=== PATIENT | female | born 1945 | race Caucasian/White ===

== ENCOUNTER → 2017-08-09 08:25 | Outpatient (CLI) | payer MEDICARE, OTHER, SELFPAY ==
[2017-08-09 12:01] LABS: Absolute Lymphocyte Count 1.85 X10^3/ul (0.83-4.51); Absolute Neutrophil Count 2.6 X10^3/uL (2.0-7.7); Basophil# 0.02 X10^3/uL; Basophil% 0.4 % (0-1); Hematocrit 39.3 % (37-47); Lymphocyte # 1.85 X10^3/ul (4.0); Lymphocyte % 36.6 % (19-41); Mean Corp Hgb Conc 33.1 g/gl (32-36); Mean Corpuscular Hgb 30.9 pg (27.0-32.0); Mean Corpuscular Volume 93.3 fL (81-99); Mean Platelet Vol. 11.3 fl (6.2-12.0); Monocyte# 0.47 X10^3/uL; Monocyte% 9.3 % (0-10); Neutrophil % 51.5 % (47-70); Platelet Count 210 K/mm3 (150-450); RBC Distribution Width CV 12.6 % (11.6-14.6); RBC Distribution Width SD 42.2 fl (35.1-43.9); Red Blood Count 4.21 M/mm3 (4.2-5.4); White Blood Count 5.1 K/mm3 (4.4-11.0)
[2017-08-09 12:03] LABS: POSITIVE COUNT NO; POSITIVE DIFFERENTIAL NO; POSITIVE MORPHOLOGY NO
[2017-08-09 12:25] LABS: AST(SGOT) 25 U/L (15-37); Alanine Aminotransfer ALT/SGPT 32 U/L (13-56); Albumin, Serum 3.9 g/dL (3.2-5.0); Alkaline Phosphatase 70 U/L (45-117); Anion Gap 7 (5-15); BUN 21 mg/dL (7-18); BUN/Creat Ratio 31.4 RATIO (10-20); Chloride 101 mmol/L (98-107); Cholesterol 178 mg/dL (200); Creatinine, Serum 0.67 mg/dL (0.55-1.02); EST Glomerular Filtration Rate 93 mL/min (>60); Est Glom Filt Rate - Afr Amer 112 mL/min (>60); Globulin 3.8 g/dL (2.2-4.2); Glucose 88 mg/dL (74-106); High Density Lipoprotein 55 mg/dL; Magnesium 2.2 mg/dL (1.6-2.6); Potassium 4.5 mmol/L (3.5-5.1); Protein, Total 7.7 g/dL (6.4-8.2); Sodium Level 138 mmol/L (136-145); Thyroid Stim Hormone (TSH) 1.37 uIU/mL (0.358-3.74); Triglycerides 140 mg/dL; Very Low Density Lipoprotein 28 mg/dL (5-40)
== END ==
LOC: LAB.FUTURE 02-10 00:38 → BFHLAB 12-10 10:17
PROVIDERS: Family Provider Family Medicine; PCP Family Medicine; Visit Provider Family Medicine
DX: I10 Essential (primary) hypertension (principal); I49.9 Cardiac arrhythmia, unspecified; E78.5 Hyperlipidemia, unspecified; G47.00 Insomnia, unspecified
CPT/HCPCS: 36415; 80053; 80061; 83735; 84443; 85025

== ENCOUNTER → 2018-09-03 10:58 | Outpatient (CLI) | payer MEDICARE, SELFPAY ==
[2018-09-03 12:33] LABS: Absolute Lymphocyte Count 1.74 X10^3/ul (0.83-4.51); Absolute Neutrophil Count 3.3 X10^3/uL (2.0-7.7); Basophil# 0.01 X10^3/uL; Basophil% 0.2 % (0-1); Eosinophil# 0.05 X10^3/uL; Eosinophils% 0.9 % (0-5); Hematocrit 41.1 % (37-47); Hemoglobin 13.5 g/dl (12.0-15.0); Lymphocyte # 1.74 X10^3/ul (4.0); Lymphocyte % 31.8 % (19-41); Mean Corp Hgb Conc 32.8 g/gl (32-36); Mean Corpuscular Hgb 30.4 pg (27.0-32.0); Mean Corpuscular Volume 92.6 fL (81-99); Mean Platelet Vol. 10.4 fl (6.2-12.0); Monocyte# 0.41 X10^3/uL; Monocyte% 7.5 % (0-10); Neutrophil # 3.27 X10^3/uL (2.7-7.7); Neutrophil % 59.6 % (47-70); Platelet Count 240 K/mm3 (150-450); RBC Distribution Width CV 12.9 % (11.6-14.6); RBC Distribution Width SD 43.5 fl (35.1-43.9); Red Blood Count 4.44 M/mm3 (4.2-5.4); White Blood Count 5.5 K/mm3 (4.4-11.0)
[2018-09-03 12:38] LABS: POSITIVE COUNT NO; POSITIVE DIFFERENTIAL NO; POSITIVE MORPHOLOGY NO
[2018-09-03 13:37] LABS: ALB/GLOB Ratio 1.1 RATIO (0.9-2.4); AST(SGOT) 27 U/L (15-37); Alanine Aminotransfer ALT/SGPT 32 U/L (13-56); Albumin, Serum 4.1 g/dL (3.2-5.0); Alkaline Phosphatase 76 U/L (45-117); Anion Gap 10 (5-15); BUN 18 mg/dL (7-18); BUN/Creat Ratio 24.2 RATIO (10-20); Calcium,Total 9.1 mg/dL (8.5-10.1); Chloride 103 mmol/L (98-107); Creatinine, Serum 0.74 mg/dL (0.55-1.02); EST Glomerular Filtration Rate 81 mL/min (>60); Est Glom Filt Rate - Afr Amer 98 mL/min (>60); Globulin 3.6 g/dL (2.2-4.2); Glucose 89 mg/dL (74-106); Potassium 4.2 mmol/L (3.5-5.1); Protein, Total 7.7 g/dL (6.4-8.2); Sodium Level 139 mmol/L (136-145); Thyroid Stim Hormone (TSH) 0.93 uIU/mL (0.358-3.74)
== END ==
PROVIDERS: Family Provider Family Medicine; PCP Family Medicine; Visit Provider Family Medicine
DX: I10 Essential (primary) hypertension (principal)
CPT/HCPCS: 36415; 80053; 84443; 85025

== ENCOUNTER → 2018-09-26 07:08 | Outpatient (CLI) | payer MEDICARE, SELFPAY ==
--- NOTE | 2018-09-26 07:14 | BI_ITS ---
MAMMOGRAPHY - BILATERAL SCREENING REASON FOR EXAM: Female, 73 years old. Routine annual screening examination. PERTINENT HISTORY: Non-contributory. TECHNIQUE: Digital bilateral breast kamini (3D mammographic acquisition) in the CC and MLO projections. 2-D mediolateral oblique (MLO) and craniocaudad (CC) views of both breasts were obtained. CAD: Full Field Digital Mammography with Computer Added Detection was performed. COMPARISON: Comparison is made with prior study dated February 12, 2017 and January 12, 2016. FINDINGS: Breast Composition: The breasts are heterogeneously dense, which may obscure small masses. There are no dominant masses or suspicious calcifications. No other significant abnormalities are identified. There has been no significant change since the prior study. BI/SCREENING MAMM (CAD), BILAT IMPRESSION: Stable bilateral screening mammogram. Yearly follow-up mammogram recommended. (A) ASSESSMENT CATEGORY: BIRADS Category 1: Negative. A letter regarding these results will be sent to the patient by the facility within 30 days. Approximately 10% of breast cancers are not detected by mammography. A normal mammogram should not delay biopsy of a clinically suspicious abnormality. [id number] Electronically Signed: Houston Carey, at 10:59 EDT , Service support ,
== END ==
PROVIDERS: Family Provider Family Medicine; PCP Family Medicine; Referring Provider Family Medicine; Visit Provider Family Medicine
DX: Z12.31 Encounter for screening mammogram for malignant neoplasm of breast (principal)
CPT/HCPCS: 77063; 77067

== ENCOUNTER → 2020-01-02 08:09 | Outpatient (CLI) | payer MEDICARE, SELFPAY ==
--- NOTE | 2020-01-02 08:11 | BI_ITS ---
MAMMOGRAPHY - BILATERAL SCREENING REASON FOR EXAM: Female, 74 years old. Routine annual screening examination. PERTINENT HISTORY: Non-contributory. TECHNIQUE: Digital bilateral breast nan (3D mammographic acquisition) in the CC and MLO projections. 2-D mediolateral oblique (MLO) and craniocaudad (CC) views of both breasts were obtained. CAD: Full Field Digital Mammography with Computer Added Detection was performed. COMPARISON: Comparison is made with prior study dated September 26, 2018 and February 12, 2017. FINDINGS: Breast Composition: There are scattered areas of fibroglandular density. There are no dominant masses or suspicious calcifications. Stable bilateral secretory calcifications. No other significant abnormalities are identified. There has been no significant change since the prior study. BI/SCREEN MAMM (CAD) W/NAN BILAT IMPRESSION: Stable bilateral screening mammogram. Yearly follow-up mammogram recommended. (A) ASSESSMENT CATEGORY: BIRADS Category 2: Benign. A letter regarding these results will be sent to the patient by the facility within 30 days. Approximately 10% of breast cancers are not detected by mammography. A normal mammogram should not delay biopsy of a clinically suspicious abnormality. [id number] Electronically Signed: Houston Carey, at 9:26 EDT , Service support ,
== END ==
PROVIDERS: PCP Family Medicine; Referring Provider Family Medicine; Visit Provider Family Medicine
DX: Z12.31 Encounter for screening mammogram for malignant neoplasm of breast (principal)
CPT/HCPCS: 77063; 77067

== ENCOUNTER 2020-06-01 05:28 | Day surgery (SDC) | payer MEDICARE, SELFPAY ==
--- NOTE | 2020-06-01 05:53 | PCM.HP.STD ---
Problem List (1) Guaiac positive stools Status: Acute History of Present Illness Date of Admission: 06/01/20 The patient is a 74 year old F who presents for esophagogastroduodenoscopy and colonoscopy and evaluation of Hemoccult positive stool. 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 Is patient in pain?: No Allergies No Known Allergies Allergy (Verified 05/11/20 13:44) Medications Calcium 600 mg PO BID 03/13/14 [History Confirmed 05/11/20] Cholecalciferol (Vitamin D3) [Vitamin D3] 2,000 unit PO DAILY 03/13/14 [History Confirmed 05/11/20] Citalopram Hydrobromide [Celexa] 10 mg PO DAILY 03/13/14 [History Confirmed 05/11/20] Lovastatin [Mevacor] 20 mg PO QHS 03/13/14 [History Confirmed 05/11/20] Metoprolol(XL)Succ [Toprol Xl (Beta Shelly)] 25 mg PO QHS 03/13/14 [History Confirmed 05/11/20] Omeprazole [Prilosec] 40 mg PO DAILY 03/13/14 [History Confirmed 05/11/20] Ubidecarenone [Coq10] 200 mg PO QHS 03/13/14 [History Confirmed 05/11/20] gabapentin 300 mg capsule 300 mg PO DAILY 05/11/20 [History Confirmed 05/11/20] meloxicam 7.5 mg tablet 7.5 mg PO BID tab 05/11/20 [History Confirmed 05/11/20] Is last menstrual period known: No Post menopausal: Yes Patient : No PFSH Medical History (Updated 05/11/20 @ 14:[address] Quinton Kuhn MD) Guaiac positive stools (Acute) Arthropathy of left shoulder (Acute) CTS (carpal tunnel syndrome) (Acute) Cardiac arrhythmia (Acute) GERD (gastroesophageal reflux disease) (Acute) Hemorrhoids (Acute) Hyperlipidemia (Acute) Lumbar discogenic pain syndrome (Acute) Osteoarthritis (Acute) HTN (hypertension) (Chronic) Surgical History (Updated 05/11/20 @ 13:50 by Kaci Little) History of appendectomy (Acute) History of arthroscopy of left knee (Acute) History of bilateral carpal tunnel release (Acute) History of bilateral hip arthroplasty (Acute) History of bunionectomy (Acute) History of cholecystectomy (Acute) History of colonoscopy (Acute ~2004) Family History (Updated 05/11/20 @ 13:50 by Kaci Little) Father No problems noted. Social History (Updated 05/11/20 @ 14:[address] Quinton Kuhn MD) Smoking Status: Never smoker HPI HPI Chief Complaint: positive fecal testing Details: Patient was informed that this visit will be billed to patient. This visit was conducted during COV- pandemic. The patient is referred by her primary care physician Dr. Jasson Mancuso for surgical evaluation regarding fit test positive stool. A written copy my surgical consult recommendations will return to him KOJO TAVERAS, is a 74 F who was contacted by telephone today to undergo preoperative evaluation because of Hemoccult positive stool. I was in my office place in the phone call to the patient. 74-year-old female. She had a stool test that was positive for blood. Her most recent colonoscopy was May 08, 2005 which was not remarkable. She has no personal or family history of colon cancer. She will eat breakfast and then have some abdominal cramps. Reasonably mild. That is been ongoing for over a year. No bright red blood per rectum or melena. No diarrhea no unexpected weight loss. She has had a personal history of peptic ulcer disease but that was 20 years ago. She is maintained however on omeprazole 40 mg daily. 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 Her medication list previously had her listed on an anticoagulant but she is not currently taking that. She has seen Dr. Ernesto Canela in the past. She is able to climb a flight of stairs. There is no problem with fever or chills cough shortness of breath or dyspnea on exertion. She has had no history of DVT. ROS Const Constitutional: No anorexia, body ache, chills, excessive sweating, fatigue, fever(s), frequent falls, headache(s), decreased energy, malaise, night sweats, snoring, weakness, weight change, sleep problems, abnormal sleep pattern, change in appetite or other ENT ENT: No abnormal hearing, ear pain, ear discharge, ear pressure, hearing loss, tinnitus, dizziness/vertigo, balance problems, nosebleed/epistaxis, nasal congestion, nasal obstruction, nose pain, sinus pressure, sinus pain, nasal discharge, post nasal drip, headache(s), facial pain, dental pain, dry mouth, difficulty swallowing, bad breath, hoarseness, lip swelling, mouth lesions, mouth pain, neck pain, sore throat, tongue swelling, throat swelling or other Resp Respiratory: No cough or snoring Cardio Cardiology: No chest pain at rest, chest pain with exertion, leg pain with exertion, excessive sweating, shortness of breath, dyspnea on exertion, generalized swelling, irregular heart rhythm, lightheadedness, orthopnea, radiating jaw, neck or arm pain, fast heart rate, slow heart rate, palpitations or other Gastro GI: Positive for heartburn; no abdominal pain, belching, bloating, change in bowel habits, change in stool character, coffee ground emesis, constipation, cramping, diarrhea, difficulty swallowing, feeling full early, excessive flatus, incontinent of stools, Vomiting blood/hematemesis, blood in stool, loose stools, Black,tarry stools, nausea/dyspepsia, pain with swallowing, vomiting or other Musc Musculoskeletal: No abnormal walking, joint pain, back pain, deformity, joint swelling, limited range of motion, loss of height, muscle cramps, muscle weakness, decreased muscle mass, body aches, neck pain, numbness, radiating pain into limb, stiffness, tingling or other Neuro Neurology: No abnormal walking, abnormal hearing, behavioral changes, confusion, weakness, frequent falls, headache(s), memory loss, numbness or tingling Psych Psychiatric: No abnormal sleep pattern, No lack of enjoyment, No anxiety, No behavioral changes, No change in appetite, No confusion, No depression, No difficulty concentrating, No hopelessness, No irritability, No memory loss, No mood swings, No panic attacks, No paranoia, No Thoughts of harming yourself/Others, No hallucinations, No other Endo Endocrine: No change in body appearance, cold intolerance, excessive sweating, fatigue, flushing, heat intolerance, increased thirst/drinking, increased hunger, increased urination or other Aller/Imm Allergy/Immunologic: No lip swelling, throat swelling or tongue swelling Exam Const General: cooperative, comfortable [facility] Musculoskeletal: No muscle weakness Details: Details:: Exam was limited due to phone visit with no video. Quality Reporting Tobacco Screening ([facility] 138) Smoking Status: Never smoker Assessment & Plan Problems 1. Guaiac positive stools R19.5 Plan 74-year-old female with Hemoccult positive stool. She is got a previous history of peptic ulcer disease and she is maintained on omeprazole therapy. She does have some postprandial nondescript upper abdominal pain and cramps. She has not noticed any bright red blood per rectum or melena. I recommend that we obtain a CBC to assure no anemia. I propose for her a esophagogastroduodenoscopy with possible biopsy and colonoscopy with possible biopsy or polypectomy as indicated. She is aware of the technique, benefit, risk and alternatives. She states that her had the 6 same procedure done just 3 weeks prior. Because of her previous history of postprocedural arrhythmia I will recommend monitored anesthesia care. We discussed the presence of COVID-19. The [facility] still reporting a manageable degree. She has had an opportunity to ask have questions answered and she would like to proceed. Copy: Dr. Jasson Kuhn M.D., F.A.C.S. Past Medical History Medical History: Medical History (Last Updated 05/11/20 @ 13:50 by Kaci Little) Guaiac positive stools (Acute) R19.5 Arthropathy of left shoulder M19.012 CTS (carpal tunnel syndrome) G56.00 Cardiac arrhythmia I49.9 GERD (gastroesophageal reflux disease) K21.9 Hemorrhoids K64.9 Hyperlipidemia E78.5 Lumbar discogenic pain syndrome M51.26 Osteoarthritis M19.90 HTN (hypertension) I10 Allergies No Known Allergies Allergy (Verified 05/27/20 13:17) Home Medications: Ambulatory Orders Medication Instructions Recorded Calcium 600 mg PO BID 03/13/14 Cholecalciferol (Vitamin D3) 2,000 unit PO DAILY 03/13/14 [Vitamin D3] Citalopram Hydrobromide [Celexa] 10 mg PO DAILY 03/13/14 Lovastatin [Mevacor] 20 mg PO QHS 03/13/14 Metoprolol(XL)Succ [Toprol Xl 25 mg PO QHS 03/13/14 (Beta Shelly)] Omeprazole [Prilosec] 40 mg PO DAILY 03/13/14 gabapentin 300 mg capsule 300 mg PO DAILY 05/11/20 meloxicam 7.5 mg tablet 7.5 mg PO BID tab 05/11/20 Temazepam 30 mg PO QHS 05/27/20 Surgical History: Surgical History (Last Updated 05/11/20 @ 13:50 by Kaci Little) History of appendectomy Z90.49 History of arthroscopy of left knee Z98.890 History of bilateral carpal tunnel release Z98.890 History of bilateral hip arthroplasty Z96.643 History of bunionectomy Z98.890 History of cholecystectomy Z90.49 History of colonoscopy Onset Date: ~2004 Z98.890 Smoking Status: Never smoker Review of Systems Constitutional: Denies: Fever, Night Sweats Cardiovascular: Denies: Chest Pain Respiratory: Denies: Cough, Shortness of Breath Gastrointestinal: Denies: Abdominal Pain, Nausea, Melena VTE Information - Inpt Only VTE Present on Admission: No Patient Problems: Active and Suspected Problems (Last Updated 05/11/20 @ 13:50 by Kaci Little) Guaiac positive stools (Acute) - Physical Exam General: Alert, Oriented x3, Cooperative, No apparent distress Lungs: Clear to auscultation, Normal air movement Cardiovascular: Regular rate, Regular Rhythm Abdomen: Bowel Sounds Present, Soft, Non Tender Extremities: No Calf Tenderness Neurological: - - Normal cognition Psych/Mental Status: Normal Affect Assessment/Plan All Active Problems (Last Updated 05/11/20 @ 13:50 by Kaci Little) Guaiac positive stools (Acute) I plan to proceed with a esophagogastroduodenoscopy with possible biopsy and colonoscopy with possible biopsy or polypectomy is indicated. She is aware of the technique, benefit, risk, alternatives. She has had an opportunity to ask and have questions answered. We will proceed as noted. Quinton Kuhn M.D., F.A.C.S. Procedure Criteria Procedure Type: Elective COVID Risk Discussion: The surgeon/proceduralist and patient have discussed in detail the risk of exposure to and/or potential harm posed by the COVID-19 virus with having a surgery/procedure at this time versus the risk of delaying the surgery/procedure. It is not possible to know either the risk of delaying the surgery or procedure or chance of getting an infection with perfect accuracy, but a joint decision was made between the patient and the surgeon/proceduralist to proceed at this time with the scheduled surgery/procedure as indicated on the consent form.
[2020-06-01 05:56] VITALS: BP 153/86; PULSE 63; RESP 16; TEMP 36.4; O2SAT 100; BMI 24.5
[2020-06-01] MEDS: Lactated Ringers 1,000 ML 75 ML IV (06:17)
--- NOTE | 2020-06-01 06:30 | IMM_PTH ---
PATIENT: KOJO TAVERAS LOC: EN U#:[id number] AGE/SX: 74/F ROOM: RE06/01/[address]: Dr. Quinton Kuhn MD : 1945 BED: DIS: 06/01/2020 SPEC #: [id number] RECD: 06/01/20 11:38 STATUS: TATI REQ #: [id number] ROSSI: 06/01/20 06:[address]: Quinton Kuhn DEPT: IMMUNOHISTOCHEMISTRY RECD BY: Breanne Marina ENTERED: 06/01/20 11:39 SP TYPE: IMMUNO OTHR DR: Dr. Jasson Mancuso MD Tissues: B - Stomach, NOS Procedures: H Pylori (initial) PHYSICIAN & INSTITUTION [place] [id number] SPECIMEN INFORMATION: Tissue Source: B - Antrum biopsy Clinical Info: Guaiac positive stools Specimen Number: [id number] CPT code: 27126 METHODOLOGY: Deparaffinized sections of prefer/formalin-fixed tissue or PAP/DQ stained slides are incubated with monoclonal/polyclonal antibodies/oligonucleotide probes. Localization is made via biotin free immunoperoxidase method. Appropriate controls are performed and reacted as expected. Results on target cell population are indicated in the following table: RESULTS: ANTIBODY / CLONE RESULT Block B H Pylori (polyclonal) negative These tests were developed and their performance characteristics determined by [facility]. They may not have been cleared or approved by the U.S. Food and Drug Administration. The FDA has determined that such clearance or approval is not necessary. INTERPRETATION: B. Antrum, biopsy: Negative for Helicobacter pylori organisms. AM:bianca 06/02/20
--- NOTE | 2020-06-01 06:30 | EGD_PTH ---
PATIENT: KOJO TAVERAS LOC: EN U#:[id number] AGE/SX: 74/F ROOM: RE06/01/[address]: Dr. Quinton Kuhn MD : 1945 BED: DIS: 06/01/2020 SPEC #: [id number] RECD: 06/01/20 08:49 STATUS: TATI VALENTIN #: [id number] ROSSI: 06/01/20 06:[address]: Quinton Kuhn DEPT: SURGICAL PATHOLOGY RECD BY: Rajwinder Lu ENTERED: 06/01/20 10:39 SP TYPE: EGD [facility] DR: Dr. Jasson Mancuso MD Tissues: A - Duodenum, NOS B - Gastric mucous membrane C - Gastric mucous membrane D - Esophagus, NOS Procedures: Surgery Specimen Level IV HEADER OPERATION: [place] PRE[place]OP DIAGNOSIS: Guaiac positive stools TISSUE SUBMITTED: A - Duodenum biopsy, B - Antrum biopsy for histo and H. pylori, C - Gastric polyp biopsy, D - Distal esophagus biopsy MICROSCOPIC DIAGNOSIS A. Duodenum, biopsy: No pathologic change. B. Gastric antrum, biopsy: Minimal chronic inflammation. See comment. C. Gastric polyp, biopsy: Fundic gland polyp. D. Distal esophagus, biopsy: Fragment of benign squamous mucosa. No evidence of inflammation. AM:bianca 06/02/20 COMMENT B. The results of immunohistochemistry for Helicobacter pylori will be reported separately ([id number]). MICROSCOPIC DESCRIPTION Slides are reviewed. GROSS DESCRIPTION A - Received in fixative is one container labeled with the patient's name and designated duodenum biopsy. The specimen consists of one irregular fragment of light orr soft tissue that measures 0.2 x 0.2 x 0.1 cm. The specimen is totally submitted in one cassette. B - Received in fixative is one container labeled with the patient's name and designated antrum biopsy. The specimen consists of one irregular fragment of light orr soft tissue that measures 0.3 x 0.3 x 0.1 cm. The specimen is totally submitted in one cassette. C - Received in fixative is one container labeled with the patient's name and designated gastric polyp biopsy. The specimen consists of one irregular fragment of light orr soft tissue that measures 0.4 x 0.3 x 0.1 cm. The specimen is totally submitted in one cassette. D - Received in fixative is one container labeled with the patient's name and designated distal esophagus biopsy. The specimen consists of one irregular fragment of light orr soft tissue that measures 0.3 x 0.3 x 0.1 cm. The specimen is totally submitted in one cassette. / SJ:rg 06/01/20 TC:3 CPT: 13941 x4
--- NOTE | 2020-06-01 06:58 | OP.CCLET_ITS ---
06/01/2020 Jasson Mancuso Re : Upper GI endoscopy procedure for Wendy Patton Dear Jamee This procedure was performed on Monday, June 01, 2020. My impressions and recommendations are as follows: Impressions : - Medium-sized hiatal hernia. - Z-line variable, 38 cm from the incisors. Biopsied. - Erythematous mucosa in the antrum. Biopsied. - Normal examined duodenum. Biopsied. Recommendations : - Discharge patient to home. - Resume previous diet. - Continue present medications. - Await pathology results. - Telephone my office for pathology results in 1 week. No active bleeding, possible mild gastritis and esophagitis. Likely not source of hemocult positive stool My findings are described in the full procedure note, which is enclosed. If I can be of further assistance, please feel free to contact me at Doctor phone number(s): Work: . Sincerely, Quinton Kuhn MD 06/01/2020 6:57:36 AM This report has been signed electronically.
--- NOTE | 2020-06-01 06:58 | OP.EGD_ITS ---
Patient Name: Wendy Patton Procedure Date: 06/01/2020 6:03 AM Date of : 1945 Age: 74 Procedure: Upper GI endoscopy Indications: Hemocult positive stool Providers: Quinton Kuhn MD Referring MD: Jasson Mancuso Medicines: See the Anesthesia note for documentation of the administered medications Complications: No immediate complications. Procedure: Pre-Anesthesia Assessment: - Prior to the procedure, a History and Physical was performed, and patient medications and allergies were reviewed. The patient's tolerance of previous anesthesia was also reviewed. The risks and benefits of the procedure and the sedation options and risks were discussed with the patient. All questions were answered, and informed consent was obtained. Prior Anticoagulants: The patient has taken no previous anticoagulant or antiplatelet agents. ASA Grade Assessment: II - A patient with mild systemic disease. After reviewing the risks and benefits, the patient was deemed in satisfactory condition to undergo the procedure. After obtaining informed consent, the endoscope was passed under direct vision. Throughout the procedure, the patient's blood pressure, pulse, and oxygen saturations were monitored continuously. The gastroscope was introduced through the mouth, and advanced to the second part of duodenum. The upper GI endoscopy was accomplished without difficulty. The patient tolerated the procedure well. Scope In: 6:32:52 AM Scope Out: 6:37:38 AM Total Procedure Duration Time 0 hours 4 minutes 46 seconds Findings: A medium-sized hiatal hernia was present. The Z-line was variable and was found 38 cm from the incisors. Biopsies were taken with a cold forceps for histology. Localized mildly erythematous mucosa without bleeding was found in the gastric antrum. Biopsies were taken with a cold forceps for histology. The examined duodenum was normal. Biopsies were taken with a cold forceps for histology. Multiple sessile polyps with no bleeding and no stigmata of recent bleeding were found on the greater curvature of the stomach. The polyp was removed with a cold biopsy forceps. Resection and retrieval were complete. Impression: - Medium-sized hiatal hernia. - Z-line variable, 38 cm from the incisors. Biopsied. - Erythematous mucosa in the antrum. Biopsied. - Normal examined duodenum. Biopsied. Recommendation: - Discharge patient to home. - Resume previous diet. - Continue present medications. - Await pathology results. - Telephone my office for pathology results in 1 week. No active bleeding, possible mild gastritis and esophagitis. Likely not source of hemocult positive stool Procedure Code(s): --- Professional --- 72389, Esophagogastroduodenoscopy, flexible, transoral; with biopsy, single or multiple Diagnosis Code(s): --- Professional --- K44.9, Diaphragmatic hernia without obstruction or gangrene K22.8, Other specified diseases of esophagus K31.89, Other diseases of stomach and duodenum CPT copyright 2017 [employer]. All rights reserved. The codes documented in this report are preliminary and upon bread panner review may be revised to meet current compliance requirements. Quinton Kuhn MD 06/01/2020 6:57:36 AM This report has been signed electronically. Number of Addenda: 0 Note Initiated On: 06/01/2020 6:03 AM
[2020-06-01 07:00] VITALS: BP 153/86; BP 94/56; PULSE 58; RESP 14; TEMP 35.8; O2SAT 97
--- NOTE | 2020-06-01 07:01 | OP.CCLET_ITS ---
06/01/2020 Jasson Mancuso Re : Colonoscopy procedure for Wendy Patton Dear Jamee This procedure was performed on Monday, June 01, 2020. My impressions and recommendations are as follows: Impressions : - Non-thrombosed external hemorrhoids, non-thrombosed internal hemorrhoids and internal hemorrhoids that prolapse with straining, but spontaneously regress to the resting position (Grade II) found on digital rectal exam. - The entire examined colon is normal. - No specimens collected. Recommendations : - Discharge patient to home. - Resume previous diet. - Continue present medications. - Repeat colonoscopy is not recommended due to current age (66 years or older) for screening purposes. Internal hemorrhoids likely possibility for hemocult positive stool. CBC pending My findings are described in the full procedure note, which is enclosed. If I can be of further assistance, please feel free to contact me at Doctor phone number(s): Work: . Sincerely, Quinton Kuhn MD 06/01/2020 7:00:41 AM This report has been signed electronically.
--- NOTE | 2020-06-01 07:01 | OP.COLON_ITS ---
Patient Name: Wendy Patton Procedure Date: 06/01/2020 6:38 AM Date of : 1945 Age: 74 Procedure: Colonoscopy Indications: Hemocult positive stool Providers: Quinton Kuhn MD Referring MD: Jasson Mancuso Medicines: See the Anesthesia note for documentation of the administered medications Patient Profile: Last Colonoscopy: 2004. Complications: No immediate complications. Procedure: Pre-Anesthesia Assessment: - Prior to the procedure, a History and Physical was performed, and patient medications and allergies were reviewed. The patient's tolerance of previous anesthesia was also reviewed. The risks and benefits of the procedure and the sedation options and risks were discussed with the patient. All questions were answered, and informed consent was obtained. Prior Anticoagulants: The patient has taken no previous anticoagulant or antiplatelet agents. ASA Grade Assessment: II - A patient with mild systemic disease. After reviewing the risks and benefits, the patient was deemed in satisfactory condition to undergo the procedure. After I obtained informed consent, the scope was passed under direct vision. Throughout the procedure, the patient's blood pressure, pulse, and oxygen saturations were monitored continuously. The Colonoscope was introduced through the anus and advanced to the cecum, identified by appendiceal orifice and ileocecal valve. The colonoscopy was performed without difficulty. The patient tolerated the procedure well. The quality of the bowel preparation was good. The ileocecal valve and the appendiceal orifice were photographed. Scope In: 6:39:44 AM Scope Withdrawal Time 0 hours 6 minutes 27 seconds Scope Out: 6:51:35 AM Total Procedure Duration Time 0 hours 11 minutes 51 seconds Findings: The digital rectal exam findings include non-thrombosed external hemorrhoids, non-thrombosed internal hemorrhoids and internal hemorrhoids that prolapse with straining, but spontaneously regress to the resting position (Grade II). The colon (entire examined portion) appeared normal. Impression: - Non-thrombosed external hemorrhoids, non-thrombosed internal hemorrhoids and internal hemorrhoids that prolapse with straining, but spontaneously regress to the resting position (Grade II) found on digital rectal exam. - The entire examined colon is normal. - No specimens collected. Recommendation: - Discharge patient to home. - Resume previous diet. - Continue present medications. - Repeat colonoscopy is not recommended due to current age (66 years or older) for screening purposes. Internal hemorrhoids likely possibility for hemocult positive stool. CBC pending Procedure Code(s): --- Professional --- 74708, Colonoscopy, flexible; diagnostic, including collection of specimen(s) by brushing or washing, when performed (separate procedure) Diagnosis Code(s): --- Professional --- K64.1, Second degree hemorrhoids K64.4, Residual hemorrhoidal skin tags CPT copyright 2017 [employer]. All rights reserved. The codes documented in this report are preliminary and upon professional fee coder review may be revised to meet current compliance requirements. Quinton Kuhn MD 06/01/2020 7:00:41 AM This report has been signed electronically. Number of Addenda: 0 Note Initiated On: 06/01/2020 6:38 AM
[2020-06-01 07:05] VITALS: BP 103/48; BP 153/86; PULSE 66; RESP 16; O2SAT 100
[2020-06-01 07:10] VITALS: BP 100/63; BP 153/86; PULSE 60; RESP 16; O2SAT 97
[2020-06-01 07:15] VITALS: BP 108/65; BP 153/86; PULSE 60; RESP 16; TEMP 35.8; O2SAT 100
[2020-06-01 07:19] VITALS: BP 153/86
== END 2020-06-01 07:50 | disposition home or self-care (01) ==
LOC: EN 05:28 → AC 05:29
PROVIDERS: PCP Family Medicine; Referring Provider Family Medicine; Visit Provider Surgery
PROC: 0DJD8ZZ Inspection of Lower Intestinal Tract, Via Natural or Artificial Opening Endoscopic (ICD-10-PCS; CPT 45378; principal; 2020-06-01 06:25)
DX: R19.5 Other fecal abnormalities (principal); E78.5 Hyperlipidemia, unspecified; K44.9 Diaphragmatic hernia without obstruction or gangrene; K31.89 Other diseases of stomach and duodenum; K22.8 Other specified diseases of esophagus; K64.4 Residual hemorrhoidal skin tags; K64.1 Second degree hemorrhoids; M19.90 Unspecified osteoarthritis, unspecified site; I10 Essential (primary) hypertension; K21.9 Gastro-esophageal reflux disease without esophagitis; Z79.899 Other long term (current) drug therapy; Z87.11 Personal history of peptic ulcer disease; Z20.828 Contact with and (suspected) exposure to other viral communicable diseases
CPT/HCPCS: 43239; 45378; 87426; 88305; 88342; C9803; J7120; J2405

== ENCOUNTER → 2020-07-01 10:06 | Outpatient (CLI) | payer MEDICARE, SELFPAY ==
[2020-06-01 05:56] VITALS: BMI 24.5
[2020-07-01 12:18] LABS: Absolute Neutrophil Count 3.3 X10^3/uL (2.0-7.7); Basophil# 0.03 X10^3/uL; Basophil% 0.4 % (0-1); Eosinophils% 1.5 % (0-5); Hematocrit 41.1 % (37-47); Hemoglobin 13.4 g/dL (12.0-15.0); Lymphocyte % 38.9 % (19-41); Mean Corp Hgb Conc 32.6 g/dL (32-36); Mean Corpuscular Hgb 30.4 pg (27.0-32.0); Mean Corpuscular Volume 93.2 fL (81-99); Mean Platelet Vol. 11.3 fl (6.2-12.0); Monocyte# 0.61 X10^3/uL; Monocyte% 9.1 % (0-10); NRBC Flagged by Analyzer 0 % (0-5); Neutrophil # 3.34 X10^3/uL (2.7-7.7); Platelet Count 231 K/mm3 (150-450); RBC Distribution Width CV 12.5 % (11.6-14.6); RBC Distribution Width SD 43.3 fl (35.1-43.9); Red Blood Count 4.41 M/mm3 (4.2-5.4); White Blood Count 6.7 K/mm3 (4.4-11.0)
[2020-07-01 12:46] LABS: Hemoglobin A1c 5.4 % (3.8-5.6)
[2020-07-01 13:05] LABS: ALB/GLOB Ratio 1.1 RATIO (0.9-2.4); AST(SGOT) 24 U/L (15-37); Alanine Aminotransfer ALT/SGPT 31 U/L (13-56); Albumin, Serum 4.1 g/dL (3.2-5.0); Alkaline Phosphatase 70 U/L (45-117); Anion Gap 6 (5-15); BUN 20 mg/dL (7-18); BUN/Creat Ratio 22.8 RATIO (10-20); Calcium,Total 9.3 mg/dL (8.5-10.1); Chloride 103 mmol/L (98-107); Cholesterol 207 mg/dL (200); Creatinine, Serum 0.88 mg/dL (0.55-1.02); EST Glomerular Filtration Rate 67 mL/min (>60); Est Glom Filt Rate - Afr Amer 81 mL/min (>60); Globulin 3.6 g/dL (2.2-4.2); Glucose 75 mg/dL (74-106); High Density Lipoprotein 68 mg/dL; Potassium 4.3 mmol/L (3.5-5.1); Protein, Total 7.7 g/dL (6.4-8.2); Sodium Level 137 mmol/L (136-145); Thyroid Stim Hormone (TSH) 1.52 uIU/mL (0.358-3.74); Triglycerides 99 mg/dL; Very Low Density Lipoprotein 20 mg/dL (5-40)
== END ==
PROVIDERS: PCP Family Medicine; Visit Provider Family Medicine
DX: E78.5 Hyperlipidemia, unspecified (principal); I10 Essential (primary) hypertension; R73.01 Impaired fasting glucose
CPT/HCPCS: 36415; 80053; 80061; 83036; 84443; 85025

== ENCOUNTER → 2021-01-13 08:10 | Outpatient (CLI) | payer MEDICARE, SELFPAY ==
--- NOTE | 2021-01-13 08:14 | BI_ITS ---
MAMMOGRAPHY - BILATERAL SCREENING REASON FOR EXAM: Female, 75 years old. Routine annual screening examination. PERTINENT HISTORY: Non-contributory. TECHNIQUE: Digital bilateral breast nan (3D mammographic acquisition) in the CC and MLO projections. 2-D mediolateral oblique (MLO) and craniocaudad (CC) views of both breasts were obtained. CAD: Full Field Digital Mammography with Computer Added Detection was performed. COMPARISON: Comparison is made with prior study dated 01/02/2020 and 09/26/2018. FINDINGS: Breast Composition: There are scattered areas of fibroglandular density. There are no dominant masses or suspicious calcifications. Stable calcified nodules seen in both breasts No other significant abnormalities are identified. There has been no significant change since the prior study. BI/SCRN MAMM (CAD)W/NAN BILAT IMPRESSION: Stable bilateral screening mammogram. Yearly follow-up mammogram recommended. (A) ASSESSMENT CATEGORY: BIRADS Category 2: Benign. A letter regarding these results will be sent to the patient by the facility within 30 days. Approximately 10% of breast cancers are not detected by mammography. A normal mammogram should not delay biopsy of a clinically suspicious abnormality. [id number] Electronically Signed: Houston Carey MD at 9:06 EDT , Service support ,
== END ==
PROVIDERS: PCP Family Medicine; Referring Provider Family Medicine; Visit Provider Family Medicine
DX: Z12.31 Encounter for screening mammogram for malignant neoplasm of breast (principal)
CPT/HCPCS: 77063; 77067

== ENCOUNTER 2021-09-01 08:24 | Outpatient (CLI) | payer MEDICARE, SELFPAY ==
--- NOTE | 2021-09-01 08:27 | BD_ITS ---
STUDY: DUAL ENERGY X-RAY ABSORPTIOMETRY / DXA REASON FOR EXAM: Female, 76 years old. [id number] TECHNIQUE: Bone Mineral Density (BMD) measurements of lumbar spine and left wrist were obtained. COMPARISON: Comparison is made with prior study dated 06/05/2013. FINDINGS: Lumbar Spine (L1-L4): g/cm2 (1.087) / T-score (0.4) / Z-score (2.8) Findings are suggestive of normal bone density with a low fracture risk. Left Forearm: g/cm2 (0.610) / T-score (0.6) / Z-score (3.0) The T-Scores on the most recent prior examination were: Lumbar Spine (L1-L4): There has been improvement of bone density since the previous examination. BD/Dexa Bone Density Study IMPRESSION: The patient is considered normal as outlined below according to World [employer] (WHO) criteria with a low fracture risk. Reference Information: The T-score is the number of standard deviations above or below the standard which is normal for young adults at their peak bone mineral density. The World Health Organization (WHO) interprets the T-scores as follows: Above -1 Normal bone density Between -1 and -2.5 Osteopenia Equal to / or below -2.5 Osteoporosis As a practical clinical guideline, osteopenia may be graded as follows: Mild -1 through -1.5 Moderate -1.6 through -2.0 Severe -2.1 through -2.4 The Z-score is the number of standard deviations above or below age-matched controls. A Z-score of less than -1.5 would be considered abnormal. References: 1. NIH Osteoporosis and Related Bone Diseases www osteo.org 2. International Society for Clinical Densitometry www iscd.org 3. National Osteoporosis Foundation www nof.org Electronically Signed: Houston Carey MD at 15:48 EDT ,
== END 2021-09-01 23:59 | disposition home or self-care (01) ==
LOC: OPBD 08:24
PROVIDERS: PCP Family Medicine; Visit Provider Family Medicine
DX: Z78.0 Asymptomatic menopausal state (principal)
CPT/HCPCS: 77080

== ENCOUNTER → 2021-12-26 | Outpatient (CLI) | payer MEDICARE, SELFPAY ==
[2021-12-26 09:49] LABS: Absolute Neutrophil Count 3.2 X10^3/uL (2.0-7.7); Basophil# 0.03 X10^3/uL; Basophil% 0.5 % (0-1); Eosinophil# 0.09 X10^3/uL; Eosinophils% 1.6 % (0-5); Hematocrit 40.8 % (37-47); Hemoglobin 13.5 g/dL (12.0-15.0); Lymphocyte % 32.3 % (19-41); Mean Corp Hgb Conc 33.1 g/dL (32-36); Mean Corpuscular Hgb 30.3 pg (27.0-32.0); Mean Corpuscular Volume 91.5 fL (81-99); Mean Platelet Vol. 10.7 fl (6.2-12.0); Monocyte# 0.45 X10^3/uL; Monocyte% 8.1 % (0-10); NRBC Flagged by Analyzer 0 % (0-5); Neutrophil # 3.19 X10^3/uL (2.7-7.7); Neutrophil % 57.3 % (47-70); Platelet Count 250 K/mm3 (150-450); RBC Distribution Width CV 12.3 % (11.6-14.6); RBC Distribution Width SD 41.3 fl (35.1-43.9); Red Blood Count 4.46 M/mm3 (4.2-5.4); White Blood Count 5.6 K/mm3 (4.4-11.0)
[2021-12-26 10:30] LABS: ALB/GLOB Ratio 1.2 RATIO (0.9-2.4); AST(SGOT) 26 U/L (15-37); Alanine Aminotransfer ALT/SGPT 29 U/L (13-56); Alkaline Phosphatase 70 U/L (45-117); Anion Gap 6 (5-15); BUN 12 mg/dL (7-18); BUN/Creat Ratio 16.2 RATIO (10-20); Calcium,Total 9.3 mg/dL (8.5-10.1); Chloride 101 mmol/L (98-107); Creatinine, Serum 0.74 mg/dL (0.55-1.02); EST Glomerular Filtration Rate 81 mL/min (>60); Est Glom Filt Rate - Afr Amer 98 mL/min (>60); Globulin 3.4 g/dL (2.2-4.2); Glucose 96 mg/dL (74-106); Potassium 4.3 mmol/L (3.5-5.1); Protein, Total 7.4 g/dL (6.4-8.2); Sodium Level 136 mmol/L (136-145); Thyroid Stim Hormone (TSH) 1.14 uIU/mL (0.358-3.74)
== END | disposition home or self-care (01) ==
PROVIDERS: PCP Family Medicine; Visit Provider Family Medicine
DX: I10 Essential (primary) hypertension (principal); E78.5 Hyperlipidemia, unspecified
CPT/HCPCS: 36415; 80053; 84443; 85025

== ENCOUNTER → 2022-03-14 | Outpatient (CLI) | payer MEDICARE, SELFPAY ==
--- NOTE | 2022-03-14 08:33 | BI_ITS ---
MAMMOGRAPHY - BILATERAL SCREENING REASON FOR EXAM: Female, 76 years old. Routine annual screening examination. PERTINENT HISTORY: Non-contributory. TECHNIQUE: Digital bilateral breast nan (3D mammographic acquisition) in the CC and MLO projections. 2-D mediolateral oblique (MLO) and craniocaudad (CC) views of both breasts were obtained. CAD: Full Field Digital Mammography with Computer Added Detection was performed. COMPARISON: Comparison is made with prior study dated 01/13/2021 and 01/02/2020. FINDINGS: Breast Composition: There are scattered areas of fibroglandular density. There are no dominant masses or suspicious calcifications. Stable small calcified nodules bilaterally as well as secretory calcifications. No other significant abnormalities are identified. There has been no significant change since the prior study. BI/SCRN MAMM (CAD)W/NAN BILAT IMPRESSION: Stable bilateral screening mammogram. Yearly follow-up mammogram recommended. (A) ASSESSMENT CATEGORY: BIRADS Category 2: Benign. A letter regarding these results will be sent to the patient by the facility within 30 days. Approximately 10% of breast cancers are not detected by mammography. A normal mammogram should not delay biopsy of a clinically suspicious abnormality. [id number] Electronically Signed: Houston Carey MD at 9:21 EDT ,
== END | disposition home or self-care (01) ==
LOC: OPBI 08:31
PROVIDERS: PCP Family Medicine; Visit Provider Family Medicine
DX: Z12.31 Encounter for screening mammogram for malignant neoplasm of breast (principal)
CPT/HCPCS: 77063; 77067

== ENCOUNTER 2022-08-18 21:51 | Observation (INO) | payer MEDICARE, SELFPAY ==
[2022-08-18] VITALS (10 sets, daily range): BP systolic 172–197; BP diastolic 74–107; PULSE 57–66; RESP 11–20; TEMP 35.8; O2SAT 94–100; BMI 25.2
--- NOTE | 2022-08-18 22:08 | EKG12_ITS ---
Test Reason : DYSRHYTHMIA Blood Pressure : / mmHG Vent. Rate : 060 BPM Atrial Rate : 060 BPM P-R Int : 154 ms QRS Dur : 086 ms QT Int : 412 ms P-R-T Axes : 053 034 021 degrees QTc Int : 412 ms Normal sinus rhythm Normal ECG Confirmed by CONCHIS LYONS, DERREK ([id number]), film editor supervisor KWAME QUESADA ([id number]) on 08/21/2022 1:53:11 PM Referred By: JUSTO Confirmed By:DERREK BALDERRAMA MD
--- NOTE | 2022-08-18 22:08 | CT_ITS ---
We are attempting to reach an attending provider to discuss findings. An addendum with communication details will be sent when the communication is complete. INDICATION: Neuro deficit, acute, stroke suspected EXAMINATION: CT BRAIN WITH CONTRAST TECHNIQUE: Routine carotid CT angiogram protocol was performed without and with IV contrast. In addition, images were obtained of the [place] of [place]. NASCET criteria using the distal ICAs for comparison were used for evaluation of stenoses. 3D reconstructions were reviewed. A radiation dose optimization technique was used for this scan. IV Contrast dosage and agent: 100 mL [id number] COMPARISON: None. FINDINGS: NECK: AORTIC ARCH AND BRANCHES: Normal anatomy, patent. RIGHT CCA: No occlusion, significant stenosis or dissection. RIGHT ICA: No occlusion, significant stenosis or dissection. LEFT CCA: No occlusion, significant stenosis or dissection. LEFT ICA: No occlusion, significant stenosis or dissection. RIGHT VERTEBRAL ARTERY: No occlusion, significant stenosis or dissection. LEFT VERTEBRAL ARTERY: No occlusion, significant stenosis or dissection. NECK SOFT TISSUES: Unremarkable. HEAD: --Anterior circulation: ICAs: No significant stenosis at the intracranial/visualized segments. ACAs: No significant stenosis at the visualized segments. ACOM: Present. MCAs: No significant stenosis at the visualized segments. --Posterior circulation: PCOMs: Present. towboat captain: No significant stenosis at the visualized segments. BASILAR ARTERY: No significant stenosis. VERTEBRAL ARTERIES: No significant stenosis at the intradural/visualized segments. No evidence of intracranial aneurysm or vascular malformation. CT/STROKE CTA Head AND Neck W/Con IMPRESSION: Negative CTA Carotid and Brain. Electronically Signed: Valdo Soto MD at 22:44 EST ,
--- NOTE | 2022-08-18 22:08 | CT_ITS ---
We are attempting to reach an attending provider to discuss findings. An addendum with communication details will be sent when the communication is complete. INDICATION: Neuro deficit, acute, stroke suspected EXAMINATION: CT BRAIN - CT Head Stroke Protocol W/O Contrast Injection TECHNIQUE: Multiple axial images were obtained of the head without intravenous contrast. A radiation dose optimization technique was used for this scan. IV Contrast dosage and agent: None. COMPARISON: None FINDINGS: BRAIN PARENCHYMA: No intra- or extra-axial hemorrhage. No evidence of acute infarct. No intracranial mass or mass effect. There is preservation of the shanks/white matter interface. Posterior fossa structures are unremarkable. CSF SPACES: Appropriate for age. No hydrocephalus. Basal cisterns are patent. CALVARIUM, SKULL BASE, PARANASAL SINUSES AND MASTOID AIR CELLS: Clear. No discrete lytic or blastic abnormalities. ORBITS: Bilateral ocular lens replacements. ASPECTS Score for Acute Strokes: 10 CT/STROKE Brain/Head without Cont IMPRESSION: Negative Brain CT without contrast. Electronically Signed: Valdo Soto MD at 22:25 EST ,
[2022-08-18 22:16] LABS: Absolute Lymphocyte Count 2.91 X10^3/uL (0.83-4.51); Absolute Neutrophil Count 2.8 X10^3/uL (2.0-7.7); Basophil# 0.03 X10^3/uL; Basophil% 0.5 % (0-1); Eosinophil# 0.09 X10^3/uL; Eosinophils% 1.4 % (0-5); Hematocrit 37.6 % (37-47); Hemoglobin 12.7 g/dL (12.0-15.0); Lymphocyte # 2.91 X10^3/ul (0.83-4.51); Lymphocyte % 45.4 % (19-41); Mean Corp Hgb Conc 33.8 g/dL (32-36); Mean Corpuscular Hgb 30.9 pg (27.0-32.0); Mean Corpuscular Volume 91.5 fL (81-99); Mean Platelet Vol. 10.8 fl (6.2-12.0); Monocyte# 0.57 X10^3/uL; Monocyte% 8.9 % (0-10); NRBC Flagged by Analyzer 0 % (0-5); Neutrophil % 43.6 % (47-70); Platelet Count 209 K/mm3 (150-450); RBC Distribution Width CV 12.6 % (11.6-14.6); RBC Distribution Width SD 41.6 fl (35.1-43.9); Red Blood Count 4.11 M/mm3 (4.2-5.4); White Blood Count 6.4 K/mm3 (4.4-11.0)
[2022-08-18 22:20] LABS: Bedside Glucose 102 mg/dL (74-106)
--- NOTE | 2022-08-18 22:24 | ED.RN ---
THIS RN CALLED [facility] AT [phone].
--- NOTE | 2022-08-18 22:25 | ED.VIS.STROK ---
HPI History of Present Illness Chief Complaint: Neuro S/Sx Narrative Narrative: 77-year-old female past medical history of hypertension, her dose of metoprolol was lowered because she was having orthostatic hypotension years ago, presents with confusion and global amnesia. It was reported that she went out for a bath at around [id number]. She came down and had her glasses in her hand and cat food. The last thing she remembers is being in the living room but she does not recall going up and taking a bath, or why she brought those items downstairs. On the way to the hospital, she was prompted about what she did earlier today, even going to a restaurant for breakfast, she had to be prompted but now she recalls that that is what she did. She denies any headache, no paresthesias, no other symptoms. Stroke team was called in triage because of her global amnesia. She does state that her mother used to have TIAs later on in life. [facility] Medical History Arthropathy of left shoulder Cardiac arrhythmia CTS (carpal tunnel syndrome) GERD (gastroesophageal reflux disease) Guaiac positive stools Hemorrhoids HTN (hypertension) Hyperlipidemia Lumbar discogenic pain syndrome Osteoarthritis Home Medications Calcium 600 mg PO BID 03/13/14 [History Last Taken Unknown] cholecalciferol (vitamin D3) 50 mcg (2,000 unit) tablet 2,000 unit PO DAILY 03/13/14 [History Last Taken Unknown] lovastatin 20 mg tablet 40 mg PO QHS 03/13/14 [History Last Taken Unknown] metoprolol succinate 25 mg tablet,extended release 24 hr 12.5 mg PO QHS 03/13/14 [History Last Taken 06/01/20 04:00] omeprazole 40 mg capsule,delayed release 20 mg PO DAILY 03/13/14 [History Last Taken 03/24/14 09:00 40] gabapentin 300 mg capsule 300 mg PO DAILY 05/11/20 [History Last Taken Unknown] meloxicam 7.5 mg tablet 7.5 mg PO BID 05/11/20 [History Last Taken Unknown] temazepam 30 mg capsule 15 mg PO QHS 05/27/20 [History Last Taken Unknown] escitalopram oxalate 10 mg tablet 5 mg PO DAILY 01/15/21 [History Last Taken Unknown] Allergy/AdvReac Type Severity Reaction Status Date / Time No Known Allergies Allergy Verified 08/18/22 22:28 Family History Father No problems noted. Surgical History History of appendectomy History of arthroscopy of left knee History of bilateral carpal tunnel release History of bilateral hip arthroplasty History of bunionectomy History of cholecystectomy History of colonoscopy (~2004) Social History Smoking Status: Never smoker ROS ROS ED ROS Narrative Constitutional: No fever, no chills. HEENT: No sore throat. No neck pain. No loss of vision. No rhinorrhea. Cardiovascular: No chest pain. No palpitations. No pedal edema. Respiratory: No cough, no shortness of breath. Abdominal: No abdominal pain. No nausea. No vomiting. Genitourinary: No dysuria. No hematuria. Musculoskeletal: No myalgias. No arthralgias. Neurologic: No headaches. No dizziness. No lightheadedness. Global amnesia, did not remember events of the day. Skin: No rash. No change in color. Psychiatric: No depression. No anxiety. EXAM Physical Exam Narrative Exam Narrative: Afebrile. Vital signs noted. HEENT: Normocephalic. Atraumatic. PERRL, EOMI. Neck soft and supple. No point tenderness or step off. Cardiovascular: Regular rate and rhythm. No murmurs, rubs, or gallops appreciated. Respiratory: No tachypnea. Lungs clear to auscultation bilaterally. Gastrointestinal: Abdomen soft, nontender, with normoactive bowel sounds. No rebound or guarding. Neurological: Awake. Alert. Nonfocal, nonlateralizing. NIH stroke scale is 0. Skin: No rash. Normal color. No pallor. Musculoskeletal: No pedal edema. Full range of motion extremities. Const Vital Signs: 08/18/22 21:53 08/18/22 21:59 08/18/22 22:15 Temperature 96.5 F L 96.5 F L Temperature Source Temporal Temporal Pulse Rate 63 63 Respiratory Rate 16 16 Blood Pressure 197/85 H 197/85 H Blood Pressure Mean 122 122 Pulse Ox 100 100 100 Oxygen Delivery Method Room Air Room Air Room Air 08/18/22 22:26 08/18/22 22:46 08/18/22 22:55 Temperature Temperature Source Pulse Rate 63 66 63 Respiratory Rate 17 20 H 19 H Blood Pressure 172/77 H 182/76 H 181/74 H Blood Pressure Mean 108 111 109 Pulse Ox 94 96 97 Oxygen Delivery Method Room Air Room Air Room Air 08/18/22 22:59 08/18/22 23:07 08/18/22 23:24 Temperature 96.5 F L Temperature Source Temporal Pulse Rate 63 62 60 Respiratory Rate 16 18 12 Blood Pressure 197/85 H 185/82 H 181/85 H Blood Pressure Mean 122 116 117 Pulse Ox 100 96 97 Oxygen Delivery Method Room Air Room Air Room Air 08/18/22 23:42 08/19/22 00:01 08/19/22 00:01 Temperature Temperature Source Pulse Rate 57 L 57 L 59 L Respiratory Rate 11 L 12 14 Blood Pressure 173/107 H 180/83 H 180/83 H Blood Pressure Mean 129 115 115 Pulse Ox 97 93 97 Oxygen Delivery Method Room Air Room Air Room Air NIHSS NIHSS 0: 1a Level of Consciousness: 0 1b LOC Questions (Score 2 if aphasic/stupor): 0 1c LOC Commands (Only score 1st attempt): 0 2 Best Gaze (If aphasic, use reflexive mvmts.): 0 3 Visual: 0 4 Facial Palsy: 0 5 Motor Arm Right (UN = amputation/fusion): 0 5 Motor Arm Left: 0 6 Motor Leg Right: 0 6 Motor Leg Left: 0 7 Limb ataxia (Only + if out of proportion): 0 8 Sensory (Aphasia/stupor=0 or 1, coma=2): 0 9 Best Language: 0 10 Dysarthria (mute, coma=2, intubated=UN): 0 11 Extinction and Inattention (only scored if +): 0 Total Score: 0 MDM MDM MDM Narrative Medical decision making narrative: Patient is noted to have elevated blood pressure 197/85, then 222 systolic, currently 172/77. She states she has been having problems controlling her blood pressure recently. Stroke work-up was instituted. I received a call from the radiologist that the CT of the brain is negative, and CT a shows no large vessel occlusion. I received a phone call from the radiologist and discussed the radiology readings with him directly. CT of the brain noncontrast shows no evidence of an acute hemorrhage or mass. CTA shows no large vessel occlusion. I reviewed her laboratory work, she has a normal white count of 6.4, hemoglobin normal at 12.7, platelet count 209. BMP shows glucose 116 with a normal anion gap of 5. BUN slightly elevated at 26 with a normal creatinine of 0.7. Xssgn-vu-[id number] glucose is 102. I do not feel that tPA is indicated because her symptoms have completely resolved. Additionally, she was evaluated by the telestroke neurologist who does not recommend tPA, and it was thought that this was transient global amnesia/TIA. EKG was obtained and interpreted by myself which demonstrates normal sinus rhythm at 60 bpm without ectopy or acute ST changes. No STEMI. In review of her high-sensitivity troponin is 4. Chest x-ray was obtained and interpreted by myself which shows no acute cardiopulmonary process, no pneumothorax, no pneumonia. I reviewed the radiology report which confirms my independent interpretation. While her blood pressure remains elevated in the 180s, she is asymptomatic. I do feel that this is more of a permissible hypertension given her TIA. Labetalol has been ordered per protocol. At this point in time, I will discuss patient with the hospitalist, Dr. Roman, for observation in the PCU. Review of her urinalysis dipstick is negative for infection. Patient is in stable condition. History & Record Review Discussion w/independent historian: Other (Daughter) Lab Data Attestation: I reviewed the patient's lab results. Labs: Laboratory Results - last 24 hr 08/18/22 08/18/22 08/18/22 21:59 22:04 22:04 WBC 6.4 RBC 4.11 L Hgb 12.7 Hct 37.6 MCV 91.5 MCH 30.9 MCHC 33.8 RDW Std Deviation 41.6 RDW Coeff of Lyn 12.6 Plt Count 209 MPV 10.8 Immature Gran % (Auto) 0.200 Neut % (Auto) 43.6 L Lymph % (Auto) 45.4 H [place] % (Auto) 8.9 Eos % (Auto) 1.4 Baso % (Auto) 0.5 Absolute Neuts (auto) 2.8 Absolute Lymphs (auto) 2.91 Nucleated RBC % 0 PT 13.0 INR 1.0 APTT 29.3 Sodium Potassium Chloride Carbon Dioxide Anion Gap BUN Creatinine Estim Creat Clear Calc Est GFR (MDRD) Af Amer Est GFR (MDRD) Non-Af BUN/Creatinine Ratio Glucose Calcium Troponin I High Sens Urine Color Urine Clarity Urine pH Ur Specific [place] Urine Protein Urine Glucose (UA) Urine Ketones Urine Occult Blood Urine Nitrite Urine Bilirubin Urine Urobilinogen Ur Leukocyte Esterase POC Glucose 102 08/18/22 08/18/22 22:04 23:19 WBC RBC Hgb Hct MCV MCH MCHC RDW Std Deviation RDW Coeff of Lyn Plt Count MPV Immature Gran % (Auto) Neut % (Auto) Lymph % (Auto) [place] % (Auto) Eos % (Auto) Baso % (Auto) Absolute Neuts (auto) Absolute Lymphs (auto) Nucleated RBC % PT INR APTT Sodium 139 Potassium 4.4 Chloride 103 Carbon Dioxide 31.0 Anion Gap 5 BUN 26 H Creatinine 0.74 Estim Creat Clear Calc 36.12 Est GFR (MDRD) Af Amer 98 Est GFR (MDRD) Non-Af 81 BUN/Creatinine Ratio 35.1 H Glucose 116 H Calcium 9.0 Troponin I High Sens 4 Urine Color Yellow Urine Clarity Clear Urine pH 7.0 Ur Specific [place] 1.005 Urine Protein Negative Urine Glucose (UA) Normal Urine Ketones Negative Urine Occult Blood Negative Urine Nitrite Negative Urine Bilirubin Negative Urine Urobilinogen Normal Ur Leukocyte Esterase 25 H POC Glucose Radiography Diagnostic Testing: Clinical Impression(s) from Imaging Studies Brain CT 08/18/22 22:08 IMPRESSION: Negative Brain CT without contrast. Electronically Signed: Valdo Soto MD at 22:25 EST Reading Location ID and State: [facility] / [place] Tel , Service support , ADDENDUM: 08/18/222235 IMPRESSION: Negative Brain CT without contrast. N.B. : The above Results were Read Back by Valdo Soto MD to Sid Gray MD, and understanding confirmed on 08/18/2022 22:29:49 (ET). Electronically Signed: Valdo Soto MD at 22:25 EST , Head/Neck CTA 08/18/22 22:08 IMPRESSION: Negative CTA Carotid and Brain. Electronically Signed: Valdo Soto MD at 22:44 EST , ADDENDUM: 08/18/22 3799 IMPRESSION: Negative CTA Carotid and Brain. N.B. : The above Results were Read Back by Valdo Soto MD to Sid Gray MD, and understanding confirmed on 08/18/2022 22:48:34 (ET). Electronically Signed: Valdo Soto MD at 22:44 EST , Chest X-Ray 08/18/22 22:52 IMPRESSION: No radiographic evidence of acute cardiopulmonary disease. Electronically Signed: Valdo Soto MD at 23:07 EST , Discharge Plan Dx/Rx/DC Orders Clinical Impression: Transient global amnesia, Transient ischemic attack (TIA), Hypertensive emergency Disposition Disposition: Acute Care [facility]
--- NOTE | 2022-08-18 22:32 | ED.RN ---
2231 [facility] NEUROLOGIST ON TELESTROKE.
--- NOTE | 2022-08-18 22:41 | ED.RN ---
PER DR. HUYNH VERBAL ORDER TENECTEPLASE NOT NEEDED.
[2022-08-18 22:43] LABS: Anion Gap 5 (5-15); BUN 26 mg/dL (7-18); BUN/Creat Ratio 35.1 RATIO (10-20); Chloride 103 mmol/L (98-107); Creatinine, Serum 0.74 mg/dL (0.55-1.02); EST Glomerular Filtration Rate 81 mL/min (>60); Est Glom Filt Rate - Afr Amer 98 mL/min (>60); Estimated Creatinine Clearance 36.12 ml/min; Glucose 116 mg/dL (74-106); Potassium 4.4 mmol/L (3.5-5.1); Sodium Level 139 mmol/L (136-145); Troponin-I HS 4 pg/mL (3.0-54.0)
--- NOTE | 2022-08-18 22:43 | ED.RN ---
THIS RN CALLED PHARMACY AND TALKED TO ISAMAR AT [phone]. THIS RN LET HIM KNOW PER DR. HUYNH NO TENECTEPLASE NEEDED.
[2022-08-18 22:49] LABS: Partial Thromboplast Time 29.3 Seconds (24.1-36.2)
--- NOTE | 2022-08-18 22:52 | RAD_ITS ---
INDICATION: Neuro deficit, acute, stroke suspected EXAMINATION/TECHNIQUE: X-RAY - XR Chest 1 View COMPARISON: None. FINDINGS: LUNGS: No consolidation, edema or effusion. No pneumothorax. MEDIASTINUM AND CARDIOVASCULAR STRUCTURES: Cardiac silhouette not enlarged. Central airways and mediastinal contour are unremarkable. RAD/Chest 1 View IMPRESSION: No radiographic evidence of acute cardiopulmonary disease. Electronically Signed: Valdo Soto MD at 23:07 EST ,
[2022-08-18 23:25] LABS: Bacteria 0 SEEN /hpf (None Seen); Mucous, Urine 0 SEEN /hpf (<or=2+); Red Blood Cells-Urine 0 SEEN /hpf (0-5); Squamous Epithelial Cells - UA 0 SEEN /hpf (5-10)
--- NOTE | 2022-08-18 23:26 | ED.RN ---
THIS RN GAVE NURSE REPORT TO Milton HEATH RN AT [phone].
[2022-08-19] VITALS (13 sets, daily range): BP systolic 158–180; BP diastolic 57–108; PULSE 57–72; RESP 12–21; TEMP 36.2–37.1; O2SAT 93–100; BMI 24.4
--- NOTE | 2022-08-19 00:09 | ED.RN ---
nurse called into room due to patient having issues with eye site. per patient when she closes her eyes she sees crystals out of her left eye. patient said lasted only a couple minutes. repeat neuro exam repeated unremarkable.
[2022-08-19 00:15] LABS: Color, Urine Yellow (Yellow); Glucose, Dipstick Normal (Normal); Ketone-Dipstick Negative (Negative); Leukocyte Esterase-Dipstick 25 /ul (Negative); Nitrite-Dipstick Negative (Negative); Occult Blood-Urine Negative /ul (Negative); Protein-Dipstick Negative (Negative); Specific Gravity, Urine 1.005 (1.002-1.030); Urine Bilirubin Dipstick Negative (Negative); Urine Clarity Clear (Clear); Urine Urobilinogen Normal (Normal)
--- NOTE | 2022-08-19 00:32 | HP.PCM.HOS_ITS ---
HPI - General General Date of Admission: 08/19/22 Date of Service: 08/19/22 Chief Complaint: Amnesia HPI Narrative KOJO TAVERAS, is a 77 F with a significant history of hypertension and hyperlipidemia who presents to the emergency department with amnesia that started 3 hours before presentation. Reportedly after dinner patient took a shower. Then she was seen holding cat food; the glasses that she wears and another pair of glasses. She was confused. Her confusion eventually resolved. Patient was found to have extremely elevated blood pressure on presentation. Reportedly systolic blood pressure was 220 on presentation to the emergency department. Emergency department doctor discussed the case with telemetry neurologist who recommended that patient be admitted to the hospital for a TIA work-up. [facility] Medical History Arthropathy of left shoulder Cardiac arrhythmia CTS (carpal tunnel syndrome) GERD (gastroesophageal reflux disease) Guaiac positive stools Hemorrhoids HTN (hypertension) Hyperlipidemia Lumbar discogenic pain syndrome Osteoarthritis Home Medications Calcium 600 mg PO BID 03/13/14 [History Last Taken Unknown] cholecalciferol (vitamin D3) 50 mcg (2,000 unit) tablet 2,000 unit PO DAILY 03/13/14 [History Last Taken Unknown] lovastatin 20 mg tablet 40 mg PO QHS 03/13/14 [History Last Taken Unknown] metoprolol succinate 25 mg tablet,extended release 24 hr 12.5 mg PO QHS 03/13/14 [History Last Taken 06/01/20 04:00] omeprazole 40 mg capsule,delayed release 20 mg PO DAILY 03/13/14 [History Last Taken 03/24/14 09:00 40] gabapentin 300 mg capsule 300 mg PO DAILY 05/11/20 [History Last Taken Unknown] meloxicam 7.5 mg tablet 7.5 mg PO BID 05/11/20 [History Last Taken Unknown] temazepam 30 mg capsule 15 mg PO QHS 05/27/20 [History Last Taken Unknown] escitalopram oxalate 10 mg tablet 5 mg PO DAILY 01/15/21 [History Last Taken Unknown] Allergy/AdvReac Type Severity Reaction Status Date / Time No Known Allergies Allergy Verified 08/18/22 22:28 Family History (Updated 08/19/22 @ 01:[address] Brad Roman MD) Other Abdominal aneurysm Surgical History History of appendectomy History of arthroscopy of left knee History of bilateral carpal tunnel release History of bilateral hip arthroplasty History of bunionectomy History of cholecystectomy History of colonoscopy (~2004) Social History Smoking Status: Never smoker ROS ROS Narrative Pertinent positives and pertinent negatives as noted in HPI. All other systems were reviewed and are negative Vital Signs Vital Signs Vital Signs: 08/18/22 21:53 08/18/22 21:59 08/18/22 22:15 Temperature 96.5 F L 96.5 F L Temperature Source Temporal Temporal Pulse Rate 63 63 Respiratory Rate 16 16 Blood Pressure 197/85 H 197/85 H Blood Pressure Mean 122 122 Pulse Ox 100 100 100 Oxygen Delivery Method Room Air Room Air Room Air 08/18/22 22:26 08/18/22 22:46 08/18/22 22:55 Temperature Temperature Source Pulse Rate 63 66 63 Respiratory Rate 17 20 H 19 H Blood Pressure 172/77 H 182/76 H 181/74 H Blood Pressure Mean 108 111 109 Pulse Ox 94 96 97 Oxygen Delivery Method Room Air Room Air Room Air 08/18/22 22:59 08/18/22 23:07 08/18/22 23:24 Temperature 96.5 F L Temperature Source Temporal Pulse Rate 63 62 60 Respiratory Rate 16 18 12 Blood Pressure 197/85 H 185/82 H 181/85 H Blood Pressure Mean 122 116 117 Pulse Ox 100 96 97 Oxygen Delivery Method Room Air Room Air Room Air 08/18/22 23:42 08/19/22 00:01 08/19/22 00:01 Temperature Temperature Source Pulse Rate 57 L 57 L 59 L Respiratory Rate 11 L 12 14 Blood Pressure 173/107 H 180/83 H 180/83 H Blood Pressure Mean 129 115 115 Pulse Ox 97 93 97 Oxygen Delivery Method Room Air Room Air Room Air Weight Weight: 60.7 kg Body Mass Index (BMI) 25.2 Physical Exam Narrative Physical exam: General: Well-nourished, well-developed. Head: Normocephalic, atraumatic, no tenderness Eyes: Vision is grossly intact. EOMI ENT, no trauma, moist mucous membranes, no rhinorrhea Neck: Nontender, No thyromegaly. CVS: Regular rate and rhythm. S1-S2 present. No murmur, gallop or rub. Respiratory : clear to auscultation bilaterally, chest wall nontender, no whee zing Abdomen: Soft, nontender, nondistended, normal bowel sounds, no masses : Deferred Back: Nontender, no CVA tenderness, no midline spinal tenderness, deformities, step-offs Extremities: Nontender full range of motion, no trauma Skin: Normal color, no trauma, abrasions Neuro: Alert, oriented, cranial nerves II through XII grossly intact. Psychiatry: Normal mood. Normal affect. Not depressed. Not anxious. Results Lab / Micro Data Result Diagrams: 08/18/22 22:04 08/18/22 22:04 Labs: Laboratory Results - last 24 hr 08/18/22 21:59: POC Glucose 102 08/18/22 22:04: WBC 6.4, RBC 4.11 L, Hgb 12.7, Hct 37.6, MCV 91.5, MCH 30.9, MCHC 33.8, RDW Std Deviation 41.6, RDW Coeff of Lyn 12.6, Plt Count 209, MPV 10.8, Immature Gran % (Auto) 0.200, Neut % (Auto) 43.6 L, Lymph % (Auto) 45.4 H, [place] % (Auto) 8.9, Eos % (Auto) 1.4, Baso % (Auto) 0.5, Absolute Neuts (auto) 2.8, Absolute Lymphs (auto) 2.91, Nucleated RBC % 0 08/18/22 22:04: PT 13.0, INR 1.0, APTT 29.3 08/18/22 22:04: Sodium 139, Potassium 4.4, Chloride 103, Carbon Dioxide 31.0, Anion Gap 5, BUN 26 H, Creatinine 0.74, Estim Creat Clear Calc 36.12, Est GFR (MDRD) Af Amer 98, Est GFR (MDRD) Non-Af 81, BUN/Creatinine Ratio 35.1 H, Glucose 116 H, Calcium 9.0, Troponin I High Sens 4 08/18/22 23:19: Urine Color Yellow, Urine Clarity Clear, Urine pH 7.0, Ur Specific [place] 1.005, Urine Protein Negative, Urine Glucose (UA) Normal, Urine Ketones Negative, Urine Occult Blood Negative, Urine Nitrite Negative, Urine Bilirubin Negative, Urine Urobilinogen Normal, Ur Leukocyte Esterase 25 H Radiology Impression Brain CT 08/18/22 22:08 IMPRESSION: Negative Brain CT without contrast. Electronically Signed: Valdo Soto MD at 22:25 EST Reading Location ID and State: [facility] / [place] Tel , Service support , ADDENDUM: 08/18/22 2236 IMPRESSION: Negative Brain CT without contrast. N.B. : The above Results were Read Back by Valdo Soto MD to Sid Gray MD, and understanding confirmed on 08/18/2022 22:29:49 (ET). Electronically Signed: Valdo Soto MD at 22:25 EST Reading Location ID and State: [facility] / [place] Tel , Service support , Head/Neck CTA 08/18/22 22:08 IMPRESSION: Negative CTA Carotid and Brain. Electronically Signed: Valdo Soto MD at 22:44 EST Reading Location ID and State: [facility] / [place] Tel , Service support , ADDENDUM: 08/18/22 2255 IMPRESSION: Negative CTA Carotid and Brain. N.B. : The above Results were Read Back by Valdo Soto MD to Sid Gray MD, and understanding confirmed on 08/18/2022 22:48:34 (ET). Electronically Signed: Valdo Soto MD at 22:44 EST , Chest X-Ray 08/18/22 22:52 IMPRESSION: No radiographic evidence of acute cardiopulmonary disease. Electronically Signed: Valdo Soto MD at 23:07 EST Reading Location ID and State: [facility] / [place] Tel , Service support , Assessment & Plan Assessment/Plan (1) Transient global amnesia: PLAN: Plan Transient global amnesia Per Telemetry neurologist recommendations will initiate TIA work-up. Of note differential diagnosis also includes hypertensive encephalopathy. Serial NINDS NIH Scale ordered Impression of head CT by radiology: Negative Brain CT without contrast. Upon my personal head CT image review: I agree with radiologist interpretation Negative CTA carotid and brain Lipid profile and A1c ordered. Physical therapy to evaluate and treat. N.p.o. until bedside swallow eval. Permissive hypertension. Control blood pressure with labetalol for systolic blood pressure of more than 220 or diastolic blood pressure of more than 120. MRI brain ordered Echocardiogram ordered. CBC and BMP is unremarkable. Trend. Hypertensive emergency Patient with systolic blood pressure more than 180 on presentation. Patient is on metoprolol 12.5 mg daily. Reportedly blood pressure medication was de- escalated in the past secondary to orthostatic hypotension. Since TIA is on the differential; patient has been kept on permissive hypertension. Hydralazine IV and labetalol IV as needed as above. DVT prophylaxis SCDs ordered Charges/Coding Visit Charges Inpatient E&M: 53475 Init Hosp L2
[2022-08-19 00:37] LABS: White Blood Cells 0-5 SEEN /hpf (0-5)
--- NOTE | 2022-08-19 01:21 | ECHOD_ITS ---
Reason For Study: TIA/CVA Procedure This was a 2D Doppler, Color Flow transthoracic echocardiogram. The exam was of adequate technical quality. Exam performed portable in patient room. Left Ventricle Normal LV size. Left ventricular systolic function is normal. The estimated ejection fraction is 55 %. Diastolic function is indeterminate. No regional wall motion abnormalities noted. Right Ventricle Normal RV size. Normal systolic function. Atria The left atrium is mildly enlarged. Normal right atrium. No doppler evidence for ASD. Bubble contrast study negative for right to left interatrial shunt. Mitral Valve There is mild mitral annular calcification. Normal mitral valve. Mild (1+) mitral valve insufficiency. Tricuspid Valve Normal tricuspid valve. Moderate (2+) eccentric tricuspid valve insufficiency. Right ventricular systolic pressure estimated to be 28 mmHg. Aortic Valve Trisinus/trileaflet aortic valve. Mild focal aortic valve calcification. Pulmonic Valve The pulmonic valve is not well visualized. Trivial pulmonic valve insufficiency. Great Vessels Normal sized aortic root. Pericardium/Pleural No pericardial effusion. Medication Performed a rapid injection of agitated mix of 9 cc saline and 1cc air to assess for atrial septal defect. MMode/2D Measurements & Calculations LVIDd: 4.4 cm IVSd: 0.77 cm Ao root diam: 2.8 cm LVIDs: 2.5 cm LVPWd: 0.83 cm RVDd: 3.5 cm FS: 42.0 % LAV(MOD-bp): 60.9 ml LA A4 area: 19.7 cm2 LA dimension(2D): 3.8 cm LAV(MOD-bp) Indexed: 38.2 ml/m2 LAV(MOD-sp2): 61.0 ml LAV(MOD-sp4): 56.8 ml RA A4 area: 19.6 cm2 Time Measurements MV dec time: 0.22 sec Doppler Measurements & Calculations MV E max luis: 78.3 cm/sec Lat Peak E' Luis: 5.9 cm/sec Med Peak E' Luis: 7.1 cm/sec MV A max luis: 85.4 cm/sec E/E' lat: 13.3 E/E' med: 11.0 MV E/A: 0.92 MV dec slope: 359.5 cm/sec2 Ao V2 max: 126.6 cm/sec LV V1 max: 80.6 cm/sec Ao max P.4 mmHg LV V1 max P.6 mmHg Ao V2 mean: 92.1 cm/sec LV V1 mean P.4 mmHg Ao mean P.8 mmHg LV V1 mean: 56.9 cm/sec Ao V2 VTI: 34.5 cm LV V1 VTI: 19.7 cm AV (velocity ratio): 0.57 PA V2 max: 74.2 cm/sec TR max luis: 250.4 cm/sec PA V2 mean: 51.6 cm/sec TR max P.1 mmHg ECHO/Echo Complete Interpretation Summary Left ventricular systolic function is normal. The estimated ejection fraction is 55 %. The left atrium is mildly enlarged. There is mild mitral annular calcification. Mild (1+) mitral valve insufficiency. Moderate (2+) eccentric tricuspid valve insufficiency. Mild focal aortic valve calcification. Trivial pulmonic valve insufficiency. Right ventricular systolic pressure estimated to be 28 mmHg. Diastolic function is indeterminate. Bubble contrast study negative for right to left interatrial shunt. Ordering Physician: Brad Roman Referring Physician: Jasson Mancuso Performed By: Akiko Rust RDCS, RVT
--- NOTE | 2022-08-19 01:21 | MRI_ITS ---
We are attempting to reach an attending provider to discuss findings. An addendum with communication details will be sent when the communication is complete. STUDY: MRI BRAIN WITHOUT CONTRAST REASON FOR EXAM: Female, 77 years old. tia TECHNIQUE: Standardized multiplanar fat and water weighted pulse sequences were obtained. COMPARISON: Head CT dated August 18, 2022 FINDINGS: There are multiple small acute infarcts scattered throughout the anterior to posterior and inferior aspect of the right occipital lobe best seen on the diffusion-weighted sequence, images 9/60 through series 4. No additional acute infarcts are present in the supratentorial regions of the brain or in the posterior fossa or brainstem. There is mild cerebral atrophy with widening of the extra-axial spaces and ventricular dilatation. There are a limited number of small white matter hyperintensities, distributed throughout the deep white matter tracts of the cerebral hemispheres, consistent with mild chronic white matter ischemic changes. Normal T2* images of the brain without demonstrated susceptibility artifact. There is no demonstrated hemosiderin stain. Normal bilateral basal ganglia. Normal thalami. There is no extra-axial fluid accumulation. Normal flow voids within the major intracranial circulation suggesting patency by spin echo criteria. Normal sella turcica, pituitary gland, infundibular stalk, optic chiasm and hypothalamus. Normal tectal plate and pineal gland. Normal midbrain, leonel and medulla. Normal cerebellum. Normal basal cisterns. Normal bilateral temporal bones. Normal bilateral internal auditory canals. No demonstrated orbital abnormality, within the constraints of a routine brain study. Normal visualized paranasal sinuses. Normal calvarium and skull base. Normal visualized soft tissue structures. Normal visualized upper cervical spine. 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 There are multiple small acute infarcts scattered throughout the anterior to posterior and inferior aspect of the right occipital lobe best seen on the diffusion-weighted sequence, images 9/60 through series 4. No additional acute infarcts are present in the supratentorial regions of the brain or in the posterior fossa or brainstem. Electronically Signed: Jose Stearns MD at 12:55 EST ,
[2022-08-19 06:39] LABS: Absolute Neutrophil Count 3.8 X10^3/uL (2.0-7.7); Basophil# 0.04 X10^3/uL; Basophil% 0.5 % (0-1); Eosinophil# 0.13 X10^3/uL; Eosinophils% 1.8 % (0-5); Hemoglobin 12.8 g/dL (12.0-15.0); Mean Corp Hgb Conc 32.8 g/dL (32-36); Mean Corpuscular Hgb 30.5 pg (27.0-32.0); Mean Corpuscular Volume 92.9 fL (81-99); Mean Platelet Vol. 11.2 fl (6.2-12.0); Monocyte# 0.65 X10^3/uL; Monocyte% 8.9 % (0-10); NRBC Flagged by Analyzer 0 % (0-5); Neutrophil # 3.76 X10^3/uL (2.7-7.7); Neutrophil % 51.7 % (47-70); Platelet Count 208 K/mm3 (150-450); RBC Distribution Width CV 12.5 % (11.6-14.6); RBC Distribution Width SD 42.5 fl (35.1-43.9); White Blood Count 7.3 K/mm3 (4.4-11.0)
[2022-08-19 07:21] LABS: Anion Gap 7 (5-15); BUN 19 mg/dL (7-18); BUN/Creat Ratio 28.7 RATIO (10-20); Calcium,Total 9.2 mg/dL (8.5-10.1); Chloride 104 mmol/L (98-107); Cholesterol 177 mg/dL (200); Creatinine, Serum 0.66 mg/dL (0.55-1.02); EST Glomerular Filtration Rate 92 mL/min (>60); Est Glom Filt Rate - Afr Amer 112 mL/min (>60); Estimated Creatinine Clearance 36.12 ml/min; Glucose 92 mg/dL (74-106); High Density Lipoprotein 56 mg/dL; Potassium 4.1 mmol/L (3.5-5.1); Sodium Level 139 mmol/L (136-145); Triglycerides 158 mg/dL; Very Low Density Lipoprotein 32 mg/dL (5-40)
[2022-08-19] MEDS: Escitalopram Oxalate 10 MG Tablet 5 MG PO (09:02)
[2022-08-19] MEDS: Calcium (Elemental) 500 MG Tablet PO ×2 (09:02→17:07)
[2022-08-19] MEDS: Pantoprazole Sodium 20 MG Tablet PO (09:02)
[2022-08-19] MEDS: Cholecalciferol (VIT D3) 25 MCG TABLET (1,000 UNITS) 50 MCG PO (09:02)
[2022-08-19] MEDS: Meloxicam 7.5 MG Tablet PO ×2 (09:02→22:04)
[2022-08-19] MEDS: Gabapentin 300 MG Capsule PO (09:06)
[2022-08-19] MEDS: Acetaminophen 325 MG Tablet 650 MG PO (09:06)
[2022-08-19 09:57] LABS: Hemoglobin A1c 5.1 % (3.8-5.6)
--- NOTE | 2022-08-19 14:19 | TELEMED_ITS ---
[facility] Telemed has confirmed receipt of a request for visit. This document confirms receipt of the order initiating the consult. To find the results of the consultation, please view the patient's reports for the scanned Telemed Consult.
--- NOTE | 2022-08-19 14:27 | PCM.PN.BLA ---
Progress Note Symptoms have completely resolved today however MRI was read as occipital strokes will consult [facility] neurology for an over read as I do not clearly see those strokes on the diffusion-weighted images, but also to get their input. We will allow for permissive hypertension.
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
--- NOTE | 2022-08-19 16:44 | CASEMGMT ---
IRMA LEWIS in to discuss BABIN form with patient. IRMA LEWIS explained BABIN form, patient voiced understanding. Pt signed form and filed in chart. Pt provided with a copy of signed BABIN form. Patient had no further questions or concerns at this time. Pt states she has a BP cuff at home and is monitoring her BP as she has a new doctor and he is requesting she do so. Pt denies need for any assistance or education with this.
[2022-08-19] MEDS: Atorvastatin Calcium 10 MG Tablet PO (22:04)
[2022-08-19] MEDS: Temazepam 15 MG Capsule PO (22:04)
[2022-08-20 02:00] VITALS: BP 130/80; PULSE 73; RESP 16; TEMP 36.8; O2SAT 98
[2022-08-20] MEDS: Aspirin 81 MG TAB.CHEW PO (02:56)
[2022-08-20 03:24] VITALS: BMI 24.4
[2022-08-20 05:58] VITALS: BP 130/80; PULSE 73; RESP 16; TEMP 36.8; O2SAT 98
[2022-08-20 07:14] VITALS: PULSE 55
[2022-08-20 08:04] VITALS: BP 133/76; PULSE 64; RESP 16; TEMP 36.7; O2SAT 98
[2022-08-20 08:10] VITALS: O2SAT 99
[2022-08-20] MEDS: Cholecalciferol (VIT D3) 25 MCG TABLET (1,000 UNITS) 50 MCG PO (08:16)
[2022-08-20] MEDS: Pantoprazole Sodium 20 MG Tablet PO (08:16)
[2022-08-20] MEDS: Gabapentin 300 MG Capsule PO (08:16)
[2022-08-20] MEDS: Meloxicam 7.5 MG Tablet PO (08:16)
[2022-08-20] MEDS: Calcium (Elemental) 500 MG Tablet PO (08:17)
[2022-08-20] MEDS: Escitalopram Oxalate 10 MG Tablet 5 MG PO (08:17)
--- NOTE | 2022-08-20 08:41 | DCINST_ITS ---
Discharge Instructions Diet Discharge Diet: Low fat / Low cholesterol Activity Discharge Activity: Return to Normal Activity Dressing / Incision Call your doctor if you observe: Fever of 101 or Higher, Shortness of breath, Dizziness, Fainting spells, Swelling in the ankles, Chest pain and Increased palpitations (irregular heartbeat) Follow Up Care Test Results: Test results from this visit will be discussed in further detail at your follow- up appointment, if applicable. Discharge Plan Admission Admit Date/Time: 08/19/22 00:15 Attending Provider: Omkar Ayala Primary Care Provider: Jasson Mancuso Consulting Providers: Brad Roman Instructions Additional Instructions / Restrictions: Follow-up as an outpatient with your PCP to obtain a referral for neurology. Discharge Orders/Prescriptions Prescriptions: New aspirin 81 mg Tablet,Chewable 81 mg PO DAILY@0800 Qty: 30 0RF atorvastatin 40 mg Tablet 40 mg PO QHS Qty: 30 0RF Continued meloxicam 7.5 mg tablet 7.5 mg PO BID gabapentin 300 mg capsule 300 mg PO DAILY escitalopram oxalate 10 mg tablet 5 mg PO DAILY omeprazole 40 MG capsule 20 mg PO DAILY Label Comments: ACID PREVENTION metoprolol succinate 25 MG tablet 12.5 mg PO QHS Label Comments: HEART/BLOOD PRESSURE cholecalciferol (vitamin D3) 2,000 UNIT tablet 2,000 unit PO DAILY Label Comments: SUPPLEMENT Calcium 600 mg PO BID Label Comments: SUPPLEMENT temazepam 30 MG capsule 15 mg PO QHS Discontinued lovastatin 20 MG tablet 40 mg PO QHS Label Comments: CHOLESTEROL Other Ambulatory Orders: Cardiac Holter Monitor, 48 Hrs (Routine) Timeframe: 1 Day Facility: [facility] - Location: Cardiovascular Services Ordered By: Dr. Omkar Ayala Referrals / Follow Up: Jasson Mancuso MD [Primary Care Provider] - Within 1 Week Disposition Disposition (needs filled in before D/C Order can be placed): Home, Self Care
--- NOTE | 2022-08-20 08:47 | DS.PCM_ITS ---
Providers Date of Admission: 08/19/22 Primary Care Physician: Dr. Jasson Mancuso MD Reason For Visit: GLOBAL TRANSIENT AMNESIA Diagnosis Discharge Diagnosis (1) Transient global amnesia: Status: Acute Code(s): G45.4 - Transient global amnesia Medications at Discharge Home Medications Calcium 600 mg PO BID 03/13/14 cholecalciferol (vitamin D3) 50 mcg (2,000 unit) tablet 2,000 unit PO DAILY 03/13/14 metoprolol succinate 25 mg tablet,extended release 24 hr 12.5 mg PO QHS 03/13/14 omeprazole 40 mg capsule,delayed release 20 mg PO DAILY 03/13/14 gabapentin 300 mg capsule 300 mg PO DAILY 05/11/20 meloxicam 7.5 mg tablet 7.5 mg PO BID 05/11/20 temazepam 30 mg capsule 15 mg PO QHS 05/27/20 escitalopram oxalate 10 mg tablet 5 mg PO DAILY 01/15/21 aspirin 81 mg chewable tablet 81 mg PO DAILY@0800 #30 tabs 08/20/22 atorvastatin 40 mg tablet 40 mg PO QHS #30 tabs 08/20/22 Hospital Course Operations None Procedures 2-D Echocardiogram Summary of Care Provided Minutes Spent on Discharge: 35 Hospital Course: Per HPI: KOJO TAVERAS, is a 77 F with a significant history of hypertension and hyperlipidemia who presents to the emergency department with amnesia that started 3 hours before presentation. Reportedly after dinner patient took a shower.? Then she was seen holding cat food; the glasses that she wears and another pair of glasses.? She was confused.? Her confusion eventually resolved. Patient was found to have extremely elevated blood pressure on presentation.? Reportedly systolic blood pressure was 220 on presentation to the emergency department.? Emergency department doctor discussed the case with telemetry neurologist who recommended that patient be admitted to the hospital for a TIA work-up. Hospital Course: 1. Right inferior occipital CVA?77-year-old female came in with what appears to be transient global amnesia that resolved she had no further signs of weakness or decrease sensation or any vision loss either. MRI was positive for what appeared to be an embolic stroke she does have a history of palpitations that have never been diagnosed as A-fib. On the monitor she did not have A-fib during her hospitalization. [facility] neurology was consulted recommended aspirin as well as Lipitor and Holter monitoring all of which was performed. I discussed with her the plan for discharge today she expressed understanding of the risk benefits going home and would like to go home today. I do recommend that she follow-up with her PCP in 3 to 5 days and obtain an outpatient neurology follow- up. 2. Hypertension, hyperlipidemia, anxiety, depression, GERD are all chronic medical conditions which complicate her care. Her home medications were continued where appropriate Physical Exam Narrative General: Alert, Oriented x3, Cooperative, No apparent distress HEENT: Atraumatic, PERRLA, EOMI, Normocephalic Oral: Moist Mucosa Neck: Supple, No JVD Lungs: Clear to auscultation, Normal air movement, No rhonchi, No wheeze, No rales Cardiovascular: Regular rate, Regular Rhythm, Normal S1, Normal S2, No murmurs Abdomen: Soft, Non Tender, Non-Distended, No Hepato-splenomegaly Extremities: No edema, Capillary Refill Less than 3 Seconds Skin: No rashes, No breakdown Musculoskeletal: No Tenderness to Palpation of Joints or Extremities Neurological: Cranial nerves II-XII grossly intact, Motor Exam 5/5 strength throughout, Sensory exam intact to light touch and pain Psych/Mental Status: Normal Affect, Appropriate Weight / BMI Weight Weight: 129 lb 3.054 oz Body Mass Index (BMI) 24.4 ABG / Lab / Microbiology Data Result Diagrams: 08/19/22 05:29 08/19/22 05:29 Laboratory: Laboratory Results - last 24 hr 08/19/22 05:29: Hemoglobin A1c 5.1 Radiography Diagnostic Testing: Radiology Impression Brain MRI 08/19/22 01:21 IMPRESSION: Multiple acute small right occipital lobe infarcts 1. There are multiple small acute infarcts scattered throughout the anterior to posterior and inferior aspect of the right occipital lobe best seen on the diffusion-weighted sequence, images through series 4. No additional acute infarcts are present in the supratentorial regions of the brain or in the posterior fossa or brainstem. Electronically Signed: Jose Stearns MD at 12:55 EST , ADDENDUM: 08/19/22 1318 IMPRESSION: Multiple acute small right occipital lobe infarcts 1. There are multiple small acute infarcts scattered throughout the anterior to posterior and inferior aspect of the right occipital lobe best seen on the diffusion-weighted sequence, images through series 4. No additional acute infarcts are present in the supratentorial regions of the brain or in the posterior fossa or brainstem. N.B. : The above Results were Read Back by Jose Stearns MD to Christina Martines RN, and understanding confirmed on 08/19/2022 13:11:26 (ET). Electronically Signed: Jose Stearns MD at 12:55 EST Reading Location ID and State: [address] [place] [address] , Service support , Echocardiogram 08/19/22 01:21 Interpretation Summary Left ventricular systolic function is normal. The estimated ejection fraction is 55 %. The left atrium is mildly enlarged. There is mild mitral annular calcification. Mild (1+) mitral valve insufficiency. Moderate (2+) eccentric tricuspid valve insufficiency. Mild focal aortic valve calcification. Trivial pulmonic valve insufficiency. Right ventricular systolic pressure estimated to be 28 mmHg. Diastolic function is indeterminate. Bubble contrast study negative for right to left interatrial shunt. Ordering Physician: Brad Roman Referring Physician: Jasson Mancuso Performed By: Akiko Rust, PBCS, RVT D/C Instructions Discharge Diet: Low fat / Low cholesterol Call your doctor if you observe: Fever of 101 or Higher, Shortness of breath, Dizziness, Fainting spells, Swelling in the ankles, Chest pain and Increased palpitations (irregular heartbeat) Meaningful Use Info Meaningful Use Diagnoses (Choose all that apply): None applicable Discharge Plan Admission Admit Date/Time: 08/19/22 00:15 Attending Provider: Omkar Ayala Primary Care Provider: Jasson Mancuso Consulting Providers: Brad Roman Instructions Additional Instructions / Restrictions: Follow-up as an outpatient with your PCP to obtain a referral for neurology. Discharge Orders/Prescriptions Prescriptions: New aspirin 81 mg Tablet,Chewable 81 mg PO DAILY@0800 Qty: 30 0RF atorvastatin 40 mg Tablet 40 mg PO QHS Qty: 30 0RF Continued meloxicam 7.5 mg tablet 7.5 mg PO BID gabapentin 300 mg capsule 300 mg PO DAILY escitalopram oxalate 10 mg tablet 5 mg PO DAILY omeprazole 40 MG capsule 20 mg PO DAILY Label Comments: ACID PREVENTION metoprolol succinate 25 MG tablet 12.5 mg PO QHS Label Comments: HEART/BLOOD PRESSURE cholecalciferol (vitamin D3) 2,000 UNIT tablet 2,000 unit PO DAILY Label Comments: SUPPLEMENT Calcium 600 mg PO BID Label Comments: SUPPLEMENT temazepam 30 MG capsule 15 mg PO QHS Discontinued lovastatin 20 MG tablet 40 mg PO QHS Label Comments: CHOLESTEROL Other Ambulatory Orders: Cardiac Holter Monitor, 48 Hrs (Routine) Timeframe: 1 Day Facility: [facility] - Location: Cardiovascular Services Ordered By: Dr. Omkar Ayala Referrals / Follow Up: Jasson Mancuso MD [Primary Care Provider] - Within 1 Week Disposition Disposition (needs filled in before D/C Order can be placed): Home, Self Care Charges/Coding Visit Charges Inpatient E&M: 46100 Disch Hosp >30min
[2022-08-20 10:30] VITALS: BMI 24.4
== END 2022-08-20 08:45 | disposition home or self-care (01) ==
LOC: ED 23:18 → PCU 08-19 00:33
PROVIDERS: Admitting Provider Hospitalist; Emergency Provider Emergency Medicine; PCP Family Medicine; Visit Provider Family Medicine
DX: I63.9 Cerebral infarction, unspecified (principal); G45.4 Transient global amnesia; I16.1 Hypertensive emergency; F41.9 Anxiety disorder, unspecified; I10 Essential (primary) hypertension; E78.5 Hyperlipidemia, unspecified; K21.9 Gastro-esophageal reflux disease without esophagitis; Z79.899 Other long term (current) drug therapy; F32.A Depression, unspecified; R29.700 NIHSS score 0
CPT/HCPCS: 36415; 70450; 70496; 70498; 70551; 71045; 80048; 80061; 81001; 82962; 83036; 84484; 85025; 85610; 85730; 93005; 93225; 93226; 93306; 94762; 99221; 99285; Q9967; A4216; G0378

== ENCOUNTER → 2022-08-20 | Outpatient (CLI) | payer MEDICARE, SELFPAY | END | disposition home or self-care (01) | LOC: PSN 08:57 | PROVIDERS: PCP Family Medicine; Visit Provider Family Medicine | DX: I63.9 Cerebral infarction, unspecified (principal) | CPT/HCPCS: 93225; 93226 ==

== ENCOUNTER 2022-09-05 08:17 | Outpatient (RCR) | payer MEDICARE, SELFPAY ==
--- NOTE | 2022-09-05 09:24 | HP.PTDCSUM ---
It has been my pleasure to treat KOJO TAVERAS referred by Dr. Gaudencio Patel MD, with the diagnosis of H/O stroke adelita for a total of 1 visit(s). Discharge Date: 09/05/22 Please see the following information for a summary of their discharge status. Plan: DC PT at this time as pt has good strength of the LE's, balance. She is driving. She is walking her dogs through the [place] twice a day. She has a little weakness lowering herself into the chair but gave her instruction on how to improve with daily sit to stand exercises at home. Discharge Comments: DC PT If there are questions or concerns regarding this patient's physical therapy, please feel free to call me at [phone]. Thank you for the referral of this patient. Sincerely, Lakeisha Mcmahon, MPT Balance/Gait/Functional tests - Balance/Special Test Scores Functional Gait Assessment Score: 27 % Disability: 10.0000
== END 2022-09-05 15:02 | disposition home or self-care (01) ==
LOC: PT 08:17
PROVIDERS: PCP Family Medicine; Referring Provider Family Medicine; Visit Provider Family Medicine
DX: R53.1 Weakness (principal)
CPT/HCPCS: 97161

== ENCOUNTER → 2022-09-13 | Outpatient (CLI) | payer MEDICARE, SELFPAY ==
[2022-09-13 09:04] LABS: Bacteria 0 SEEN /hpf (None Seen); Mucous, Urine 0 SEEN /hpf (<or=2+); Red Blood Cells-Urine 0 SEEN /hpf (0-5); Squamous Epithelial Cells - UA 0 SEEN /hpf (5-10)
[2022-09-13 10:22] LABS: Absolute Lymphocyte Count 2.32 X10^3/uL (0.83-4.51); Absolute Neutrophil Count 4.3 X10^3/uL (2.0-7.7); Basophil# 0.03 X10^3/uL; Basophil% 0.4 % (0-1); Eosinophil# 0.12 X10^3/uL; Eosinophils% 1.6 % (0-5); Hematocrit 41.3 % (37-47); Hemoglobin 13.7 g/dL (12.0-15.0); Lymphocyte # 2.32 X10^3/ul (0.83-4.51); Lymphocyte % 31.4 % (19-41); Mean Corp Hgb Conc 33.2 g/dL (32-36); Mean Corpuscular Hgb 30.4 pg (27.0-32.0); Mean Corpuscular Volume 91.6 fL (81-99); Monocyte# 0.56 X10^3/uL; Monocyte% 7.6 % (0-10); NRBC Flagged by Analyzer 0 % (0-5); Neutrophil # 4.34 X10^3/uL (2.7-7.7); Neutrophil % 58.9 % (47-70); Platelet Count 256 K/mm3 (150-450); RBC Distribution Width CV 12.3 % (11.6-14.6); RBC Distribution Width SD 41.8 fl (35.1-43.9); Red Blood Count 4.51 M/mm3 (4.2-5.4); White Blood Count 7.4 K/mm3 (4.4-11.0)
[2022-09-13 10:59] LABS: Color, Urine Yellow (Yellow); Glucose, Dipstick Normal (Normal); Ketone-Dipstick Negative (Negative); Leukocyte Esterase-Dipstick 100 /ul (Negative); Nitrite-Dipstick Negative (Negative); Occult Blood-Urine Negative /ul (Negative); Protein-Dipstick Negative (Negative); Specific Gravity, Urine 1.005 (1.002-1.030); Urine Bilirubin Dipstick Negative (Negative); Urine Clarity Clear (Clear); Urine Urobilinogen Normal (Normal)
[2022-09-13 11:07] LABS: Vitamin D,25 Hydroxy 41.3 ng/mL
[2022-09-13 11:09] LABS: ALB/GLOB Ratio 1.1 RATIO (0.9-2.4); AST(SGOT) 30 U/L (15-37); Alanine Aminotransfer ALT/SGPT 38 U/L (13-56); Albumin, Serum 4.2 g/dL (3.2-5.0); Alkaline Phosphatase 83 U/L (45-117); Anion Gap 10 (5-15); BUN 22 mg/dL (7-18); BUN/Creat Ratio 30.1 RATIO (10-20); Calcium,Total 9.5 mg/dL (8.5-10.1); Chloride 102 mmol/L (98-107); Cholesterol 183 mg/dL (200); Creatinine, Serum 0.73 mg/dL (0.55-1.02); EST Glomerular Filtration Rate 82 mL/min (>60); Est Glom Filt Rate - Afr Amer 100 mL/min (>60); Globulin 3.7 g/dL (2.2-4.2); Glucose 106 mg/dL (74-106); High Density Lipoprotein 73 mg/dL; Potassium 4.3 mmol/L (3.5-5.1); Protein, Total 7.9 g/dL (6.4-8.2); Sodium Level 139 mmol/L (136-145); Triglycerides 101 mg/dL; Very Low Density Lipoprotein 20 mg/dL (5-40)
[2022-09-13 11:21] LABS: White Blood Cells 0-5 SEEN /hpf (0-5)
[2022-09-14 13:28] LABS: Hemoglobin A1c 5.6 % (3.8-5.6)
== END | disposition home or self-care (01) ==
LOC: MFPLAB 08:59
PROVIDERS: PCP Family Medicine; Referring Provider Family Medicine; Visit Provider Family Medicine
DX: R73.09 Other abnormal glucose (principal); E55.9 Vitamin D deficiency, unspecified; I10 Essential (primary) hypertension; E78.5 Hyperlipidemia, unspecified
CPT/HCPCS: 36415; 80053; 80061; 81001; 82306; 83036; 84443; 85025

== ENCOUNTER → 2022-12-04 | Outpatient (CLI) | payer MEDICARE, SELFPAY ==
[2022-12-04 10:31] LABS: AST(SGOT) 26 U/L (15-37); Alanine Aminotransfer ALT/SGPT 32 U/L (13-56); Albumin, Serum 3.8 g/dL (3.2-5.0); Alkaline Phosphatase 105 U/L (45-117); Anion Gap 6 (5-15); BUN 20 mg/dL (7-18); BUN/Creat Ratio 25.6 RATIO (10-20); Calcium,Total 9.6 mg/dL (8.5-10.1); Chloride 106 mmol/L (98-107); Cholesterol 164 mg/dL (200); Creatinine, Serum 0.78 mg/dL (0.55-1.02); EST Glomerular Filtration Rate 76 mL/min (>60); Est Glom Filt Rate - Afr Amer 92 mL/min (>60); Glucose 86 mg/dL (74-106); High Density Lipoprotein 62 mg/dL; Protein, Total 7.8 g/dL (6.4-8.2); Sodium Level 140 mmol/L (136-145); Triglycerides 102 mg/dL; Very Low Density Lipoprotein 20 mg/dL (5-40)
[2022-12-04 10:39] LABS: Absolute Lymphocyte Count 2.13 X10^3/uL (0.83-4.51); Absolute Neutrophil Count 3.6 X10^3/uL (2.0-7.7); Basophil# 0.04 X10^3/uL; Basophil% 0.6 % (0-1); Eosinophil# 0.15 X10^3/uL; Eosinophils% 2.3 % (0-5); Hematocrit 39.6 % (37-47); Hemoglobin 12.9 g/dL (12.0-15.0); Lymphocyte # 2.13 X10^3/ul (0.83-4.51); Lymphocyte % 32.9 % (19-41); Mean Corp Hgb Conc 32.6 g/dL (32-36); Mean Corpuscular Hgb 30.8 pg (27.0-32.0); Mean Corpuscular Volume 94.5 fL (81-99); Mean Platelet Vol. 11.3 fl (6.2-12.0); Monocyte# 0.53 X10^3/uL; Monocyte% 8.2 % (0-10); NRBC Flagged by Analyzer 0 % (0-5); Neutrophil % 55.7 % (47-70); Platelet Count 259 K/mm3 (150-450); RBC Distribution Width CV 12.5 % (11.6-14.6); RBC Distribution Width SD 43.4 fl (35.1-43.9); Red Blood Count 4.19 M/mm3 (4.2-5.4); White Blood Count 6.5 K/mm3 (4.4-11.0)
[2022-12-04 11:31] LABS: Hemoglobin A1c 5.2 % (3.8-5.6)
== END | disposition home or self-care (01) ==
PROVIDERS: PCP Family Medicine; Referring Provider Internal Medicine Cardiovascular Disease; Visit Provider Internal Medicine Cardiovascular Disease
DX: E78.5 Hyperlipidemia, unspecified (principal); G45.9 Transient cerebral ischemic attack, unspecified; R73.09 Other abnormal glucose
CPT/HCPCS: 36415; 80053; 80061; 83036; 85025

== ENCOUNTER 2022-12-11 06:55 | Day surgery (SDC) | payer MEDICARE, SELFPAY ==
--- NOTE | 2022-11-26 08:41 | PCM.HP.BLA ---
History and Physical Date of Admission: 12/11/22 Pleasant 77-year-old lady with no previous cardiac history who suffered an episode of a cerebrovascular accident or transient global amnesia in August 2022.? She apparently was taking a shower and then did not know what happened to her.? In the emergency room, she was noted to have extremely elevated blood pressure and was evaluated.? The MRI was positive for what appeared to be an embolic stroke.? She was also treated for her hypertension.? Her EKG demonstrated normal sinus rhythm with no acute changes.? Echocardiogram demonstrated preserved ejection fraction of 55% moderate tricuspid regurgitation mild focal aortic calcification no shunting noted in the 48 event monitor demonstrated average heart rate of 68 bpm in sinus rhythm, no atrial fibrillation occasional supraventricular ectopic beats and no pauses noted.? She presents to us for an evaluation today.? She has had no recurrence and has not had any residual.? Her recent lipid profile demonstrates a total cholesterol of 183 HDL of 73 LDL of 90.? Electrocardiogram demonstrates normal sinus rhythm with a rate of 69 bpm. Intake Vital Signs: See EMR Intake Visit Reasons:?Loop Recorder Placement Vibrator Equipment Tester Required: No Accompanied by: None Is patient in pain?: No Allergies No Known Allergies Allergy Medications See EMR PFSH Medical History? Anxiety Arthropathy of left shoulder Cardiac arrhythmia Cellulitis of periorbital region of both eyes CTS (carpal tunnel syndrome) Essential hypertension GERD (gastroesophageal reflux disease) Guaiac positive stools Hemorrhoids Hyperlipidemia Insomnia Lumbar discogenic pain syndrome Osteoarthritis Paroxysmal SVT (supraventricular tachycardia) PVC's (premature ventricular contractions) Surgical History? History of appendectomy History of arthroscopy of left knee History of bilateral carpal tunnel release History of bilateral hip arthroplasty History of bunionectomy History of cholecystectomy History of colonoscopy (~2004) Family History? Grandfather CVA (cerebral vascular accident)Aunt CVA (cerebral vascular accident)Other Abdominal aneurysm Social History? Smoking Status:? Never smoker alcohol intake:? current substance use type:? does not use ROS Const Const: Negative for fatigue, weakness, headache(s), frequent falls, difficulty sleeping or excessive sweating Eyes Eyes: Negative for loss of peripheral vision, transient loss of vision, blurry vision, double vision or tunnel vision ENT ENT: Negative for headache(s), dizziness, Nosebleed/epistaxis or balance problems Cardio Chest Pain: No Palpitations: No Edema: None Muscle aches with walking: None Resp Respiratory: Negative for SOB with activity, SOB at rest, SOB orthopnea\SOB lying down, Cough or paroxysmal nocturnal dyspnea GI GI: Negative nausea, vomiting or heartburn : Negative for hematuria Musc Musc: Negative for muscle aches/ myalgia, muscle weakness, joint pain or balance problems Skin Skin: Negative non-healing lesions, rash or unusual bruising Neuro Neuro: Negative for dizziness, lightheadedness, near syncope, syncope, orthostatic symptoms, frequent falls, headache(s), weakness, confusion, memory loss, blurry vision, double vision, vertigo or lack of coordination Carter Hematologic/Lymphatic: Negative for easy bleeding or easy bruising Endo Endo: Negative for fatigue, excessive sweating, flushing or increased thirst/drinking Psych Psych: Negative for anxiety or depression Allergy Allergy/Immunology: Negative for hives and Negative for rash Cardiology Exam Const Appearance: cooperative, healthy appearing, no acute distress, well developed and well groomed Nutritional Appearance: average body habitus and well nourished Orientation: alert, awake and oriented x3 Head Head: normal to inspection, normocephalic and atraumatic Ears: hearing grossly normal bilaterally and external ears normal Nose: external nose normal, nares normal, nasal mucous membranes and turbinates normal, septum normal and no nasal discharge Face and Sinus: face symmetric Mouth: oral mucosae normal, tongue normal, oropharynx normal and moist mucous membranes Teeth and gingiva: dentition normal Throat: posterior oropharynx normal, tonsils normal and uvula midline Eyes General: appearance normal, both eyes and all related structures Eyelids: eyelids normal Conjunctivae: conjunctivae normal Pupils: PERRL, normal by confrontation and accommodation normal EOM: EOM intact bilaterally Neck Neck: normal visual inspection, trachea midline and no JVD JVD: +5 Carotids: normal carotid upstroke and bounding pulses Chest Chest inspection: normal inspection of the chest, symmetric chest movement and normal respiratory effort Auscultation: Bilateral: Clear to Auscultation Cardio Palpation: normal PMI Rate: regular rate Rhythm: regular rhythm Heart sounds: S1 normal, S2 normal and normal, physiologic split S2; Negative rub, gallop or murmur GI GI: normal to inspection, soft, no hepatosplenomegaly and bowel sounds present Neuro General: patient alert, patient awake, patient oriented x3, gait normal, moves all extremities and no focal sensory deficit Skin Skin: no rashes or lesions noted Extremities Pulses: Normal: Right Femoral Pulse, Left Femoral Pulse, Right Dorsalis Pedis Pulse, Left Dorsalis Pedis Pulse, Right Posterior Tibial Pulse, Left Posterior Tibial Pulse, Right Radial Pulse and Left Radial Pulse Lower Extremity Edema: None: Bilateral Musculoskel Musculoskeletal: No joint tenderness Psych Psychological: normal affect Supplemental Info Supplemental Information Holter monitor 08/20/2022 The AVG HR was 68 bpm and normal sinus rhythm. The min HR was 51 bpm and sinus bradycardia recorded at 6:11:38 AM D2, no activity or symptoms recorded. The Max HR was 119 beats per minutes and sinus tachycardia recorded at 5:17:02 p.m. D1, no activity or symptoms recorded. There were a total of 113 ventricular ectopic beats comprising 0.1% of the total QRS complexes.? No runs noted. There were a total of 84 supraventricular ectopic beats.? 1 atrial couplet.? 2 atrial runs totaling 9 beats.? The longest run was 5 beats of probable ectopic atrial rhythm at 122 bpm recorded at 1:25:14 PM D1.? The fastest run was 4 beats of probable ectopic atrial rhythm at 152 bpm recorded at 11:18:56 AM D1. The longest R to R interval was 1.4 seconds recorded at 8:20:59 AM D2. The patient kept a 48-hour diary and noted 1 episode of faint/sick to stomach which did not correlate with the scan. Echocardiogram 08/19/2022 Interpretation Summary Left ventricular systolic function is normal. The estimated ejection fraction is 55 %. The left atrium is mildly enlarged. There is mild mitral annular calcification. Mild (1+) mitral valve insufficiency. Moderate (2+) eccentric tricuspid valve insufficiency. Mild focal aortic valve calcification. Trivial pulmonic valve insufficiency. Right ventricular systolic pressure estimated to be 28 mmHg. Diastolic function is indeterminate. Bubble contrast study negative for right to left interatrial shunt. Echocardiogram 10/23/2012 Interpretation summary Normal LV size. Left ventricular systolic function is normal. The estimated ejection fraction is 65%. Transmitral and pulmonary venous Doppler flow suggestive of impaired relaxation of left ventricle. Mild (1+) mitral valve insufficiency. Mild (1+) tricuspid valve insufficiency. Pulmonary artery systolic pressure is 29 mmHg. Stress test 10/23/2012 Conclusion: 1.? Normal exercise myocardial perfusion scan at a high workload. 2.? No clinical angina noted. 3.? No ischemia present. 4.? Preserved ejection fraction. ? Assessment and Plan Assessment and Plan (1) CVA (cerebral vascular accident): ?Status:?Acute ?Plan: She did have a cerebrovascular accident with etiology of which is not entirely clear.? There is the concern that there may have been paroxysmal atrial fibrillation.? I will recommend that we pursue an implantable loop recorder to monitor for any of this.? In the meantime she will continue on her aspirin as well as her statin therapy.? I have explained the above to her and she understands and agrees to proceed. (2) Essential hypertension: ?Status:?Chronic ?Plan: Her blood pressure is under better control at this time I would not recommend that we make any changes. Thank you for allowing me to participate in the care of your patient.? Please don't hesitate to call if any issues arise. (3) Cardiac arrhythmia: This is be followed by loop recorder.
[2022-12-08 08:26] VITALS: BMI 23.6
--- NOTE | 2022-12-11 10:38 | CL.IE_ITS ---
Patient: KOJO TAVERAS Study Date: 12/11/2022 Performing: Ernesto Canela MD : 1945 Age: 77 Gender: female PROCEDURES PERFORMED [id number])INSERTION OF LOOP RECORDER INDICATIONS Cryptogenic stroke PROCEDURE DETAILS The patient was brought to the Catheterization Lab in the postabsorptive nonsedated state. Informed consent was obtained prior to the procedure. Local anesthetic was given subcutaneously to the left upper chest area with Lidocaine 2%. Incision was made to the left upper chest. ICM Loop Recorder was inserted. Steri-strips applied to Lt chest area. The patient tolerated the procedure well. Estimated Blood Loss: 2 ml's IMPLANTED / EX-PLANTED DEVICES IMPLANTED DEVICE(S): ICM Loop Recorder - Marketing Research Intern: [employer], Model # JOT DX, Serial # [id number] DEVICE PARAMETERS CONCLUSIONS / RECOMMENDATIONS Device Conclusions: Successful implantation of a patient activated loop recorder. Device Recommendations: Follow up with Primary Care Physician PROCEDURE MEDICATIONS Versed 1 mg IV Fentanyl 50 mcg IV Oxygen: 2 L/min via nasal cannula Antibiotic given in appropriate timeframe. Ancef 1 Gm IV @ 12/11/2022 07:56:27 Signed By Ernesto Canela MD On 12/11/2022 10:38:02 Ernesto Canela MD
== END 2022-12-11 09:10 | disposition home or self-care (01) ==
PROVIDERS: PCP Family Medicine; Referring Provider Internal Medicine Cardiovascular Disease; Visit Provider Internal Medicine Cardiovascular Disease
DX: I63.9 Cerebral infarction, unspecified (principal); I10 Essential (primary) hypertension; Z79.82 Long term (current) use of aspirin; Z79.899 Other long term (current) drug therapy; Z95.0 Presence of cardiac pacemaker
CPT/HCPCS: 33285; 99152; J7040

== ENCOUNTER → 2023-04-19 | Outpatient (CLI) | payer MEDICARE, SELFPAY ==
[2023-04-19 12:02] LABS: Color, Urine Yellow (Yellow); Glucose, Dipstick Normal (Normal); Ketone-Dipstick Negative (Negative); Leukocyte Esterase-Dipstick 500 /ul (Negative); Nitrite-Dipstick Negative (Negative); Occult Blood-Urine Negative /ul (Negative); Protein-Dipstick 30 mg/dl (Negative); Urine Bilirubin Dipstick Negative (Negative); Urine Clarity Clear (Clear); Urine Urobilinogen Normal (Normal); Urine pH 6.5 (5.0 - 8.0)
[2023-04-19 12:22] LABS: Absolute Lymphocyte Count 2.24 X10^3/uL (0.83-4.51); Absolute Neutrophil Count 5.3 X10^3/uL (2.0-7.7); Basophil# 0.04 X10^3/uL; Basophil% 0.5 % (0-1); Eosinophil# 0.06 X10^3/uL; Eosinophils% 0.7 % (0-5); Hematocrit 39.7 % (37-47); Hemoglobin 13.1 g/dL (12.0-15.0); Lymphocyte # 2.24 X10^3/ul (0.83-4.51); Lymphocyte % 27.6 % (19-41); Mean Corpuscular Hgb 30.5 pg (27.0-32.0); Mean Corpuscular Volume 92.3 fL (81-99); Mean Platelet Vol. 11.3 fl (6.2-12.0); Monocyte# 0.51 X10^3/uL; Monocyte% 6.3 % (0-10); NRBC Flagged by Analyzer 0 % (0-5); Neutrophil # 5.27 X10^3/uL (2.7-7.7); Neutrophil % 64.8 % (47-70); Platelet Count 250 K/mm3 (150-450); RBC Distribution Width CV 13.1 % (11.6-14.6); White Blood Count 8.1 K/mm3 (4.4-11.0)
[2023-04-19 12:32] LABS: ALB/GLOB Ratio 1.1 RATIO (0.9-2.4); AST(SGOT) 32 U/L (15-37); Alanine Aminotransfer ALT/SGPT 44 U/L (13-56); Albumin, Serum 3.9 g/dL (3.2-5.0); Alkaline Phosphatase 91 U/L (45-117); Anion Gap 6 (5-15); BUN 20 mg/dL (7-18); BUN/Creat Ratio 26.4 RATIO (10-20); Calcium,Total 9.4 mg/dL (8.5-10.1); Chloride 102 mmol/L (98-107); Cholesterol 167 mg/dL (200); Creatinine, Serum 0.76 mg/dL (0.55-1.02); EST Glomerular Filtration Rate 79 mL/min (>60); Est Glom Filt Rate - Afr Amer 95 mL/min (>60); Globulin 3.7 g/dL (2.2-4.2); Glucose 103 mg/dL (74-106); High Density Lipoprotein 68 mg/dL; Potassium 4.3 mmol/L (3.5-5.1); Protein, Total 7.6 g/dL (6.4-8.2); Sodium Level 137 mmol/L (136-145); Triglycerides 121 mg/dL; Very Low Density Lipoprotein 24 mg/dL (5-40)
[2023-04-19 12:49] LABS: Vitamin D,25 Hydroxy 46.9 ng/mL
[2023-04-19 14:51] LABS: Hemoglobin A1c 5.4 % (3.8-5.6)
== END | disposition home or self-care (01) ==
LOC: MTLAB 10:45
PROVIDERS: PCP Family Medicine; Referring Provider Family Medicine; Visit Provider Family Medicine
DX: R73.09 Other abnormal glucose (principal); E55.9 Vitamin D deficiency, unspecified; I10 Essential (primary) hypertension
CPT/HCPCS: 36415; 80053; 80061; 81002; 82306; 83036; 85025

== ENCOUNTER → 2023-05-11 | Outpatient (CLI) | payer MEDICARE, SELFPAY ==
--- NOTE | 2023-05-11 08:51 | US_ITS ---
STUDY: ABDOMINAL ULTRASOUND - RIGHT UPPER QUADRANT REASON FOR VISIT: Female, 77 years old RUQ PAIN TECHNIQUE: Ultrasound evaluation of the right upper quadrant was performed with real-time and static shanks-scale imaging. TECHNICAL QUALITY: Adequate. COMPARISON: None. FINDINGS: Liver: The liver measures 14.6 cm. There is normal echogenicity of the liver. The bile ducts are within normal limits. There is hepatic color flow. The direction of portal flow is hepatopetal. There is no demonstrated mass lesion. There is a simple 0.7 cm cyst and a likely 1.3 cm hemangioma. Gallbladder: The patient is status post cholecystectomy. Common Bile Duct (C.B.D.): The common bile duct measures 7.8 mm. Pancreas: Normal size of the head, body and tail of the pancreas. There is normal echogenicity of the pancreas. There is no demonstrated pancreatic mass or cyst. Right Kidney: Normal size of the right kidney. The right kidney measures 10.2 x 4.6 x 4.2 cm. Normal renal cortex. The right cortex measures 1.4 cm. There is a simple 1.8 cm cyst. There is no right hydronephrosis. US/Abdomen Limited IMPRESSION: Simple hepatic and right renal cysts, no specific follow-up needed. Hyperechoic likely hemangioma in the right lobe of the liver measuring 1.3 cm. No specific follow-up needed. Electronically Signed: Vivek Patiño MD at 14:26 EST ,
== END | disposition home or self-care (01) ==
PROVIDERS: PCP Family Medicine; Referring Provider Family Medicine; Visit Provider Family Medicine
DX: R10.11 Right upper quadrant pain (principal)
CPT/HCPCS: 76705

== ENCOUNTER → 2023-07-25 | Outpatient (CLI) | payer MEDICARE, SELFPAY ==
[2023-07-25 09:34] LABS: Bacteria 0 SEEN /hpf (None Seen); Mucous, Urine 0 SEEN /hpf (<or=2+); Red Blood Cells-Urine 0 SEEN /hpf (0-5); Squamous Epithelial Cells - UA 0 SEEN /hpf (5-10); White Blood Cells 0 SEEN /hpf (0-5)
[2023-07-25 10:01] LABS: Absolute Lymphocyte Count 1.74 X10^3/uL (0.83-4.51); Absolute Neutrophil Count 3.9 X10^3/uL (2.0-7.7); Basophil# 0.04 X10^3/uL; Basophil% 0.6 % (0-1); Eosinophil# 0.11 X10^3/uL; Eosinophils% 1.8 % (0-5); Hematocrit 39.1 % (37-47); Hemoglobin 12.5 g/dL (12.0-15.0); Lymphocyte # 1.74 X10^3/ul (0.83-4.51); Mean Corpuscular Hgb 29.6 pg (27.0-32.0); Mean Corpuscular Volume 92.7 fL (81-99); Mean Platelet Vol. 10.7 fl (6.2-12.0); Monocyte# 0.46 X10^3/uL; Monocyte% 7.4 % (0-10); NRBC Flagged by Analyzer 0 % (0-5); Neutrophil # 3.85 X10^3/uL (2.7-7.7); Platelet Count 261 K/mm3 (150-450); RBC Distribution Width CV 12.8 % (11.6-14.6); RBC Distribution Width SD 43.6 fl (35.1-43.9); Red Blood Count 4.22 M/mm3 (4.2-5.4); White Blood Count 6.2 K/mm3 (4.4-11.0)
[2023-07-25 10:38] LABS: Vitamin D,25 Hydroxy 43.2 ng/mL
--- OUTSIDE RECORDS SUMMARY | 2023-07-25 11:03 | XMS RPT_ITS | CCD ---
Author Name Unknown Address [facility] [facility] [address] [place] [address] Organization [facility] Care Team Providers Care Finisher Machine Name Role Phone FABIENNE TEJADA Admitting Unavailable MALLORY, FABIENNE Attending Unavailable MALLORY, FABIENNE Primary Care Unavailable CHRISTOPHE MARTINS MD Consulting Unavailable PROVIDER, UNKNOWN Consulting Unavailable AMLLORY, FABIENNE Admitting Unavailable MALLORY, FABIENNE Attending Unavailable MALLORY, FABIENNE Primary Care Unavailable ULI BILLINGS MD Consulting Unavailable PROVIDER, UNKNOWN Consulting Unavailable Results Test Name Value Interpretation Reference Range Facil ity Encounters Encounter Date Encounter Type Care Provider Facility Start: 05-28-2019 Encounter for other preprocedural examination FABIENNE TEJADA [facility] Start: 05-28-2019 End: 05-28-2019 Patient encounter procedure FABIENNE MALLORY [facility] Start: 05-07-2019 End: 05-07-2019 Patient encounter procedure FABIENNEMAURICIO TEJADA [facility] Encounter for other preprocedural examination FABIENNE MALLORY [facility] Payers Date Payer Category Payer Unknown [id number] 1945 Unknown [id number] Medicare [id number] Summary Purpose Family History No Family History Records FoundNo Family History Records Found Advance Directives No Advanced Directives Records FoundNo Advanced Directives Records Found Additional Source Comments INFORMATION SOURCE (unrecogn ized section and content) DATE CREATED AUTHOR AUTHOR'S ORGANIZ ATION 06/10/2019 [facility] FOR RECORDS PERTAINING TO PATIENTS WHO ARE OR HAVE BEEN ENROLLED IN A CHEMICAL DEPENDENCY/SUBSTANCEABUSE PROGRAM, SOME INFORMATION MAY BE OMITTED. This clinical summary was aggregated from multiple sources. Caution should be exercised in using it in the provision of clinical care. This summary normalizes information from multiple sources, and as a consequence, information in this document may materially change the coding, format and clinical context of patient data. In addition, data may be omitted in some cases. CLINICAL DECISIONS SHOULD BE BASED ON THE PRIMARY CLINICAL RECORDS. [facility] provides no warranty or guarantee of the accuracy or completeness of information in this document.
[2023-07-25 11:10] LABS: ALB/GLOB Ratio 1.1 RATIO (0.9-2.4); AST(SGOT) 25 U/L (15-37); Alanine Aminotransfer ALT/SGPT 33 U/L (13-56); Albumin, Serum 3.9 g/dL (3.2-5.0); Alkaline Phosphatase 84 U/L (45-117); Anion Gap 1 (5-15); BUN 20 mg/dL (7-18); BUN/Creat Ratio 29.7 RATIO (10-20); Calcium,Total 9.4 mg/dL (8.5-10.1); Chloride 106 mmol/L (98-107); Cholesterol 159 mg/dL (200); Creatinine, Serum 0.67 mg/dL (0.55-1.02); EST Glomerular Filtration Rate 90 mL/min (>60); Est Glom Filt Rate - Afr Amer 109 mL/min (>60); Globulin 3.6 g/dL (2.2-4.2); Glucose 101 mg/dL (74-106); High Density Lipoprotein 71 mg/dL; Magnesium 2.2 mg/dL (1.6-2.6); Protein, Total 7.5 g/dL (6.4-8.2); Sodium Level 137 mmol/L (136-145); Thyroid Stim Hormone (TSH) 0.89 uIU/mL (0.358-3.74); Triglycerides 79 mg/dL; Very Low Density Lipoprotein 16 mg/dL (5-40)
[2023-07-25 12:24] LABS: Color, Urine Yellow (Yellow); Glucose, Dipstick Normal (Normal); Ketone-Dipstick Negative (Negative); Leukocyte Esterase-Dipstick Negative /ul (Negative); Nitrite-Dipstick Negative (Negative); Occult Blood-Urine Negative /ul (Negative); Protein-Dipstick Negative (Negative); Urine Bilirubin Dipstick Negative (Negative); Urine Clarity Clear (Clear); Urine Urobilinogen Normal (Normal); Urine pH 6.5 (5.0 - 8.0)
== END | disposition home or self-care (01) ==
LOC: MFPLAB 09:31
PROVIDERS: PCP Family Medicine; Visit Provider Family Medicine
DX: E55.9 Vitamin D deficiency, unspecified (principal); I10 Essential (primary) hypertension
CPT/HCPCS: 36415; 80053; 80061; 81001; 82306; 83735; 84443; 85025

== ENCOUNTER → 2023-10-26 | Outpatient (CLI) | payer MEDICARE, SELFPAY ==
[2023-10-26 09:40] LABS: Bacteria 0 SEEN /hpf (None Seen); Mucous, Urine 0 SEEN /hpf (<or=2+); Red Blood Cells-Urine 0 SEEN /hpf (0-5)
[2023-10-26 10:25] LABS: Color, Urine Straw (Yellow); Glucose, Dipstick Normal (Normal); Ketone-Dipstick Negative (Negative); Leukocyte Esterase-Dipstick 25 /ul (Negative); Nitrite-Dipstick Negative (Negative); Occult Blood-Urine Negative /ul (Negative); Protein-Dipstick Negative (Negative); Specific Gravity, Urine 1.005 (1.002-1.030); Urine Bilirubin Dipstick Negative (Negative); Urine Clarity Clear (Clear); Urine Urobilinogen Normal (Normal)
[2023-10-26 10:30] LABS: Absolute Lymphocyte Count 1.99 X10^3/uL (0.83-4.51); Absolute Neutrophil Count 3.8 X10^3/uL (2.0-7.7); Basophil# 0.02 X10^3/uL; Basophil% 0.3 % (0-1); Eosinophil# 0.09 X10^3/uL; Eosinophils% 1.4 % (0-5); Hematocrit 40.1 % (37-47); Hemoglobin 13.2 g/dL (12.0-15.0); Lymphocyte # 1.99 X10^3/ul (0.83-4.51); Lymphocyte % 31.3 % (19-41); Mean Corp Hgb Conc 32.9 g/dL (32-36); Mean Corpuscular Hgb 30.3 pg (27.0-32.0); Mean Corpuscular Volume 92.2 fL (81-99); Mean Platelet Vol. 11.3 fl (6.2-12.0); Monocyte# 0.46 X10^3/uL; Monocyte% 7.2 % (0-10); NRBC Flagged by Analyzer 0 % (0-5); Neutrophil # 3.78 X10^3/uL (2.7-7.7); Neutrophil % 59.6 % (47-70); Platelet Count 228 K/mm3 (150-450); RBC Distribution Width CV 12.6 % (11.6-14.6); RBC Distribution Width SD 43.1 fl (35.1-43.9); Red Blood Count 4.35 M/mm3 (4.2-5.4); White Blood Count 6.4 K/mm3 (4.4-11.0)
[2023-10-26 10:45] LABS: Squamous Epithelial Cells - UA 0-5 SEEN /hpf (5-10); White Blood Cells 0-5 SEEN /hpf (0-5)
[2023-10-26 11:12] LABS: Vitamin D,25 Hydroxy 45.2 ng/mL
[2023-10-26 11:20] LABS: ALB/GLOB Ratio 1.1 RATIO (0.9-2.4); AST(SGOT) 34 U/L (15-37); Alanine Aminotransfer ALT/SGPT 38 U/L (13-56); Alkaline Phosphatase 82 U/L (45-117); Anion Gap 4 (5-15); BUN 15 mg/dL (7-18); BUN/Creat Ratio 22.8 RATIO (10-20); Calcium,Total 9.6 mg/dL (8.5-10.1); Chloride 106 mmol/L (98-107); Cholesterol 156 mg/dL (200); Creatinine, Serum 0.66 mg/dL (0.55-1.02); EST Glomerular Filtration Rate 92 mL/min (>60); Est Glom Filt Rate - Afr Amer 112 mL/min (>60); Globulin 3.7 g/dL (2.2-4.2); Glucose 103 mg/dL (74-106); High Density Lipoprotein 66 mg/dL; Potassium 4.2 mmol/L (3.5-5.1); Protein, Total 7.7 g/dL (6.4-8.2); Sodium Level 139 mmol/L (136-145); Triglycerides 116 mg/dL; Very Low Density Lipoprotein 23 mg/dL (5-40)
[2023-10-30 15:25] LABS: Hemoglobin A1c 5.4 % (3.8-5.6)
== END | disposition home or self-care (01) ==
LOC: MFPLAB 08:34
PROVIDERS: PCP Family Medicine; Visit Provider Family Medicine
DX: R73.09 Other abnormal glucose (principal); Z86.73 Personal history of transient ischemic attack (TIA), and cerebral infarction without residual deficits; E78.5 Hyperlipidemia, unspecified; E55.9 Vitamin D deficiency, unspecified
CPT/HCPCS: 36415; 80053; 80061; 81001; 82306; 83036; 85025

== ENCOUNTER 2024-06-27 23:35 | Emergency (ER) | payer MEDICARE, SELFPAY ==
[2024-06-27 23:36] VITALS: BP 176/85; PULSE 77; RESP 16; TEMP 36.6; O2SAT 99; BMI 24.3
[2024-06-27 23:45] VITALS: BP 152/79
--- NOTE | 2024-06-27 23:56 | EDS_ITS ---
HPI History of Present Illness Chief Complaint: General Illness Detail of Chief Complaint: Feeling flushed and nauseous, checked BP and elevated Informant: patient and spouse/S.O. Onset/Context/Timing Onset: Hours Context: Sudden Onset Timing: Continuous Quality: Elevated blood pressure with sense of feeling flushed and nauseous Location: Cardiovascular and possibly GI Current Severity: Mild Maximum Severity: Moderate Worsened by: Nothing Relieved by: Nothing Associated Symptoms Associated Symptoms: No other symptoms Narrative Narrative: Patient is a 79-year-old woman with history of hypertension on amlodipine 5 mg and metoprolol 25 mg for years. She states her systolic pressure is normally in the mid 130s. She denies headache. Eyes double vision blurred vision loss of vision. Denies ringing or ears decreased hearing. Denies trouble with speech or swallowing. She denies neck pain. She denies cardiac respiratory symptoms. She does endorse nausea without vomiting. She denies paresthesia, anesthesia or motor weakness upper lower extremity. She denies problems with coordination or balance. Patient has history of paroxysmal supraventricular tachycardia, essential hypertension, hyperlipidemia and stroke. She had a stroke 2 years ago. That time her blood pressure was elevated and patient states it was 220 over number greater than 100. Prior similar symptoms: No Recent Illness/Hospitalization: No [facility] Medical History Paroxysmal SVT (supraventricular tachycardia) PVC's (premature ventricular contractions) Anxiety Insomnia Essential hypertension Cellulitis of periorbital region of both eyes Guaiac positive stools Arthropathy of left shoulder Hemorrhoids GERD (gastroesophageal reflux disease) Hyperlipidemia Cardiac arrhythmia CTS (carpal tunnel syndrome) Lumbar discogenic pain syndrome Osteoarthritis Home Medications ?Medication ?Instructions ?Recorded ?Last Taken ?Type meloxicam 7.5 mg tablet 7.5 mg PO BID 05/11/20 Unknown History aspirin 81 mg chewable tablet 81 mg PO DAILY@0800 #30 tabs 08/20/22 Unknown Rx calcium carbonate-vitamin D2 1 tab PO BID 09/27/22 Unknown History [Calcium with Vitamin D] gabapentin 300 mg capsule 300 mg PO QHS 09/27/22 Unknown History omeprazole 20 mg capsule,delayed 20 mg PO DAILY 09/27/22 Unknown History release temazepam 15 mg capsule 15 mg PO QHS 09/27/22 Unknown History metoprolol succinate 25 mg 25 mg PO QHS 08/01/23 Unknown History tablet,extended release 24 hr rosuvastatin 40 mg tablet (Crestor) 40 mg PO DAILY 08/01/23 Unknown History amlodipine 5 mg tablet 5 mg PO DAILY 06/27/24 Unknown History Allergy/AdvReac Type Severity Reaction Status Date / Time No Known Allergies Allergy Verified 06/27/24 23:37 Family History Grandfather CVA (cerebral vascular accident) Aunt CVA (cerebral vascular accident) Other Abdominal aneurysm Surgical History History of bilateral carpal tunnel release History of colonoscopy (~2004) History of appendectomy History of cholecystectomy History of bunionectomy History of bilateral hip arthroplasty History of arthroscopy of left knee Social History Smoking Status: Never smoker alcohol intake: current substance use type: does not use ROS ROS ED Constitutional Constitutional ED: Denies chills, fever(s), subjective, sweats or weight loss Eyes Eyes: Denies blurry vision, change in vision or diplopia ENT ENT ED: Denies rhinorrhea or sore throat Cardiovascular Cardiovascular: Denies chest pain or palpitations Respiratory/Chest Respiratory/Chest: Denies dyspnea or dyspnea on exertion Gastrointestinal Gastrointestinal: Reports nausea; Denies abdominal pain, diarrhea or vomiting Musculoskeletal Musculoskeletal: Denies arthralgias, back pain, myalgias or neck pain Neurologic Neurologic: Denies headache(s) or paresthesias Psychiatric Psychiatric: Denies anxiety Hematologic/Lymphatic Hematologic/Lymphatic: Reports systems reviewed and no addt'l complaints, except as documented EXAM Physical Exam Const Vital Signs: 06/27/24 23:36 06/27/24 23:39 06/27/24 23:45 Temperature 97.9 F Temperature Source Oral Pulse Rate 77 Respiratory Rate 16 Respiratory Effort Normal Respiratory Pattern Normal Blood Pressure 176/85 H 152/79 H Blood Pressure Mean 115 103 Pulse Ox 99 Oxygen Delivery Method Room Air 06/28/24 00:00 06/28/24 00:15 06/28/24 01:02 Temperature Temperature Source Pulse Rate 89 69 67 Respiratory Rate 16 16 16 Respiratory Effort Respiratory Pattern Blood Pressure 137/76 H 139/75 H 138/67 H Blood Pressure Mean 96 96 90 Pulse Ox 99 100 98 Oxygen Delivery Method Room Air Room Air Room Air Positive well nourished and well developed Constitutional Narrative: Initial blood pressure was elevated. Second blood pressure was 152/79. General Appearance ED: well developed and NAD; Negative for pallor HEENT Reports moist mucous membranes HEENT Narrative: Head is atraumatic normocephalic. Ears normal. Nares patent. Posterior pharynx out erythema or exudate. Uvula midline. No deviation with protrusion. Eyes PERRL and EOMs intact bilaterally Eyes Narrative: There is no nystagmus. There is no visual abnormality. General Eye ED: Negative for pale conjunctiva or scleral icterus Neck no lymphadenopathy, supple and no JVD Resp normal respiratory effort and clear to auscultation bilaterally Cardio regular rate, regular rhythm, S1 normal heart sound, S2 normal heart sound and no murmurs GI normal to inspection, nondistended, normoactive bowel sounds, non-tender and non-distended Extremity normal to inspection General Extremety ED: Negative for edema or tenderness General Extremity: Negative for edema Neuro oriented x3, CN's II-XII intact bilaterally and no sensory deficits noted Neuro Narrative: There is no dysmetria. There is no clonus right or left. There is no Babinski sign right or left. DTRs are 1-2+ bicep, brachialis, patella and ankle. Sensorium / Orientation: alert Motor Exam: strength 5/5 throughout Psych mental status grossly normal Skin no rashes or lesions noted, no wounds and skin turgor normal General Skin Exam: elasticity normal; Negative for jaundice or pallor MDM MDM MDM Narrative Medical decision making narrative: Patient with asymptomatic hypertension. Will have nurse repeat blood pressure every 15 minutes. If the blood pressure improves the fact that she is asymptomatic there is no indication for any laboratory testing. This can be followed by her primary care physician as an outpatient. Treatment and Re-Evaluation :: Patient was observed. Blood pressure has come down slowly. As of 101 blood pressure 138/67. This without intervention. Discharge Plan Triage Chief Complaint: General Illness ED Provider: Anthony Chambers Dx/Rx/DC Orders Clinical Impression: Asymptomatic hypertensive urgency, Hyperlipidemia, History of completed stroke Instructions: ED Hypertension, Established Prescriptions: No Action meloxicam 7.5 mg tablet 7.5 mg PO BID gabapentin 300 mg capsule 300 mg PO QHS temazepam 15 mg capsule 15 mg PO QHS Patient Comments: TAKE 1 CAPSULE BY MOUTH EVERYDAY AT BEDTIME omeprazole 20 mg capsule,delayed release(DR/EC) 20 mg PO DAILY Patient Comments: TAKE 1 CAPSULE BY MOUTH DAILY 30-45 MINUTES BEFORE BREAKFAST calcium carbonate-vitamin D2 [Calcium with Vitamin D] 1 tab PO BID rosuvastatin [Crestor] 40 mg tablet 40 mg PO DAILY metoprolol succinate 25 mg tablet extended release 24 hr 25 mg PO QHS Patient Comments: HEART/BLOOD PRESSURE aspirin 81 mg Tablet,Chewable 81 mg PO DAILY@0800 Qty: 30 0RF amlodipine 5 mg tablet 5 mg PO DAILY Primary Care Provider: Gaudencio Patel Referrals: Gaudencio Patel MD [Primary Care Provider] - As Needed Print Language: [place] Disposition Disposition: Home, Self Care
[2024-06-28] VITALS: BP 137/76; PULSE 89; RESP 16; O2SAT 99
[2024-06-28 00:15] VITALS: BP 139/75; PULSE 69; RESP 16; O2SAT 100
[2024-06-28 01:02] VITALS: BP 138/67; PULSE 67; RESP 16; O2SAT 98
== END 2024-06-28 01:15 | disposition home or self-care (01) ==
PROVIDERS: Emergency Provider Emergency Medicine; PCP Family Medicine; Visit Provider Emergency Medicine
DX: I16.0 Hypertensive urgency (principal); E78.5 Hyperlipidemia, unspecified; K21.9 Gastro-esophageal reflux disease without esophagitis; Z86.73 Personal history of transient ischemic attack (TIA), and cerebral infarction without residual deficits; Z79.899 Other long term (current) drug therapy; Z79.82 Long term (current) use of aspirin
CPT/HCPCS: 99283

== ENCOUNTER → 2024-07-25 | Outpatient (CLI) | payer MEDICARE, SELFPAY ==
[2024-07-25 10:12] LABS: Absolute Lymphocyte Count 2.14 X10^3/uL (0.83-4.51); Absolute Neutrophil Count 4.8 X10^3/uL (2.0-7.7); Basophil# 0.03 X10^3/uL; Basophil% 0.4 % (0-1); Eosinophil# 0.13 X10^3/uL; Eosinophils% 1.7 % (0-5); Hematocrit 39.8 % (37-47); Hemoglobin 12.7 g/dL (12.0-15.0); Lymphocyte # 2.14 X10^3/ul (0.83-4.51); Lymphocyte % 27.2 % (19-41); Mean Corp Hgb Conc 31.9 g/dL (32-36); Mean Corpuscular Hgb 29.5 pg (27.0-32.0); Mean Corpuscular Volume 92.6 fL (81-99); Mean Platelet Vol. 11.4 fl (6.2-12.0); Monocyte# 0.77 X10^3/uL; Monocyte% 9.8 % (0-10); NRBC Flagged by Analyzer 0 % (0-5); Neutrophil # 4.77 X10^3/uL (2.7-7.7); Neutrophil % 60.6 % (47-70); Platelet Count 253 K/mm3 (150-450); RBC Distribution Width SD 43.8 fl (35.1-43.9); White Blood Count 7.9 K/mm3 (4.4-11.0)
[2024-07-25 10:28] LABS: AST(SGOT) 23 U/L (15-37); Alanine Aminotransfer ALT/SGPT 35 U/L (13-56); Albumin, Serum 3.8 g/dL (3.2-5.0); Alkaline Phosphatase 87 U/L (45-117); Anion Gap 6 (5-15); BUN 21 mg/dL (7-18); BUN/Creat Ratio 28.3 RATIO (10-20); Calcium,Total 9.2 mg/dL (8.5-10.1); Chloride 103 mmol/L (98-107); Cholesterol 149 mg/dL (200); Creatinine, Serum 0.74 mg/dL (0.55-1.02); EST Glomerular Filtration Rate 81 mL/min (>60); Est Glom Filt Rate - Afr Amer 97 mL/min (>60); Globulin 3.8 g/dL (2.2-4.2); Glucose 95 mg/dL (74-106); High Density Lipoprotein 72 mg/dL; Potassium 4.5 mmol/L (3.5-5.1); Protein, Total 7.6 g/dL (6.4-8.2); Sodium Level 138 mmol/L (136-145); Triglycerides 82 mg/dL; Very Low Density Lipoprotein 16 mg/dL (5-40)
[2024-07-25 11:32] LABS: Vitamin D,25 Hydroxy 34.6 ng/mL
== END | disposition home or self-care (01) ==
LOC: MTLAB 08:00
PROVIDERS: PCP Family Medicine; Referring Provider Family Medicine; Visit Provider Family Medicine
DX: I10 Essential (primary) hypertension (principal); E55.9 Vitamin D deficiency, unspecified
CPT/HCPCS: 36415; 80053; 80061; 82306; 85025

== ENCOUNTER → 2024-11-12 | Outpatient (CLI) | payer MEDICARE, SELFPAY ==
[2024-11-14 15:08] LABS: Lyme Scn Total Ab w/Rflx Negative (Negative)
== END | disposition home or self-care (01) ==
LOC: MFPLAB 16:17
PROVIDERS: PCP Family Medicine; Referring Provider Family Medicine; Visit Provider Family Medicine
DX: T14.90XA Injury, unspecified, initial encounter (principal); W57.XXXA Bitten or stung by nonvenomous insect and other nonvenomous arthropods, initial encounter
CPT/HCPCS: 36415; 86618

== ENCOUNTER → 2025-01-29 | Outpatient (CLI) | payer MEDICARE, SELFPAY ==
[2025-01-29 07:37] LABS: Mucous, Urine 0 SEEN /hpf (<or=2+); Red Blood Cells-Urine 0 SEEN /hpf (0-5)
--- OUTSIDE RECORDS SUMMARY | 2025-01-29 07:43 | XMS RPT_ITS | CCD ---
Author Organization [facility] Care Team Providers Care Layout Inspector Name Role Phone FABIENNE TEJADA Admitting Unavailable MALLORYFABIENNE Attending Unavailable FABIENNE TEJADA Primary Care Unavailable JASSON MANCUSO MD Consulting Unavailable PROVIDER, UNKNOWN Consulting Unavailable MALLORYFABIENNE Admitting Unavailable AMLLORY, FABIENNE Attending Unavailable MALLORY, FABIENNE Primary Care Unavailable ULI BILLIGNS MD Consulting Unavailable PROVIDER, UNKNOWN Consulting Unavailable Dr. Jasson Mancuso Primary Care Provider MD Sid Gray Emergency Provider Dr. Brad Romanit Provider Dr. Brad Roman Attending Provider Dr. Brad Roman Other Provider Dr. Valdo Garcia Attending Provider Dr. Omkar Ayala Attending Provider Dr. Omkar Ayala Other Provider Dr. Jasson Mancuso Primary Care Provider MD Sid Gray Emergency Provider Dr. Brad Romanit Provider Dr. Brad Roman Attending Provider Dr. Brad Roman Other Provider Dr. Valdo Garcia Attending Provider Dr. Omkar Ayala Attending Provider Dr. Omkar Ayala Other Provider Dr. Gaudencio Patel Primary Care Provider Dr. Gaudencio Patel Referring Provider Dr. Ernesto Canela Attending Provider [phone] Ernesto Canela Other Provider [facility] BAGGAGE SCREENER, BAGGAGE SCREENER-C Gaudencio Mathews Attending Provider 1([facility])[phone] Maggie Rico Attending Provider Unavailable Dr. Gaudencio Patel Primary Care Provider Dr. Gaudencio Patel Referring Provider 1([facility])[phone] JAVID Anderson Attending Provider Dr. Ernesto Canela Attending Provider 1([facility])-[phone] Ernesto Canela Referring Provider 1([facility])-[phone] Gaudencio Patel MD Primary Care Provider Dr. Gaudencio Patel MD Attending Provider 1([facility] )[phone] Dr. Gaudencio Patel MD Referring Provider Dr. Brad Hanna DO Attending Provider Roof BAGGAGE SCREENER-C, Gaudencio Mathews Attending Provider 1([facility])[phone] Ernesto Canela MD Attending Provider Dr. Ernesto Canela MD Referring Provider Dr. Gaudencio Patel MD Primary Care Provider Dr. Gaudencio Patel MD Referring Provider 1([facility] )[phone] Dr. Brad Hanna DO Attending Provider Dr. Gaudencio Patel MD Attending Provider Ernesto Canela Referring Unavailable Ernesto Canela Attending Unavailable Gaudencio Patel Primary Care Unavailable Gaudencio Patel Primary Care Unavailable Gaudencio Patel Referring Unavailable Karla Silveira NP Attending Unavailable Gaudencio Patel Primary Care Unavailable Gaudencio Patel Referring Unavailable Gaudencio Patel Attending Unavailable Gaudencio Patel Primary Care Unavailable Gaudencio Patel Referring Unavailable Gaudencio Patel Attending Unavailable Gaudencio Patel Primary Care Unavailable Chambers, Anthony Attending Unavailable Gaudencio Patel Primary Care Unavailable Rola, [place]over Referring Unavailable Rola, [place] Attending Unavailable Gaudencio Patel Primary Care Unavailable Rola, [place] Attending Unavailable Rola, Ernesto Referring Unavailable Gaudencio Patel Primary Care Unavailable Rola, Ernesto Attending Unavailable Rola, Ernesto Referring Unavailable Gaudencio Patel Primary Care Unavailable Gaudencio Patel Referring Unavailable Brad Hanna Attending Unavailable Gaudencio Patel Primary Care Unavailable Gaudencio Patel Referring Unavailable Gaudencio Holcomb NP Attending Unavailable Gaudencio Patel Primary Care Unavailable Gaudencio Patel Referring Unavailable Brad Hanna Attending Unavailable Gaudencio Patel Primary Care Unavailable Gaudencio Patel Referring Unavailable Brad Hanna Attending Unavailable Gaudencio Patel Primary Care Unavailable Gaudencio Patel Referring Unavailable Brad Hanna Attending Unavailable Gaudencio Patel Primary Care Unavailable Rola, Ernesto Attending Unavailable Rola, [place]over Referring Unavailable Gaudencio Patel Primary Care Unavailable Rola, Ernesto Attending Unavailable Rola, [place] Referring Unavailable Medications Current Medications Medication Drug Class(es) Dates Sig (Normalized) Sig (Original) amLODIPine 5 mg oral tablet (20 sources) Dihydropyridine Calcium Channel Shelly Start: 06-27-2024 take 1 tablet by mouth once daily Amlodipine 5 mg tablet Active 5 mg PO DAILY June 27, 2024 1:00am Start: 11-09-2022 End: 06-27-2024 take 5 mg by mouth once daily Amlodipine 10 mg tablet Discontinued 5 mg PO DAILY November 09, 2022 11:00am June 28, 2024 12:41am Start: 11-09-2022 take 5 mg by mouth once daily Amlodipine Active 5 MG PO DAILY November 09, 2022 10:00am Start: 09-27-2022 End: 11-09-2022 take 1 tablet by mouth once daily Amlodipine 10 mg tablet Discontinued 10 mg PO DAILY September 27, 2022 12:00am November 09, 2022 11:02am Start: 03-13-2014 End: 05-11-2020 take 1 tablet by mouth at bedtime Amlodipine 2.5 MG tablet Discontinued 2.5 mg PO AT BEDTIME March 13, 2014 12:00am May 11, 2020 2:46pm aspirin 81 mg chewable tablet (10 sources) Platelet Aggregation Inhibitor, Nonsteroidal Anti-inflammatory Drug Start: 08-20-2022 take 1 tablet by mouth once daily Aspirin 81 mg Tablet,Chewable Active 81 mg PO DAILY@0800 30 August 20, 2022 1:00am Calcium (14 sources) Phosphate Binder, Calcium Start: 03-13-2014 take 600 mg by mouth twice daily Calcium Active 600 MG PO TWICE A DAY March 13, 2014 11:32am Start: 03-13-2014 End: 09-27-2022 take 600 mg by mouth twice daily Calcium Discontinued 600 mg PO TWICE A DAY March 13, 2014 12:00am September 27, 2022 1:49pm Start: 03-13-2014 End: 09-27-2022 take 600 mg by mouth twice daily Calcium Discontinued 600 MG PO TWICE A DAY March 12, 2014 11:00pm September 27, 2022 12:49pm Start: 03-13-2014 End: 09-27-2022 take 600 mg by mouth twice daily Calcium Discontinued 600 MG PO TWICE A DAY March 13, 2014 12:00am September 27, 2022 1:49pm Start: 03-13-2014 take 600 mg by mouth twice daily Calcium Active 600 MG PO TWICE A DAY March 12, 2014 11:00pm Start: 03-13-2014 take 600 mg by mouth twice daily Calcium Active 600 MG PO TWICE A DAY March 13, 2014 12:00am calcium carbonate-vitamin D2 (Calcium with Vitamin D) (8 sources) Start: 09-27-2022 calcium carbon ate-vitamin D2 (Calcium with Vitamin D) Active 1 {tbl} PO TWICE A DAY September 27, 2022 12:00am Start: 09-27-2022 take 1 tablet by warren th twice daily calcium carbonate-vitamin D2 (Calcium with Vitamin D) Active 1 TABLET PO TWICE A DAY September 26, 2022 11:00pm Start: 09-27-2022 take 1 tablet by warren th twice daily calcium carbonate-vitamin D2 (Calcium with Vitamin D) Active 1 TABLET PO TWICE A DAY September 27, 2022 12:00am escitalopram 5 mg oral tablet (17 sources) Serotonin Reuptake Inhibitor Start: 07-28-2024 take 1 tablet by mouth once daily Escitalopram Oxalate 5 mg tablet Active 5 mg PO daily July 28, 2024 1:00am Start: 01-15-2021 End: 11-09-2022 take 5 mg by mouth once daily Escitalopram Oxalate 10 mg tablet Discontinued 5 mg PO DAILY January 15, 2021 12:00am November 09, 2022 11:02am Start: 01-15-2021 End: 11-09-2022 take 5 mg by mouth once daily Escitalopram Oxalate Dis continued 5 MG PO DAILY January 14, 2021 11:00pm November 09, 2022 10:02am Start: 01-15-2021 take 10 mg by mouth once daily Escitalopram Oxalate Active 10 MG PO DAILY January 15, 2021 12:00am gabapentin 300 mg oral capsule (20 sources) Anti-epileptic Agent Start: 05-11-2020 End: 09-27-2022 take 1 capsule by mouth at bedtime Gabapentin 300 mg capsule Active 300 mg PO AT BEDTIME September 27, 2022 1:47pm meloxicam 7.5 mg oral tablet (20 sources) Nonsteroidal Anti-inflammatory Drug Start: 05-11-2020 take 1 tablet by mouth twice daily Meloxicam 7.5 mg tablet Active 7.5 mg PO TWICE A DAY May 11, 2020 1:00am Start: 03-13-2014 End: 03-26-2014 take 1 tablet by mouth twice daily Meloxicam 7.5 MG tablet Discontinued 7.5 mg PO TWICE A DAY March 13, 2014 12:00am March 26, 2014 3:20pm 24 hr metoprolol succinate 25 mg extended release oral tablet (17 sources) beta-Adrenergic Shelly Start: 08-01-2023 take 1 tablet by mouth every twenty-four hours at bedtime Metoprolol Succinate 25 mg tablet extended release 24 hr Active 25 mg PO AT BEDTIME August 01, 2023 10:35am Start: 03-13-2014 End: 08-01-2023 Metoprolol Succinate 25 MG t ablet Discontinued 12.5 mg PO AT BEDTIME March 13, 2014 12:00am August 01, 2023 10:36am Start: 03-13-2014 take 12.5 mg by mout h at bedtime Metoprolol Succinate Active 12.5 MG PO AT BEDTIME March 12, 2014 11:00pm Start: 03-13-2014 take 25 mg by mouth at bedtime Metoprolol Succinate Active 25 MG PO AT BEDTIME March 13, 2014 12:00am omeprazole 20 mg delayed release oral capsule (20 sources) Proton Pump Inhibitor Start: 09-27-2022 take 1 capsule by mouth once daily Omeprazole 20 mg capsule,delayed release(DR/EC) Active 20 mg PO DAILY September 27, 2022 12:00am Start: 03-13-2014 End: 09-27-2022 Omeprazole 40 MG capsule Dis continued 20 mg PO DAILY March 13, 2014 12:00am September 27, 2022 1:47pm Start: 03-13-2014 End: 09-27-2022 take 20 mg by mouth once daily Omeprazole Discontinued 20 MG PO DAILY March 12, 2014 11:00pm September 27, 2022 12:47pm Start: 03-13-2014 take 40 mg by mouth once daily Omeprazole Active 40 MG PO DAILY March 13, 2014 12:00am predniSONE 10 mg oral tablet (3 sources) Start: 01-15-2021 Prednisone Active 10 MG PO .COMPLEX January 15, 2021 12:00am Take 4 pills for 3 days, 3 pills for 3 days, 2 pills for 3 days, take 1 pill for 3 days rosuvastatin calcium 40 mg oral tablet (3 sources) HMG-CoA Reductase Inhibitor Start: 08-01-2023 take 1 tablet by mouth once daily Rosuvastatin (Crestor) 40 mg tablet Active 40 mg PO DAILY August 01, 2023 1:00am temazepam 15 mg oral capsule (20 sources) Benzodiazepine Start: 09-27-2022 take 1 capsule by mouth at bedtime Temazepam 15 mg capsule Active 15 mg PO AT BEDTIME September 27, 2022 12:00am Start: 05-27-2020 End: 09-27-2022 Temazepam 30 MG capsule Disc ontinued 15 mg PO AT BEDTIME May 27, 2020 1:00am September 27, 2022 1:46pm Start: 05-27-2020 End: 09-27-2022 take 15 mg by mouth at bedtime Temazepam Discontinued 15 MG PO AT BEDTIME May 27, 2020 12:00am September 27, 2022 12:46pm Start: 05-27-2020 take 30 mg by mouth at bedtime Temazepam Active 30 MG PO AT BEDTIME May 27, 2020 1:00am Completed/Discontinued Medications Medication Drug Class(es) Dates Sig (Normalized) Sig (Original) acetaminophen 325 mg / HYDROcodone bitartrate 5 mg oral tablet (14 sources) Opioid Agonist Start: 03-26-2014 End: 05-11-2020 Hydrocodone-Acetami nophen 1 TABLET tablet Discontinued 1 - 2 {tbl} PO EVERY 6 HOURS NEEDED as needed for MILD-MODERATE (PAIN SCALE 1-5) March 26, 2014 12:00am May 11, 2020 2:46pm Start: 03-26-2014 End: 05-11-2020 take 1 tablet by mouth every six hours as needed Hydrocodone-Acetaminophen Discontinued 1 - 2 TABLET PO EVERY 6 HOURS NEEDED March 25, 2014 11:00pm May 11, 2020 1:46pm atorvastatin 40 mg oral tablet (10 sources) HMG-CoA Reductase Inhibitor Start: 08-20-2022 End: 08-01-2023 take 1 tablet by mouth at bedtime Atorvastatin 40 mg Tablet Discontinued 40 mg PO AT BEDTIME August 20, 2022 1:00am August 01, 2023 10:35am cholecalciferol 0.05 mg oral tablet (14 sources) Vitamin D Start: 03-13-2014 End: 09-27-2022 take 1 tablet by mouth once daily Cholecalciferol (Vitamin D3) 2,000 UNIT tablet Discontinued 2000 U PO DAILY March 13, 2014 12:00am September 27, 2022 1:48pm citalopram 10 mg oral tablet (14 sources) Serotonin Reuptake Inhibitor Start: 03-13-2014 End: 01-15-2021 take 1 tablet by mouth once daily Citalopram 10 MG tablet Discontinued 10 mg PO DAILY March 13, 2014 12:00am January 15, 2021 10:58am lovastatin 20 mg oral tablet (14 sources) HMG-CoA Reductase Inhibitor Start: 03-13-2014 End: 08-20-2022 take 2 tablets by mouth at bedtime Lovastatin 20 MG tablet Discontinued 40 mg PO AT BEDTIME March 13, 2014 12:00am August 20, 2022 9:42am Start: 03-13-2014 End: 08-20-2022 take 40 mg by mouth at bedtime Lovastatin Discontinued 40 MG PO AT BEDTIME March 12, 2014 11:00pm August 20, 2022 8:42am Start: 03-13-2014 take 20 mg by mouth at bedtime Lovastatin Active 20 MG PO AT BEDTIME March 13, 2014 12:00am rivaroxaban 10 mg oral tablet (14 sources) Factor Xa Inhibitor Start: 03-26-2014 End: 05-11-2020 take 1 tablet by mouth once daily Rivaroxaban 10 MG tablet Discontinued 10 mg PO DAILY@0600 30 March 26, 2014 12:00am May 11, 2020 2:46pm traMADol hydrochloride 50 mg oral tablet (14 sources) Opioid Agonist Start: 03-13-2014 End: 03-26-2014 take 1-2 mg by mouth every four hours as needed for pain Tramadol 50 MG tablet Discontinued 1 - 2 mg PO EVERY 4 HOURS NEEDED as needed for Pain March 13, 2014 12:00am March 26, 2014 3:20pm zolpidem tartrate 10 mg oral tablet (14 sources) gamma-Aminobutyr ic Acid-ergic Agonist Start: 03-13-2014 End: 05-11-2020 take 1 tablet by mouth at bedtime as needed for sleep Zolpidem 10 MG tablet Discontinued 10 mg PO AT BEDTIME NEEDED as needed for Sleep March 13, 2014 12:00am May 11, 2020 2:46pm Problems Active Problems Problem Classification Problem Date Documented Da te Episodic/Chronic Acute cerebrovascular disease (13 sources) Cerebrovascular accident; Translations: [Cerebral infarction, unspecified] 08-20-2022 Chronic Allergic reactions (14 sources) Irritant contact dermatitis due to plant; Translations: [Irritant contact dermatitis due to plants, except food] 01-19-2021 Episodic Cardiac dysrhythmias (20 sources) Cardiac arrhythmia; Translations: [Cardiac arrhythmia, unspecified] 11-09-2022 Chronic Disorders of lipid metabolism (9 sources) Hyperlipidemia; Translations: [Hyperlipidemia, unspecified] 09-27-2022 Chronic Essential hypertension (12 sources) Essential hypertension; Translations: [Essential (primary) hypertension] Onset: 08-12-2024 09-27-2022 Chronic Hypertension with complications and secondary hypertension (19 sources) Hypertensive emergency; Translations: [Hypertensive emergency] 08-18-2022 Chronic Joint disorders and dislocations; trauma-related (5 sources) Chronic instability of right knee joint; Translations: [Chronic instability of knee, right knee] Onset: 09-01-2024 07-28-2024 Chronic Osteoarthritis (14 sources) Osteoarthritis of right knee joint; Translations: [Unilateral primary osteoarthritis, right knee] Onset: 09-01-2024 07-28-2024 Chronic Other circulatory disease (4 sources) Presence of other cardiac implants and grafts; Translations: [Implantable loop recorder present] 07-31-2024 Chronic Other circulatory disease (3 sources) History of cerebrovascular accident; Translations: [Personal history of transient ischemic attack (TIA), and cerebral infarction without residual deficits] 07-06-2024 Episodic Other gastrointestinal disorders (14 sources) Occult blood in stools; Translations: [Other fecal abnormalities] 05-11-2020 Episodic Other injuries and conditions due to external causes (1 source) Injury, unspecified, initial encounter; Translations: [Injury, unspecified, initial encounter] Onset: 11-17-2024 Episodic Skin and subcutaneous tissue infections (14 sources) Cellulitis of periorbital region; Translations: [Periorbital cellulitis] 01-15-2021 Episodic Transient cerebral ischemia (20 sources) Transient global amnesia; 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 Reflex testing is not indicated. No laboratory evidence of infection with B. burgdorferi (Lyme disease). Negative results may occur in patients recently infected (less than or equal to 14 days) with B. burgdorferi. If recent infection is suspected, repeat testing on a new sample collected in 7 to 14 days is recommended. Performed at: [facility] [id number] Hand Rug Cleaner: Eric Gonzalez PhD, Phone: [phone] Performed By: #### L [id number] #### [facility] [address] [place], [address] Orthopedic Visit Reporton Orthopedic Visit Report [facility] [facility] [address] [place] [address] OFFICE VISIT Date of Service: 09/01/24 MR#: [id number] Acct: [id number] Name: KOJO TAVERAS Rep #: [id number] : 1945 Provider: Dr. Brad vega DO Age/Sex: 79/F Location: [facility] Status: Signed Intake Vital Signs 07/31/24 09:24 08/11/24 15:57 Height 5 ft 1 in 5 ft 1 in Intake Visit Reasons: RIGHT KNEE Chief Complaint: 3rd Supartz Injection Accompanied by: Self Is patient in pain?: No Allergies No Known Allergies Allergy (Verified 09/01/24 08:13) Medications ???Medication ???Instructions ???Recorded ???Confirmed ???Type meloxicam 7.5 mg tablet 7.5 mg PO BID 05/11/20 09/01/24 Hi story aspirin 81 mg chewable tablet 81 mg PO DAILY@0800 #30 tabs 08/2009/01/24 Rx calcium carbonate-vitamin D2 1 tab PO BID 09/27/22 09/01/24 His tory [Calcium with Vitamin D] gabapentin 300 mg capsule 300 mg PO QHS 09/27/22 09/01/24 Hi story omeprazole 20 mg capsule,delayed 20 mg PO DAILY 09/27/22 09/01/24 H istory release temazepam 15 mg capsule 15 mg PO QHS 09/27/22 09/01/24 His tory metoprolol succinate 25 mg 25 mg PO QHS 08/01/23 09/01/24 His tory tablet,extended release 24 hr rosuvastatin 40 mg tablet (Crestor) 40 mg PO DAILY 08/01/23 5 History amlodipine 5 mg tablet 5 mg PO DAILY 06/27/24 09/01/24 Hi story escitalopram oxalate 5 mg tablet 5 mg PO QDAY 07/28/24 09/01/24 His tory Have you fallen in the past year?: Yes (August 2024) [facility] Medical History Paroxysmal SVT (supraventricular tachycardia) PVC's (premature ventricular contractions) Anxiety Insomnia Essential hypertension Cellulitis of periorbital region of both eyes Guaiac positive stools Arthropathy of left shoulder Hemorrhoids GERD (gastroesophageal reflux disease) Hyperlipidemia Cardiac arrhythmia CTS (carpal tunnel syndrome) Lumbar discogenic pain syndrome Osteoarthritis Surgical History History of bilateral carpal tunnel release History of colonoscopy ( 2004) History of appendectomy History of cholecystectomy History of bunionectomy History of bilateral hip arthroplasty History of arthroscopy of left knee Family History Grandfather CVA (cerebral vascular accident) Aunt CVA (cerebral vascular accident) Other Abdominal aneurysm Social History Smoking Status: Never smoker alcohol intake: current substance use type: does not use HPI RIGHT KNEE Details: This documentation accurately reflects the service provided and the decisions made by me, Dr. Brad Hanna, DO 09/01/24 0738. Part of today???s visit was documented by Holli Bourne ATC, acting as scribe. KOJO TAVERAS is a 79 year old F here today for 3rd right knee Supartz injection. Patient denies any pain today. She denies any reactions/concerns from the other injections. Ortho Exam General General: Yes no acute distress Neurologic: Yes alert and Yes oriented x3 Psychologic: Yes reasonable and appropriate Right Knee Skin/Wound: No erythema, No ecchymosis and No swelling Homans Sign: No Knee ROM: Yes ROM-Extension -20 to 0 and Yes ROM-Flexion 0-140 (125) Examination: Yes Med jt line tenderness, No Lat jt line tenderness, No TTP inf pole patella, No Crepitus, No Pain with extention and No Kaleigh's Test Stability: NML: Anterior Drawer, NML: Posterior Drawer, NML: Varus 0 and NML: Varus 30 and 1+: Valgus 0 (3 mm of medial joint space gapping with valgus stress secondary to joint space narrowing) and 1+: Valgus 30 Patella Translation: 1 KNEE: mild varicose veins tattoo lower leg Left Knee Patella Translation: 1 Office Procedures Ortho Injections Injections Yes Knee Right Is this a patient provided medication?: No Details: Obtained consent for injection. Under sterile conditions, injected the patients right knee with 3rd Supartz injection. The patient tolerated the injection well without any noted complication. Patient should call our office if redness develops, pain worsens or if they have any concerns. Office Meds Supartz FX 10 mg/mL intra-articular syringe Performing Provider: Brad Hanna DO Performing Location: [facility] Administered by: Brad Hanna DO on 09/01/24 08:18 Dose Route Admin Location Dispensed Lot Number Expiration Date NDC Maximo ufacturer 25 mg intra-articular Right Knee 2.5 mL [id number] 08/16/27 [address]-5 Anita Margarita Supplemental Info 06/20/2024 x-ray on disc [facility]: Moderate medial joint space narrowing on AP view severe on flexion view (more content not included)... Normal [facility] Orthopedic Visit Reporton Orthopedic Visit Report [facility] [address] [place] [address] OFFICE VISIT Date of Service: 08/20/24 MR#: [id number] Acct: [id number] Name: KOJO TAVERAS Rep #: [id number] : 1945 Provider: Dr. Brad vega DO Age/Sex: 79/F Location[place] [facility] Status: Signed Intake Vital Signs 07/31/24 09:24 08/11/24 15:57 Height 5 ft 1 in 5 ft 1 in Weight: 126 lb BMI 23.8 BP 133/76 H Blood Pressure Location Lt brachial Position Sitting Respiration 18 Pulse 61 Pulse Source Monitor Pulse Oximetry (%) 98 Intake Visit Reasons: RIGHT KNEE Chief Complaint: Right knee pain Allergies No Known Allergies Allergy (Verified 08/20/24 15:26) Medications ???Medication ???Instructions ???Recorded ???Confirmed ???Type meloxicam 7.5 mg tablet 7.5 mg PO BID 05/11/20 08/20/24 Hi story aspirin 81 mg chewable tablet 81 mg PO DAILY@0800 #30 tabs 08/2008/20/24 Rx calcium carbonate-vitamin D2 1 tab PO BID 09/27/22 08/20/24 His tory [Calcium with Vitamin D] gabapentin 300 mg capsule 300 mg PO QHS 09/27/22 08/20/24 Hi story omeprazole 20 mg capsule,delayed 20 mg PO DAILY 09/27/22 08/20/24 H istory release temazepam 15 mg capsule 15 mg PO QHS 09/27/22 08/20/24 His tory metoprolol succinate 25 mg 25 mg PO QHS 08/01/23 08/20/24 His tory tablet,extended release 24 hr rosuvastatin 40 mg tablet (Crestor) 40 mg PO DAILY 08/01/23 5 History amlodipine 5 mg tablet 5 mg PO DAILY 06/27/24 08/20/24 Hi story escitalopram oxalate 5 mg tablet 5 mg PO QDAY 07/28/24 08/20/24 His tory Have you fallen in the past year?: Yes PFSH Medical History Paroxysmal SVT (supraventricular tachycardia) PVC's (premature ventricular contractions) Anxiety Insomnia Essential hypertension Cellulitis of periorbital region of both eyes Guaiac positive stools Arthropathy of left shoulder Hemorrhoids GERD (gastroesophageal reflux disease) Hyperlipidemia Cardiac arrhythmia CTS (carpal tunnel syndrome) Lumbar discogenic pain syndrome Osteoarthritis Surgical History History of bilateral carpal tunnel release History of colonoscopy ( 2004) History of appendectomy History of cholecystectomy History of bunionectomy History of bilateral hip arthroplasty History of arthroscopy of left knee Family History Grandfather CVA (cerebral vascular accident) Aunt CVA (cerebral vascular accident) Other Abdominal aneurysm Social History Smoking Status: Never smoker alcohol intake: current substance use type: does not use HPI RIGHT KNEE Details: This documentation accurately reflects the service provided and the decisions made by me, Dr. Brad Hanna, DO 08/20/24 0830. Part of today???s visit was documented by Kathie FREEMAN, acting as scribe. KOJO TAVERAS is a 79 year old F here today for 2nd right knee supartz injection. Ortho Exam General General: Yes no acute distress Neurologic: Yes alert and Yes oriented x3 Psychologic: Yes reasonable and appropriate Right Knee Skin/Wound: No erythema, No ecchymosis and No swelling Homans Sign: No Knee ROM: Yes ROM-Extension -20 to 0 and Yes ROM-Flexion 0-140 (125) Examination: Yes Med jt line tenderness, No Lat jt line tenderness, No TTP inf pole patella, No Crepitus, No Pain with extention and No Kaleigh's Test Stability: NML: Anterior Drawer, NML: Posterior Drawer, NML: Varus 0 and NML: Varus 30 and 1+: Valgus 0 (3 mm of medial joint space gapping with valgus stress secondary to joint space narrowing) and 1+: Valgus 30 Patella Translation: 1 KNEE: mild varicose veins tattoo lower leg Left Knee Patella Translation: 1 Office Procedures Ortho Injections Injections Yes Knee Right Is this a patient provided medication?: No Details: Obtained consent for injection. Under sterile conditions, injected the patients right knee with 25mg/2.5mL of Supartz. The patient tolerated the injection well without any noted complication. Javid andrews should call our office if redness develops, pain worsens or if they have any concerns. Office Meds Supartz FX 10 mg/mL intra-articular syringe Performing Provider: Brda Hanna DO Performing Location: [facility] Administered by: Brad Hanna DO on 08/20/24 15:28 Dose Route Admin Location Dispensed Lot Number Expiration Date [facility] Man ufacturer 25 mg intra-articular right knee 2.5 mL [id number] 08/16/27 [address]-8 Anita Margarita Supplemental Info 06/20/2024 x-ray on disc [facility]: Moderate medial joint space narrowing on AP v (more content not included)... Normal [facility] Orthopedic Visit Reporton Orthopedic Visit Report [facility] [address] [place] [address] [address] [place] [address] OFFICE VISIT Date of Service: 08/13/24 MR#: [id number] Acct: [id number] Name: KOJO TAVERAS Rep #: [id number] : 1945 Provider: Dr. Brad vega DO Age/Sex: 79/F [place] [facility] [place] Status: Signed with Addenda ADDENDUM by Holli Leiva on 08/13/24 at 0843 Office Procedure Documentation entered by Holli Leiva 08/13/24 08:43: Ortho Injections Injections Yes Knee Right Is this a patient provided medication?: No Details: Obtained consent for injection. Under sterile conditions, injected the patients right knee with 1st Supartz injection. The patient tolerated the injection well without any noted complication. Patient should call our office if redness develops, pain worsens or if they have any concerns. Office Meds Supartz FX 10 mg/mL intra-articular syringe Performing Provider: Brad Hanna DO Performing Location: [facility] Administered by: Brad Hanna DO on 08/13/24 08:39 Dose Route Admin Location Dispensed Lot Number Expiration Date [place] Man ufacturer 25 mg intra-articular Right Knee 2.5 mL [id number] 08/16/27 [address]-4 Anita Margarita Date cc: * Signed Intake Vital Signs 07/31/24 09:24 08/11/24 15:57 Height 5 ft 1 in 5 ft 1 in Weight: 126 lb BMI 23.8 BP 133/76 H Blood Pressure Location Lt brachial Position Sitting Respiration 18 Pulse 61 Pulse Source Monitor Pulse Oximetry (%) 98 Intake Visit Reasons: RIGHT KNEE Chief Complaint: Right knee pain Labor Employment Associate Required: No Accompanied by: Self Is patient in pain?: Yes Pain scale (1-10): 1 Allergies No Known Allergies Allergy (Verified 08/13/24 08:27) Medications ???Medication ???Instructions ???Recorded ???Confirmed ???Type meloxicam 7.5 mg tablet 7.5 mg PO BID 05/11/20 08/13/24 Hi story aspirin 81 mg chewable tablet 81 mg PO DAILY@0800 #30 tabs 08/2008/13/24 Rx calcium carbonate-vitamin D2 1 tab PO BID 09/27/22 08/13/24 His tory [Calcium with Vitamin D] gabapentin 300 mg capsule 300 mg PO QHS 09/27/22 08/13/24 Hi story omeprazole 20 mg capsule,delayed 20 mg PO DAILY 09/27/22 08/13/24 H istory release temazepam 15 mg capsule 15 mg PO QHS 09/27/22 08/13/24 His tory metoprolol succinate 25 mg 25 mg PO QHS 08/01/23 08/13/24 His tory tablet,extended release 24 hr rosuvastatin 40 mg tablet (Crestor) 40 mg PO DAILY 08/01/23 5 History amlodipine 5 mg tablet 5 mg PO DAILY 06/27/24 08/13/24 Hi story escitalopram oxalate 5 mg tablet 5 mg PO QDAY 07/28/24 08/13/24 His tory Have you fallen in the past year?: No PFSH Medical History Paroxysmal SVT (supraventricular tachycardia) PVC's (premature ventricular contractions) Anxiety Insomnia Essential hypertension Cellulitis of periorbital region of both eyes Guaiac positive stools Arthropathy of left shoulder Hemorrhoids GERD (gastroesophageal reflux disease) Hyperlipidemia Cardiac arrhythmia CTS (carpal tunnel syndrome) Lumbar discogenic pain syndrome Osteoarthritis Surgical History History of bilateral carpal tunnel release History of colonoscopy ( 2004) History of appendectomy History of cholecystectomy History of bunionectomy History of bilateral hip arthroplasty History of arthroscopy of left knee Family History Grandfather CVA (cerebral vascular accident) Aunt CVA (cerebral vascular accident) Other Abdominal aneurysm Social History Smoking Status: Never smoker alcohol intake: current substance use type: does not use HPI RIGHT KNEE Details: This documentation accurately reflects the service provided and the decisions made by me, Dr. Brad Hanna, DO 08/13/24 0751. Part of today???s visit was documented by [ ], acting as scribe. KOJO TAVERAS is a 79 year old F here today for 1st right knee Supartz injection. Rates pain / today. Ortho Exam General General: Yes no acute distress Neurologic: Yes alert and Yes oriented x3 Psychologic: Yes reasonable and appropriate Right Knee Skin/Wound: No erythema, No ecchymosis and No swelling Homans Sign: No Knee ROM: Yes ROM-Extension -20 to 0 and Yes ROM-Flexion 0-140 (125) Examination: Yes Med jt line tenderness, No Lat jt line tenderness, No TTP inf pole patella, No Crepitus, No Pain with extention and No Kaleigh's Test Stability: NML: Anterior Drawer, NML: Posterior Drawer, NML: Varus 0 and NML: Varus 30 and 1+: (more content not included)... [facility] Cardiology Visit Reporton Cardiology Visit Report [facility] [address] [place] [address]. [address] [place] [address] OFFICE VISIT Date of Service: 07/31/24 MR#: [id number] Acct: [id number] Name: KOJO TAVERAS Rep #: [id number] : 1945 Provider: RUTH hopson Age/Sex: 79/F [place] [facility] [place] Status: Signed HPI HPI History of Present Illness Details: This is a pleasant 79-year-old lady who presents to the office today for a cardiovascular follow-up visit. She has no previous cardiac history who suffered an episode of a cerebrovascular accident or transient global amnesia in August of 2022. She apparently was taking a shower and then did not know what happened to her. In the emergency room, she was noted to have extremely elevated blood pressure and was evaluated. The MRI was positive were for what appeared to be an embolic stroke. She was also treated for her hypertension. Her EKG demonstrated normal sinus rhythm with no acute changes. Echocardiogram demonstrated preserved ejection fraction of 55%, moderate tricuspid regurgitation, mild focal aortic calcification and no shunting noted. Her 48 hour Holter event monitor demonstrated average heart rate of 68 bpm in sinus rhythm, no atrial fibrillation, occasional supraventricular ectopic beats and no pauses noted. She has had no recurrence and has not had any residual. She underwent a loop recorder implant in November of 2022. She denies chest, arm, jaw, or neck discomfort. She denies palpitations. She denies bilateral lower extremity edema. She denies claudication. She denies shortness of breath with activity, sh ortness of breath at rest, orthopnea, or PND. She denies chronic cough. She denies significant, sudden weight gain. She denies lightheadedness, dizziness, near-syncope, or syncope. She denies blood in urine, blood in stool, or epistaxis. He denies fever with chills. She denies myalgia. She denies fatigue. Her exercise level has remained stable. Intake Vital Signs 01/30/24 09:35 07/28/24 08:36 07/31/24 09:24 Height 5 ft 1 in 5 ft 1 in 5 ft 1 in Weight: 126 lb BMI 23.8 BP 133/76 H Blood Pressure Location Lt brachial Position Sitting Respiration 18 Pulse 61 Pulse Source Monitor Pulse Oximetry (%) 98 Intake Visit Reasons: 6 M Labor Employment Associate Required: No Is patient in pain?: No Allergies No Known Allergies Allergy (Verified 07/31/24 09:24) Medications ???Medication ???Instructions ???Recorded ???Confirmed ???Type meloxicam 7.5 mg tablet 7.5 mg PO BID 05/11/20 07/31/24 Hi story aspirin 81 mg chewable tablet 81 mg PO DAILY@0800 #30 tabs 08/2007/31/24 Rx calcium carbonate-vitamin D2 1 tab PO BID 09/27/22 07/31/24 His tory [Calcium with Vitamin D] gabapentin 300 mg capsule 300 mg PO QHS 09/27/22 07/31/24 Hi story omeprazole 20 mg capsule,delayed 20 mg PO DAILY 09/27/22 07/31/24 H istory release temazepam 15 mg capsule 15 mg PO QHS 09/27/22 07/31/24 His tory metoprolol succinate 25 mg 25 mg PO QHS 08/01/23 07/31/24 His tory tablet,extended release 24 hr rosuvastatin 40 mg tablet (Crestor) 40 mg PO DAILY 08/01/23 5 History amlodipine 5 mg tablet 5 mg PO DAILY 06/27/24 07/31/24 Hi story escitalopram oxalate 5 mg tablet 5 mg PO QDAY 07/28/24 07/31/24 His tory Have you fallen in the past year?: No PFSH Medical History Paroxysmal SVT (supraventricular tachycardia) PVC's (premature ventricular contractions) Anxiety Insomnia Essential hypertension Cellulitis of periorbital region of both eyes Guaiac positive stools Arthropathy of left shoulder Hemorrhoids GERD (gastroesophageal reflux disease) Hyperlipidemia Cardiac arrhythmia CTS (carpal tunnel syndrome) Lumbar discogenic pain syndrome Osteoarthritis Surgical History History of bilateral carpal tunnel release History of colonoscopy ( 2004) History of appendectomy History of cholecystectomy History of bunionectomy History of bilateral hip arthroplasty History of arthroscopy of left knee Family History Grandfather CVA (cerebral vascular accident) Aunt CVA (cerebral vascular accident) Other Abdominal aneurysm Social History Smoking Status: Never smoker alcohol intake: current substance use type: does not use ROS Const Const: Negative for fatigue, weakness, body ache, fever(s) or chills ENT ENT: Negative for dizziness or Nosebleed/epistaxis Cardio Chest Pain: No Palpitations: No Edema: None Muscle aches with walking: None Resp Respiratory: Negative for SOB with activity, SOB at rest, SOB orthopnea SOB lying down, Cough or (more content not included)... Normal [facility] Orthopedic Visit Reporton Orthopedic Visit Report [facility] [address] [place] [address] [address] [place] [address] OFFICE VISIT Date of Service: 07/28/24 MR#: [id number] Acct: [id number] Name: KOJO TAVERAS Rep #: [id number] : 1945 Provider: Dr. Brad vega DO Age/Sex: 79/F [place] [facility] [place] Status: Signed Intake Vital Signs 06/27/24 23:36 07/28/24 08:36 Height 5 ft 1 in 5 ft 1 in Weight: 126 lb BMI 23.8 Intake Visit Reasons: RIGHT KNEE Chief Complaint: Right knee pain Allergies No Known Allergies Allergy (Verified 07/28/24 08:38) Medications ???Medication ???Instructions ???Recorded ???Confirmed ???Type meloxicam 7.5 mg tablet 7.5 mg PO BID 05/11/20 07/28/24 Hi story aspirin 81 mg chewable tablet 81 mg PO DAILY@0800 #30 tabs 08/2007/28/24 Rx calcium carbonate-vitamin D2 1 tab PO BID 09/27/22 07/28/24 His tory [Calcium with Vitamin D] gabapentin 300 mg capsule 300 mg PO QHS 09/27/22 07/28/24 Hi story omeprazole 20 mg capsule,delayed 20 mg PO DAILY 09/27/22 07/28/24 H istory release temazepam 15 mg capsule 15 mg PO QHS 09/27/22 07/28/24 His tory metoprolol succinate 25 mg 25 mg PO QHS 08/01/23 07/28/24 His tory tablet,extended release 24 hr rosuvastatin 40 mg tablet (Crestor) 40 mg PO DAILY 08/01/23 5 History amlodipine 5 mg tablet 5 mg PO DAILY 06/27/24 07/28/24 Hi story escitalopram oxalate 5 mg tablet 5 mg PO QDAY 07/28/24 07/28/24 His tory Have you fallen in the past year?: No PFSH Medical History Paroxysmal SVT (supraventricular tachycardia) PVC's (premature ventricular contractions) Anxiety Insomnia Essential hypertension Cellulitis of periorbital region of both eyes Guaiac positive stools Arthropathy of left shoulder Hemorrhoids GERD (gastroesophageal reflux disease) Hyperlipidemia Cardiac arrhythmia CTS (carpal tunnel syndrome) Lumbar discogenic pain syndrome Osteoarthritis Surgical History History of bilateral carpal tunnel release History of colonoscopy ( 2004) History of appendectomy History of cholecystectomy History of bunionectomy History of bilateral hip arthroplasty History of arthroscopy of left knee Family History Grandfather CVA (cerebral vascular accident) Aunt CVA (cerebral vascular accident) Other Abdominal aneurysm Social History Smoking Status: Never smoker alcohol intake: current substance use type: does not use HPI RIGHT KNEE Details: This documentation accurately reflects the service provided and the decisions made by me, Dr. Brad Hanna, DO 07/28/24 0748. Part of today???s visit was documented by Kathie FREEMAN, acting as scribe. KOJO TAVERAS is a 79 year old F referral from [facility] who has medical history significant but not limited to cardiac arrhythmia, essential hypertension, CVA, here today for right knee pain. She is on meloxicam 7.5 mg twice daily. She complains of medial right knee pain. She states the pain is worse when going down stairs or getting up from a seated position. She did get gel injections in 2020 which she reports were helpful. She denies previous injury or surgery to the knee. She denies numbness, tingling or radicular pain. She has received cortisone injections and they were not helpful. The Meloxicam is helpful for her knee pain. She would like to discuss the gel injections again. Ortho Exam General General: Yes no acute distress Neurologic: Yes alert and Yes oriented x3 Psychologic: Yes reasonable and appropriate Right Knee Skin/Wound: No erythema, No ecchymosis and No swelling Homans Sign: No Knee ROM: Yes ROM-Extension -20 to 0 and Yes ROM-Flexion 0-140 (125) Examination: Yes Med jt line tenderness, No Lat jt line tenderness, No TTP inf pole patella, No Crepitus, No Pain with extention and No Kaleigh's Test Stability: NML: Anterior Drawer, NML: Posterior Drawer, NML: Varus 0 and NML: Varus 30 and 1+: Valgus 0 (3 mm of medial joint space gapping with valgus stress secondary to joint space narrowing) and 1+: Valgus 30 Patella Translation: 1 KNEE: mild varicose veins tattoo lower leg Left Knee Patella Translation: 1 Supplemental Info 06/20/2024 x-ray on disc [facility]: Moderate medial joint space narrowing on AP view severe on flexion view mild patellofemoral arthrosis Coding Level of Care Code Off vis,new,level 3 Diagnoses Chronic instability of knee, right knee M23.51 Primary osteoarthritis of right knee M17.11 Osteoarthritis type: primary Assessment and Plan Assessment and Plan (1) Chronic instability of knee, right kne (more content not included)... [facility] Absolute lymphocyte countOrd ered By: Gaudencio Patel on 07-25-2024 Lymphocytes Auto (Unsp spec) [#/Vol] 2.14 10*3/uL 0.83-4.51 [facility] Absolute neutrophil countOrd ered By: Gaudencio Patel on 07-25-2024 Neutrophils (Bld) [#/Vol] 4.8 10*3/uL 2.0-7.7 [facility] Albumin to globulin ratioOrd ered By: Gaudencio Patel on 07-25-2024 Albumin/Globulin [Mass ratio] 1.0 {ratio} 0.9-2.4 [facility] Automated lymphocyte count a s percentage of total leukocytesOrdered By: Gaudencio Patel on 07-25-2024 Lymphocytes/100 WBC Auto (Unsp spec) 27.2 % 19-41 [facility] Basophil percentageOrdered B y: Gaudencio Patel on 07-25-2024 Basophils/100 WBC (Bld) 0.4 % 0-[address] [facility] Bilirubin, totalOrdered By: Gaudencio Patel on 07-25-2024 Bilirubin [Mass/Vol] 0.40 mg/dL 0.20-1.00 [facility] Comment on above: For patients on eltr ombopag therapy, use of Dimension Shaniko TBIL is not recommended. Blood urea nitrogen (BUN)/cr eatinine ratioOrdered By: Gaudencio Patel on 07-25-2024 Urea nitrogen/Creatinine [Mass ratio] 28.3 mg/mg High 10-20 [facility] CBC W/Diff, Automatedon Absolute Lymph 2.14 X10 3/uL Normal 0.83-4.51 [facility] Comment on above: Order Comment: Order Date: 04/25/24 Order Info: 0184-1 - CBCD Performed By: #### L 506.1000, L500.4100, L500.4050, L100.0100 #### [facility] [address] [place], [address] Absolute Neut 4.8 X10 3/uL Normal 2.0-7.7 [facility] Comment on above: Order Comment: Order Date: 04/25/24 Order Info: 0184-1 - CBCD Performed By: #### L 506.1000, L500.4100, L500.4050, L100.0100 #### [facility] [address] [place], [address] Basophils/100 WBC (Bld) 0.4 % Normal 0-[address] [facility] Comment on above: Order Comment: Order Date: 04/25/24 Order Info: 018- - CBCD Performed By: #### L 506.1000, L500.4100, L500.4050, L100.0100 #### [facility] [address] [place], [address] Eosinophils/100 WBC (Bld) 1.7 % Normal 0-5 [facility] Comment on above: Order Comment: Order Date: 04/25/24 Order Info: 018- - CBCD Performed By: #### L 506.1000, L500.4100, L500.4050, L100.0100 #### [facility] [address] [place], [address] Erythrocyte distribution width (RBC) [Ratio] 13.0 % Normal 11.6-14.6 [facility] Comment on above: Order Comment: Order Date: 04/25/24 Order Info: 0184-1 - CBCD Performed By: #### L 506.1000, L500.4100, L500.4050, L100.0100 #### [facility] [address] [place], [address] Hematocrit (Bld) [Volume fraction] 39.8 % Normal 37-47 [facility] Comment on above: Order Comment: Order Date: 04/25/24 Order Info: 0184-1 - CBCD Performed By: #### L 506.1000, L500.4100, L500.4050, L100.0100 #### [facility] [address] [place], [address] Hemoglobin (Bld) [Mass/Vol] 12.7 g/dL Normal 12.0-15.0 [facility] Comment on above: Order Comment: Order Date: 04/25/24 Order Info: 0184- - CBCD Performed By: #### L 506.1000, L500.4100, L500.4050, L100.0100 #### [facility] [address] [place], [address] IG% 0.300 Normal 0.0-0.9 [facility] Comment on above: Order Comment: Order Date: 04/25/24 Order Info: 0184- - CBCD Result Comment: IG% - Immature Granulocytes (promyelocytes, myelocytes and metamyelocytes) > 1% indicates that a LEFT SHIFT is Present. Performed By: #### L 506.1000, L500.4100, L500.4050, L100.0100 #### [facility] [address] [place], [address] Lymphocytes/100 WBC (Bld) 27.2 % Normal 19-41 [facility] Comment on above: Order Comment: Order Date: 04/25/24 Order Info: 0184- - CBCD Performed By: #### L 506.1000, L500.4100, L500.4050, L100.0100 #### [facility] [address] [place], [address] MCH (RBC) [Entitic mass] 29.5 pg Normal 27.0-32.0 [facility] Comment on above: Order Comment: Order Date: 04/25/24 Order Info: 0184- - CBCD Performed By: #### L 506.1000, L500.4100, L500.4050, L100.0100 #### [facility] [address] [place], [address] MCHC (RBC) [Mass/Vol] 31.9 g/dL Low 32-36 [facility] Comment on above: Order Comment: Order Date: 04/25/24 Order Info: 0184-1 - CBCD Performed By: #### L 506.1000, L500.4100, L500.4050, L100.0100 #### [facility] [address] [place], [address] MCV (RBC) [Entitic vol] 92.6 fL Normal 81-99 [facility] Comment on above: Order Comment: Order Date: 04/25/24 Order Info: 0184- - CBCD Performed By: #### L 506.1000, L500.4100, L500.4050, L100.0100 #### [facility] [address] [place], [address] Monocytes/100 WBC (Bld) 9.8 % Normal 0-10 [facility] Comment on above: Order Comment: Order Date: 04/25/24 Order Info: 0184- - CBCD Performed By: #### L 506.1000, L500.4100, L500.4050, L100.0100 #### [facility] [address] [place], [address] Neutrophils/100 WBC (Bld) 60.6 % Normal 47-70 [facility] Comment on above: Order Comment: Order Date: 04/25/24 Order Info: 0184-1 - CBCD Performed By: #### L 506.1000, L500.4100, L500.4050, L100.0100 #### [facility] [address] [place], [address] Nucleated RBC (Bld) [#/Vol] 0 10*3/uL Normal 0-5 [facility] Comment on above: Order Comment: Order Date: 04/25/24 Order Info: 0184-1 - CBCD Performed By: #### L 506.1000, L500.4100, L500.4050, L100.0100 #### [facility] [address] [place], [address] Platelet mean volume (Bld) [Entitic vol] 11.4 fL Normal 6.2-12.0 [facility] Comment on above: Order Comment: Order Date: 04/25/24 Order Info: 0184-1 - CBCD Performed By: #### L 506.1000, L500.4100, L500.4050, L100.0100 #### [facility] [address] [place], [address] Platelets (Bld) [#/Vol] 253 10*3/uL Normal 150-450 [facility] Comment on above: Order Comment: Order Date: 04/25/24 Order Info: 0184-1 - CBCD Performed By: #### L 506.1000, L500.4100, L500.4050, L100.0100 #### [facility] [address] [place], [address] RBC (Bld) [#/Vol] 4.30 10*6/uL Normal 4.2-5.4 [facility] Comment on above: Order Comment: Order Date: 04/25/24 Order Info: 0184-1 - CBCD Performed By: #### L 506.1000, L500.4100, L500.4050, L100.0100 #### [facility] [address] [place], [address] RDW SD 43.8 fl Normal 35.1-43.9 [facility] Comment on above: Order Comment: Order Date: 04/25/24 Order Info: 0184-1 - CBCD Performed By: #### L 506.1000, L500.4100, L500.4050, L100.0100 #### [facility] [address] [place], [address] WBC (Bld) [#/Vol] 7.9 10*3/uL Normal 4.4-11.0 [facility] Comment on above: Order Comment: Order Date: 04/25/24 Order Info: 0184-1 - CBCD Performed By: #### L 506.1000, L500.4100, L500.4050, L100.0100 #### [facility] [address] [place], [address] Carbon dioxide measurementOr dered By: Gaudencio Patel on 07-25-2024 CO2 [Moles/Vol] 29.0 mmol/L 21.0-32.0 [facility] Chloride measurementOrdered By: Gaudencio Patel on 07-25-2024 Chloride [Moles/Vol] 103 mmol/L 98-107 [facility] Comprehensive Metabolic Prof ilon 07-25-2024 Albumin [Mass/Vol] 3.8 g/dL Normal 3.2-5.0 [facility] Comment on above: Order Comment: Order Date: 04/25/24 Order Info: 0786-1 - CMP Order Info: [id number] - LIPID Performed By: #### L 506.1000, L500.4100, L500.4050, L100.0100 #### [facility] [address] [place], [address] Albumin/Globulin [Mass ratio] 1.0 {ratio} Normal 0.9-2.4 [facility] Comment on above: Order Comment: Order Date: 04/25/24 Order Info: 0786-1 - CMP Order Info: [id number] - LIPID Performed By: #### L 506.1000, L500.4100, L500.4050, L100.0100 #### [facility] [address] [place], [address] ALK P 87 U/L Normal 45-117 [facility] Comment on above: Order Comment: Order Date: 04/25/24 Order Info: 0786-1 - CMP Order Info: [id number] - LIPID Performed By: #### L 506.1000, L500.4100, L500.4050, L100.0100 #### [facility] [address] [place], [address] ALT [Catalytic activity/Vol] 35 U/L Normal 13-56 [facility] Comment on above: Order Comment: Order Date: 04/25/24 Order Info: 0786- - CMP Order Info: [id number] - LIPID Performed By: #### L 506.1000, L500.4100, L500.4050, L100.0100 #### [facility] [address] [place], [address] AST [Catalytic activity/Vol] 23 U/L Normal 15-37 [facility] Comment on above: Order Comment: Order Date: 04/25/24 Order Info: 07- - CMP Order Info: [id number] - LIPID Performed By: #### L 506.1000, L500.4100, L500.4050, L100.0100 #### [facility] [address] [place], [address] Bilirubin [Mass/Vol] 0.40 mg/dL Normal 0.20-1.00 [facility] Comment on above: Order Comment: Order Date: 04/25/24 Order Info: 0786- - CMP Order Info: [id number] - LIPID Result Comment: For patients on eltrombopag therapy, use of Dimension Shaniko TBIL is not recommended. Performed By: #### L 506.1000, L500.4100, L500.4050, L100.0100 #### [facility] [address] [place], [address] BUN/CRE 28.3 RATIO High 10-20 [facility] Comment on above: Order Comment: Order Date: 04/25/24 Order Info: [id number] - CMP Order Info: [id number] - LIPID Performed By: #### L 506.1000, L500.4100, L500.4050, L100.0100 #### [facility] [address] [place], [address] CA,Total 9.2 mg/dL Normal 8.5-10.1 [facility] Comment on above: Order Comment: Order Date: 04/25/24 Order Info: 07 - CMP Order Info: [id number] - LIPID Performed By: #### L 506.1000, L500.4100, L500.4050, L100.0100 #### [facility] [address] [place], [address] Chloride [Moles/Vol] 103 mmol/L Normal 98-107 [facility] Comment on above: Order Comment: Order Date: 04/25/24 Order Info: [id number] - CMP Order Info: [id number] - LIPID Performed By: #### L 506.1000, L500.4100, L500.4050, L100.0100 #### [facility] [address] [place], [address] CO2 [Moles/Vol] 29.0 mmol/L Normal 21.0-32.0 [facility] Comment on above: Order Comment: Order Date: 04/25/24 Order Info: 0786 - CMP Order Info: [id number] - LIPID Performed By: #### L 506.1000, L500.4100, L500.4050, L100.0100 #### [facility] [address] [place], [address] Creatinine [Mass/Vol] 0.74 mg/dL Normal 0.55-1.02 [facility] Comment on above: Order Comment: Order Date: 04/25/24 Order Info: [id number] - CMP Order Info: [id number] - LIPID Result Comment: The validity of the calculated GFR GFRAA in patients over 70 years has not been determined. Clinical correlation is essential. Performed By: #### L 506.1000, L500.4100, L500.4050, L100.0100 #### [facility] [address] [place], [address] EST GFR - AA 97 mL/min Normal >60 [facility] Comment on above: Order Comment: Order Date: 04/25/24 Order Info: [id number] - CMP Order Info: [id number] - LIPID Result Comment: Afri can [place] GFR Calc Performed By: #### L 506.1000, L500.4100, L500.4050, L100.0100 #### [facility] [address] [place], [address] GAP 6 Normal 5-15 [facility] Comment on above: Order Comment: Order Date: 04/25/24 Order Info: [id number] - CMP Order Info: [id number] - LIPID Performed By: #### L 506.1000, L500.4100, L500.4050, L100.0100 #### [facility] [address] [place], [address] GFR/1.73 sq M.predicted among non-blacks MDRD (S/P/Bld) [Vol rate/Area] 81 mL/min/{1.73_m2} Normal >60 [facility] Comment on above: Order Comment: Order Date: 04/25/24 Order Info: 07 - CMP Order Info: [id number] - LIPID Result Comment: Non- GFR Calc Performed By: #### L 506.1000, L500.4100, L500.4050, L100.0100 #### [facility] [address] [place], [address] Globulin (S) [Mass/Vol] 3.8 g/dL Normal 2.2-4.[address] [facility] Comment on above: Order Comment: Order Date: 04/25/24 Order Info: [id number]- - CMP Order Info: [id number] - LIPID Performed By: #### L 506.1000, L500.4100, L500.4050, L100.0100 #### [facility] [address] [place], [address] Glucose [Mass/Vol] 95 mg/dL Normal 74-106 [facility] Comment on above: Order Comment: Order Date: 04/25/24 Order Info: 0786- - CMP Order Info: [id number] - LIPID Performed By: #### L 506.1000, L500.4100, L500.4050, L100.0100 #### [facility] [address] [place], [address] Potassium [Moles/Vol] 4.5 mmol/L Normal 3.5-5.1 [facility] Comment on above: Order Comment: Order Date: 04/25/24 Order Info: 0786 - CMP Order Info: [id number] - LIPID Performed By: #### L 506.1000, L500.4100, L500.4050, L100.0100 #### [facility] [address] [place], [address] Sodium [Moles/Vol] 138 mmol/L Normal 136-145 [facility] Comment on above: Order Comment: Order Date: 04/25/24 Order Info: 0786 - CMP Order Info: [id number] - LIPID Performed By: #### L 506.1000, L500.4100, L500.4050, L100.0100 #### [facility] [address] [place], [address] T PROT 7.6 g/dL Normal 6.4-8.2 [facility] Comment on above: Order Comment: Order Date: 04/25/24 Order Info: [id number]- - CMP Order Info: [id number] - LIPID Performed By: #### L 506.1000, L500.4100, L500.4050, L100.0100 #### [facility] [address] [place], [address] Urea nitrogen [Mass/Vol] 21 mg/dL High 7-18 [facility] Comment on above: Order Comment: Order Date: 04/25/24 Order Info: [id number] - CMP Order Info: [id number] - LIPID Performed By: #### L 506.1000, L500.4100, L500.4050, L100.0100 #### [facility] [address] [place], [address] Eosinophil percentageOrdered By: Gaudencio Patel on 07-25-2024 Eosinophils/100 WBC (Bld) 1.7 % 0-5 [facility] Erythrocyte distribution wid th ratioOrdered By: Gaudencio Patel on 07-25-2024 Erythrocyte distribution width (RBC) [Ratio] 13.0 % 11.6-14.6 [facility] Erythrocyte distribution wid th standard deviationOrdered By: Gaudencio Patel on 07-25-2024 Erythrocyte distribution width (RBC) [Ratio] 43.8 fl 35.1-43.9 [facility] Glomerular filtration rate ( GFR) estimationOrdered By: Gaudencio Patel on 07-25-2024 GFR/1.73 sq M.predicted among non-blacks MDRD (S/P/Bld) [Vol rate/Area] 81 mL/min/{1.73_m2} >60 [facility] Comment on above: Non- GFR Calc Glucose measurementOrdered B y: Gaudencio Patel on 07-25-2024 Glucose [Mass/Vol] 95 mg/dL 74-106 [facility] Hematocrit Auto (Bld) [Volum e fraction]Ordered By: Gaudencio Patel on 07-25-2024 Hematocrit (Bld) [Volume fraction] 39.8 % 37-47 [facility] Hemoglobin measurementOrdere d By: Gaudencio Patel on 07-25-2024 Hemoglobin (Bld) [Mass/Vol] 12.7 g/dL 12.0-15.0 [facility] High density lipoprotein (HD L) measurementOrdered By: Gaudencio Patel on 07-25-2024 Cholesterol in HDL [Mass/Vol] 72 mg/dL >40 [facility] Comment on above: The drugs N-Acetylcy steine and Metamizole may falsely depress this assay. Reference Range HDL <40 mg/dL Low HDL Cholesterol HDL >or= 60 mg/dL High HDL Cholesterol Immature granulocytes/100 WB C Auto (Bld)Ordered By: Gaudencio Patel on 07-25-2024 Immature granulocytes/100 WBC (Bld) 0.300 % 0.0-0.9 [facility] Comment on above: IG% - Immature Granu locytes (promyelocytes, myelocytes and metamyelocytes) > 1% indicates that a LEFT SHIFT is Present. Laboratory - Chemistry and C hemistry - challengeOrdered By: Gaudencio Patel on 07-25-2024 AST [Catalytic activity/Vol] 23 U/L 15-37 [facility] Lipid Profileon 07-25-2024 Cholesterol [Mass/Vol] 149 mg/dL Normal 200 [facility] Comment on above: Order Comment: Order Date: 04/25/24 Order Info: [id number] - CMP Order Info: [id number] - LIPID Result Comment: <200 mg/dL Desirable 200-240 mg/dL Borderline >240 mg/dL High Risk Performed By: #### L 506.1000, L500.4100, L500.4050, L100.0100 #### [facility] [address] [place], [address] Cholesterol in HDL [Mass/Vol] 72 mg/dL Normal [facility] Comment on above: Order Comment: Order Date: 04/25/24 Order Info: [id number] - CMP Order Info: [id number] - LIPID Result Comment: The drugs N-Acetylcysteine and Metamizole may falsely depress this assay. Reference Range HDL <40 mg/dL Low HDL Cholesterol HDL >or= 60 mg/dL High HDL Cholesterol Performed By: #### L 506.1000, L500.4100, L500.4050, L100.0100 #### [facility] [address] [place], [address] Cholesterol in LDL [Mass/Vol] 61 mg/dL Normal 0-130 [facility] Comment on above: Order Comment: Order Date: 04/25/24 Order Info: [id number] - CMP Order Info: [id number] - LIPID Performed By: #### L 506.1000, L500.4100, L500.4050, L100.0100 #### [facility] [address], [address] Cholesterol in VLDL [Mass/Vol] 16 mg/dL Normal 5-40 [facility] Comment on above: Order Comment: Order Date: 04/25/24 Order Info: [id number] - CMP Order Info: [id number] - LIPID Performed By: #### L 506.1000, L500.4100, L500.4050, L100.0100 #### [facility] [address] [place], [address] Triglyceride [Mass/Vol] 82 mg/dL Normal [facility] Comment on above: Order Comment: Order Date: 04/25/24 Order Info: [id number] - CMP Order Info: [id number] - LIPID Result Comment: The drugs N-Acetylcysteine and Metamizole may falsely depress this assay. Serum Triglycerides Reference Interval Normal <150 mg/dL Borderline high 150 - 199 mg/dL High 200 - 499 mg/dL Very High > or = 500 mg/dL Performed By: #### L 506.1000, L500.4100, L500.4050, L100.0100 #### [facility] [address] [place], [address] Low density lipoprotein (LDL ) cholesterol measurementOrdered By: Gaudencio Patel on 07-25-2024 Cholesterol in LDL [Mass/Vol] 61 mg/dL 0-130 [facility] MCV (mean corpuscular volume ) determinationOrdered By: Gaudencio Patel on 07-25-2024 MCV (RBC) [Entitic vol] 92.6 fL 81-[address] [facility] Mean corpuscular hemoglobin (MCH) determinationOrdered By: Gaudencio Patel on 07-25-2024 MCH (RBC) [Entitic mass] 29.5 pg 27.0-32.0 [facility] Mean corpuscular hemoglobin concentration (MCHC) determinationOrdered By: Gaudencio Patel on 07-25-2024 MCHC (RBC) [Mass/Vol] 31.9 g/dL Low 32-36 [facility] Mean platelet volume determi nationOrdered By: Gaudencio Patel on 07-25-2024 Platelet mean volume (Bld) [Entitic vol] 11.4 fL 6.2-12.0 [facility] Monocyte percentageOrdered B y: Gaudencio Patel on 07-25-2024 Monocytes/100 WBC (Bld) 9.8 % 0-[address] [facility] Neutrophil percentageOrdered By: Gaudencio Patel on 07-25-2024 Neutrophils/100 WBC (Bld) 60.6 % 47-70 [facility] Nucleated red blood cell per centageOrdered By: Gaudencio Patel on 07-25-2024 Nucleated RBC/100 WBC (Bld) [Ratio] 0 % 0-5 [facility] Platelet countOrdered By: Itzel Patel on 07-25-2024 Platelets (Bld) [#/Vol] 253 10*3/uL 150-450 [facility] Potassium measurementOrdered By: Gaudencio Patel on 07-25-2024 Potassium [Moles/Vol] 4.5 mmol/L 3.5-5.1 [facility] RBC Auto (Bld) [#/Vol]Ordere d By: Gaudencio Patel on 07-25-2024 RBC (Bld) [#/Vol] 4.30 10*6/uL 4.2-5.4 [facility] Serum anion gap measurementO rdered By: Gaudencio Patel on 07-25-2024 Anion gap [Moles/Vol] 6 mmol/L 5-15 [facility] Serum globulin measurementOr dered By: Gaudencio Patel on 07-25-2024 Globulin (S) [Mass/Vol] 3.8 g/dL 2.2-4.[address] [facility] Serum or plasma alanine roche otransferase (ALT) measurementOrdered By: Gaudencio Patel on 07-25-2024 ALT [Catalytic activity/Vol] 35 U/L 13-56 [facility] Serum or plasma albumin kerline urement (mass/volume)Ordered By: Gaudencio Patel on 07-25-2024 Albumin [Mass/Vol] 3.8 g/dL 3.2-5.0 [facility] Serum or plasma alkaline jaswinder sphatase measurementOrdered By: Gaudencio Patel on 07-25-2024 ALP [Catalytic activity/Vol] 87 U/L 45-117 [facility] Serum or plasma calcium kerline urement (mass/volume)Ordered By: Gaudencio Patel on 07-25-2024 Calcium [Mass/Vol] 9.2 mg/dL 8.5-10.1 [facility] Serum or plasma cholesterol measurement (mass/volume)Ordered By: Gaudencio Patel on 07-25-2024 Cholesterol [Mass/Vol] 149 mg/dL <200 [facility] Comment on above: <200 mg/dL Desirable 200-240 mg/dL Borderline >240 mg/dL High Risk Serum or plasma creatinine m easurement (mass/volume)Ordered By: Gaudencio Patel on 07-25-2024 Creatinine [Mass/Vol] 0.74 mg/dL 0.55-1.02 [facility] Comment on above: The validity of the calculated GFR & GFRAA in patients over 70 years has not been determined. Clinical correlation is essential. Serum or plasma urea nitroge n measurement (mass/volume)Ordered By: Gaudencio Patel on 07-25-2024 Urea nitrogen [Mass/Vol] 21 mg/dL High 7-18 [facility] Sodium levelOrdered By: Gaudencio Patel on 07-25-2024 Sodium [Moles/Vol] 138 mmol/L 136-145 [facility] Total proteinOrdered By: Jacob Patel on 07-25-2024 Protein [Mass/Vol] 7.6 g/dL 6.4-8.2 [facility] Triglycerides measurementOrd ered By: Gaudencio Patel on 07-25-2024 Triglyceride [Mass/Vol] 82 mg/dL <[address] [facility] Comment on above: The drugs N-Acetylcy steine and Metamizole may falsely depress this assay.Serum Triglycerides Reference Interval Normal <150 mg/dL Borderline high 150 - 199 mg/dL High 200 - 499 mg/dL Very High > or = 500 mg/dL Very low density lipoprotein (VLDL) cholesterol measurementOrdered By: Gaudencio Patel on 07-25-2024 Very low density lipoprotein (VLDL) cholesterol measurement 16 mg/dL 5-40 [facility] Vitamin D,25 Hydroxyon 07-25 Vitamin D 25-OH 34.6 ng/mL Normal [facility] Comment on above: Order Comment: Order Date: 04/25/24 Order Info: [id number] - VITD25 Result Comment: Niecy min D 25(OH) Status Range Deficiency <20 ng/mL (50nmol/L) Insufficiency 20 - 30 ng/mL (50 - 75 nmol/L) Sufficiency 30 - 100 ng/mL (75 - 250 nmol/L) Toxicity >100 ng/mL (>250 nmol/L) Performed By: #### L 506.1000, L500.4100, L500.4050, L100.0100 #### [facility] [address] [place], [address] White blood cell (WBC) count Ordered By: Gaudencio Patel on 07-25-2024 WBC (Bld) [#/Vol] 7.9 10*3/uL 4.4-11.0 [facility] Emergency Department Summary on 06-27-2024 Emergency Department Summary [facility] Medical Records Department [address] [place] [address] Emergency Department Summary 06/27/24 MR#: [id number] Acct: [id number] Name: KOJO TAVERAS Rep #: [id number] : 1945 79 From: Anthony Chambers MD PCP: Dr. Gaudencio Patel MD Status:REG ER Location: ED HPI History of Present Illness Chief Complaint: General Illness Detail of Chief Complaint: Feeling flushed and nauseous, checked BP and elevated Informant: patient and spouse/S.O. Onset/Context/Timing Onset: Hours Context: Sudden Onset Timing: Continuous Quality: Elevated blood pressure with sense of feeling flushed and nauseous Location: Cardiovascular and possibly GI Current Severity: Mild Maximum Severity: Moderate Worsened by: Nothing Relieved by: Nothing Associated Symptoms Associated Symptoms: No other symptoms Narrative Narrative: Patient is a 79-year-old woman with history of hypertension on amlodipine 5 mg and metoprolol 25 mg for years. She states her systolic pressure is normally in the mid 130s. She denies headache. Eyes double vision blurred vision loss of vision. Denies ringing or ears decreased hearing. Denies trouble with speech or swallowing. She denies neck pain. She denies cardiac respiratory symptoms. She does endorse nausea without vomiting. She denies paresthesia, anesthesia or motor weakness upper lower extremity. She denies problems with coordination or balance. Patient has history of paroxysmal supraventricular tachycardia, essential hypertension, hyperlipidemia and stroke. She had a stroke 2 years ago. That time her blood pressure was elevated and patient states it was 220 over number greater than 100. Prior similar symptoms: No Recent Illness/Hospitalizatio n: No PFSH PFSH Medical History Paroxysmal SVT (supraventricular tachycardia) PVC's (premature ventricular contractions) Anxiety Insomnia Essential hypertension Cellulitis of periorbital region of both eyes Guaiac positive stools Arthropathy of left shoulder Hemorrhoids GERD (gastroesophageal reflux disease) Hyperlipidemia Cardiac arrhythmia CTS (carpal tunnel syndrome) Lumbar discogenic pain syndrome Osteoarthritis Home Medications ???Medication ???Instructions ???Recorded ???Last Taken ???Type meloxicam 7.5 mg tablet 7.5 mg PO BID 05/11/20 Unknown History aspirin 81 mg chewable tablet 81 mg PO DAILY@0800 #30 tabs 08/20/22 Unknown Rx calcium carbonate-vitamin D2 1 tab PO BID 09/27/22 Unknown History [Calcium with Vitamin D] gabapentin 300 mg capsule 300 mg PO QHS 09/27/22 Unknown History omeprazole 20 mg capsule,delayed 20 mg PO DAILY 09/27/22 Unknown History release temazepam 15 mg capsule 15 mg PO QHS 09/27/22 Unknown History metoprolol succinate 25 mg 25 mg PO QHS 08/01/23 Unknown History tablet,extended release 24 hr rosuvastatin 40 mg tablet (Crestor) 40 mg PO DAILY 08/01/23 Unknown History amlodipine 5 mg tablet 5 mg PO DAILY 06/27/24 Unknown History Allergy/AdvReac Type Severity Reaction Status Date / Time No Known Allergies Allergy Verified 06/27/24 23:37 Family History Grandfather CVA (cerebral vascular accident) Aunt CVA (cerebral vascular accident) Other Abdominal aneurysm Surgical History History of bilateral carpal tunnel release History of colonoscopy ( 2004) History of appendectomy History of cholecystectomy History of bunionectomy History of bilateral hip arthroplasty History of arthroscopy of left knee Social History Smoking Status: Never smoker alcohol intake: current substance use type: does not use ROS ROS ED Constitutional Constitutional ED: Denies chills, fever(s), subjective, sweats or weight loss Eyes Eyes: Denies blurry vision, change in vision or diplopia ENT ENT ED: Denies rhinorrhea or sore throat Cardiovascular Cardiovascular: Denies chest pain or palpitations Respiratory/Chest Respiratory/Chest: Denies dyspnea or dyspnea on exertion Gastrointestinal Gastrointestinal: Reports nausea; Denies abdominal pain, diarrhea or vomiting Musculoskeletal Musculoskeletal: Denies arthralgias, back pain, myalgias or neck pain Neurologic Neurologic: Denies headache(s) or paresthesias Psychiatric Psychiatric: Denies anxiety Hematologic/Lymphatic Hematologic/Lymphatic: Reports systems reviewed and no addt'l complaints, except as documented EXAM Physical Exam Const Vital Signs: 06/27/24 23:36 06/27/24 23:39 06/27/24 23:45 Temperature 97.9 F Temperature Source Oral Pulse Rate 77 Respiratory Rate 16 Respiratory Effort Normal Respiratory Pattern Normal (more content not included)... Normal [facility] Cardiology Visit Reporton Cardiology Visit Report [facility] [address] [place] [address]. [address] [place] [address] OFFICE VISIT Date of Service: 01/30/24 MR#: [id number] Acct: [id number] Name: KOJO TAVERAS Rep #: [id number] : 1945 Provider: RUTH santizo Age/Sex: 78/F [place] [facility] [place] Status: Signed [facility] History of Present Illness Details: This is a pleasant 78-year-old lady who presents to the office today for a cardiovascular follow-up visit. She has no previous cardiac history who suffered an episode of a cerebrovascular accident or transient global amnesia in August of 2022. She apparently was taking a shower and then did not know what happened to her. In the emergency room she was noted to have extremely elevated blood pressure and was evaluated. The MRI was positive were for what appeared to be an embolic stroke. She was also treated for her hypertension. Her EKG demonstrated normal sinus rhythm with no acute changes. Echocardiogram demonstrated preserved ejection fraction of 55%, moderate tricuspid regurgitation, mild focal aortic calcification and no shunting noted. Her 48 hour Holter event monitor demonstrated average heart rate of 68 bpm in sinus rhythm, no atrial fibrillation, occasional supraventricular ectopic beats and no pauses noted. She has had no recurrence and has not had any residual. She underwent a loop recorder implant in November of 2022. From a cardiac standpoint, the patient is doing well. She denies any palpitations, chest pain, pressure or heaviness. She denies SOB, Orthopnea, and PND. She does not have bleeding issues; no blood in urine, stool or nosebleeds. She denies any decrease in energy level, myalgias, or claudication. She does not have edema, or sudden weight gain. She does have occasional lightheadedness. She denies dizziness, syncopal or near syncopal episodes, and headaches. Intake Vital Signs 08/01/23 09:32 01/30/24 09:32 01/30/24 09:35 Height 5 ft 1 in 5 ft 1 in 5 ft 1 in Weight: 121 lb BMI 22.8 BP 126/70 H Blood Pressure Location Lt brachial Position Sitting Respiration 18 Pulse 56 L Pulse Source Monitor Pulse Oximetry (%) 100 Intake Visit Reasons: 6 M FU [employer] Required: No Is patient in pain?: No Allergies No Known Allergies Allergy (Verified 01/30/24 09:36) Medications ???Medication ???Instructions ???Recorded ???Confirmed ???Type meloxicam 7.5 mg tablet 7.5 mg PO BID 05/11/20 01/30/24 History aspirin 81 mg chewable tablet 81 mg PO DAILY@0800 #30 tabs 08/20/22 01/30/24 Rx calcium carbonate-vitamin D2 1 tab PO BID 09/27/22 01/30/24 History [Calcium with Vitamin D] gabapentin 300 mg capsule 300 mg PO QHS 09/27/22 01/30/24 History omeprazole 20 mg capsule,delayed 20 mg PO DAILY 09/27/22 01/30/24 History release temazepam 15 mg capsule 15 mg PO QHS 09/27/22 01/30/24 History amlodipine 10 mg tablet 5 mg PO DAILY 11/09/22 01/30/24 History metoprolol succinate 25 mg 25 mg PO QHS 08/01/23 01/30/24 History tablet,extended release 24 hr rosuvastatin 40 mg tablet (Crestor) 40 mg PO DAILY 08/01/23 01/30/24 History Have you fallen in the past year?: No PFSH Medical History Paroxysmal SVT (supraventricular tachycardia) PVC's (premature ventricular contractions) Anxiety Insomnia Essential hypertension Cellulitis of periorbital region of both eyes Guaiac positive stools Arthropathy of left shoulder Hemorrhoids GERD (gastroesophageal reflux disease) Hyperlipidemia Cardiac arrhythmia CTS (carpal tunnel syndrome) Lumbar discogenic pain syndrome Osteoarthritis Surgical History History of bilateral carpal tunnel release History of colonoscopy ( 2004) History of appendectomy History of cholecystectomy History of bunionectomy History of bilateral hip arthroplasty History of arthroscopy of left knee Family History Grandfather CVA (cerebral vascular accident) Aunt CVA (cerebral vascular accident) Other Abdominal aneurysm Social History Smoking Status: Never smoker alcohol intake: current substance use type: does not use ROS Const Const: Negative for fatigue, weakness, fever(s), headache(s), chills, frequent falls, weight gain or weight loss Eyes Eyes: Negative for blind spots, loss of peripheral vision, transient loss of vision, blurry vision, change in vision, double vision, floaters or tunnel vision ENT ENT: Negative for headache(s), dizziness, Nosebleed/epistaxis, balance problems or neck pain Cardio Chest Pain: No Palpitations: No Edema: None Muscle aches with walking: None Resp Respiratory: Nega (more content not included)... Normal [facility] Absolute lymphocyte countOrd ered By: Gaudencio Patel on 07-25-2023 Lymphocytes Auto (Unsp spec) [#/Vol] 1.74 10*3/uL 0.83-4.51 [facility] Automated lymphocyte count a s percentage of total leukocytesOrdered By: Gaudencio Patel on 07-25-2023 Lymphocytes/100 WBC Auto (Unsp spec) 28.0 % 19-41 [facility] Basophil percentageOrdered B y: Gaudencio Patel on 07-25-2023 Basophil percentage 0 SEEN /hpf 0-5 [facility] Basophils/100 WBC (Bld) 0.6 % 0-[address] [facility] Bilirubin [Mass/Vol] 0.50 mg/dL 0.20-1.00 [facility] Comment on above: For patients on eltr ombopag therapy, use of Dimension Shaniko TBIL is not recommended. Chloride [Moles/Vol] 106 mmol/L 98-107 [facility] Cholesterol [Mass/Vol] 159 mg/dL <200 [facility] Comment on above: <200 mg/dL Desirable 200-240 mg/dL Borderline >240 mg/dL High Risk Eosinophils/100 WBC (Bld) 1.8 % 0-5 [facility] Glucose [Mass/Vol] 101 mg/dL 74-106 [facility] Comment on above: Fasting Glucose resu lt from 100 to 125 mg/dL suggests IMPAIRED HOMEOSTASIS per A.D.A. criteria. Hemoglobin (Bld) [Mass/Vol] 12.5 g/dL 12.0-15.0 [facility] Monocytes/100 WBC (Bld) 7.4 % 0-10 [facility] Neutrophils (Bld) [#/Vol] 3.9 10*3/uL 2.0-7.7 [facility] Neutrophils/100 WBC (Bld) 62.0 % 47-70 [facility] Potassium [Moles/Vol] 4.0 mmol/L 3.5-5.1 [facility] Protein [Mass/Vol] 7.5 g/dL 6.4-8.2 [facility] Sodium [Moles/Vol] 137 mmol/L 136-145 [facility] Triglyceride [Mass/Vol] 79 mg/dL <[address] [facility] Comment on above: The drugs N-Acetylcy steine and Metamizole may falsely depress this assay.Serum Triglycerides Reference Interval Normal <150 mg/dL Borderline high 150 - 199 mg/dL High 200 - 499 mg/dL Very High > or = 500 mg/dL WBC (Bld) [#/Vol] 6.2 10*3/uL 4.4-11.0 [facility] Bilirubin Test strip Ql (U)O rdered By: Gaudencio Patel on 07-25-2023 Bilirubin Ql (U) Negative Negative [facility] Determination of erythrocyte mean corpuscular volume (MCV)Ordered By: Gaudencio Patel on 07-25-2023 MCV (RBC) [Entitic vol] 92.7 fL 81-[address] [facility] Erythrocyte distribution wid th ratioOrdered By: Gaudencio Patel on 07-25-2023 Erythrocyte distribution width (RBC) [Ratio] 12.8 % 11.6-14.6 [facility] Erythrocyte distribution wid th standard deviationOrdered By: Gaudencio Patel on 07-25-2023 Erythrocyte distribution width (RBC) [Entitic vol] 43.6 fL 35.1-43.9 [facility] Hematocrit Auto (Bld) [Volum e fraction]Ordered By: Gaudencio Patel on 07-25-2023 Hematocrit (Bld) [Volume fraction] 39.1 % 37-47 [facility] Immature granulocytes/100 WB C Auto (Bld)Ordered By: Gaudencio Patel on 07-25-2023 Immature granulocytes/100 WBC (Bld) 0.200 % 0.0-0.9 [facility] Comment on above: IG% - Immature Granu locytes (promyelocytes, myelocytes and metamyelocytes) > 1% indicates that a LEFT SHIFT is Present. Ketones Test strip Ql (U)Ord ered By: Gaudencio Patel on 07-25-2023 Ketones Ql (U) Negative Negative [facility] - Chemistry and C hemistry - challengeOrdered By: Gaudencio Patel on 07-25-2023 Albumin/Globulin [Mass ratio] 1.1 {ratio} 0.9-2.4 [facility] ALP [Catalytic activity/Vol] 84 U/L 45-117 [facility] ALT [Catalytic activity/Vol] 33 U/L 13-56 [facility] Cholesterol in HDL [Mass/Vol] 71 mg/dL >40 [facility] Comment on above: The drugs N-Acetylcy steine and Metamizole may falsely depress this assay. Reference Range HDL <40 mg/dL Low HDL Cholesterol HDL >or= 60 mg/dL High HDL Cholesterol Cholesterol in LDL [Mass/Vol] 72 mg/dL 0-130 [facility] CO2 [Moles/Vol] 30.0 mmol/L 21.0-32.0 [facility] Globulin (S) [Mass/Vol] 3.6 g/dL 2.2-4.[address] [facility] Magnesium [Mass/Vol] 2.2 mg/dL 1.6-2.6 [facility] Urea nitrogen/Creatinine [Mass ratio] 29.7 mg/mg 10-20 [facility] - Hematology and Cell countsOrdered By: Gaudencio Patel on 07-25-2023 MCH (RBC) [Entitic mass] 29.6 pg 27.0-32.0 [facility] MCHC (RBC) [Mass/Vol] 32.0 g/dL 32-36 [facility] Nucleated RBC/100 WBC (Bld) [Ratio] 0 % 0-5 [facility] Platelet mean volume (Bld) [Entitic vol] 10.7 fL 6.2-12.0 [facility] Platelets (Bld) [#/Vol] 261 10*3/uL 150-450 [facility] Mucus LM Ql (Urine sed)Order ed By: Gaudencio Patel on 07-25-2023 Mucus Ql (Urine sed) 0 SEEN /hpf [facility] Nitrite Test strip Ql (U)Ord ered By: Gaudencio Patel on 07-25-2023 Nitrite Ql (U) Negative Negative [facility] No Panel InformationOrdered By: Gaudencio Patel on 07-25-2023 Estimated GFR (MDRD) Amer 109 mL/min >60 [facility] Comment on above: GFR Calc Estimated GFR (MDRD) Non-Af Amer 90 mL/min >60 [facility] Comment on above: Non- GFR Calc Urine RBC 0 SEEN /hpf 0-5 [facility] Vitamin D 25-Hydroxy 43.2 ng/mL [facility] Comment on above: Vitamin D 25(OH) Sta tus Range Deficiency <20 ng/mL (50nmol/L) Insufficiency 20 - 30 ng/mL (50 - 75 nmol/L) Sufficiency 30 - 100 ng/mL (75 - 250 nmol/L) Toxicity >100 ng/mL (>250 nmol/L) VLDL Cholesterol 16 mg/dL 5-40 [facility] Protein Test strip Ql (U)Ord ered By: Gaudencio Patel on 07-25-2023 Protein Ql (U) Negative Negative [facility] RBC Auto (Bld) [#/Vol]Ordere d By: Gaudencio Patel on 07-25-2023 RBC (Bld) [#/Vol] 4.22 10*6/uL 4.2-5.4 [facility] Serum or plasma calcium kerline urement (mass/volume)Ordered By: Gaudencio Patel on 07-25-2023 Calcium [Mass/Vol] 9.4 mg/dL 8.5-10.1 [facility] Serum or plasma creatinine m easurement (mass/volume)Ordered By: Gaudencio Patel on 07-25-2023 Creatinine [Mass/Vol] 0.67 mg/dL 0.55-1.02 [facility] Comment on above: The validity of the calculated GFR & GFRAA in patients over 70 years has not been determined. Clinical correlation is essential. Serum or plasma thyroid stim ulating hormone (TSH) measurement (units/volume)Ordered By: Gaudencio Patel on 07-25-2023 TSH Qn 0.89 uIU/mL 0.358-3.74 [facility] Serum or plasma urea nitroge n measurement (mass/volume)Ordered By: Gaudencio Patel on 07-25-2023 Urea nitrogen [Mass/Vol] 20 mg/dL 7-18 [facility] Squamous epithelial cells de tection in urine sediment by light microscopyOrdered By: Gaudencio Patel on 07-25-2023 Epithelial cells.squamous LM Ql (Urine sed) 0 SEEN /hpf 5-10 [facility] Thin prep Papanicolaou smear with manual screeningOrdered By: Gaudencio Patel on 07-25-2023 Thin prep Papanicolaou smear with manual screening 3.9 g/dL 3.2-5.0 [facility] Thin prep Papanicolaou smear with manual screening 25 U/L 15-37 [facility] Thin prep Papanicolaou smear with manual screening 1 5-15 [facility] Urine blood detectionOrdered By: Gaudencio Patel on 07-25-2023 RBC Ql (U) Negative Negative [facility] Urine clarityOrdered By: Jacob Patel on 07-25-2023 Clarity (U) Clear Clear [facility] Urine color determinationOrd ered By: Gaudencio Patel on 07-25-2023 Color (U) Yellow Yellow [facility] Urine glucose detectionOrder ed By: Gaudencio Patel on 07-25-2023 Glucose Ql (U) Normal mg/dl Normal [facility] Urine leukocyte esterase det ection by dipstickOrdered By: Gaudencio Patel on 07-25-2023 Leukocyte esterase Test strip Ql (U) Negative Negative [facility] Urine pHOrdered By: Gaudencio perry on 07-25-2023 pH (U) 6.5 [pH] 5.0 - 8.0 [facility] Urine sediment bacteria coun t by microscopy (number/high power field)Ordered By: Gaudencio Patel on 07-25-2023 Bacteria LM.HPF (Urine sed) [#/Area] 0 /[HPF] None Seen [facility] Urine specific gravity measu rementOrdered By: Gaudencio Patel on 07-25-2023 Specific gravity (U) [Rel density] 1.010 1.002-1.030 [facility] Urine urobilinogen measureme ntOrdered By: Gaudencio Patel on 07-25-2023 Urobilinogen Ql (U) Normal mg/dl Normal [facility] No Panel Informationon 06-08 POC SARS CoV-2 Antigen Positive [facility] Absolute lymphocyte countOrd ered By: Gaudencio Patel on 04-19-2023 Lymphocytes Auto (Unsp spec) [#/Vol] 2.24 10*3/uL 0.83-4.51 [facility] Basophil percentageOrdered B y: Gaudencio Patel on 04-19-2023 Basophils/100 WBC (Bld) 0.5 % 0-[address] [facility] Bilirubin [Mass/Vol] 0.40 mg/dL 0.20-1.00 [facility] Comment on above: For patients on eltr ombopag therapy, use of Dimension Shaniko TBIL is not recommended. Chloride [Moles/Vol] 102 mmol/L 98-107 [facility] Cholesterol [Mass/Vol] 167 mg/dL <200 [facility] Comment on above: <200 mg/dL Desirable 200-240 mg/dL Borderline >240 mg/dL High Risk Eosinophils/100 WBC (Bld) 0.7 % 0-5 [facility] Glucose [Mass/Vol] 103 mg/dL 74-106 [facility] Comment on above: Fasting Glucose resu lt from 100 to 125 mg/dL suggests IMPAIRED HOMEOSTASIS per A.D.A. criteria. Neutrophils (Bld) [#/Vol] 5.3 10*3/uL 2.0-7.7 [facility] Neutrophils/100 WBC (Bld) 64.8 % 47-70 [facility] Potassium [Moles/Vol] 4.3 mmol/L 3.5-5.1 [facility] Protein [Mass/Vol] 7.6 g/dL 6.4-8.2 [facility] Sodium [Moles/Vol] 137 mmol/L 136-145 [facility] Triglyceride [Mass/Vol] 121 mg/dL <199 [facility] Comment on above: The drugs N-Acetylcy steine and Metamizole may falsely depress this assay.Serum Triglycerides Reference Interval Normal <150 mg/dL Borderline high 150 - 199 mg/dL High 200 - 499 mg/dL Very High > or = 500 mg/dL WBC (Bld) [#/Vol] 8.1 10*3/uL 4.4-11.0 [facility] Bilirubin Test strip Ql (U)O rdered By: Gaudencio Patel on 04-19-2023 Bilirubin Ql (U) Negative Negative [facility] Blood erythrocytes count (nu mber/volume)Ordered By: Gaudencio Patel on 04-19-2023 RBC (Bld) [#/Vol] 4.30 10*6/uL 4.2-5.4 [facility] Blood hemoglobin measurement (mass/volume)Ordered By: Gaudencio Patel on 04-19-2023 Hemoglobin (Bld) [Mass/Vol] 13.1 g/dL 12.0-15.0 [facility] Blood lymphocytes/100 leukoc ytesOrdered By: Gaudencio Patel on 04-19-2023 Lymphocytes/100 WBC (Bld) 27.6 % 19-41 [facility] Blood monocytes/100 leukocyt esOrdered By: Gaudencio Patel on 04-19-2023 Monocytes/100 WBC (Bld) 6.3 % 0-[address] [facility] Blood platelet mean volumeOr dered By: Gaudencio Patel on 04-19-2023 Platelet mean volume (Bld) [Entitic vol] 11.3 fL 6.2-12.0 [facility] Determination of erythrocyte mean corpuscular volume (MCV)Ordered By: Gaudencio Patel on 04-19-2023 MCV (RBC) [Entitic vol] 92.3 fL 81-[address] [facility] Hematocrit Auto (Bld) [Volum e fraction]Ordered By: Gaudencio Patel on 04-19-2023 Hematocrit (Bld) [Volume fraction] 39.7 % 37-47 [facility] Ketones Test strip Ql (U)Ord ered By: Gaudencio Patel on 04-19-2023 Ketones Ql (U) Negative Negative [facility] - Chemistry and C hemistry - challengeOrdered By: Gaudencio Patel on 04-19-2023 ALP [Catalytic activity/Vol] 91 U/L 45-117 [facility] ALT [Catalytic activity/Vol] 44 U/L 13-56 [facility] CO2 [Moles/Vol] 29.0 mmol/L 21.0-32.0 [facility] Globulin (S) [Mass/Vol] 3.7 g/dL 2.2-4.[address] [facility] Urea nitrogen/Creatinine [Mass ratio] 26.4 mg/mg 10-20 [facility] - Hematology and Cell countsOrdered By: Gaudencio Patel on 04-19-2023 Erythrocyte distribution width (RBC) [Entitic vol] 44.0 fL 35.1-43.9 [facility] Erythrocyte distribution width (RBC) [Ratio] 13.1 % 11.6-14.6 [facility] Immature granulocytes/100 WBC (Bld) 0.100 % 0.0-0.9 [facility] Comment on above: IG% - Immature Granu locytes (promyelocytes, myelocytes and metamyelocytes) > 1% indicates that a LEFT SHIFT is Present. MCH (RBC) [Entitic mass] 30.5 pg 27.0-32.0 [facility] Nucleated RBC/100 WBC (Bld) [Ratio] 0 % 0-5 [facility] MCHC Auto (RBC) [Mass/Vol]Or dered By: Gaudencio Patel on 04-19-2023 MCHC (RBC) [Mass/Vol] 33.0 g/dL 32-36 [facility] Nitrite Test strip Ql (U)Ord ered By: Gaudencio Patel on 04-19-2023 Nitrite Ql (U) Negative Negative [facility] No Panel InformationOrdered By: Gaudencio Patel on 04-19-2023 Estimated GFR (MDRD) Amer 95 mL/min >60 [facility] Comment on above: GFR Calc Estimated GFR (MDRD) Non-Af Amer 79 mL/min >60 [facility] Comment on above: Non- GFR Calc Vitamin D 25-Hydroxy 46.9 ng/mL [facility] Comment on above: Vitamin D 25(OH) Sta tus Range Deficiency <20 ng/mL (50nmol/L) Insufficiency 20 - 30 ng/mL (50 - 75 nmol/L) Sufficiency 30 - 100 ng/mL (75 - 250 nmol/L) Toxicity >100 ng/mL (>250 nmol/L) Platelets bldOrdered By: Jacob Patel on 04-19-2023 Platelets (Bld) [#/Vol] 250 10*3/uL 150-450 [facility] Protein Test strip Ql (U)Ord ered By: Gaudencio Patel on 04-19-2023 Protein Ql (U) 30 mg/dl Negative [facility] Serum or plasma albumin kerline urement (mass/volume)Ordered By: Gaudencio Patel on 04-19-2023 Albumin [Mass/Vol] 3.9 g/dL 3.2-5.0 [facility] Serum or plasma albumin/glob ulin mass ratioOrdered By: Gaudencio Patel on 04-19-2023 Albumin/Globulin [Mass ratio] 1.1 {ratio} 0.9-2.4 [facility] Serum or plasma calcium kerline urement (mass/volume)Ordered By: Gaudencio Patel on 04-19-2023 Calcium [Mass/Vol] 9.4 mg/dL 8.5-10.1 [facility] Serum or plasma cholesterol in HDL measurement (mass/volume)Ordered By: Gaudencio Patel on 04-19-2023 Cholesterol in HDL [Mass/Vol] 68 mg/dL >40 [facility] Comment on above: The drugs N-Acetylcy steine and Metamizole may falsely depress this assay. Reference Range HDL <40 mg/dL Low HDL Cholesterol HDL >or= 60 mg/dL High HDL Cholesterol Serum or plasma cholesterol in VLDL measurement (mass/volume)Ordered By: Gaudencio Patel on 04-19-2023 Cholesterol in VLDL [Mass/Vol] 24 mg/dL 5-40 [facility] Serum or plasma creatinine m easurement (mass/volume)Ordered By: Gaudencio Patel on 04-19-2023 Creatinine [Mass/Vol] 0.76 mg/dL 0.55-1.02 [facility] Comment on above: The validity of the calculated GFR & GFRAA in patients over 70 years has not been determined. Clinical correlation is essential. Serum or plasma low density lipoprotein (LDL) cholesterol measurement (mass/volume)Ordered By: Gaudencio Patel on 04-19-2023 Cholesterol in LDL [Mass/Vol] 75 mg/dL 0-130 [facility] Serum or plasma urea nitroge n measurement (mass/volume)Ordered By: Gaudencio Patel on 04-19-2023 Urea nitrogen [Mass/Vol] 20 mg/dL 7-18 [facility] Thin prep Papanicolaou smear with manual screeningOrdered By: Gaudencio Patel on 04-19-2023 Thin prep Papanicolaou smear with manual screening 32 U/L 15-37 [facility] Thin prep Papanicolaou smear with manual screening 6 5-15 [facility] Urine blood detectionOrdered By: Gaudencio Patel on 04-19-2023 RBC Ql (U) Negative Negative [facility] Urine clarityOrdered By: Jacob Patel on 04-19-2023 Clarity (U) Clear Clear [facility] Urine color determinationOrd ered By: Gaudencio Patel on 04-19-2023 Color (U) Yellow Yellow [facility] Urine glucose detectionOrder ed By: Gaudencio Patel on 11-02-2023 Glucose Ql (U) Normal mg/dl Normal [facility] Urine leukocyte esterase det ection by dipstickOrdered By: Gaudencio Patel on 04-19-2023 Leukocyte esterase Test strip Ql (U) 500 /ul Negative [facility] Urine pHOrdered By: Gaudencio perry on 04-19-2023 pH (U) 6.5 [pH] 5.0 - 8.0 [facility] Urine specific gravity measu rementOrdered By: Gaudencio Patel on 04-19-2023 Specific gravity (U) [Rel density] 1.010 1.002-1.030 [facility] Urobilinogen Auto test strip Ql (U)Ordered By: Gaudencio Patel on 04-19-2023 Urobilinogen Ql (U) Normal mg/dl Normal [facility] Whole blood hemoglobin A1c/t otal hemoglobin ratio (mass fraction)Ordered By: Gaudencio Patel on 04-19-2023 HbA1c (Bld) [Mass fraction] 5.4 % 3.8-5.6 [facility] Comment on above: Normal < 5.7 % Predi abetic 5.7 - 6.4 % Diabetic >or= 6.5 % Please note range changes. Absolute lymphocyte countOrd ered By: Dr. Patel on 12-04-2022 Lymphocytes Auto (Unsp spec) [#/Vol] 2.13 10*3/uL 0.83-4.51 [facility] Basophil percentageOrdered B y: Dr. Patel on 12-04-2022 Basophils/100 WBC (Bld) 0.6 % 0-1 [facility] Bilirubin [Mass/Vol] 0.60 mg/dL 0.20-1.00 [facility] Comment on above: For patients on eltr ombopag therapy, use of Dimension Shaniko TBIL is not recommended. Chloride [Moles/Vol] 106 mmol/L 98-107 [facility] Cholesterol [Mass/Vol] 164 mg/dL <200 [facility] Comment on above: <200 mg/dL Desirable 200-240 mg/dL Borderline >240 mg/dL High Risk Eosinophils/100 WBC (Bld) 2.3 % 0-5 [facility] Glucose [Mass/Vol] 86 mg/dL 74-106 [facility] Neutrophils (Bld) [#/Vol] 3.6 10*3/uL 2.0-7.7 [facility] Neutrophils/100 WBC (Bld) 55.7 % 47-70 [facility] Potassium [Moles/Vol] 4.0 mmol/L 3.5-5.1 [facility] Protein [Mass/Vol] 7.8 g/dL 6.4-8.2 [facility] Sodium [Moles/Vol] 140 mmol/L 136-145 [facility] Triglyceride [Mass/Vol] 102 mg/dL <[address] [facility] Comment on above: The drugs N-Acetylcy steine and Metamizole may falsely depress this assay.Serum Triglycerides Reference Interval Normal <150 mg/dL Borderline high 150 - 199 mg/dL High 200 - 499 mg/dL Very High > or = 500 mg/dL WBC (Bld) [#/Vol] 6.5 10*3/uL 4.4-11.0 [facility] Blood erythrocytes count (nu mber/volume)Ordered By: Dr. Patel on 12-04-2022 RBC (Bld) [#/Vol] 4.19 10*6/uL 4.2-5.4 [facility] Blood hemoglobin measurement (mass/volume)Ordered By: Dr. Patel on 12-04-2022 Hemoglobin (Bld) [Mass/Vol] 12.9 g/dL 12.0-15.0 [facility] Blood lymphocytes/100 leukoc ytesOrdered By: Dr. Patel on 12-04-2022 Lymphocytes/100 WBC (Bld) 32.9 % 19-41 [facility] Blood monocytes/100 leukocyt esOrdered By: Dr. Patel on 12-04-2022 Monocytes/100 WBC (Bld) 8.2 % 0-10 [facility] Blood platelet mean volumeOr dered By: Dr. Patel on 12-04-2022 Platelet mean volume (Bld) [Entitic vol] 11.3 fL 6.2-12.0 [facility] Determination of erythrocyte mean corpuscular volume (MCV)Ordered By: Dr. Patel on 12-04-2022 MCV (RBC) [Entitic vol] 94.5 fL 81-[address] [facility] Hematocrit Auto (Bld) [Volum e fraction]Ordered By: Dr. Patel on 12-04-2022 Hematocrit (Bld) [Volume fraction] 39.6 % 37-47 [facility] - Chemistry and C hemistry - challengeOrdered By: Dr. Patel on 12-04-2022 ALP [Catalytic activity/Vol] 105 U/L 45-117 [facility] ALT [Catalytic activity/Vol] 32 U/L 13-56 [facility] CO2 [Moles/Vol] 28.0 mmol/L 21.0-32.0 [facility] Globulin (S) [Mass/Vol] 4.0 g/dL 2.2-4.[address] [facility] Urea nitrogen/Creatinine [Mass ratio] 25.6 mg/mg 10-20 [facility] - Hematology and Cell countsOrdered By: Dr. Patel on 12-04-2022 Erythrocyte distribution width (RBC) [Entitic vol] 43.4 fL 35.1-43.9 [facility] Erythrocyte distribution width (RBC) [Ratio] 12.5 % 11.6-14.6 [facility] Immature granulocytes/100 WBC (Bld) 0.300 % 0.0-0.9 [facility] Comment on above: IG% - Immature Granu locytes (promyelocytes, myelocytes and metamyelocytes) > 1% indicates that a LEFT SHIFT is Present. MCH (RBC) [Entitic mass] 30.8 pg 27.0-32.0 [facility] Nucleated RBC/100 WBC (Bld) [Ratio] 0 % 0-5 [facility] MCHC Auto (RBC) [Mass/Vol]Or dered By: Dr. Patel on 12-04-2022 MCHC (RBC) [Mass/Vol] 32.6 g/dL 32-36 [facility] No Panel InformationOrdered By: Dr. Patel on 12-04-2022 Estimated GFR (MDRD) Amer 92 mL/min >60 [facility] Comment on above: GFR Calc Estimated GFR (MDRD) Non-Af Amer 76 mL/min >60 [facility] Comment on above: Non- GFR Calc Platelets bldOrdered By: Dr. Patel on 12-04-2022 Platelets (Bld) [#/Vol] 259 10*3/uL 150-450 [facility] Serum or plasma albumin kerline urement (mass/volume)Ordered By: Dr. Patel on 12-04-2022 Albumin [Mass/Vol] 3.8 g/dL 3.2-5.0 [facility] Serum or plasma albumin/glob ulin mass ratioOrdered By: Dr. Patel on 12-04-2022 Albumin/Globulin [Mass ratio] 1.0 {ratio} 0.9-2.4 [facility] Serum or plasma calcium kerline urement (mass/volume)Ordered By: Dr. Patel on 12-04-2022 Calcium [Mass/Vol] 9.6 mg/dL 8.5-10.1 [facility] Serum or plasma cholesterol in HDL measurement (mass/volume)Ordered By: Dr. Patel on 12-04-2022 Cholesterol in HDL [Mass/Vol] 62 mg/dL >40 [facility] Comment on above: The drugs N-Acetylcy steine and Metamizole may falsely depress this assay. Reference Range HDL <40 mg/dL Low HDL Cholesterol HDL >or= 60 mg/dL High HDL Cholesterol Serum or plasma cholesterol in VLDL measurement (mass/volume)Ordered By: Dr. Patel on 12-04-2022 Cholesterol in VLDL [Mass/Vol] 20 mg/dL 5-40 [facility] Serum or plasma creatinine m easurement (mass/volume)Ordered By: Dr. Patel on 12-04-2022 Creatinine [Mass/Vol] 0.78 mg/dL 0.55-1.02 [facility] Comment on above: The validity of the calculated GFR & GFRAA in patients over 70 years has not been determined. Clinical correlation is essential. Serum or plasma low density lipoprotein (LDL) cholesterol measurement (mass/volume)Ordered By: Dr. Patel on 12-04-2022 Cholesterol in LDL [Mass/Vol] 82 mg/dL 0-130 [facility] Serum or plasma urea nitroge n measurement (mass/volume)Ordered By: Dr. Patel on 12-04-2022 Urea nitrogen [Mass/Vol] 20 mg/dL 7-18 [facility] Thin prep Papanicolaou smear with manual screeningOrdered By: Dr. Patel on 12-04-2022 Thin prep Papanicolaou smear with manual screening 26 U/L 15-37 [facility] Thin prep Papanicolaou smear with manual screening 6 5-15 [facility] Whole blood hemoglobin A1c/t otal hemoglobin ratio (mass fraction)Ordered By: Dr. Patel on 12-04-2022 HbA1c (Bld) [Mass fraction] 5.2 % 3.8-5.6 [facility] Comment on above: Normal < 5.7 % Predi abetic 5.7 - 6.4 % Diabetic >or= 6.5 % Please note range changes. Absolute lymphocyte countOrd ered By: Dr. Patel on 09-13-2022 Lymphocytes Auto (Unsp spec) [#/Vol] 2.32 10*3/uL 0.83-4.51 [facility] Basophil percentageOrdered B y: Dr. Patel on 09-13-2022 Basophil percentage 0-5 SEEN /hpf 0-5 [facility] Basophils/100 WBC (Bld) 0.4 % 0-[address] [facility] Bilirubin [Mass/Vol] 0.60 mg/dL 0.20-1.00 [facility] Comment on above: For patients on eltr ombopag therapy, use of Dimension Shaniko TBIL is not recommended. Chloride [Moles/Vol] 102 mmol/L 98-107 [facility] Cholesterol [Mass/Vol] 183 mg/dL <200 [facility] Comment on above: <200 mg/dL Desirable 200-240 mg/dL Borderline >240 mg/dL High Risk Eosinophils/100 WBC (Bld) 1.6 % 0-5 [facility] Glucose [Mass/Vol] 106 mg/dL 74-106 [facility] Comment on above: Fasting Glucose resu lt from 100 to 125 mg/dL suggests IMPAIRED HOMEOSTASIS per A.D.A. criteria. Neutrophils (Bld) [#/Vol] 4.3 10*3/uL 2.0-7.7 [facility] Neutrophils/100 WBC (Bld) 58.9 % 47-70 [facility] Potassium [Moles/Vol] 4.3 mmol/L 3.5-5.1 [facility] Protein [Mass/Vol] 7.9 g/dL 6.4-8.2 [facility] Sodium [Moles/Vol] 139 mmol/L 136-145 [facility] Triglyceride [Mass/Vol] 101 mg/dL <[address] [facility] Comment on above: The drugs N-Acetylcy steine and Metamizole may falsely depress this assay.Serum Triglycerides Reference Interval Normal <150 mg/dL Borderline high 150 - 199 mg/dL High 200 - 499 mg/dL Very High > or = 500 mg/dL WBC (Bld) [#/Vol] 7.4 10*3/uL 4.4-11.0 [facility] Bilirubin Test strip Ql (U)O rdered By: Dr. Patel on 09-13-2022 Bilirubin Ql (U) Negative Negative [facility] Blood erythrocytes count (nu mber/volume)Ordered By: Dr. Patel on 09-13-2022 RBC (Bld) [#/Vol] 4.51 10*6/uL 4.2-5.4 [facility] Blood hemoglobin measurement (mass/volume)Ordered By: Dr. Patel on 09-13-2022 Hemoglobin (Bld) [Mass/Vol] 13.7 g/dL 12.0-15.0 [facility] Blood lymphocytes/100 leukoc ytesOrdered By: Dr. Patel on 09-13-2022 Lymphocytes/100 WBC (Bld) 31.4 % 19-41 [facility] Blood monocytes/100 leukocyt esOrdered By: Dr. Patel on 09-13-2022 Monocytes/100 WBC (Bld) 7.6 % 0-10 [facility] Blood platelet mean volumeOr dered By: Dr. Patel on 09-13-2022 Platelet mean volume (Bld) [Entitic vol] 11.0 fL 6.2-12.0 [facility] Determination of erythrocyte mean corpuscular volume (MCV)Ordered By: Dr. Patel on 09-13-2022 MCV (RBC) [Entitic vol] 91.6 fL 81-[address] [facility] Hematocrit Auto (Bld) [Volum e fraction]Ordered By: Dr. Patel on 09-13-2022 Hematocrit (Bld) [Volume fraction] 41.3 % 37-47 [facility] Ketones Test strip Ql (U)Ord ered By: Dr. Patel on 09-13-2022 Ketones Ql (U) Negative Negative [facility] - Chemistry and C hemistry - challengeOrdered By: Dr. Patel on 09-13-2022 ALP [Catalytic activity/Vol] 83 U/L 45-117 [facility] ALT [Catalytic activity/Vol] 38 U/L 13-56 [facility] CO2 [Moles/Vol] 27.0 mmol/L 21.0-32.0 [facility] Globulin (S) [Mass/Vol] 3.7 g/dL 2.2-4.[address] [facility] Urea nitrogen/Creatinine [Mass ratio] 30.1 mg/mg 10-20 [facility] - Hematology and Cell countsOrdered By: Dr. Patel on 09-13-2022 Erythrocyte distribution width (RBC) [Entitic vol] 41.8 fL 35.1-43.9 [facility] Erythrocyte distribution width (RBC) [Ratio] 12.3 % 11.6-14.6 [facility] Immature granulocytes/100 WBC (Bld) 0.100 % 0.0-0.9 [facility] Comment on above: IG% - Immature Granu locytes (promyelocytes, myelocytes and metamyelocytes) > 1% indicates that a LEFT SHIFT is Present. MCH (RBC) [Entitic mass] 30.4 pg 27.0-32.0 [facility] Nucleated RBC/100 WBC (Bld) [Ratio] 0 % 0-5 [facility] MCHC Auto (RBC) [Mass/Vol]Or dered By: Dr. Patel on 09-13-2022 MCHC (RBC) [Mass/Vol] 33.2 g/dL 32-36 [facility] Mucus LM Ql (Urine sed)Order ed By: Dr. Patel on 09-13-2022 Mucus Ql (Urine sed) 0 SEEN /hpf [facility] Nitrite Test strip Ql (U)Ord ered By: Dr. Patel on 09-13-2022 Nitrite Ql (U) Negative Negative [facility] No Panel InformationOrdered By: Dr. Patel on 09-13-2022 Estimated GFR (MDRD) Amer 100 mL/min >60 [facility] Comment on above: GFR Calc Estimated GFR (MDRD) Non-Af Amer 82 mL/min >60 [facility] Comment on above: Non- GFR Calc Thyroid Stimulating Hormone (TSH) 0.90 uIU/mL 0.358-3.74 [facility] Vitamin D 25-Hydroxy 41.3 ng/mL [facility] Comment on above: Vitamin D 25(OH) Sta tus Range Deficiency <20 ng/mL (50nmol/L) Insufficiency 20 - 30 ng/mL (50 - 75 nmol/L) Sufficiency 30 - 100 ng/mL (75 - 250 nmol/L) Toxicity >100 ng/mL (>250 nmol/L) Platelets bldOrdered By: Dr. Patel on 09-13-2022 Platelets (Bld) [#/Vol] 256 10*3/uL 150-450 [facility] Protein Test strip Ql (U)Ord ered By: Dr. Patel on 09-13-2022 Protein Ql (U) Negative Negative [facility] Serum or plasma albumin kerline urement (mass/volume)Ordered By: Dr. Patel on 09-13-2022 Albumin [Mass/Vol] 4.2 g/dL 3.2-5.0 [facility] Serum or plasma albumin/glob ulin mass ratioOrdered By: Dr. Patel on 09-13-2022 Albumin/Globulin [Mass ratio] 1.1 {ratio} 0.9-2.4 [facility] Serum or plasma calcium kerline urement (mass/volume)Ordered By: Dr. Patel on 09-13-2022 Calcium [Mass/Vol] 9.5 mg/dL 8.5-10.1 [facility] Serum or plasma cholesterol in HDL measurement (mass/volume)Ordered By: Dr. Patel on 09-13-2022 Cholesterol in HDL [Mass/Vol] 73 mg/dL >40 [facility] Comment on above: The drugs N-Acetylcy steine and Metamizole may falsely depress this assay. Reference Range HDL <40 mg/dL Low HDL Cholesterol HDL >or= 60 mg/dL High HDL Cholesterol Serum or plasma cholesterol in VLDL measurement (mass/volume)Ordered By: Dr. Patel on 09-13-2022 Cholesterol in VLDL [Mass/Vol] 20 mg/dL 5-40 [facility] Serum or plasma creatinine m easurement (mass/volume)Ordered By: Dr. Patel on 09-13-2022 Creatinine [Mass/Vol] 0.73 mg/dL 0.55-1.02 [facility] Comment on above: The validity of the calculated GFR & GFRAA in patients over 70 years has not been determined. Clinical correlation is essential. Serum or plasma low density lipoprotein (LDL) cholesterol measurement (mass/volume)Ordered By: Dr. Patel on 09-13-2022 Cholesterol in LDL [Mass/Vol] 90 mg/dL 0-130 [facility] Serum or plasma urea nitroge n measurement (mass/volume)Ordered By: Dr. Patel on 09-13-2022 Urea nitrogen [Mass/Vol] 22 mg/dL 7-18 [facility] Squamous epithelial cells de tection in urine sediment by light microscopyOrdered By: Dr. Patel on 09-13-2022 Epithelial cells.squamous LM Ql (Urine sed) 0 SEEN /hpf 5-10 [facility] Thin prep Papanicolaou smear with manual screeningOrdered By: Dr. Patel on 09-13-2022 Thin prep Papanicolaou smear with manual screening 30 U/L 15-37 [facility] Thin prep Papanicolaou smear with manual screening 10 5-15 [facility] Urine blood detectionOrdered By: Dr. Patel on 09-13-2022 RBC Ql (U) Negative Negative [facility] RBC Ql (U) 0 SEEN /hpf 0-5 [facility] Urine clarityOrdered By: Dr. Patel on 09-13-2022 Clarity (U) Clear Clear [facility] Urine color determinationOrd ered By: Dr. Patel on 09-13-2022 Color (U) Yellow Yellow [facility] Urine glucose detectionOrder ed By: Dr. Patel on 09-13-2022 Glucose Ql (U) Normal mg/dl Normal [facility] Urine leukocyte esterase det ection by dipstickOrdered By: Dr. Patel on 03-29-2023 Leukocyte esterase Test strip Ql (U) 100 /ul Negative [facility] Urine pHOrdered By: Dr. Alfonzo álvarez on 09-13-2022 pH (U) 7.0 [pH] 5.0 - 8.0 [facility] Urine sediment bacteria coun t by microscopy (number/high power field)Ordered By: Dr. Patel on 09-13-2022 Bacteria LM.HPF (Urine sed) [#/Area] 0 /[HPF] None Seen [facility] Urine specific gravity measu rementOrdered By: Dr. Patel on 09-13-2022 Specific gravity (U) [Rel density] 1.005 1.002-1.030 [facility] Urobilinogen Auto test strip Ql (U)Ordered By: Dr. Patel on 09-13-2022 Urobilinogen Ql (U) Normal mg/dl Normal [facility] Whole blood hemoglobin A1c/t otal hemoglobin ratio (mass fraction)Ordered By: Dr. Patel on 09-13-2022 HbA1c (Bld) [Mass fraction] 5.6 % 3.8-5.6 [facility] Comment on above: Normal < 5.7 % Predi abetic 5.7 - 6.4 % Diabetic >or= 6.5 % Please note range changes. Absolute lymphocyte countOrd ered By: Dr. Roman on 08-19-2022 Lymphocytes Auto (Unsp spec) [#/Vol] 2.70 10*3/uL 0.83-4.51 [facility] Basophil percentageOrdered B y: Dr. Roman on 08-19-2022 Basophils/100 WBC (Bld) 0.5 % 0-[address] [facility] Chloride [Moles/Vol] 104 mmol/L 98-107 [facility] Cholesterol [Mass/Vol] 177 mg/dL <200 [facility] Comment on above: <200 mg/dL Desirable 200-240 mg/dL Borderline >240 mg/dL High Risk Eosinophils/100 WBC (Bld) 1.8 % 0-5 [facility] Glucose [Mass/Vol] 92 mg/dL 74-106 [facility] Neutrophils (Bld) [#/Vol] 3.8 10*3/uL 2.0-7.7 [facility] Neutrophils/100 WBC (Bld) 51.7 % 47-70 [facility] Potassium [Moles/Vol] 4.1 mmol/L 3.5-5.1 [facility] Sodium [Moles/Vol] 139 mmol/L 136-145 [facility] Triglyceride [Mass/Vol] 158 mg/dL <[address] [facility] Comment on above: The drugs N-Acetylcy steine and Metamizole may falsely depress this assay.Serum Triglycerides Reference Interval Normal <150 mg/dL Borderline high 150 - 199 mg/dL High 200 - 499 mg/dL Very High > or = 500 mg/dL WBC (Bld) [#/Vol] 7.3 10*3/uL 4.4-11.0 [facility] Blood erythrocytes count (nu mber/volume)Ordered By: Dr. Roman on 08-19-2022 RBC (Bld) [#/Vol] 4.20 10*6/uL 4.2-5.4 [facility] Blood hemoglobin measurement (mass/volume)Ordered By: Dr. Roman on 08-19-2022 Hemoglobin (Bld) [Mass/Vol] 12.8 g/dL 12.0-15.0 [facility] Blood lymphocytes/100 leukoc ytesOrdered By: Dr. Roman on 08-19-2022 Lymphocytes/100 WBC (Bld) 37.0 % 19-41 [facility] Blood monocytes/100 leukocyt esOrdered By: Dr. Roman on 08-19-2022 Monocytes/100 WBC (Bld) 8.9 % 0-10 [facility] Blood platelet mean volumeOr dered By: Dr. Roman on 08-19-2022 Platelet mean volume (Bld) [Entitic vol] 11.2 fL 6.2-12.0 [facility] Determination of erythrocyte mean corpuscular volume (MCV)Ordered By: Dr. Roman on 08-19-2022 MCV (RBC) [Entitic vol] 92.9 fL 81-[address] [facility] Hematocrit Auto (Bld) [Volum e fraction]Ordered By: Dr. Roman on 08-19-2022 Hematocrit (Bld) [Volume fraction] 39.0 % 37-47 [facility] Laboratory - Chemistry and C hemistry - challengeOrdered By: Dr. Roman on 08-19-2022 CO2 [Moles/Vol] 28.0 mmol/L 21.0-32.0 [facility] Urea nitrogen/Creatinine [Mass ratio] 28.7 mg/mg 10-20 [facility] Laboratory - Hematology and Cell countsOrdered By: Dr. Roman on 08-19-2022 Erythrocyte distribution width (RBC) [Entitic vol] 42.5 fL 35.1-43.9 [facility] Erythrocyte distribution width (RBC) [Ratio] 12.5 % 11.6-14.6 [facility] Immature granulocytes/100 WBC (Bld) 0.100 % 0.0-0.9 [facility] Comment on above: IG% - Immature Granu locytes (promyelocytes, myelocytes and metamyelocytes) > 1% indicates that a LEFT SHIFT is Present. MCH (RBC) [Entitic mass] 30.5 pg 27.0-32.0 [facility] Nucleated RBC/100 WBC (Bld) [Ratio] 0 % 0-5 [facility] MCHC Auto (RBC) [Mass/Vol]Or dered By: Dr. Roman on 08-19-2022 MCHC (RBC) [Mass/Vol] 32.8 g/dL 32-36 [facility] No Panel InformationOrdered By: Dr. Roman on 08-19-2022 Estimated Creatinine Clearance Calc 36.12 ml/min [facility] Estimated GFR (MDRD) Amer 112 mL/min >60 [facility] Comment on above: GFR Calc Estimated GFR (MDRD) Non-Af Amer 92 mL/min >60 [facility] Comment on above: Non- GFR Calc Platelets bldOrdered By: Dr. Roman on 08-19-2022 Platelets (Bld) [#/Vol] 208 10*3/uL 150-450 [facility] Serum or plasma calcium kelrine urement (mass/volume)Ordered By: Dr. Roman on 08-19-2022 Calcium [Mass/Vol] 9.2 mg/dL 8.5-10.1 [facility] Serum or plasma cholesterol in HDL measurement (mass/volume)Ordered By: Dr. Roman on 08-19-2022 Cholesterol in HDL [Mass/Vol] 56 mg/dL >40 [facility] Comment on above: The drugs N-Acetylcy steine and Metamizole may falsely depress this assay. Reference Range HDL <40 mg/dL Low HDL Cholesterol HDL >or= 60 mg/dL High HDL Cholesterol Serum or plasma cholesterol in VLDL measurement (mass/volume)Ordered By: Dr. Roman on 08-19-2022 Cholesterol in VLDL [Mass/Vol] 32 mg/dL 5-40 [facility] Serum or plasma creatinine m easurement (mass/volume)Ordered By: Dr. Roman on 08-19-2022 Creatinine [Mass/Vol] 0.66 mg/dL 0.55-1.02 [facility] Comment on above: The validity of the calculated GFR & GFRAA in patients over 70 years has not been determined. Clinical correlation is essential. Serum or plasma low density lipoprotein (LDL) cholesterol measurement (mass/volume)Ordered By: Dr. Roman on 08-19-2022 Cholesterol in LDL [Mass/Vol] 89 mg/dL 0-130 [facility] Serum or plasma urea nitroge n measurement (mass/volume)Ordered By: Dr. Roman on 08-19-2022 Urea nitrogen [Mass/Vol] 19 mg/dL 7-18 [facility] Thin prep Papanicolaou smear with manual screeningOrdered By: Dr. Roman on 08-19-2022 Thin prep Papanicolaou smear with manual screening 7 5-15 [facility] Whole blood hemoglobin A1c/t otal hemoglobin ratio (mass fraction)Ordered By: Dr. Roman on 08-19-2022 HbA1c (Bld) [Mass fraction] 5.1 % 3.8-5.6 [facility] Comment on above: Normal < 5.7 % Predi abetic 5.7 - 6.4 % Diabetic >or= 6.5 % Please note range changes. Absolute lymphocyte countOrd ered By: Dr. Gray on 08-18-2022 Lymphocytes Auto (Unsp spec) [#/Vol] 2.91 10*3/uL 0.83-4.51 [facility] Basophil percentageOrdered B y: Dr. Gray on 08-18-2022 Basophil percentage 0-5 SEEN /hpf 0-5 [facility] Basophils/100 WBC (Bld) 0.5 % 0-[address] [facility] Chloride [Moles/Vol] 103 mmol/L 98-107 [facility] Eosinophils/100 WBC (Bld) 1.4 % 0-5 [facility] Glucose [Mass/Vol] 116 mg/dL 74-106 [facility] Comment on above: Fasting Glucose resu lt from 100 to 125 mg/dL suggests IMPAIRED HOMEOSTASIS per A.D.A. criteria. Neutrophils (Bld) [#/Vol] 2.8 10*3/uL 2.0-7.7 [facility] Neutrophils/100 WBC (Bld) 43.6 % 47-70 [facility] Potassium [Moles/Vol] 4.4 mmol/L 3.5-5.1 [facility] Sodium [Moles/Vol] 139 mmol/L 136-145 [facility] WBC (Bld) [#/Vol] 6.4 10*3/uL 4.4-11.0 [facility] Bilirubin Test strip Ql (U)O rdered By: Dr. Gray on 08-18-2022 Bilirubin Ql (U) Negative Negative [facility] Blood erythrocytes count (nu mber/volume)Ordered By: Dr. Gray on 08-18-2022 RBC (Bld) [#/Vol] 4.11 10*6/uL 4.2-5.4 [facility] Blood hemoglobin measurement (mass/volume)Ordered By: Dr. Gray on 08-18-2022 Hemoglobin (Bld) [Mass/Vol] 12.7 g/dL 12.0-15.0 [facility] Blood lymphocytes/100 leukoc ytesOrdered By: Dr. Gray on 08-18-2022 Lymphocytes/100 WBC (Bld) 45.4 % 19-41 [facility] Blood monocytes/100 leukocyt esOrdered By: Dr. Gray on 08-18-2022 Monocytes/100 WBC (Bld) 8.9 % 0-[address] [facility] Blood platelet mean volumeOr dered By: Dr. Gray on 08-18-2022 Platelet mean volume (Bld) [Entitic vol] 10.8 fL 6.2-12.0 [facility] Determination of erythrocyte mean corpuscular volume (MCV)Ordered By: Dr. Gray on 08-18-2022 MCV (RBC) [Entitic vol] 91.5 fL 81-[address] [facility] Glucose Glucometer (BldC) [M ass/Vol]Ordered By: Dr. Gray on 08-18-2022 Glucose [Mass/Vol] 102 mg/dL 74-106 [facility] Comment on above: MANAGEMENT OF PATIEN T CARE PER NURSING PROTOCOL Hematocrit Auto (Bld) [Volum e fraction]Ordered By: Dr. Gray on 08-18-2022 Hematocrit (Bld) [Volume fraction] 37.6 % 37-47 [facility] INR in Blood by Coagulation assayOrdered By: Dr. Gray on 08-18-2022 INR Coag (Bld) [Relative time] 1.0 {INR} [facility] Ketones Test strip Ql (U)Ord ered By: Dr. Gray on 08-18-2022 Ketones Ql (U) Negative Negative [facility] Laboratory - Chemistry and C hemistry - challengeOrdered By: Dr. Gray on 08-18-2022 CO2 [Moles/Vol] 31.0 mmol/L 21.0-32.0 [facility] Urea nitrogen/Creatinine [Mass ratio] 35.1 mg/mg 10-20 [facility] Laboratory - CoagulationOrde red By: Dr. Gray on 08-18-2022 aPTT Coag (Bld) [Time] 29.3 s 24.1-36.2 [facility] PT Coag (PPP) [Time] 13.0 s 11.7-14.9 [facility] Laboratory - Hematology and Cell countsOrdered By: Dr. Gray on 08-18-2022 Erythrocyte distribution width (RBC) [Entitic vol] 41.6 fL 35.1-43.9 [facility] Erythrocyte distribution width (RBC) [Ratio] 12.6 % 11.6-14.6 [facility] Immature granulocytes/100 WBC (Bld) 0.200 % 0.0-0.9 [facility] Comment on above: IG% - Immature Granu locytes (promyelocytes, myelocytes and metamyelocytes) > 1% indicates that a LEFT SHIFT is Present. MCH (RBC) [Entitic mass] 30.9 pg 27.0-32.0 [facility] Nucleated RBC/100 WBC (Bld) [Ratio] 0 % 0-5 [facility] MCHC Auto (RBC) [Mass/Vol]Or dered By: Dr. Gray on 08-18-2022 MCHC (RBC) [Mass/Vol] 33.8 g/dL 32-36 [facility] Mucus LM Ql (Urine sed)Order ed By: Dr. Gray on 08-18-2022 Mucus Ql (Urine sed) 0 SEEN /hpf [facility] Nitrite Test strip Ql (U)Ord ered By: Dr. Gray on 08-18-2022 Nitrite Ql (U) Negative Negative [facility] No Panel InformationOrdered By: Dr. Gray on 08-18-2022 Estimated Creatinine Clearance Calc 36.12 ml/min [facility] Estimated GFR (MDRD) Amer 98 mL/min >60 [facility] Comment on above: GFR Calc Estimated GFR (MDRD) Non-Af Amer 81 mL/min >60 [facility] Comment on above: Non- GFR Calc Troponin I High Sensitivity 4 pg/mL 3.0-54.0 [facility] Comment on above: Please Note: New Angela t Units and Gender Specific Reference Ranges. For more information see Policy Stat Procedure Shaniko High Sensitivity Troponin (TNIH) and attachments. Platelets bldOrdered By: Dr. Gray on 08-18-2022 Platelets (Bld) [#/Vol] 209 10*3/uL 150-450 [facility] Protein Test strip Ql (U)Ord ered By: Dr. Gray on 08-18-2022 Protein Ql (U) Negative Negative [facility] Serum or plasma calcium kerline urement (mass/volume)Ordered By: Dr. Gray on 08-18-2022 Calcium [Mass/Vol] 9.0 mg/dL 8.5-10.1 [facility] Serum or plasma creatinine m easurement (mass/volume)Ordered By: Dr. Gray on 08-18-2022 Creatinine [Mass/Vol] 0.74 mg/dL 0.55-1.02 [facility] Comment on above: The validity of the calculated GFR & GFRAA in patients over 70 years has not been determined. Clinical correlation is essential. Serum or plasma urea nitroge n measurement (mass/volume)Ordered By: Dr. Gray on 08-18-2022 Urea nitrogen [Mass/Vol] 26 mg/dL 7-18 [facility] Squamous epithelial cells de tection in urine sediment by light microscopyOrdered By: Dr. Gray on 08-18-2022 Epithelial cells.squamous LM Ql (Urine sed) 0 SEEN /hpf 5-10 [facility] Thin prep Papanicolaou smear with manual screeningOrdered By: Dr. Gray on 08-18-2022 Thin prep Papanicolaou smear with manual screening 5 5-15 [facility] Urine blood detectionOrdered By: Dr. Gray on 08-18-2022 RBC Ql (U) Negative Negative [facility] RBC Ql (U) 0 SEEN /hpf 0-5 [facility] Urine clarityOrdered By: Dr. Gray on 08-18-2022 Clarity (U) Clear Clear [facility] Urine color determinationOrd ered By: Dr. Gray on 08-18-2022 Color (U) Yellow Yellow [facility] Urine glucose detectionOrder ed By: Dr. Gray on 08-18-2022 Glucose Ql (U) Normal mg/dl Normal [facility] Urine leukocyte esterase det ection by dipstickOrdered By: Dr. Gray on 08-18-2022 Leukocyte esterase Test strip Ql (U) 25 /ul Negative [facility] Urine pHOrdered By: Dr. Hu sibley on 08-18-2022 pH (U) 7.0 [pH] 5.0 - 8.0 [facility] Urine sediment bacteria coun t by microscopy (number/high power field)Ordered By: Dr. Gray on 08-18-2022 Bacteria LM.HPF (Urine sed) [#/Area] 0 /[HPF] None Seen [facility] Urine specific gravity measu rementOrdered By: Dr. Gray on 03-03-2023 Specific gravity (U) [Rel density] 1.005 1.002-1.030 [facility] Urobilinogen Auto test strip Ql (U)Ordered By: Dr. Gray on 08-18-2022 Urobilinogen Ql (U) Normal mg/dl Normal [facility] Absolute lymphocyte counton 12-26-2021 Lymphocytes Auto (Unsp spec) [#/Vol] 1.80 10*3/uL 0.83-4.51 [facility] Work Phone: Basophil percentageon 2021 Basophils/100 WBC (Bld) 0.5 % 0-[address] [facility] Work Phone: [phone] Bilirubin [Mass/Vol] 0.70 mg/dL 0.20-1.00 [facility] Work Phone: Comment on above: For patients on eltr ombopag therapy, use of Dimension Shaniko TBIL is not recommended. Chloride [Moles/Vol] 101 mmol/L 98-107 [facility] Work Phone: Eosinophils/100 WBC (Bld) 1.6 % 0-5 [facility] Work Phone: Glucose [Mass/Vol] 96 mg/dL 74-106 [facility] Work Phone: Neutrophils (Bld) [#/Vol] 3.2 10*3/uL 2.0-7.7 [facility] Work Phone: Neutrophils/100 WBC (Bld) 57.3 % 47-70 [facility] Work Phone: Potassium [Moles/Vol] 4.3 mmol/L 3.5-5.1 [facility] Work Phone: Protein [Mass/Vol] 7.4 g/dL 6.4-8.2 [facility] Work Phone: Sodium [Moles/Vol] 136 mmol/L 136-145 [facility] Work Phone: WBC (Bld) [#/Vol] 5.6 10*3/uL 4.4-11.0 [facility]: Blood erythrocytes count (nu mber/volume)on 12-26-2021 RBC (Bld) [#/Vol] 4.46 10*6/uL [facility].2[facility] Blood hemoglobin measurement (mass/volume)on 12-26-2021 Hemoglobin (Bld) [Mass/Vol] 13.5 g/dL 12.0-15.0 [facility] Work Phone: Blood lymphocytes/100 leukoc yteson 12-26-2021 Lymphocytes/100 WBC (Bld) 32.3 % 19-41 [facility] Work Phone: Blood monocytes/100 leukocyt eson 12-26-2021 Monocytes/100 WBC (Bld) 8.1 % 0-[address] [facility] Work Phone: Blood platelet mean volumeon 12-26-2021 Platelet mean volume (Bld) [Entitic vol] 10.7 fL 6.2-12.0 [facility] Work Phone: Determination of erythrocyte mean corpuscular volume (MCV)on 12-26-2021 MCV (RBC) [Entitic vol] 91.5 fL 81-[address] [facility] Work Phone: Hematocrit Auto (Bld) [Volum e fraction]on 12-26-2021 Hematocrit (Bld) [Volume fraction] 40.8 % 37-47 [facility] Work Phone: Laboratory - Chemistry and C hemistry - challengeon 12-26-2021 ALP [Catalytic activity/Vol] 70 U/L 45-117 [facility] Work Phone: ALT [Catalytic activity/Vol] 29 U/L 13-56 [facility] Work Phone: CO2 [Moles/Vol] 29.0 mmol/L 21.0-32.0 [facility] Work Phone: Globulin (S) [Mass/Vol] 3.4 g/dL 2.2-4.[address] [facility] Work Phone: Urea nitrogen/Creatinine [Mass ratio] 16.2 mg/mg 10-20 [facility] Work Phone: Laboratory - Hematology and Cell countson 12-26-2021 Erythrocyte distribution width (RBC) [Entitic vol] 41.3 fL 35.1-43.9 [facility] Work Phone: Erythrocyte distribution width (RBC) [Ratio] 12.3 % 11.6-14.6 [facility] Work Phone: Immature granulocytes/100 WBC (Bld) 0.200 % 0.0-0.9 [facility] Work Phone: Comment on above: IG% - Immature Granu locytes (promyelocytes, myelocytes and metamyelocytes) > 1% indicates that a LEFT SHIFT is Present. MCH (RBC) [Entitic mass] 30.3 pg 27.0-32.0 [facility] Work Phone: Nucleated RBC/100 WBC (Bld) [Ratio] 0 % 0-5 [facility] Work Phone: MCHC Auto (RBC) [Mass/Vol]on 12-26-2021 MCHC (RBC) [Mass/Vol] 33.1 g/dL 32-36 [facility] Work Phone: No Panel Informationon 12-26 Estimated GFR (MDRD) Amer 98 mL/min >60 [facility] Work Phone: Comment on above: GFR Calc Estimated GFR (MDRD) Non-Af Amer 81 mL/min >60 [facility] Work Phone: Comment on above: Non- GFR Calc Thyroid Stimulating Hormone (TSH) 1.14 uIU/mL 0.358-3.74 [facility] Work Phone: Platelets bldon 12-26-2021 Platelets (Bld) [#/Vol] 250 10*3/uL 150-450 [facility] Work Phone: Serum or plasma albumin kerline urement (mass/volume)on 12-26-2021 Albumin [Mass/Vol] 4.0 g/dL 3.2-5.0 [facility] Work Phone: Serum or plasma albumin/glob ulin mass ratioon 12-26-2021 Albumin/Globulin [Mass ratio] 1.2 {ratio} 0.9-2.4 [facility] Work Phone: Serum or plasma calcium kerline urement (mass/volume)on 12-26-2021 Calcium [Mass/Vol] 9.3 mg/dL 8.5-10.1 [facility] Work Phone: Serum or plasma creatinine m easurement (mass/volume)on 12-26-2021 Creatinine [Mass/Vol] 0.74 mg/dL 0.55-1.02 [facility] Work Phone: Comment on above: The validity of the calculated GFR & GFRAA in patients over 70 years has not been determined. Clinical correlation is essential. Serum or plasma urea nitroge n measurement (mass/volume)on 12-26-2021 Urea nitrogen [Mass/Vol] 12 mg/dL 7-18 [facility] Work Phone: Thin prep Papanicolaou smear with manual screeningon 12-26-2021 Thin prep Papanicolaou smear with manual screening 26 U/L 15-37 [facility] Work Phone: Thin prep Papanicolaou smear with manual screening 6 5-15 [facility] Work Phone: OPERATIVE PROCEDURESon 06-[address] [facility] OPERATIVE REPORT NAME ACCOUNT SEX AGE ADMIT DISCHARGE PT MED. RECORD# NUMBER DATE DATE TYPE NITIN [id number] F 73 05/28/19 05/28/19 2 [place] [id number] ROOM: [facility] DATE OF : 1945 DICTATING PHYSICIAN: Fabienne Tejada DATE OF SURGERY: May 28, 2019 SURGEON: Fabienne Tejada DPM LASER CUTTER: ROBER Ott ANESTHESIOLOGIST: Miryam Benitez CRNA ANESTHETIC: Local with IV sedation. PREOPERATIVE DIAGNOSIS: (1) Hallux abductovalgus, left foot. (2) Hammertoe, second digit, left foot. (3) Mechanical irritation, buried fixation, first metatarsal, right foot. POSTOPERATIVE DIAGNOSIS: OPERATION PERFORMED: (1) Macho bunionectomy with internal fixation, left foot. (2) Devin osteotomy with internal fixation, left foot. (3) Arthrodesis, second proximal interphalangeal joint, left foot. (4) Tendon lengthening with extensor xie release, second digit left foot. (5) Capsulotomy with flexor plate release, second metatarsophalangeal joint, left foot with K-wire pinning. (6) Removal of deeply buried fixation, first metatarsal head, right foot. COMPLICATIONS: None. ESTIMATED BLOOD LOSS: Less than 5 mL. DESCRIPTION OF OPERATION: The patient was brought to the operating room and placed in the supine position. The patient was prepped and draped in the usual and aseptic manner. Anesthesia was obtained using 0.5% Marcaine and 2% Xylocaine as an ankle block. This was augmented by IV sedation by the Anesthesia department. Attention was directed to the left foot which was exsanguinated using an elastic Esmarch bandage. This was then used as an tourniquet at the level of the ankle. Attention was directed to the first ray of the left foot where a 4.5 cm curvilinear incision was made medial to the extensor hallucis longus tendon. This was deepened and all Page 1 of 3 KOJO TAVERAS Operative Report KOJO TAVERAS : 1945 superficial bleeders were identified, clamped, cut and ligated using 4-0 Vicryl or Bovie. This was further deepened via sharp and blunt dissection down to the level of the capsule. Linear capsulotomy was made following the course of the initial skin incision. This was reflected medially and laterally exposing the head of the first metatarsal. Using a Whitevector power saw, the medial and dorsomedial eminence of the first metatarsal head was resected and saved for specimen. Attention was then directed to the medial aspect of the first metatarsal head where a 0.045 inch Edgar wire was used as an access guide for a Chevron style osteotomy. This was a V-osteotomy with the Vector arms at 60-degrees. The osteotomy was executed with the Sunshine power saw with a longer plantar shelf from medial to lateral. The capsule fragment was translocated laterally and packed down to the shaft of the first metatarsal. This was then fixated with two 0.045 inch Edgar wires. The overhanging length of bone was then resected with the Sunshine power saw. Attention was then directed to the base of the proximal phalanx where a 0.035 inch Edgar wire was used as an access guide. An Devin style osteotomy, which is a wedge osteotomy from dorsal to plantar, was executed. A small wedge of bone was resected and the osteotomy was feathered and closed and fixated with a 0.045 inch Edgar wire. The wound was flushed with copious amounts of sterile saline. The capsule was then reapproximated and maintained using 2-0 Vicryl in a simple interrupted fashion. Attention was then directed to the medial aspect of the first metatarsophalangeal joint. There was redundant capsule present. The capsulotomy was then converted to a T-capsulotomy and the redundant capsule was excised and saved for specimen. The capsule was then repaired while the first ray was held in a rectus position using 2-0 Vicryl and 0 Ethibond. The wound was again flushed with copious amounts of sterile saline. Subcutaneous tissues were then reapproximated and maintained using 4-0 Vicryl, and the skin was reapproximated and maintained using 5-0 nylon in a continuous and locking stitch. Attention was then directed to the second digit of the right foot where two converging semi-elliptical incisions were made on the dorsal aspect of the second digit encompassing the proximal interphalangeal joint on the left foot. This wedge of tissue was resected and saved for specimen. The incision was then carried proximally in a serpentine fashion across the second metatarsophalangeal joint and extended to the distal one-third of the second metatarsal. The incision was deepened and all superficial bleeders were identified, clamped, cut and ligated with 4-0 Vicryl or Bovie. The proximal interphalangeal joint was identified, and the medial and lateral collateral ligaments, and the extensor xie were transected exposing the head of the proximal phalanx and the base of the middle phalanx. Using a Sunshine power saw, the articular surface of the head of the proximal phalanx and the articular surface from the base of the middle phalanx were resected. The articular surface was completely denuded to subchondral bone. Using a 0.035 inch Edgar wire, the head of the proximal phalanx and base of the middle phalanx were drilled to promote bleeding. It was noted at this Page 2 of 3 KOJO TAVERAS Operative Report KOJO TAVERAS : 1945 time that there was dorsiflexion of the proximal phalanx on the second metatarsophalangeal joint. The extensor xie was then freed from the underlying capsule and the tendon lengthened. The proximal phalanx was still slightly dorsiflexed so a capsulotomy was performed. This was a dorsal, medial and lateral capsulotomy, and the McGlamry elevator was used to free the plantarflexor plate. At this time, the digit was relaxed and could be placed in the anatomic position using a 0.045 inch Ani wire. This was carried through the middle and distal phalanx and then retrograded into the proximal phalanx, and then into the second metatarsal while the second digit was held in a slightly overcorrected plantarflexed position. The wound was flushed with copious amounts of sterile saline . The extensor xie and tendon were repaired with 3-0 Vicryl. The subcutaneous tissue was reapproximated and maintained with 4-0 Vicryl, and the skin was reapproximated and maintained using 5-0 nylon in a continuous interlocking stitch. 2 mL of Decadron was infiltrated around the operative site. A dry sterile compression dressing was applied. The tourniquet was released. Attention was then directed to the right foot which was exsanguinated using an elastic Esmarch bandage and then used as an tourniquet at the level of the right ankle. On the dorsum of the right foot at the distal one-third of the right first metatarsal, a 2 cm linear incision was made. This was deepened and via sharp and blunt dissection. A cystic lesion was encountered. This was excised via sharp and blunt dissection. The incision was carried deeper down to the level of the periosteal structures where 2 metallic pins were identified and removed in toto. The wound was flushed with copious amounts of sterile saline. The deep fascia and subcutaneous tissue was repaired using 4-0 Vicryl in a simple interrupted fashion, and the skin was reapproximated and maintained using 5-0 nylon in a continuous interlocking stitch. 0.5 mL of Decadron was infiltrated around the operative site. A dry sterile compression dressing was applied. Patient tolerated the anesthesia and procedure well with the operating room vital signs stable, good return of circulation, and apparently good condition. Dictated By: Fabienne Tejada DPM 05/28/19 12:05 JOB #: [id number] Transcribed By: fredrick 05/28/19 22:31 Electronically signed by: Dr. Fabienne Tejada 06/09/19 20:15 Page 3 of 3 KOJO TAVERAS Operative Report [facility] Final Surgical Pathology Rep [facility] 05-30-2019 Final Surgical Pathology Report . Pathology Reports Accession: Collected Date/Time: Received Date/Time: Pathologist: [id number] 05/28/2019 14:35 EST 05/28/2019 14:35 EST KEELY GUERRERO MD Final Surgical Pathology Report DIAGNOSIS: BONE, LEFT FOOT -- OSTEOCARTILAGINOUS TISSUE FRAGMENTS. NO EVIDENCE OF ACUTE INFLAMMATION OR TUMOR. COMMENT: [facility] - A# [id number] CLINICAL INFORMATION: HALLUX VALGUS LEFT FOOT SPECIMEN: A BONE IN CAPSULE LEFT FOOT GROSS DESCRIPTION: Received in formalin labeled A is a 3 x 2.1 x 0.4 cm aggregate of orr bone and cartilage. TS -1 following decalcification Dictated by Stacy HUA ([facility]) MICROSCOPIC DESCRIPTION: Slides reviewed. Electronically Signed by Pathology Report verified by [facility] Electronically signed by KEELY GUERRERO Sign out Date: 05/30/2019 13:54 Performing Lab: [facility], [address] [place] [id number] [place] [address] ([place]) Comment on above: Performed By: #### S PFR #### [address] [address] FOOT COMPLETE [facility] 9 FOOT COMPLETE [address] [address] Patient: KOJO TAVERAS Phone#: : 1945 Age: 73 Gender: F Pt. Type: Out Account: [id number] Location: 062 Ordering: FABIENNE SANCHEZRER Exam Date: 05/28/2019/11:31 Family Phys: ULI REYWinifred Charge Code: 318676 Physician: Piatt Order #: [id number] DLP Dose#: PROCEDURE: X-RAY FOOT LT COMPLETE MIN 3 VIEWS COMPARISON: None. INDICATIONS: Post-operation. FINDINGS: BONES: K wire extending through the distal second phalanx through the mid second metatarsal. There has been surgical change to the base of the first proximal phalanx, fixated by a wire. Surgical changes seen to the distal first metatarsal also fixated by 2 K wires. Osseous structures are somewhat obscured by overlying splint material. SOFT TISSUES: Lucency in the soft tissues adjacent to the first digit consistent with expected postsurgical change. EFFUSION: None visible. OTHER: Negative. CONCLUSION: 1. Surgical changes involving the first proximal phalanx, first metatarsal and second digit. Dictated by: Theresa Merritt MD on 05/28/2019 at 12:27 Approved by: Theresa Merritt MD on 05/28/2019 at 12:27 Normal [facility] FOOT COMPLETE RTon 9 FOOT COMPLETE RT [place] [address] Patient: KOJO TAVERAS Phone#: : 1945 Age: 73 Gender: F Pt. Type: Out Account: [id number] Location: 062 Ordering: FABIENNE MALLORY Exam Date: 05/28/2019/11:40 Family Phys: ULI BILLINGS Charge Code: 655751 Physician: Piatt Order #: [id number] DLP Dose#: PROCEDURE: X-RAY FOOT RT COMPLETE MIN 3 VIEWS COMPARISON: [facility], FOOT RT COMPLETE, 08/26/2015, 10:40. INDICATIONS: Post-operation evaluation. FINDINGS: BONES: Interval removal of K wires, present on the comparison exam. There is evidence of prior surgical intervention at the first distal metatarsal and proximal phalanx. Mild degenerative changes are seen at the second PIP articulation with irregular articular edges spurring. SOFT TISSUES: Negative. No visible soft tissue swelling. EFFUSION: None visible. OTHER: Negative. CONCLUSION: 1. Interval removal of fixating wires/pins. Dictated by: Theresa Merritt MD on 05/28/2019 at 12:32 Approved by: Theresa Merritt MD on 05/28/2019 at 12:32 Normal [facility] BMP with eGFRon 05-07-2019 Age - Reported 73 years Normal [place] Comment on above: Performed By: #### 2 [id number] #### [facility],[address] [place] [address] Anion gap [Moles/Vol] 13 mmol/L Normal 10 - 20 [facility] Comment on above: Performed By: #### 2 26114 #### [facility],[address] [place] [address] Calcium [Mass/Vol] 10.1 mg/dL Normal 8.6 - 10.2 [facility] Comment on above: Performed By: #### 2 77210 #### [facility],[address] [place] [address]126 Chloride [Moles/Vol] 100 mmol/L Normal 98 - 107 [facility] Comment on above: Performed By: #### 2 47280 #### [facility],[address] [place] [address] 15905 CO2 [Moles/Vol] 28.6 mmol/L Normal 21.0 - 31.0 [facility] Comment on above: Performed By: #### 2 63995 #### [facility],[address] [place] [address]7813 Creatinine [Mass/Vol] 0.7 mg/dL Normal 0.6 - 1.2 [facility] Comment on above: Performed By: #### 2 68173 #### [facility],[address] [place] [address] GFR/1.73 sq M predicted among non-blacks MDRD (S/P/Bld) [Vol rate/Area] mL/min/{1.73_m2} Normal 60 - 999 [facility] Comment on above: Result Comment: ACCO RDING TO THE NATIONAL KIDNEY DISEASE EDUCATION PROGRAM(NKDE), A NORMAL eGFR IS A VALUE GREATER THAN OR EQUAL TO 60 ML/MIN/1.73 SQ METERS. CHRONIC KIDNEY DISEASE: <60mL/MIN/1.73 SQ METERS KIDNEY FAILURE: <15mL/MIN/1.73 SQ METERS THIS TEST SHOULD ONLY BE USED FOR PATIENTS 18 YEARS OF AGE AND OLDER. Performed By: #### 2 22423 #### [facility],[address] [place] [address] GFR/1.73 sq M predicted among non-blacks MDRD (S/P/Bld) [Vol rate/Area] Normal [facility] Comment on above: Result Comment: BASI C METABOLIC PANEL Performed By: #### 2 08333 #### [facility],[address] [place] [address] Glucose [Mass/Vol] 92 mg/dL Normal 74 - 106 [facility] Comment on above: Performed By: #### 2 40499 #### [facility],[address] [place] [address]187 Potassium [Moles/Vol] 4.5 mmol/L Normal 3.5 - 5.1 [facility] Comment on above: Performed By: #### 2 24423 #### [facility],[address] [place] [address]38 Sodium [Moles/Vol] 137 mmol/L Normal 136 - 145 [facility] Comment on above: Performed By: #### 2 96595 #### [facility],[address] [place] [address] 01764 Urea nitrogen [Mass/Vol] 18 mg/dL Normal 6 - 20 [facility] Comment on above: Performed By: #### 2 74951 #### [facility],[address] [place], [place] [id number] CBC + DIFFon 05-07-2019 Basophils (Bld) [#/Vol] 0.00 x10EE3/UL Normal 0.00 - 0 .10 [facility] Comment on above: Performed By: #### 2 56760 #### [facility],[address] [place], [place] [address] Basophils/100 WBC (Bld) 0.4 % Normal 0.0 - 2.0 [facility] Comment on above: Performed By: #### 2 74041 #### [facility],[address] [place] [address] CBC + DIFF Normal [facility] Comment on above: Result Comment: CBC- COMPLETE BLOOD COUNT Performed By: #### 2 23215 #### [facility],[address] [place] [address] Eosinophils (Bld) [#/Vol] 0.10 x10EE3/UL Normal 0.00 - 0.50 [facility] Comment on above: Performed By: #### 2 45669 #### [facility],[address] [place] [address]017 Eosinophils/100 WBC (Bld) 1.1 % Normal 0.0 - 7.0 [facility] Comment on above: Performed By: #### 2 42486 #### [facility],[address] [place], [place] [address] Erythrocyte distribution width (RBC) [Ratio] 13.1 % Normal 12.0 - 15.6 [facility] Comment on above: Performed By: #### 2 31806 #### [facility],[address] [place], [place] [address] Hematocrit (Bld) [Volume fraction] 40.1 % Normal 34.0 - 46.0 [facility] Comment on above: Performed By: #### 2 84610 #### [facility],[address] [place] [address]94 Hemoglobin (Bld) [Mass/Vol] 13.4 g/dL Normal 12.0 - 16.0 [facility] Comment on above: Performed By: #### 2 72433 #### [facility],[address] [place] [address] Lymphocytes (Bld) [#/Vol] 2.40 x10EE3/UL Normal 0.80 - 2.80 [facility] Comment on above: Performed By: #### 2 01260 #### [facility],[address] [place] [address] Lymphocytes/100 WBC (Bld) 32.9 % Normal 20.0 - 45.0 [facility] Comment on above: Performed By: #### 2 79134 #### [facility],[address] [place] [address] 11648 MANUAL DIFF N/A Normal [facility] Comment on above: Performed By: #### 2 97766 #### [facility],[address] [place] [address]1201 MCH (RBC) [Entitic mass] 30 pg Normal 27 - 33 [facility] Comment on above: Performed By: #### 2 20687 #### [facility],[address] [place] [address] 12556 MCHC (RBC) [Mass/Vol] 33 X10 3 Normal 32 - 36 [facility] Comment on above: Performed By: #### 2 19768 #### [facility],[address] [place] [address] 52954 MCV (RBC) [Entitic vol] 91 fL Normal 80 - 99 [facility] Comment on above: Performed By: #### 2 77520 #### [facility],[address] [place] [address] 07469 Monocytes (Bld) [#/Vol] 0.50 x10EE3/UL Normal 0.20 - 1 .00 [facility] Comment on above: Performed By: #### 2 40628 #### [facility],[address] [place] [address] MONOS % 6.9 % Normal 0.0 - 10.0 [facility] Comment on above: Performed By: #### 2 39773 #### [facility],[address] [place] [address] Morphology Janes (Bld) [Interp] N/A Normal [facility] Comment on above: Performed By: #### 2 80462 #### [facility],[address] [place] [address] Neutrophils (Bld) [#/Vol] 4.30 x10EE3/UL Normal 1.50 - 7.10 [facility] Comment on above: Performed By: #### 2 78182 #### [address] [address] Neutrophils/100 WBC (Bld) 58.7 % Normal 46.0 - 76.0 [facility] Comment on above: Performed By: #### 2 43044 #### [address] [address] Platelet mean volume (Bld) [Entitic vol] 9.2 fL Normal 6.6 - 10.5 [facility] Comment on above: Result Comment: AUTO MATED DIFFERENTIAL Performed By: #### 2 04656 #### [facility],[address] [place] [address] 20206 Platelets (Bld) [#/Vol] 229 x10EE3/UL Normal 150 - 450 [facility] Comment on above: Performed By: #### 2 23858 #### [address] [address] RBC (Bld) [#/Vol] 4.39 x 10EE6/UL Normal 4.10 - 5.30 [facility] Comment on above: Performed By: #### 2 48488 #### [facility] [place] [address] WBC (Bld) [#/Vol] 7.4 x 10EE3/UL Normal 4.5 - 10.8 [facility] Comment on above: Performed By: #### 2 79295 #### [facility],[address] [place] [address]69 CHEST 2 VIEWSon 05-07-2019 CHEST [address] [address] Patient: KOJO TAVERAS Phone#: : 1945 Age: 73 Gender: F Pt. Type: Out Account: [id number] Location: [facility] Ordering: FABIENNE TEJADA Exam Date: 05/07/2019/11:23 Family Phys: ULI BILLINGS Charge Code: [id number] Physician: Piatt Order #: [id number] DLP Dose#: PROCEDURE: X-RAY CHEST 2 VIEWS COMPARISON: [facility], XR, CHEST PA/LAT, 08/18/2015, 10:01. INDICATIONS: Pre-op FINDINGS: LUNGS: Normal. No significant pulmonary parenchymal abnormalities. VASCULATURE: Normal. Unremarkable pulmonary vasculature. CARDIAC: Normal. No cardiac silhouette abnormality or cardiomegaly. MEDIASTINUM: Aortic arch calcifications. PLEURA: Normal. No effusion or pleural thickening. BONES: There are degenerative changes of the spine. OTHER: Right upper quadrant surgical clips. CONCLUSION: No acute disease. No significant change has occurred. Dictated by: Theresa Merritt MD on 05/07/2019 at 14:18 Approved by: Theresa Merritt MD on 05/07/2019 at 14:18 Normal [facility] Vital Signs Date Time Vital Sign Value Performing Clinician Chris naik 07-31-2024 09:24-0500 Body height 154.[address] Gaudencio Patel MD Work Phone: [facility] 07-31-2024 09:24-0500 Body mass index (BMI) [Ratio] 23.8 kg/m2 Dr. Gaudencio Patel MD Work Phone: [facility] 07-31-2024 09:24-0500 Body weight 57.[address] Gaudencio Patel MD Work Phone: [facility] 07-31-2024 09:24-0500 Diastolic blood pressure 76 mm[Hg] Dr. Gaudencio Patel MD Work Phone: [facility] 07-31-2024 09:24-0500 Heart rate 61 /min Dr. Gaudencio Patel MD Work Phone: [facility] 07-31-2024 09:24-0500 Respiratory rate 18 /min Dr. Gaudencio Patel MD Work Phone: [facility] 07-31-2024 09:24-0500 SaO2% (BldA) [Mass fraction] 98 % Dr. Gaudencio Patel MD Work Phone: [facility] 07-31-2024 09:24-0500 Systolic blood pressure 133 mm[Hg] Dr. Gaudencio Patel MD Work Phone: [facility] 07-28-2024 08:36-0500 Body mass index (BMI) [Ratio] 23.8 kg/m2 Dr. Gaudencio Patel MD Work Phone: [facility] 07-28-2024 08:36-0500 Body weight 57.[address] Gaudencio Patel MD Work Phone: [facility] 06-08-2023 15:54-0500 Body temperature 97.8 [degF] Dr. Gaudencio Patel Work Phone: [facility] 06-08-2023 15:54-0500 Diastolic blood pressure 72 mm[Hg] Dr. Gaudencio Patel Work Phone: [facility] 06-08-2023 15:54-0500 Heart rate 69 /min Dr. Gaudencio Patel Work Phone: [facility] 06-08-2023 15:54-0500 Respiratory rate 16 /min Dr. Gaudencio Patel Work Phone: [facility] 06-08-2023 15:54-0500 SaO2% (BldA) [Mass fraction] 99 % Dr. Gaudencio Patel Work Phone: [facility] 06-08-2023 15:54-0500 Systolic blood pressure 134 mm[Hg] Dr. Gaudencio Patel Work Phone: [facility] 12-11-2022 07:14-0400 Body height 154.[address] Jasson Mancuso Work Phone: [facility] 12-11-2022 07:14-0400 Body weight 56.[address] Jasson Mancuso Work Phone: [facility] 12-08-2022 08:26-0400 Body mass index (BMI) [Ratio] 23.6 kg/m2 Dr. Jasson Mancuso Work Phone: [facility] 11-09-2022 11:02-0400 Body weight 56.[address] Jasson Mancuso Work Phone: [facility] 11-09-2022 11:02-0400 Diastolic blood pressure 79 mm[Hg] Dr. Jasson Mancuso Work Phone: [facility] 11-09-2022 11:02-0400 Heart rate 73 /min Dr. Jasson Mancuso Work Phone: [facility] 11-09-2022 11:02-0400 Respiratory rate 16 /min Dr. Jasson Mancuso Work Phone: [facility] 11-09-2022 11:02-0400 Systolic blood pressure 136 mm[Hg] Dr. Jasson Mancuso Work Phone: [facility] 11-09-2022 08:45-0400 Body height 154.[address] Jasson Mancuso Work Phone: [facility] 08-20-2022 10:30-0500 Body mass index (BMI) [Ratio] 24.4 kg/m2 Dr. Jasson Mancuso Work Phone: [facility] 08-20-2022 08:10-0500 SaO2% (BldA) [Mass fraction] 99 % Dr. Jasson Mancuso Work Phone: [facility] 08-20-2022 08:04-0500 Body temperature 98.1 [degF] Dr. Jasson Mancuso Work Phone: [facility] 08-20-2022 08:04-0500 Diastolic blood pressure 76 mm[Hg] Dr. Jasson Mancuso Work Phone: [facility] 08-20-2022 08:04-0500 Heart rate 64 /min Dr. Jasson Mancuso Work Phone: [facility] 08-20-2022 08:04-0500 Respiratory rate 16 /min Dr. Jasson Mancuso Work Phone: [facility] 08-20-2022 08:04-0500 Systolic blood pressure 133 mm[Hg] Dr. Jasson Mancuso Work Phone: [facility] 08-19-2022 01:24-0500 Body height 154.94 cm [facility] 08-19-2022 01:24-0500 Body mass index (BMI) [Ratio] 24.4 kg/m2 [facility] 08-19-2022 01:24-0500 Body weight 58.6 kg [facility] 08-19-2022 00:34-0500 Body temperature 98.7 [degF] [facility] 08-19-2022 00:34-0500 Diastolic blood pressure 57 mm[Hg] [facility] 08-19-2022 00:34-0500 Heart rate 61 /min [facility] 08-19-2022 00:34-0500 Respiratory rate 15 /min [facility] 08-19-2022 00:34-0500 SaO2% (BldA) [Mass fraction] 97 % [facility] 08-19-2022 00:34-0500 Systolic blood pressure 170 mm[Hg] [facility] Encounters Encounter Date Encounter Type Care Provider Facility Start: 11-23-2024 End: 11-23-[address] Gaudencio Patel MD Work Phone: [facility] Work Phone: Start: 11-23-2024 End: 11-23-[address] Ernesto Canela MD -[facility] Work Phone: Start: 11-12-2024 End: 11-12-[address] Gaudencio Patel MD Work Phone: [facility] Work Phone: Start: 11-12-2024 End: 11-12-[address] Gaudencio Patel MD -[facility] Start: 11-12-2024 End: 11-12-2024 ambulatory Gaudencio Patel Facility:[facility] Start: 09-01-2024 End: 09-01-[address] Brad Hanna DO -[facility] Work Phone: Start: 09-01-2024 End: 09-01-2024 ambulatory Gaudencio Patel Facility:[facility] Start: 09-01-2024 End: 09-01-2024 ambulatory Gaudencio Patel Facility:[facility] Start: 09-01-2024 End: 09-01-[address] Ernesto Canela MD -[facility] Work Phone: Start: 08-20-2024 End: 08-20-[address] Brad Hanna DO -[facility] Work Phone: Start: 08-20-2024 End: 08-20-2024 ambulatory Gaudencio Patel Facility:[facility] Start: 08-13-2024 End: 08-13-[address] Brad Hanna DO -[facility] Work Phone: Start: 08-13-2024 End: 08-13-2024 ambulatory Gaudencio Patel Facility:[facility] Start: 07-31-2024 End: 07-31-2024 Patient encounter procedure Gaudencio MIRANDA -[facility] Work Phone: Start: 07-31-2024 End: 07-31-2024 ambulatory Gaudencio Patel Facility:[facility] Start: 07-28-2024 End: 07-28-[address] Brad Hanna DO -[facility] Work Phone: Start: 07-28-2024 End: 07-28-2024 ambulatory Gaudencio Patel Facility:[facility] Start: 07-25-2024 End: 07-25-2024 Patient encounter procedure Dr. Gaudencio Patel MD -Laboratory [place] Work Phone: Start: 07-25-2024 End: 07-25-2024 ambulatory Gaudencio Patel Facility:[facility] Start: 06-27-2024 End: 06-28-2024 Emergency department patient visit Gaudencio Patel Facility:[facility] Start: 06-02-2024 End: 06-02-2024 ambulatory Gaudencio Patel Facility:[facility] Start: 03-03-2024 End: 03-03-2024 ambulatory Gaudencio Patel Facility:[facility] Start: 02-01-2024 End: 02-01-2024 ambulatory Gaudencio Patel Facility:[facility] Start: 01-30-2024 End: 01-30-2024 ambulatory Gaudencio Patel Facility:[facility] Start: 01-01-2024 End: 01-01-2024 ambulatory Ernesto Canela Facility:[facility] Start: 07-25-2023 End: 07-25-[address] Gaudencio Patel Work Phone: [facility] Work Phone: Start: 07-25-2023 End: 07-25-[address] Gaudencio Patel Work Phone: [facility] Start: 06-29-2023 End: 06-29-[address] Gaudencio Patel Work Phone: [facility] Work Phone: Start: 06-08-2023 End: 06-08-[address] Gaudencio Patel Work Phone: [facility] Work Phone: Start: 05-11-2023 End: 05-11-2023 ambulatory [facility] Work Phone: Start: 05-11-2023 End: 05-11-2023 Patient encounter procedure [facility] Work Phone: Start: 04-19-2023 End: 04-19-2023 ambulatory [facility] Work Phone: Start: 04-19-2023 End: 04-19-2023 Patient encounter procedure [facility] Work Phone: Start: 12-11-2022 End: 12-11-2022 Admission to same day surgery center Dr. Jasson Mancuso Work Phone: [facility]/Special Procedures Start: 12-11-2022 End: 12-11-[address] Jasson Mancuso Work Phone: [facility] Work Phone: Start: 12-04-2022 End: 12-04-[address] Jasson Mancuso Work Phone: [facility] Work Phone: Start: 12-04-2022 End: 12-04-[address] Jasson Mancuso Work Phone: [facility] Start: 11-27-2022 Non-patient / Non-visit Dr. Zenon Mancuso Work Phone: [facility] Start: 11-26-2022 Non-patient / Non-visit Dr. Zenon Mancuso Work Phone: [facility] Start: 11-09-2022 End: 11-09-[address] Jasson Mancuso Work Phone: [facility] Start: 09-13-2022 End: 09-13-[address] Jasson Mancuso Work Phone: [facility] Work Phone: Start: 09-13-2022 End: 09-13-[address] Jasson Mancuso Work Phone: [facility] Start: 09-05-2022 End: 09-05-[address] Jasson Mancuso Work Phone: [facility]-Physical Therapy Start: 08-20-2022 End: 08-20-[address] Jasson Mancuso Work Phone: [facility]-Pulmonary Services/Neurology Start: 08-20-2022 Non-patient / Non-visit Dr. Zenon Mancuso Work Phone: [facility] Inpatient Physicians Start: 08-19-2022 Non-patient / Non-visit Dr. Zenon Mancuso Work Phone: [facility] Start: 08-19-2022 Non-patient / Non-visit Dr. Zenon Mancuso Work Phone: [facility] Start: 08-19-2022 End: 08-20-2022 Evaluation and management of inpatient [facility]-Progressive Care Unit Start: 08-19-2022 End: 08-20-[address] Jasson Mancuso Work Phone: [facility] Work Phone: Start: 03-14-2022 End: 03-14-2022 ambulatory [facility] Work Phone: Start: 03-14-2022 End: 03-14-2022 Patient encounter procedure [facility]-Outpatient Breast Imaging Start: 12-26-2021 End: 12-26-2021 Patient encounter procedure [facility] Start: 09-01-2021 End: 09-01-2021 Patient encounter procedure [facility]-Outpatient Bone Densitometry Start: 05-28-2019 Encounter for other preprocedural examination FABIENNE TEJADA [facility] Start: 05-28-2019 End: 05-28-2019 Patient encounter procedure FABIENNE TEJADA [facility] Start: 05-07-2019 End: 05-07-2019 Patient encounter procedure FABIENNE MALLORY [facility] Encounter for other preprocedural examination FABIENNE MALLORY [facility] Procedures Date Procedure Procedure Detail Performing Clinician Start: 11-12-2024 Measurement of Borre kalli burgdorferi antibody Dr. Gaudencio Patel MD Work Phone: Comment on above: Lyme antibodies not detected. Reflex testing is notindicated.No laboratory evidence of infection with B. burgdorferi(Lyme disease). Negative results may occur in patientsrecently infected (less than or equal to 14 days) with B.burgdorferi. If recent infection is suspected, repeattesting on a new sample collected in 7 to 14 days isrecommended.Performed at: [facility] [id number] Director: Eric Gonzalez PhD, Phone: [phone] Start: 07-25-2024 Measurement of renal function Dr. Gaudencio Patel MD Work Phone: Comment on above: GFR Calc Start: 07-25-2024 Vitamin D, 25-hydrox y measurement Dr. Gaudencio Patel MD Work Phone: Comment on above: Vitamin D 25(OH) Sta tus Range Deficiency <20 ng/mL (50nmol/L) Insufficiency 20 - 30 ng/mL (50 - 75 nmol/L) Sufficiency 30 - 100 ng/mL (75 - 250 nmol/L) Toxicity >100 ng/mL (>250 nmol/L) Start: 05-11-2023 Ultrasonography of abdomen Start: 08-19-2022 MRI of brain without contrast Dr. Jasson Mancuso Work Phone: Start: 08-18-2022 Plain chest X-ray Start: 08-18-2022 CT angiography of he ad and neck Start: 08-18-2022 CT of head without contrast Start: 03-14-2022 Screening mammography Start: 09-01-2021 Dual energy X-ray absorptiometry Plan of Treatment Date Care Activity Detail Author Start: 08-20-2022 Patient discharge [facility] Start: 08-19-2022 End: 08-20-2022 [facility] Start: 08-19-2022 Blood chemistry [facility] Start: 08-19-2022 Application of inter mittent pneumatic compression device [facility] Start: 08-19-2022 Following clinical p athway protocol [facility] Start: 08-19-2022 Assessment of risk o f venous thromboembolism [facility] Start: 08-19-2022 Cardiac monitoring [facility] Start: 08-19-2022 Catheterization of vein [facility] Start: 08-19-2022 Continuous pulse oximetry [facility] Start: 08-19-2022 Elevation of head of bed [facility] Start: 08-19-[address] [facility] Start: 08-19-[address] anned interventions [facility] Start: 08-19-2022 Insertion of cathete r into peripheral vein [facility] Start: 08-19-2022 Measuring intake and output [facility] Start: 08-19-2022 MRI of brain without contrast Brain without Contrast [facility] Start: 08-19-2022 Notification of physician [facility] Start: 08-19-2022 Oxygen therapy [facility] Start: 08-19-2022 Providing care accor ding to standard [facility] Start: 08-19-2022 Provision of activit y privileges [facility] Start: 08-19-2022 Referral to service [facility] Start: 08-19-2022 Tobacco use cessatio n education [facility] Start: 08-19-[address] [facility] Start: 08-19-2022 Verification routine [facility] Start: 08-19-2022 Admission procedure [facility] Start: 09-01-2021 Dual energy X-ray absorptiometry Dexa Bone Density Study [facility] Work Phone: Ambulatory ECG [facility] Anion gap measurement [facility] BUN/Creatinine ratio [facility] Calcium [Mass/volume ] in Serum or Plasma [facility] Carbon dioxide, tota l [Moles/volume] in Serum or Plasma [facility] Chloride [Moles/volu me] in Serum or Plasma [facility] Cholesterol [Mass/vo lume] in Serum or Plasma [facility] Cholesterol in HDL [Mass/volume] in Serum or Plasma [facility] Cholesterol in LDL [Mass/volume] in Serum or Plasma [facility] Creatinine [Moles/vo lume] in Serum or Plasma [facility] Glucose [Mass/volume ] in Serum or Plasma [facility] Hematocrit [Volume Fraction] of Blood [facility] Hemoglobin [Mass/vol ume] in Blood [facility] Hemoglobin A1c/Hemoglobin.total in Blood [facility] Leukocytes [#/volume ] in Blood [facility] Mean corpuscular hem oglobin concentration determination [facility] Mean corpuscular hem oglobin determination [facility] Measurement of renal function [facility] Neutrophil count [facility] Neutrophil percent differential count [facility] Patient referral [facility] Work Phone: Platelets [#/volume] in Blood [facility] Potassium [Moles/vol ume] in Serum or Plasma [facility] Red blood cell count [facility] Red cell distributio n width determination [facility] Replacement of elect ronic heart device, pulse generator [facility] Sodium [Moles/volume ] in Serum or Plasma [facility] Triglycerides measurement [facility] Urea nitrogen [Mass/ volume] in Serum or Plasma [facility] VLDL cholesterol measurement [facility] Payers Date Payer Category Payer Self-pay [id number] 2023 Medicare [id number] 2012 Unknown AULTCARE [id number] 2011 Medicare [id number] 1945 Unknown [id number] 2.16.84 [id number] 1945 Unknown [id number] 2.16.84 [id number] Unknown [id number] [facility] [id number] Unknown [id number] 2.16.8 [id number] Unknown [id number] 2.16.8 [id number] Unknown [id number] 2.16.8 [id number] Unknown [id number] 2.16.8 [id number] Unknown [id number] 2.16.8 40.1.057617.3.579.2.462 Unknown [id number] 2.16.8 40.1.158437.3.579.2.462 Unknown [id number] 2.16.8 40.1.207598.3.579.2.462 Unknown [id number] 2.16.8 40.1.765857.3.579.2.462 Unknown [id number] 2.16.8 40.1.775117.3.579.2.462 Unknown [id number] 2.16.8 40.1.998732.3.579.2.462 Unknown [id number] 2.16.8 40.1.230281.3.579.2.462 Unknown [id number] 2.16.8 40.1.735752.3.579.2.462 Unknown [id number] 2.16.8 40.1.062548.3.579.2.462 Unknown [id number] 2.16.8 40.1.270907.3.579.2.462 Unknown [id number] 2.16.8 [id number] Social History Date Type Detail Facility Start: 01-19-2021 End: 06-08-2023 Tobacco smoking status NHIS Unknown if ever smoked [facility] Start: 1945 Sex Assigned At Female [facility] Start: 08-11-2024 Tobacco smoking stat us NHIS Never smoked tobacco (finding) [facility] Medical Equipment Procedure Code Equipment Code Equipment Origin al Text Equipment Identifier Dates ([id number]) Implantable card iac monitor [id number] FDA Start: 12-11-2022 Goals Date Patient Goal Desired Activity /State Functional Status Date Assessment Result Facility 08-20-2022 Functional status Patient Activi ty Ambulates;Up ad russell [facility] Work Phone: 08-20-2022 Functional status Independent [facility] Work Phone: Mental Status Date Assessment Result Facility 08-20-2022 Cognitive function Awake;Alert;A ppropriate;Foll ows Commands [facility] Work Phone: 08-19-2022 Cognitive function Arousable To Voice/Nam e [facility] Work Phone: 08-18-2022 Cognitive function Voice/Name [facility] Work Phone: Clinical Notes 08-19-2022 to 08-13-2024 Note Date & Type Note Facility 08-13-2024 Evaluation note Diagnosis Onset Date Resolution Right knee DJD acute July 202024 8:23am Right knee DJD acute August 20, 2024 3:15pm Right knee DJD acute August 8:06am [facility] Work Phone: [phone]) [phone] Evaluation note* Diagnosis Onset Date Resolution Status Admit Date Chronic instability of knee, right knee acute July 28 8:33am Right knee DJD acute July 192024 8:33am CVA (cerebral vascular accident) acute July 31 025 9:22am Implantable loop recorder present acute July 31 9:22am Essential hypertension chronic Fe bruary 2024 9:22am Hyperlipidemia chronic July 192024 9:22am Right knee DJD acute July 202024 8:23am Right knee DJD acute August 20, 2024 3:15pm Right knee DJD acute August 8:06am [facility] Work Phone: 1(619) 426-130506-11-2023 History and physical note Author Dr. 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 Gaudencio Patel MD Status:FL [facility] History and Physical Date of Admission: 12/11/22 Pleasant 77-year-old lady with no previous cardiac history who suffered an episode of a cerebrovascular accident or transient global amnesia in August 2022.? She apparently was taking a shower and then did not know what happened toher.? In the emergency room, she was noted to have extremely elevated blood pressure and was evaluated.? The MRI was positive for what appeared to be an embolic stroke.? She was also treated for her hypertension.? Her EKG demonstrated normal sinus rhythm with no acute changes.? Echocardiogram demonstrated preserved ejection fraction of 55% moderate tricuspid regurgitationmild focal aortic calcification no shunting noted in the 48 event monitor demonstrated average heart rate of 68 bpm in sinus rhythm, no atrial fibrillation occasional supraventricular ectopic beats and no pauses noted.? She presents to us for an evaluation today.? She has had no recurrence and has not had any residual.? Her recent lipid profile demonstrates a total cholesterol of 183 HDL of 73 LDL of 90.? Electrocardiogram demonstrates normal sinus rhythm with a rateof 69 bpm. 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 Anxiety Arthropathy of left shoulder Cardiac arrhythmia Cellulitis of periorbital region of both eyes CTS (carpal tunnel syndrome) Essential hypertension GERD (gastroesophageal reflux disease) Guaiac positive stools Hemorrhoids Hyperlipidemia Insomnia Lumbar discogenic pain syndrome Osteoarthritis Paroxysmal SVT (supraventricular tachycardia) PVC's (premature ventricular contractions) Surgical History? History of appendectomy History of arthroscopy of left knee History of bilateral carpal tunnel release History of bilateral hip arthroplasty History of bunionectomy History of cholecystectomy History of colonoscopy (~2004) Family History? Grandfather CVA (cerebral vascular accident)Aunt CVA (cerebral vascular accident)Other Abdominal aneurysm Social History? Smoking Status:? Never smoker alcohol intake:? current substance use type:? does not use ROS Const Const: Negative for fatigue, weakness, headache(s), frequent falls, difficulty sleeping or excessive sweating Eyes Eyes: Negative for loss of peripheral vision, transient loss of vision, blurry vision, double vision or tunnel vision ENT ENT: Negative for headache(s), dizziness, Nosebleed/epistaxis or balance problems Cardio Chest Pain: No Palpitations: No Edema: None Muscle aches with walking: None Resp Respiratory: Negative for SOB with activity, SOB at rest, SOB orthopnea\SOB lying down, Cough or paroxysmal nocturnal dyspnea GI GI: Negative nausea, vomiting or heartburn : Negative for hematuria Musc Musc: Negative for muscle aches/ myalgia, muscle weakness, joint pain or balanceproblems Skin Skin: Negative non-healing lesions, rash or unusual bruising Neuro Neuro: Negative for dizziness, lightheadedness, near syncope, syncope, orthostatic symptoms, frequent falls, headache(s), weakness, confusion, memory loss, blurry vision, double vision, vertigo or lack of coordination Carter Hematologic/Lymphatic: Negative for easy bleeding or easy bruising Endo Endo: Negative for fatigue, excessive sweating, flushing or increased thirst/drinking Psych Psych: Negative for anxiety or depression Allergy Allergy/Immunology: Negative for hives and Negative for rash Cardiology Exam Const Appearance: cooperative, healthy appearing, no acute distress, well developed and well groomed Nutritional Appearance: average body habitus and well nourished Orientation: alert, awake and oriented x3 Head Head: normal to inspection, normocephalic and atraumatic Ears: hearing grossly normal bilaterally and external ears normal Nose: external nose normal, nares normal, nasal mucous membranes and turbinates normal, septum normal and no nasal discharge Face and Sinus: face symmetric Mouth: oral mucosae normal, tongue normal, oropharynx normal and moist mucous membranes Teeth and gingiva: dentition normal Throat: posterior oropharynx normal, tonsils normal and uvula midline Eyes General: appearance normal, both eyes and all related structures Eyelids: eyelids normal Conjunctivae: conjunctivae normal Pupils: PERRL, normal by confrontation and accommodation normal EOM: EOM intact bilaterally Neck Neck: normal visual inspection, trachea midline and no JVD JVD: +5 Carotids: normal carotid upstroke and bounding pulses Chest Chest inspection: normal inspection of the chest, symmetric chest movement and normal respiratory effort Auscultation: Bilateral: Clear to Auscultation Cardio Palpation: normal PMI Rate: regular rate Rhythm: regular rhythm Heart sounds: S1 normal, S2 normal and normal, physiologic split S2; Negative rub, gallop or murmur GI GI: normal to inspection, soft, no hepatosplenomegaly and bowel sounds present Neuro General: patient alert, patient awake, patient oriented x3, gait normal, moves all extremities and no focal sensory deficit Skin Skin: no rashes or lesions noted Extremities Pulses: Normal: Right Femoral Pulse, Left Femoral Pulse, Right Dorsalis Pedis Pulse, Left Dorsalis Pedis Pulse, Right Posterior Tibial Pulse, Left Posterior Tibial Pulse, Right Radial Pulse and Left Radial Pulse Lower Extremity Edema: None: Bilateral Musculoskel Musculoskeletal: No joint tenderness Psych Psychological: normal affect Supplemental Info Supplemental Information Holter monitor 08/20/2022 The AVG HR was 68 bpm and normal sinus rhythm. The min HR was 51 bpm and sinus bradycardia recorded at 6:11:38 AM D2, no activity or symptoms recorded. The Max HR was 119 beats per minutes and sinus tachycardia recorded at 5:17:02 p.m. D1, no activity or symptoms recorded. There were a total of 113 ventricular ectopic beats comprising 0.1% of the totalQRS complexes.? No runs noted. There were a total of 84 supraventricular ectopic beats.? 1 atrial couplet.? 2 atrial runs totaling 9 beats.? The longest run was 5 beats of probable ectopic atrial rhythm at 122 bpm recorded at 1:25:14 PM D1.? The fastest run was 4 beatsof probable ectopic atrial rhythm at 152 bpm recorded at 11:18:56 AM D1. The longest R to R interval was 1.4 seconds recorded at 8:20:59 AM D2. The patient kept a 48-hour diary and noted 1 episode of faint/sick to stomach which did not correlate with the scan. Echocardiogram 08/19/2022 Interpretation Summary Left ventricular systolic function is normal. The estimated ejection fraction is 55 %. The left atrium is mildly enlarged. There is mild mitral annular calcification. Mild (1+) mitral valve insufficiency. Moderate (2+) eccentric tricuspid valve insufficiency. Mild focal aortic valve calcification. Trivial pulmonic valve insufficiency. Right ventricular systolic pressure estimated to be 28 mmHg. Diastolic function is indeterminate. Bubble contrast study negative for right to left interatrial shunt. Echocardiogram 10/23/2012 Interpretation summary Normal LV size. Left ventricular systolic function is normal. The estimated ejection fraction is 65%. Transmitral and pulmonary venous Doppler flow suggestive of impaired relaxation of left ventricle. Mild (1+) mitral valve insufficiency. Mild (1+) tricuspid valve insufficiency. Pulmonary artery systolic pressure is 29 mmHg. Stress test 10/23/2012 Conclusion: 1.? Normal exercise myocardial perfusion scan at a high workload. 2.? No clinical angina noted. 3.? No ischemia present. 4.? Preserved ejection fraction. ? Assessment and Plan Assessment and Plan (1) CVA (cerebral vascular accident): ?Status:?Acute ?Plan: She did have a cerebrovascular accident with etiology of which is not entirely clear.? There is the concern that there may have been paroxysmal atrial fibrillation.? I will recommend that we pursue an implantable loop recorder to monitor for any of this.? In the meantime she will continue on her aspirin as well as her statin therapy.? I have explained the above to her and she understands and agrees to proceed. (2) Essential hypertension: ?Status:?Chronic ?Plan: Her blood pressure is under better control at this time I would not recommend that we make any changes. Thank you for allowing me to participate in the care of your patient.? Please don't hesitate to call if any issues arise. (3) Cardiac arrhythmia: This is be followed by loop recorder. 11/26/22 0844 <Electronically signed by Gaudencio Holcomb BAGGAGE SCREENER RUTH> Cosigner Signature (if applicable): 11/26/22 0945 <Electronically signed by Ernesto Canela MD> CC: BAGGAGE SCREENER-C Gaudencio Holcomb; Dr. Ernesto Canela MD; Dr. Gaudencio Patel MD~ Signed [facility] Work Phone: 1(692) 894-383203-05-[address] Ayala [facility] August 20, 2022 8:50am Note Date/Time August 20, 2022 8:50 am [facility] Medical Records Department [address] [place] [address] Discharge Summary 08/20/22846 MR#: [id number] Acct: [id number] Name: KOJO TAVERAS Rep #:[id number] : 1945 77 From: Omkar mendez MD PCP: Dr. Jasson Mancuso MD Status:ADM I NO Location: [place] [address] Providers Date of Admission: 08/19/22 Primary Care Physician: Dr. Jasson Mancuso MD Reason For Visit: GLOBAL TRANSIENT AMNESIA Diagnosis Discharge Diagnosis (1) Transient global amnesia: Status: Acute Code(s): G45.4 - Transient global amnesia Medications at Discharge Home Medications Calcium 600 mg PO BID 03/13/14 cholecalciferol (vitamin D3) 50 mcg (2,000 unit) tablet 2,000 unit PO DAILY 03/13/14 metoprolol succinate 25 mg tablet,extended release 24 hr 12.5 mg PO QHS 03/13/14 omeprazole 40 mg capsule,delayed release 20 mg PO DAILY 03/13/14 gabapentin 300 mg capsule 300 mg PO DAILY 05/11/20 meloxicam 7.5 mg tablet 7.5 mg PO BID 05/11/20 temazepam 30 mg capsule 15 mg PO QHS 05/27/20 escitalopram oxalate 10 mg tablet 5 mg PO DAILY 01/15/21 aspirin 81 mg chewable tablet 81 mg PO DAILY@0800 #30 tabs 08/20/22 atorvastatin 40 mg tablet 40 mg PO QHS #30 tabs 08/20/22 Hospital Course Operations None Procedures 2-D Echocardiogram Summary of Care Provided Minutes Spent on Discharge: 35 Hospital Course: Per HPI: KOJO TAVERAS, is a 77 F with a significant history of hypertensionand hyperlipidemia who presents to the emergency department with amnesia that started 3 hours before presentation. Reportedly after dinner patient took a shower.? Then she was seen holding cat food; the glasses that she wears and another pair of glasses.? She was confused.? Her confusion eventually resolved. Patient was found to have extremely elevated blood pressure on presentation.? Reportedly systolic blood pressure was 220 on presentation to the emergency department.? Emergency department doctor discussed the case with telemetry neurologist who recommended that patient be admitted to the hospital for a TIA work-up. Hospital Course: 1. Right inferior occipital CVA?77-year-old female came in with what appears eren transient global amnesia that resolved she had no further signs of weakness or decrease sensation or any vision loss either. MRI was positive for what appeared to be an embolic stroke she does have a history of palpitations that have never been diagnosed as A-fib. On the monitor she did not have A-fib during her hospitalization. [facility] neurology was consulted recommended aspirin as well as Lipitor and Holter monitoring all of which was performed. I discussed with her the plan for discharge today she expressed understanding of the risk benefits going home and would like to go home today. I do recommend that she follow-up with her PCP in 3 to 5 days and obtain an outpatient neurology follow-up. 2. Hypertension, hyperlipidemia, anxiety, depression, GERD are all chronic medical conditions which complicate her care. Her home medications were continued where appropriate Physical Exam Narrative General: Alert, Oriented x3, Cooperative, No apparent distress HEENT: Atraumatic, PERRLA, EOMI, Normocephalic Oral: Moist Mucosa Neck: Supple, No JVD Lungs: Clear to auscultation, Normal air movement, No rhonchi, No wheeze, No rales Cardiovascular: Regular rate, Regular Rhythm, Normal S1, Normal S2, No murmurs Abdomen: Soft, Non Tender, Non-Distended, No Hepato-splenomegaly Extremities: No edema, Capillary Refill Less than 3 Seconds Skin: No rashes, No breakdown Musculoskeletal: No Tenderness to Palpation of Joints or Extremities Neurological: Cranial nerves II-XII grossly intact, Motor Exam 5/5 strength throughout, Sensory exam intact to light touch and pain Psych/Mental Status: Normal Affect, Appropriate Weight / BMI Weight Weight: 129 lb 3.054 oz Body Mass Index (BMI) 24.4 ABG / Lab / Microbiology Data Result Diagrams: 08/19/22 05:29 08/19/22 05:29 Laboratory: Laboratory Results - last 24 hr 08/19/22 05:29: Hemoglobin A1c 5.1 Radiography Diagnostic Testing: Radiology Impression Brain MRI 08/19/22 01:21 IMPRESSION: Multiple acute small right occipital lobe infarcts 1. There are multiple small acute infarcts scattered throughout the anterior to posterior and inferior aspect of the right occipital lobe best seen on the diffusion-weighted sequence, images 9/60 through 1160 series 4. No additional acute infarcts are present in the supratentorial regions of the brain or in the posterior fossa or brainstem. Electronically Signed: Jose Stearns MD at 12:55 EST , ADDENDUM: 08/19/22 1318 IMPRESSION: Multiple acute small right occipital lobe infarcts 1. There are multiple small acute infarcts scattered throughout the anterior to posterior and inferior aspect of the right occipital lobe best seen on the diffusion-weighted sequence, images 9/60 through 1160 series 4. No additional acute infarcts are present in the supratentorial regions of the brain or in the posterior fossa or brainstem. N.B. : The above Results were Read Back by Jose Stearns MD to Christina Martines RN, and understanding confirmed on 08/19/2022 13:11:26 (ET). Electronically Signed: Jose Stearns MD at 12:55 EST , Echocardiogram 08/19/22 01:21 Interpretation Summary Left ventricular systolic function is normal. The estimated ejection fraction is 55 %. The left atrium is mildly enlarged. There is mild mitral annular calcification. Mild (1+) mitral valve insufficiency. Moderate (2+) eccentric tricuspid valve insufficiency. Mild focal aortic valve calcification. Trivial pulmonic valve insufficiency. Right ventricular systolic pressure estimated to be 28 mmHg. Diastolic function is indeterminate. Bubble contrast study negative for right to left interatrial shunt. Ordering Physician: Brad Roman Referring Physician: Jasson Mancuso Performed By: Akiko Rust, AKIRA, RVT D/C Instructions Discharge Diet: Low fat / Low cholesterol Call your doctor if you observe: Fever of 101 or Higher, Shortness of breath, Dizziness, Fainting spells, Swelling in the ankles, Chest pain and Increased palpitations (irregular heartbeat) Meaningful Use Info Meaningful Use Diagnoses (Choose all that apply): None applicable Discharge Plan Admission Admit Date/Time: 08/19/22 00:15 Attending Provider: Omkar Ayala Primary Care Provider: Jasson Mancuso Consulting Providers: Brad Roman Instructions Additional Instructions / Restrictions: Follow-up as an outpatient with your PCP to obtain a referral for neurology. Discharge Orders/Prescriptions Prescriptions: New aspirin 81 mg Tablet,Chewable 81 mg PO DAILY@0800 Qty: 30 0RF atorvastatin 40 mg Tablet 40 mg PO QHS Qty: 30 0RF Continued meloxicam 7.5 mg tablet 7.5 mg PO BID gabapentin 300 mg capsule 300 mg PO DAILY escitalopram oxalate 10 mg tablet 5 mg PO DAILY omeprazole 40 MG capsule 20 mg PO DAILY Label Comments: ACID PREVENTION metoprolol succinate 25 MG tablet 12.5 mg PO QHS Label Comments: HEART/BLOOD PRESSURE cholecalciferol (vitamin D3) 2,000 UNIT tablet 2,000 unit PO DAILY Label Comments: SUPPLEMENT Calcium 600 mg PO BID Label Comments: SUPPLEMENT temazepam 30 MG capsule 15 mg PO QHS Discontinued lovastatin 20 MG tablet 40 mg PO QHS Label Comments: CHOLESTEROL Other Ambulatory Orders: Cardiac Holter Monitor, 48 Hrs (Routine) Timeframe: 1 Day Facility: [facility] - Location: Cardiovascular Services Ordered By: Dr. Omkar Ayala Referrals / Follow Up: Jasson Mancuos MD [Primary Care Provider] - Within 1 Week Disposition Disposition (needs filled in before D/C Order can be placed): Home, Self Care Charges/Coding Visit Charges Inpatient E&M: 78305 Disch Hosp >30min 08/20/22 0850 <Electronically signed by Omkar Ayala MD> Cosigner Signature (if applicable): CC: Dr. Omkar Ayala MD; Dr. Jasson Mancuso MD~ Signed [facility] Work Phone: 1(398) 752-420303-05-[address] Ayala [facility] August 20, 2022 8:46am Note Date/Time August 20, 2022 8:42 am [facility] Medical Records Department [address] [place] [address] Instructions for Home/Discharge Instructions 08/20/22 0841 MR#: [id number] Acct: [id number] Name: KOJO TAVERAS Rep #:[id number] : 1945 77 From: Omkar mendez MD PCP: Dr. Jasson Mancuso MD Status:ADM I NO Discharge Instructions Diet Discharge Diet: Low fat / Low cholesterol Activity Discharge Activity: Return to Normal Activity Dressing / Incision Call your doctor if you observe: Fever of 101 or Higher, Shortness of breath, Dizziness, Fainting spells, Swelling in the ankles, Chest pain and Increased palpitations (irregular heartbeat) Follow Up Care Test Results: Test results from this visit will be discussed in further detail at your follow- up appointment, if applicable. Discharge Plan Admission Admit Date/Time: 08/19/22 00:15 Attending Provider: Omkar Ayala Primary Care Provider: Jasson Mancuso Consulting Providers: Brad Roman Instructions Additional Instructions / Restrictions: Follow-up as an outpatient with your PCP to obtain a referral for neurology. Discharge Orders/Prescriptions Prescriptions: New aspirin 81 mg Tablet,Chewable 81 mg PO DAILY@0800 Qty: 30 0RF atorvastatin 40 mg Tablet 40 mg PO QHS Qty: 30 0RF Continued meloxicam 7.5 mg tablet 7.5 mg PO BID gabapentin 300 mg capsule 300 mg PO DAILY escitalopram oxalate 10 mg tablet 5 mg PO DAILY omeprazole 40 MG capsule 20 mg PO DAILY Label Comments: ACID PREVENTION metoprolol succinate 25 MG tablet 12.5 mg PO QHS Label Comments: HEART/BLOOD PRESSURE cholecalciferol (vitamin D3) 2,000 UNIT tablet 2,000 unit PO DAILY Label Comments: SUPPLEMENT Calcium 600 mg PO BID Label Comments: SUPPLEMENT temazepam 30 MG capsule 15 mg PO QHS Discontinued lovastatin 20 MG tablet 40 mg PO QHS Label Comments: CHOLESTEROL Other Ambulatory Orders: Cardiac Holter Monitor, 48 Hrs (Routine) Timeframe: 1 Day Facility: [facility] - Location: Cardiovascular Services Ordered By: Dr. Omkar Ayala Referrals / Follow Up: Jasson Mancuso MD [Primary Care Provider] - Within 1 Week Disposition Disposition (needs filled in before D/C Order can be placed): Home, Self Care 08/20/22 0846<Electronically signed by Omkar Ayala MD>Omkar Ayala MD CC: Dr. Brad Roman MD; Dr. Jasson Mancuso MD ~ Signed [facility] Work Phone: [phone]) 409-977403-04-[address] Ayala [facility] August 19, 2022 2:29pm Note Date/Time August 19, 2022 2:29 pm [facility] Medical Records Department [address] [place] [address] Progress Note 08/19/221426 MR#: [id number] Acct: [id number] Name: KOJO TAVERAS Rep #:[id number] : 1945 77 From: Omkar mendez MD PCP: Dr. Jasson Mancuso MD Status:ADM I NO Location: [place] [address] Progress Note Symptoms have completely resolved today however MRI was read as occipital strokes will consult [facility] neurology for an over read as I do not clearly see those strokes on the diffusion-weighted images, but also to get their input. Wejanll allow for permissive hypertension. 08/19/221428 <Electronically signed by Omkar Ayala MD> Omkar Ayala MD Cosigner Signature (if applicable): CC: ~ Signed [facility] Work Phone: [phone] Ayala [facility] August 19, 2022 2:24pm Note Date/Time August 19, 2022 2:25 pm [facility] Medical Records Department [address] [place] [address] Telemedicine Confirmation Receipt 08/19/22 MR#: [id number] Acct: [id number] Name: KOJO TAVERAS Rep #:[id number] : 1945 77 From: Omkar mendez MD PCP: Dr. Jasson Mancuso MD Status:ADM I NO [facility] Telemed has confirmed receipt of a request for visit. This document confirms receipt of the order initiating the consult. To find the results of the consultation, please view the patient's reports for the scanned Telemed Consult. [facility] Work Phone: 1(263) [phone] History and physical note Author Dr. Roman [facility] August 19, 2022 2:13am Note Date/Time August 19, 2022 12:3 3am [facility] Medical Records Department [address] [place] [address] H&P Exam - Hospitalist 08/19/22 0032 MR#: [id number] Acct: [id number] Name: KOJO TAVERAS Rep #:[id number] : 1945 77 From: Brad Roman MD PCP: Dr. Jasson Mancuso MD Status:ADM I NO Location: [facility] BQL175- 1 HPI - General General Date of Admission: 08/19/22 Date of Service: 08/19/22 Chief Complaint: Amnesia HPI Narrative KOJO TAVERAS, is a 77 F with a significant history of hypertension and hyperlipidemia who presents to the emergency department with amnesia that started 3 hours before presentation. Reportedly after dinner patient took a shower. Then she was seen holding cat food; the glasses that she wears and another pair of glasses. She was confused. Her confusion eventually resolved. Patient was found to have extremely elevated blood pressure on presentation. Reportedly systolic blood pressure was 220 on presentation to the emergency department. Emergency department doctor discussed the case with telemetry neurologist who recommended that patient be admitted to the hospital for a TIA work-up. [facility] Medical History Arthropathy of left shoulder Cardiac arrhythmia CTS (carpal tunnel syndrome) GERD (gastroesophageal reflux disease) Guaiac positive stools Hemorrhoids HTN (hypertension) Hyperlipidemia Lumbar discogenic pain syndrome Osteoarthritis Home Medications Calcium 600 mg PO BID 03/13/14 [History Last Taken Unknown] cholecalciferol (vitamin D3) 50 mcg (2,000 unit) tablet 2,000 unit PO DAILY 03/13/14 [History Last Taken Unknown] lovastatin 20 mg tablet 40 mg PO QHS 03/13/14 [History Last Taken Unknown] metoprolol succinate 25 mg tablet,extended release 24 hr 12.5 mg PO QHS 03/13/14[History Last Taken 06/01/20 04:00] omeprazole 40 mg capsule,delayed release 20 mg PO DAILY 03/13/14 [History Last Taken 03/24/14 09:00 40] gabapentin 300 mg capsule 300 mg PO DAILY 05/11/20 [History Last Taken Unknown] meloxicam 7.5 mg tablet 7.5 mg PO BID 05/11/20 [History Last Taken Unknown] temazepam 30 mg capsule 15 mg PO QHS 05/27/20 [History Last Taken Unknown] escitalopram oxalate 10 mg tablet 5 mg PO DAILY 01/15/21 [History Last Taken Unknown] Allergy/AdvReac Type Severity Reaction Status Date / Time No Known Allergies Allergy Verified 08/18/22 22:28 Family History (Updated 08/19/22 @ 01:[address] Brad Roman MD) Other Abdominal aneurysm Surgical History History of appendectomy History of arthroscopy of left knee History of bilateral carpal tunnel release History of bilateral hip arthroplasty History of bunionectomy History of cholecystectomy History of colonoscopy (~2004) Social History Smoking Status: Never smoker ROS ROS Narrative Pertinent positives and pertinent negatives as noted in HPI. All other systems were reviewed and are negative Vital Signs Vital Signs Vital Signs: 08/18/22 21:53 08/18/22 21:59 08/18/22 22:15 Temperature 96.5 F L 96.5 F L Temperature Source Temporal Temporal Pulse Rate 63 63 Respiratory Rate 16 16 Blood Pressure 197/85 H 197/85 H Blood Pressure Mean 122 122 Pulse Ox 100 100 100 Oxygen Delivery Method Room Air Room Air Room Air 08/18/22 22:26 08/18/22 22:46 08/18/22 22:55 Temperature Temperature Source Pulse Rate 63 66 63 Respiratory Rate 17 20 H 19 H Blood Pressure 172/77 H 182/76 H 181/74 H Blood Pressure Mean 108 111 109 Pulse Ox 94 96 97 Oxygen Delivery Method Room Air Room Air Room Air 08/18/22 22:59 08/18/22 23:07 08/18/22 23:24 Temperature 96.5 F L Temperature Source Temporal Pulse Rate 63 62 60 Respiratory Rate 16 18 12 Blood Pressure 197/85 H 185/82 H 181/85 H Blood Pressure Mean 122 116 117 Pulse Ox 100 96 97 Oxygen Delivery Method Room Air Room Air Room Air 08/18/22 23:42 08/19/22 00:01 08/19/22 00:01 Temperature Temperature Source Pulse Rate 57 L 57 L 59 L Respiratory Rate 11 L 12 14 Blood Pressure 173/107 H 180/83 H 180/83 H Blood Pressure Mean 129 115 115 Pulse Ox 97 93 97 Oxygen Delivery Method Room Air Room Air Room Air Weight Weight: 60.7 kg Body Mass Index (BMI) 25.2 Physical Exam Narrative Physical exam: General: Well-nourished, well-developed. Head: Normocephalic, atraumatic, no tenderness Eyes: Vision is grossly intact. EOMI ENT, no trauma, moist mucous membranes, no rhinorrhea Neck: Nontender, No thyromegaly. CVS: Regular rate and rhythm. S1-S2 present. No murmur, gallop or rub. Respiratory : clear to auscultation bilaterally, chest wall nontender, no wheezing Abdomen: Soft, nontender, nondistended, normal bowel sounds, no masses : Deferred Back: Nontender, no CVA tenderness, no midline spinal tenderness, deformities, step-offs Extremities: Nontender full range of motion, no trauma Skin: Normal color, no trauma, abrasions Neuro: Alert, oriented, cranial nerves II through XII grossly intact. Psychiatry: Normal mood. Normal affect. Not depressed. Not anxious. Results Lab / Micro Data Result Diagrams: 08/18/22 22:04 08/18/22 22:04 Labs: Laboratory Results - last 24 hr 08/18/22 21:59: POC Glucose 102 08/18/22 22:04: WBC 6.4, RBC 4.11 L, Hgb 12.7, Hct 37.6, MCV 91.5, MCH 30.9, MCHC 33.8, RDW Std Deviation 41.6, RDW Coeff of Lyn 12.6, Plt Count 209, MPV 10.8, Immature Gran % (Auto) 0.200, Neut % (Auto) 43.6 L, Lymph % (Auto) 45.4 H,[place] % (Auto) 8.9, Eos % (Auto) 1.4, Baso % (Auto) 0.5, Absolute Neuts (auto) 2.8, Absolute Lymphs (auto) 2.91, Nucleated RBC % 0 08/18/22 22:04: PT 13.0, INR 1.0, APTT 29.3 08/18/22 22:04: Sodium 139, Potassium 4.4, Chloride 103, Carbon Dioxide 31.0, Anion Gap 5, BUN 26 H, Creatinine 0.74, Estim Creat Clear Calc 36.12, Est GFR (MDRD) Af Amer 98, Est GFR (MDRD) Non-Af 81, BUN/Creatinine Ratio 35.1 H, Glucose 116 H, Calcium 9.0, Troponin I High Sens 4 08/18/22 23:19: Urine Color Yellow, Urine Clarity Clear, Urine pH 7.0, Ur Specific [place] 1.005, Urine Protein Negative, Urine Glucose (UA) Normal, UrineKetones Negative, Urine Occult Blood Negative, Urine Nitrite Negative, Urine Bilirubin Negative, Urine Urobilinogen Normal, Ur Leukocyte Esterase [address] 08/18/22 22:08 IMPRESSION: Negative Brain CT without contrast. Electronically Signed: Valdo Soto MD at 22:25 EST , ADDENDUM: 08/18/222235 IMPRESSION: Negative Brain CT without contrast. N.B. : The above Results were Read Back by Valdo Soto MD to Sid Gray MD, and understanding confirmed on 08/18/2022 22:29:49 (ET). Electronically Signed: Valdo Soto MD at 22:25 EST , Head/Neck CTA 08/18/22 22:08 IMPRESSION: Negative CTA Carotid and Brain. Electronically Signed: Valdo Soto MD at 22:44 EST Reading Location ID and State: [facility] / [place] Tel , Service support , ADDENDUM: 08/18/222254 IMPRESSION: Negative CTA Carotid and Brain. N.B. : The above Results were Read Back by Valdo Soto MD to Sid Gray MD, and understanding confirmed on 08/18/2022 22:48:34 (ET). Electronically Signed: Valdo Soto MD at 22:44 EST , Chest X-Ray 08/18/22 22:52 IMPRESSION: No radiographic evidence of acute cardiopulmonary disease. Electronically Signed: Valdo Soto MD at 23:07 EST , Assessment & Plan Assessment/Plan (1) Transient global amnesia: PLAN: Plan Transient global amnesia Per Telemetry neurologist recommendations will initiate TIA work-up. Of note differential diagnosis also includes hypertensive encephalopathy. Serial NINDS NIH Scale ordered Impression of head CT by radiology: Negative Brain CT without contrast. Upon my personal head CT image review: I agree with radiologist interpretation Negative CTA carotid and brain Lipid profile and A1c ordered. Physical therapy to evaluate and treat. N.p.o. until bedside swallow eval. Permissive hypertension. Control blood pressure with labetalol for systolic blood pressure of more than 220 or diastolic blood pressure of more than 120. MRI brain ordered Echocardiogram ordered. CBC and BMP is unremarkable. Trend. Hypertensive emergency Patient with systolic blood pressure more than 180 on presentation. Patient is on metoprolol 12.5 mg daily. Reportedly blood pressure medication was de-escalated in the past secondary to orthostatic hypotension. Since TIA is on thedifferential; patient has been kept on permissive hypertension. Hydralazine IV and labetalol IV as needed as above. DVT prophylaxis SCDs ordered Charges/Coding Visit Charges Inpatient E&M: 26990 Init Hosp L2 08/19/22 0213 <Electronically signed by Brad Roman MD> Cosigner Signature (if applicable): CC: Dr. Brad Roman MD; Dr. Jasson Mancuso MD~ Signed [facility] Work Phone: 1([phone]) [phone] Gray [facility] August 19, 2022 12:21am Note Date/Time August 18, 2022 10:2 9pm [facility] Medical Records Department [address] [place] [address] Emergency Department Summary 08/18/22 MR#: [id number] Acct: [id number] Name: KOJO TAVERAS Rep #:[id number] : 1945 77 From: Sid Gray MD PCP: Dr. Jasson Mancuso MD Status:REG E R Location: ED HPI History of Present Illness Chief Complaint: Neuro S/Sx Narrative Narrative: 77-year-old female past medical history of hypertension, her dose of metoprolol was lowered because she was having orthostatic hypotension years ago, presents with confusion and global amnesia. It was reported that she went out for a bathat around [id number]. She came down and had her glasses in her hand and cat food. The last thing she remembers is being in the living room but she does notrecall going up and taking a bath, or why she brought those items downstairs. On the way to the hospital, she was prompted about what she did earlier today, even going to a restaurant for breakfast, she had to be prompted but now she recalls that that is what she did. She denies any headache, no paresthesias, noother symptoms. Stroke team was called in triage because of her global amnesia. She does state that her mother used to have TIAs later on in life. [facility] Medical History Arthropathy of left shoulder Cardiac arrhythmia CTS (carpal tunnel syndrome) GERD (gastroesophageal reflux disease) Guaiac positive stools Hemorrhoids HTN (hypertension) Hyperlipidemia Lumbar discogenic pain syndrome Osteoarthritis Home Medications Calcium 600 mg PO BID 03/13/14 [History Last Taken Unknown] cholecalciferol (vitamin D3) 50 mcg (2,000 unit) tablet 2,000 unit PO DAILY 03/13/14 [History Last Taken Unknown] lovastatin 20 mg tablet 40 mg PO QHS 03/13/14 [History Last Taken Unknown] metoprolol succinate 25 mg tablet,extended release 24 hr 12.5 mg PO QHS 03/13/14[History Last Taken 06/01/20 04:00] omeprazole 40 mg capsule,delayed release 20 mg PO DAILY 03/13/14 [History Last Taken 03/24/14 09:00 40] gabapentin 300 mg capsule 300 mg PO DAILY 05/11/20 [History Last Taken Unknown] meloxicam 7.5 mg tablet 7.5 mg PO BID 05/11/20 [History Last Taken Unknown] temazepam 30 mg capsule 15 mg PO QHS 05/27/20 [History Last Taken Unknown] escitalopram oxalate 10 mg tablet 5 mg PO DAILY 01/15/21 [History Last Taken Unknown] Allergy/AdvReac Type Severity Reaction Status Date / Time No Known Allergies Allergy Verified 08/18/22 22:28 Family History Father No problems noted. Surgical History History of appendectomy History of arthroscopy of left knee History of bilateral carpal tunnel release History of bilateral hip arthroplasty History of bunionectomy History of cholecystectomy History of colonoscopy (~2004) Social History Smoking Status: Never smoker ROS ROS ED ROS Narrative Constitutional: No fever, no chills. HEENT: No sore throat. No neck pain. No loss of vision. No rhinorrhea. Cardiovascular: No chest pain. No palpitations. No pedal edema. Respiratory: No cough, no shortness of breath. Abdominal: No abdominal pain. No nausea. No vomiting. Genitourinary: No dysuria. No hematuria. Musculoskeletal: No myalgias. No arthralgias. Neurologic: No headaches. No dizziness. No lightheadedness. Global amnesia, did not remember events of the day. Skin: No rash. No change in color. Psychiatric: No depression. No anxiety. EXAM Physical Exam Narrative Exam Narrative: Afebrile. Vital signs noted. HEENT: Normocephalic. Atraumatic. PERRL, EOMI. Neck soft and supple. No pointtenderness or step off. Cardiovascular: Regular rate and rhythm. No murmurs, rubs, or gallops appreciated. Respiratory: No tachypnea. Lungs clear to auscultation bilaterally. Gastrointestinal: Abdomen soft, nontender, with normoactive bowel sounds. No rebound or guarding. Neurological: Awake. Alert. Nonfocal, nonlateralizing. NIH stroke scale is 0. Skin: No rash. Normal color. No pallor. Musculoskeletal: No pedal edema. Full range of motion extremities. Const Vital Signs: 08/18/22 21:53 08/18/22 21:59 08/18/22 22:15 Temperature 96.5 F L 96.5 F L Temperature Source Temporal Temporal Pulse Rate 63 63 Respiratory Rate 16 16 Blood Pressure 197/85 H 197/85 H Blood Pressure Mean 122 122 Pulse Ox 100 100 100 Oxygen Delivery Method Room Air Room Air Room Air 08/18/22 22:26 08/18/22 22:46 08/18/22 22:55 Temperature Temperature Source Pulse Rate 63 66 63 Respiratory Rate 17 20 H 19 H Blood Pressure 172/77 H 182/76 H 181/74 H Blood Pressure Mean 108 111 109 Pulse Ox 94 96 97 Oxygen Delivery Method Room Air Room Air Room Air 08/18/22 22:59 08/18/22 23:07 08/18/22 23:24 Temperature 96.5 F L Temperature Source Temporal Pulse Rate 63 62 60 Respiratory Rate 16 18 12 Blood Pressure 197/85 H 185/82 H 181/85 H Blood Pressure Mean 122 116 117 Pulse Ox 100 96 97 Oxygen Delivery Method Room Air Room Air Room Air 08/18/22 23:42 08/19/22 00:01 08/19/22 00:01 Temperature Temperature Source Pulse Rate 57 L 57 L 59 L Respiratory Rate 11 L 12 14 Blood Pressure 173/107 H 180/83 H 180/83 H Blood Pressure Mean 129 115 115 Pulse Ox 97 93 97 Oxygen Delivery Method Room Air Room Air Room Air NIHSS NIHSS 0: 1a Level of Consciousness: 0 1b LOC Questions (Score 2 if aphasic/stupor): 0 1c LOC Commands (Only score 1st attempt): 0 2 Best Gaze (If aphasic, use reflexive mvmts.): 0 3 Visual: 0 4 Facial Palsy: 0 5 Motor Arm Right (UN = amputation/fusion): 0 5 Motor Arm Left: 0 6 Motor Leg Right: 0 6 Motor Leg Left: 0 7 Limb ataxia (Only + if out of proportion): 0 8 Sensory (Aphasia/stupor=0 or 1, coma=2): 0 9 Best Language: 0 10 Dysarthria (mute, coma=2, intubated=UN): 0 11 Extinction and Inattention (only scored if +): 0 Total Score: 0 MDM MDM MDM Narrative Medical decision making narrative: Patient is noted to have elevated blood pressure 197/85, then 222 systolic, currently 172/77. She states she has been having problems controlling her bloodpressure recently. Stroke work-up was instituted. I received a call from the radiologist that the CT of the brain is negative, and CT a shows no large vesselocclusion. I received a phone call from the radiologist and discussed the radiology readings with him directly. CT of the brain noncontrast shows no evidence of anacute hemorrhage or mass. CTA shows no large vessel occlusion. I reviewed her laboratory work, she has a normal white count of 6.4, hemoglobin normal at 12.7,platelet count 209. BMP shows glucose 116 with a normal anion gap of 5. BUN slightly elevated at 26 with a normal creatinine of 0.7. Jgiow-hz-vgqu glucose is 102. I do not feel that tPA is indicated because her symptoms have completely resolved. Additionally, she was evaluated by the telestroke neurologist who does not recommend tPA, and it was thought that this was transient global amnesia/TIA. EKG was obtained and interpreted by myself which demonstrates normal sinus rhythm at 60 bpm without ectopy or acute ST changes. No STEMI. In review of her high-sensitivity troponin is 4. Chest x-ray was obtained and interpreted bymyself which shows no acute cardiopulmonary process, no pneumothorax, no pneumonia. I reviewed the radiology report which confirms my independent interpretation. While her blood pressure remains elevated in the 180s, she is asymptomatic. I do feel that this is more of a permissible hypertension given her TIA. Labetalol has been ordered per protocol. At this point in time, I will discuss patient with the hospitalist, Dr. Roman, for observation in the PCU. Review of her urinalysis dipstick is negative for infection. Patient is in stable condition. History & Record Review Discussion w/independent historian: Other (Daughter) Lab Data Attestation: I reviewed the patient's lab results. Labs: Laboratory Results - last 24 hr 08/18/22 08/18/22 08/18/22 21:59 22:04 22:04 WBC 6.4 RBC 4.11 L Hgb 12.7 Hct 37.6 MCV 91.5 MCH 30.9 MCHC 33.8 RDW Std Deviation 41.6 RDW Coeff of Lyn 12.6 Plt Count 209 MPV 10.8 Immature Gran % (Auto) 0.200 Neut % (Auto) 43.6 L Lymph % (Auto) 45.4 H [place] % (Auto) 8.9 Eos % (Auto) 1.4 Baso % (Auto) 0.5 Absolute Neuts (auto) 2.8 Absolute Lymphs (auto) 2.91 Nucleated RBC % 0 PT 13.0 INR 1.0 APTT 29.3 Sodium Potassium Chloride Carbon Dioxide Anion Gap BUN Creatinine Estim Creat Clear Calc Est GFR (MDRD) Af Amer Est GFR (MDRD) Non-Af BUN/Creatinine Ratio Glucose Calcium Troponin I High Sens Urine Color Urine Clarity Urine pH Ur Specific [place] Urine Protein Urine Glucose (UA) Urine Ketones Urine Occult Blood Urine Nitrite Urine Bilirubin Urine Urobilinogen Ur Leukocyte Esterase POC Glucose 102 08/18/22 08/18/22 22:04 23:19 WBC RBC Hgb Hct MCV MCH MCHC RDW Std Deviation RDW Coeff of Lyn Plt Count MPV Immature Gran % (Auto) Neut % (Auto) Lymph % (Auto) [place] % (Auto) Eos % (Auto) Baso % (Auto) Absolute Neuts (auto) Absolute Lymphs (auto) Nucleated RBC % PT INR APTT Sodium 139 Potassium 4.4 Chloride 103 Carbon Dioxide 31.0 Anion Gap 5 BUN 26 H Creatinine 0.74 Estim Creat Clear Calc 36.12 Est GFR (MDRD) Af Amer 98 Est GFR (MDRD) Non-Af 81 BUN/Creatinine Ratio 35.1 H Glucose 116 H Calcium 9.0 Troponin I High Sens 4 Urine Color Yellow Urine Clarity Clear Urine pH 7.0 Ur Specific [place] 1.005 Urine Protein Negative Urine Glucose (UA) Normal Urine Ketones Negative Urine Occult Blood Negative Urine Nitrite Negative Urine Bilirubin Negative Urine Urobilinogen Normal Ur Leukocyte Esterase 25 H POC Glucose Radiography Diagnostic Testing: Clinical Impression(s) from Imaging Studies Brain CT 08/18/22 22:08 IMPRESSION: Negative Brain CT without contrast. Electronically Signed: Valdo Soto MD at 22:25 EST Reading Location ID and State: [address] [place] [address] Tel , Service support , ADDENDUM: 08/18/226 IMPRESSION: Negative Brain CT without contrast. N.B. : The above Results were Read Back by Valdo Soto MD to Sid Gray MD, and understanding confirmed on 08/18/2022 22:29:49 (ET). Electronically Signed: Valdo Soto MD at 22:25 EST Reading Location ID and State: [facility] / [place] Tel , Service support , Head/Neck CTA 08/18/22 22:08 IMPRESSION: Negative CTA Carotid and Brain. Electronically Signed: Valdo Soto MD at 22:44 EST , ADDENDUM: 08/18/22 2255 IMPRESSION: Negative CTA Carotid and Brain. N.B. : The above Results were Read Back by Valdo Soto MD to Sid Gray MD, and understanding confirmed on 08/18/2022 22:48:34 (ET). Electronically Signed: Valdo Soto MD at 22:44 EST , Chest X-Ray 08/18/22 22:52 IMPRESSION: No radiographic evidence of acute cardiopulmonary disease. Electronically Signed: Valdo Soto MD at 23:07 EST , Discharge Plan Dx/Rx/DC Orders Clinical Impression: Transient global amnesia, Transient ischemic attack (TIA), Hypertensive emergency Disposition Disposition: Acute Care Hospital [facility] What to do if you have Problems For any increased pain, shortness of breath, bleeding, nausea or vomiting, chestpain, or any unexpected problems, contact your Primary Care Provider. Call [facility] ([phone]) or report to the closest Emergency Room. Call 911 if necessary. 08/19/22 002 <Electronically signed by Sid Gray MD> Cosigner Signature (if applicable): CC: Dr. Jasson Mancuso MD ~ Signed [facility] Work Phone: [phone] 960-677303-04-[address] Gray [facility] August 19, 2022 12:21am Note Date/Time August 18, 2022 10:2 9pm [facility] Medical Records Department [address] [place] [id number] Emergency Department Summary 08/18/22 MR#: [id number] Acct: [id number] Name: KOJO TAVERAS Rep #:[id number] : 1945 77 From: Sid Gray MD PCP: Dr. Jasson Mancuso MD Status:REG E R Location: ED HPI History of Present Illness Chief Complaint: Neuro S/Sx Narrative Narrative: 77-year-old female past medical history of hypertension, her dose of metoprolol was lowered because she was having orthostatic hypotension years ago, presents with confusion and global amnesia. It was reported that she went out for a bathat around [id number]. She came down and had her glasses in her hand and cat food. The last thing she remembers is being in the living room but she does notrecall going up and taking a bath, or why she brought those items downstairs. On the way to the hospital, she was prompted about what she did earlier today, even going to a restaurant for breakfast, she had to be prompted but now she recalls that that is what she did. She denies any headache, no paresthesias, noother symptoms. Stroke team was called in triage because of her global amnesia. She does state that her mother used to have TIAs later on in life. [facility] Medical History Arthropathy of left shoulder Cardiac arrhythmia CTS (carpal tunnel syndrome) GERD (gastroesophageal reflux disease) Guaiac positive stools Hemorrhoids HTN (hypertension) Hyperlipidemia Lumbar discogenic pain syndrome Osteoarthritis Home Medications Calcium 600 mg PO BID 03/13/14 [History Last Taken Unknown] cholecalciferol (vitamin D3) 50 mcg (2,000 unit) tablet 2,000 unit PO DAILY 03/13/14 [History Last Taken Unknown] lovastatin 20 mg tablet 40 mg PO QHS 03/13/14 [History Last Taken Unknown] metoprolol succinate 25 mg tablet,extended release 24 hr 12.5 mg PO QHS 03/13/14[History Last Taken 06/01/20 04:00] omeprazole 40 mg capsule,delayed release 20 mg PO DAILY 03/13/14 [History Last Taken 03/24/14 09:00 40] gabapentin 300 mg capsule 300 mg PO DAILY 05/11/20 [History Last Taken Unknown] meloxicam 7.5 mg tablet 7.5 mg PO BID 05/11/20 [History Last Taken Unknown] temazepam 30 mg capsule 15 mg PO QHS 05/27/20 [History Last Taken Unknown] escitalopram oxalate 10 mg tablet 5 mg PO DAILY 01/15/21 [History Last Taken Unknown] Allergy/AdvReac Type Severity Reaction Status Date / Time No Known Allergies Allergy Verified 08/18/22 22:28 Family History Father No problems noted. Surgical History History of appendectomy History of arthroscopy of left knee History of bilateral carpal tunnel release History of bilateral hip arthroplasty History of bunionectomy History of cholecystectomy History of colonoscopy (~2004) Social History Smoking Status: Never smoker ROS ROS ED ROS Narrative Constitutional: No fever, no chills. HEENT: No sore throat. No neck pain. No loss of vision. No rhinorrhea. Cardiovascular: No chest pain. No palpitations. No pedal edema. Respiratory: No cough, no shortness of breath. Abdominal: No abdominal pain. No nausea. No vomiting. Genitourinary: No dysuria. No hematuria. Musculoskeletal: No myalgias. No arthralgias. Neurologic: No headaches. No dizziness. No lightheadedness. Global amnesia, did not remember events of the day. Skin: No rash. No change in color. Psychiatric: No depression. No anxiety. EXAM Physical Exam Narrative Exam Narrative: Afebrile. Vital signs noted. HEENT: Normocephalic. Atraumatic. PERRL, EOMI. Neck soft and supple. No pointtenderness or step off. Cardiovascular: Regular rate and rhythm. No murmurs, rubs, or gallops appreciated. Respiratory: No tachypnea. Lungs clear to auscultation bilaterally. Gastrointestinal: Abdomen soft, nontender, with normoactive bowel sounds. No rebound or guarding. Neurological: Awake. Alert. Nonfocal, nonlateralizing. NIH stroke scale is 0. Skin: No rash. Normal color. No pallor. Musculoskeletal: No pedal edema. Full range of motion extremities. Const Vital Signs: 08/18/22 21:53 08/18/22 21:59 08/18/22 22:15 Temperature 96.5 F L 96.5 F L Temperature Source Temporal Temporal Pulse Rate 63 63 Respiratory Rate 16 16 Blood Pressure 197/85 H 197/85 H Blood Pressure Mean 122 122 Pulse Ox 100 100 100 Oxygen Delivery Method Room Air Room Air Room Air 08/18/22 22:26 08/18/22 22:46 08/18/22 22:55 Temperature Temperature Source Pulse Rate 63 66 63 Respiratory Rate 17 20 H 19 H Blood Pressure 172/77 H 182/76 H 181/74 H Blood Pressure Mean 108 111 109 Pulse Ox 94 96 97 Oxygen Delivery Method Room Air Room Air Room Air 08/18/22 22:59 08/18/22 23:07 08/18/22 23:24 Temperature 96.5 F L Temperature Source Temporal Pulse Rate 63 62 60 Respiratory Rate 16 18 12 Blood Pressure 197/85 H 185/82 H 181/85 H Blood Pressure Mean 122 116 117 Pulse Ox 100 96 97 Oxygen Delivery Method Room Air Room Air Room Air 08/18/22 23:42 08/19/22 00:01 08/19/22 00:01 Temperature Temperature Source Pulse Rate 57 L 57 L 59 L Respiratory Rate 11 L 12 14 Blood Pressure 173/107 H 180/83 H 180/83 H Blood Pressure Mean 129 115 115 Pulse Ox 97 93 97 Oxygen Delivery Method Room Air Room Air Room Air NIHSS NIHSS 0: 1a Level of Consciousness: 0 1b LOC Questions (Score 2 if aphasic/stupor): 0 1c LOC Commands (Only score 1st attempt): 0 2 Best Gaze (If aphasic, use reflexive mvmts.): 0 3 Visual: 0 4 Facial Palsy: 0 5 Motor Arm Right (UN = amputation/fusion): 0 5 Motor Arm Left: 0 6 Motor Leg Right: 0 6 Motor Leg Left: 0 7 Limb ataxia (Only + if out of proportion): 0 8 Sensory (Aphasia/stupor=0 or 1, coma=2): 0 9 Best Language: 0 10 Dysarthria (mute, coma=2, intubated=UN): 0 11 Extinction and Inattention (only scored if +): 0 Total Score: 0 MDM MDM MDM Narrative Medical decision making narrative: Patient is noted to have elevated blood pressure 197/85, then 222 systolic, currently 172/77. She states she has been having problems controlling her bloodpressure recently. Stroke work-up was instituted. I received a call from the radiologist that the CT of the brain is negative, and CT a shows no large vesselocclusion. I received a phone call from the radiologist and discussed the radiology readings with him directly. CT of the brain noncontrast shows no evidence of anacute hemorrhage or mass. CTA shows no large vessel occlusion. I reviewed her laboratory work, she has a normal white count of 6.4, hemoglobin normal at 12.7,platelet count 209. BMP shows glucose 116 with a normal anion gap of 5. BUN slightly elevated at 26 with a normal creatinine of 0.7. Cchfz-yb-symf glucose is 102. I do not feel that tPA is indicated because her symptoms have completely resolved. Additionally, she was evaluated by the telestroke neurologist who does not recommend tPA, and it was thought that this was transient global amnesia/TIA. EKG was obtained and interpreted by myself which demonstrates normal sinus rhythm at 60 bpm without ectopy or acute ST changes. No STEMI. In review of her high-sensitivity troponin is 4. Chest x-ray was obtained and interpreted bymyself which shows no acute cardiopulmonary process, no pneumothorax, no pneumonia. I reviewed the radiology report which confirms my independent interpretation. While her blood pressure remains elevated in the 180s, she is asymptomatic. I do feel that this is more of a permissible hypertension given her TIA. Labetalol has been ordered per protocol. At this point in time, I will discuss patient with the hospitalist, Dr. Roman, for observation in the PCU. Review of her urinalysis dipstick is negative for infection. Patient is in stable condition. History & Record Review Discussion w/independent historian: Other (Daughter) Lab Data Attestation: I reviewed the patient's lab results. Labs: Laboratory Results - last 24 hr 08/18/22 08/18/22 08/18/22 21:59 22:04 22:04 WBC 6.4 RBC 4.11 L Hgb 12.7 Hct 37.6 MCV 91.5 MCH 30.9 MCHC 33.8 RDW Std Deviation 41.6 RDW Coeff of Lyn 12.6 Plt Count 209 MPV 10.8 Immature Gran % (Auto) 0.200 Neut % (Auto) 43.6 L Lymph % (Auto) 45.4 H [place] % (Auto) 8.9 Eos % (Auto) 1.4 Baso % (Auto) 0.5 Absolute Neuts (auto) 2.8 Absolute Lymphs (auto) 2.91 Nucleated RBC % 0 PT 13.0 INR 1.0 APTT 29.3 Sodium Potassium Chloride Carbon Dioxide Anion Gap BUN Creatinine Estim Creat Clear Calc Est GFR (MDRD) Af Amer Est GFR (MDRD) Non-Af BUN/Creatinine Ratio Glucose Calcium Troponin I High Sens Urine Color Urine Clarity Urine pH Ur Specific [place] Urine Protein Urine Glucose (UA) Urine Ketones Urine Occult Blood Urine Nitrite Urine Bilirubin Urine Urobilinogen Ur Leukocyte Esterase POC Glucose 102 08/18/22 08/18/22 22:04 23:19 WBC RBC Hgb Hct MCV MCH MCHC RDW Std Deviation RDW Coeff of Lyn Plt Count MPV Immature Gran % (Auto) Neut % (Auto) Lymph % (Auto) [place] % (Auto) Eos % (Auto) Baso % (Auto) Absolute Neuts (auto) Absolute Lymphs (auto) Nucleated RBC % PT INR APTT Sodium 139 Potassium 4.4 Chloride 103 Carbon Dioxide 31.0 Anion Gap 5 BUN 26 H Creatinine 0.74 Estim Creat Clear Calc 36.12 Est GFR (MDRD) Af Amer 98 Est GFR (MDRD) Non-Af 81 BUN/Creatinine Ratio 35.1 H Glucose 116 H Calcium 9.0 Troponin I High Sens 4 Urine Color Yellow Urine Clarity Clear Urine pH 7.0 Ur Specific [place] 1.005 Urine Protein Negative Urine Glucose (UA) Normal Urine Ketones Negative Urine Occult Blood Negative Urine Nitrite Negative Urine Bilirubin Negative Urine Urobilinogen Normal Ur Leukocyte Esterase 25 H POC Glucose Radiography Diagnostic Testing: Clinical Impression(s) from Imaging Studies Brain CT 08/18/22 22:08 IMPRESSION: Negative Brain CT without contrast. Electronically Signed: Valdo Soto MD at 22:25 EST Reading Location ID and State: [address] Tel , Service support , ADDENDUM: 08/18/222235 IMPRESSION: Negative Brain CT without contrast. N.B. : The above Results were Read Back by Valdo Soto MD to Sid Gray MD, and understanding confirmed on 08/18/2022 22:29:49 (ET). Electronically Signed: Valdo Soto MD at 22:25 EST , Head/Neck CTA 08/18/22 22:08 IMPRESSION: Negative CTA Carotid and Brain. Electronically Signed: Valdo Soto MD at 22:44 EST , ADDENDUM: 08/18/22 2255 IMPRESSION: Negative CTA Carotid and Brain. N.B. : The above Results were Read Back by Valdo Soto MD to Sid Gray MD, and understanding confirmed on 08/18/2022 22:48:34 (ET). Electronically Signed: Valdo Soto MD at 22:44 EST , Chest X-Ray 08/18/22 22:52 IMPRESSION: No radiographic evidence of acute cardiopulmonary disease. Electronically Signed: Valdo Soto MD at 23:07 EST , Discharge Plan Dx/Rx/DC Orders Clinical Impression: Transient global amnesia, Transient ischemic attack (TIA), Hypertensive emergency Disposition Disposition: Acute Care [facility] What to do if you have Problems For any increased pain, shortness of breath, bleeding, nausea or vomiting, chestpain, or any unexpected problems, contact your Primary Care Provider. Call [facility] ([phone]) or report to the closest Emergency Room. Call 911 if necessary. 08/19/22 0021 <Electronically signed by Sid Gray MD> Cosigner Signature (if applicable): CC: Dr. Jasson Mancuso MD ~ Signed [facility] Work Phone: Evaluation noteNo assessment information available [facility] Work Phone: Evaluation note* Diagnosis Onset Date Resolution Status Hypertensive emergency acute Transient global amnesia acu te Transient ischemic attack (TIA) acute [facility] Work Phone: Evaluation note* Diagnosis Onset Date Resolution Status Hypertensive emergency acute Transient ischemic attack (TIA) acute Transient global amnesia res olved [facility] Work Phone: Evaluation note* Diagnosis Onset Date Resolution Status Hypertensive emergency acute Transient ischemic attack (TIA) acute Transient global amnesia res olved Cardiac arrhythmia acute CVA (cerebral vascular accident) acute Essential hypertension chron ic [facility] Work Phone: Evaluation note* Diagnosis Onset Date Resolution Status COVID-19 acute [facility] Work Phone: Reason for referral (narrative)No reason for referral information availableWSt. [facility] Work Phone: Summary Purpose Family History No Family History Records Found Relationship Condition Age at Onset Recorded Date/T josh Not Specified Aneurysm of abdominal vessel Unknown Relationship Condition Age at Onset Recorded Date/T josh Not Specified Aneurysm of abdominal vessel Unknown grandfather Cerebrovascular accident (CVA) Unknown aunt Cerebrovascular accident (CVA) Unknown Advance Directives No Advanced Directives Records Found Advance Directive Response Recorded Date/ Time Advance Directives Yes March 20, 2014 1:43pm Living Will Yes May 27 2:19pm Power of Applications Engineer Manufacturing Yes May 27, 2020 2:19pm Advance Directive Response Recorded Date/ Time Advance Directives Yes March 20, 2014 12:43pm Living Will Yes August 19, 2022 1:24am Power of Applications Engineer Manufacturing Yes August 19 1:24am Name of Medical Power of Applications Engineer Manufacturing Quinton Cappsbozena an August 19, 2022 1:24am Advance Directive Response Recorded Date/ Time Name of Medical Power of Applications Engineer Manufacturing Quinton Jeremie an August 19, 2022 1:24am Advance Directives Yes March 20, 2014 12:43pm Living Will Yes August 19, 2022 1:24am Power of Applications Engineer Manufacturing Yes August 19 1:24am Advance Directive Response Recorded Date/ Time Name of Medical Power of Applications Engineer Manufacturing Quinton Cappsbozena an August 19, 2022 2:24am Advance Directives Yes March 20, 2014 1:43pm Living Will Yes August 19, 2022 2:24am Power of Applications Engineer Manufacturing Yes August 19 2:24am Advance Directive Response Recorded Date/ Time Name of Medical Power of Applications Engineer Manufacturing Quinton Jefrybozena an August 19, 2022 2:24am Advance Directives on File No December 11, 2022 7:14am Name of Medical Power of Applications Engineer Manufacturing Quinton (spouse ) December 11, 2022 7:14am Advance Directives Yes December 11 7:14am Living Will Yes December 11, 2022 7:14am Power of Applications Engineer Manufacturing Yes December 11 7:14am Advance Directive Response Recorded Date/ Time Advance Directives Yes December 11 6:14am Living Will Yes December 11, 2022 6:14am Power of Applications Engineer Manufacturing Yes December 11 6:14am Advance Directive Response Recorded Date/ Time Living Will Yes December 11, 2022 7:14am Do you have a Healthcare Power of Applications Engineer Manufacturing? 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 Reason for Visit Hypertensive emergen cy Transient global amnesia Transient ischemic attack (TIA) Chief Complaint GLOBAL TRANSIENT AMN ESIA GLOBAL TRANSIENT AMNESIA GLOBAL TRANSIENT AMNESIA 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 HX OF STROKE / RX HERE Reason for Visit Hypertensive emergen cy Transient ischemic attack (TIA) Transient global amnesia Chief Complaint GLOBAL TRANSIENT AMN ESIA GLOBAL TRANSIENT AMNESIA GLOBAL TRANSIENT AMNESIA 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 HX OF STROKE / RX HERE HX OF STROKE/ RE-EST (SCHINNER) Atrial fibrillation Amb Documentation EORDER Reason for Visit Hypertensive emergen cy Transient ischemic attack (TIA) Transient global amnesia Cardiac arrhythmia CVA (cerebral vascular accident) Essential hypertension Chief Complaint GLOBAL TRANSIENT AMN ESIA GLOBAL TRANSIENT AMNESIA GLOBAL TRANSIENT AMNESIA 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 HX OF STROKE / RX HERE HX OF STROKE/ RE-EST (SCHINNER) Atrial fibrillation Amb Documentation EORDER AFIB Reason for Visit Hypertensive emergen cy Transient ischemic attack (TIA) Transient global amnesia Cardiac arrhythmia CVA (cerebral vascular accident) Essential hypertension Chief Complaint EORDER Chief Complaint EORDER RUQ PAIN Chief Complaint EORDER RUQ PAIN POSITIVE HOME COVID TEST, COUGH Pacer Check Remote Reason for Visit COVID-19 Chief Complaint Admit Date EORDER July 25, 2024 7 :59am RIGHT KNEE July 28, 2024 8:33am 6 M FU July 31, 2024 9:22am RIGHT KNEE August 13, 2024 8:23am RIGHT KNEE August 20, 2024 3:15 pm Pacer Check Remote September 01, 2024 2:0 1am RIGHT KNEE September 01, 2024 8:0 6am Reason for Visit Admit Date Chronic instability of knee, right knee July 28, 2024 8:33am Right knee DJD July 28, 2024 8:33am CVA (cerebral vascular accident) 2024 9:22am Implantable loop recorder present 2024 9:22am Essential hypertension July 31 9:22am Hyperlipidemia July 31, 2024 9:22am Right knee DJD August 13, 2024 8:23am Right knee DJD August 20, 2024 3:15 pm Right knee DJD September 01, 2024 8:0 6am Chief Complaint Admit Date RIGHT KNEE August 13, 2024 8:23am RIGHT KNEE August 20, 2024 3:15 pm Pacer Check Remote September 01, 2024 2:0 1am RIGHT KNEE September 01, 2024 8:0 6am Pacer Check Remote November 23, 2024 3:42a m Reason for Visit Admit Date Right knee DJD August 13, 2024 8:23am Right knee DJD August 20, 2024 3:15 pm Right knee DJD September 01, 2024 8:0 6am Additional Source Comments INFORMATION SOURCE (unrecogn ized section and content) DATE CREATED AUTHOR 05/31/2019 [facility] ([place]) DATE CREATED AUTHOR AUTHOR'S ORGANIZ ATION 06/10/2019 [facility] DATE CREATED AUTHOR AUTHOR'S ORGANIZ ATION 12/11/2024 [facility] Goals (unrecognized section and content) Goals may be documented in a n alternate sectionGoals may be documented in an alternate sectionGoals may be documented in an alternate sectionGoals may be documented in an alternate sectionGoals may be documented in an alternate sectionGoals may be documented in an alternate sectionGoals may be documented in an alternate sectionGoals may be documented in an alternate sectionGoals may be documented in an alternate sectionGoals may be documented in an alternate section Care Teams (unrecognized sec tion and content) Team Status: Active Member Role Status Dates Dr. Jasson Mancuso MD Family Provider Active Dr. Jasson Mancuso MD Primary Care Provider Active Team Status: Active Member Role Status Dates Dr. Jasson Mancuso MD Primary Care Provider Active Sid Gray MD Emergency Provider Active Dr. Brad Roman MD Admit Provider, Attending Pro vider Active Team Status: Active Member Role Status Dates Dr. Jasson Mancuso MD Primary Care Provider Active Sid Gray MD Emergency Provider Active Dr. Brad Roman MD Admit Provider, Attending Provider, Other Provider Active Team Status: Active Member Role Status Dates Dr. Jasson Mancuso MD Primary Care Provider Active Dr. Valdo Garcia MD Attending Provider Active Team Status: Active Member Role Status Dates Dr. Jasson Mancuso MD Primary Care Provider Active Sid Gray MD Emergency Provider Active Dr. Brad Roman MD Admit Provider, Other Provide r Active Dr. Omkar Ayala MD Attending Provider, Other Provider Active Team Status: Inactive Member Role Status Dates Dr. Jasson Mancuso MD Primary Care Provider Active Sid Gray MD Emergency Provider Active Dr. Brad Roman MD Admit Provider, Other Provide r Active Dr. Omkar Ayala MD Attending Provider Active Team Status: Active Member Role Status Dates Dr. Jasson Mancuso MD Primary Care Provider Active Dr. Omkar Ayala MD Attending Provider Active Team Status: Active Member Role Status Dates Dr. Jasson Mancuso MD Family Provider Active Dr. Gaudencio Patel MD Primary Care Provider Active Team Status: Inactive Member Role Status Dates Dr. Omkar Ayala MD Attending Provider Active Dr. Gaudencio Patel MD Primary Care Provider Active Team Status: Inactive Member Role Status Dates Dr. Gaudencio Patel MD Primary Care Pr ovider, Attending Provider, Referring Provider Active Team Status: Inactive Member Role Status Dates Dr. Gaudencio Patel MD Primary Care Provider, Referr ing Provider Active Dr. Ernesto Canela MD Attending Provider Active Team Status: Active Member Role Status Dates Dr. Gaudencio Patel MD Primary Care Provider Active Dr. Ernesto Canela MD Other Provider Active Gaudencio Holcomb BAGGAGE SCREENER, BAGGAGE SCREENER-C Attending Provider Active Team Status: Active Member Role Status Dates Dr. Gaudencio Patel MD Primary Care Provider Active Maggie Rico Attending Provider Active Team Status: Inactive Member Role Status Dates Dr. Gaudencio Patel MD Primary Care Provider Active Dr. Ernesto Canela MD Attending Provider, Referring Pro vider Active Team Status: Inactive Member Role Status Dates Dr. Gaudencio Patel MD Primary Care Provider, Referr ing Provider Active Jonatan HUA, PA Attending Provider Active Team Status: Inactive Member Role Status Dates Dr. Gaudencio Patel MD Primary Care Provider, Attend ing Provider Active Team Status: Active Member Role Status Dates Dr. Gaudencio Patel MD Primary Care Provider Active Team Status: Inactive Member Role Status Dates Dr. Gaudencio Patel MD Primary Care Provider Active Start: July 25, 2024 End: July 25, 2024 Dr. Gaudencio Patel MD Attending Provider Active Start: July 25, 2024 End: July 25, 2024 Dr. Gaudencio Patel MD Referring Provider Active Start: July 25, 2024 End: July 25, 2024 Team Status: Inactive Member Role Status Dates Dr. Gaudencio Patel MD Primary Care Provider Active Start: July 28, 2024 End: July 28, 2024 Dr. Gaudencio Patel MD Referring Provider Active Start: July 28, 2024 End: July 28, 2024 Dr. Brad Hanna DO Attending Provider Active Start: July 28, 2024 End: July 28, 2024 Team Status: Inactive Member Role Status Dates Dr. Gaudencio Patel MD Primary Care Provider Active Start: July 31, 2024 End: July 31, 2024 Dr. Gaudencio Patel MD Referring Provider Active Start: July 31, 2024 End: July 31, 2024 Gaudencio Holcomb BAGGAGE SCREENER, BAGGAGE SCREENER-C Attending Provider Active S tart: July 31, 2024 End: July 31, 2024 Team Status: Inactive Member Role Status Dates Dr. Gaudencio Patel MD Primary Care Provider Active Start: August 13, 2024 End: August 13, 2024 Dr. Gaudencio Patel MD Referring Provider Active Start: August 13, 2024 End: August 13, 2024 Dr. Brad Hanna DO Attending Provider Active Start: August 13, 2024 End: August 13, 2024 Team Status: Inactive Member Role Status Dates Dr. Gaudencio Patel MD Primary Care Provider Active Start: August 20, 2024 End: August 20, 2024 Dr. Gaudencio Patel MD Referring Provider Active Start: August 20, 2024 End: August 20, 2024 Dr. Brad Hanna DO Attending Provider Active Start: August 20, 2024 End: August 20, 2024 Team Status: Inactive Member Role Status Dates Dr. Gaudencio Patel MD Primary Care Provider Active Start: September 01, 2024 End: September 01, 2024 Dr. Ernetso Canela MD Attending Provider Active S tart: September 01, 2024 End: September 01, 2024 Dr. Ernesto Canela MD Referring Provider Active S tart: September 01, 2024 End: September 01, 2024 Team Status: Inactive Member Role Status Dates Dr. Gaudencio Patel MD Primary Care Provider Active Start: September 01, 2024 End: September 01, 2024 Dr. Gaudencio Patel MD Referring Provider Active Start: September 01, 2024 End: September 01, 2024 Dr. Brad Hanna DO Attending Provider Active Start: September 01, 2024 End: September 01, 2024 Team Status: Inactive Member Role Status Dates Dr. Gaudencio Patel MD Primary Care Provider Active Start: November 12, 2024 End: November 12, 2024 Dr. Gaudencio Patel MD Attending Provider Active Start: November 12, 2024 End: November 12, 2024 Dr. Gaudencio Patel MD Referring Provider Active Start: November 12, 2024 End: November 12, 2024 Team Status: Inactive Member Role Status Dates Dr. Gaudencio Patel MD Primary Care Provider Active Start: November 23, 2024 End: November 23, 2024 Dr. Ernesto Canela MD Attending Provider Active S tart: November 23, 2024 End: November 23, 2024 FOR RECORDS PERTAINING TO PATIENTS WHO ARE [...] BE BASED ON THE PRIMARY CLINICAL RECORDS. [facility] [employer] [facility]. provides no warranty or guarantee of the accuracy or completeness of information in this document.
[2025-01-29 10:27] LABS: Hematocrit 39.7 % (37-47); Hemoglobin 13.0 g/dL (12.0-15.0); Immature Granulocytes Count 0.010 X10^3/uL (0.0-0.0); Mean Corp Hgb Conc 32.7 g/dL (32-36); Mean Corpuscular Volume 91.1 fL (81-99); Mean Platelet Vol. 11.2 fl (6.2-12.0); NRBC Flagged by Analyzer 0 % (0-5); Platelet Count 228 K/mm3 (150-450); RBC Distribution Width CV 12.6 % (11.6-14.6); RBC Distribution Width SD 42.1 fl (35.1-43.9); Red Blood Count 4.36 M/mm3 (4.2-5.4); White Blood Count 7.1 K/mm3 (4.4-11.0)
[2025-01-29 10:37] LABS: AST(SGOT) 27 U/L (<=31); Alanine Aminotransfer ALT/SGPT 24 U/L (<=34); Albumin, Serum 4.5 g/dL (3.4-4.8); Alkaline Phosphatase 83 U/L (35-104); Anion Gap 11 (5-15); BUN 21 mg/dL (4-19); BUN/Creat Ratio 29.5 RATIO (10-20); Calcium,Total 9.8 mg/dL (7.6-11.0); Carbon Dioxide 25.2 mmol/L (21.0-32.0); Chloride 102 mmol/L (98-108); Cholesterol 146 mg/dL (<=200); Globulin 2.8 g/dL (2.2-4.2); Glucose 98 mg/dL (70-99); Low Density Lipoprotein Calc. 67 mg/dL; Potassium 4.5 mmol/L (3.3-5.1); Triglycerides 79 mg/dL; Very Low Density Lipoprotein 16 mg/dL (5-40); cholesterol:hdl ratio screen 2.30
[2025-01-29 10:39] LABS: Color, Urine Yellow (Yellow); Glucose, Dipstick Normal (Normal); Ketone-Dipstick Negative (Negative); Leukocyte Esterase-Dipstick 500 /ul (Negative); Nitrite-Dipstick Negative (Negative); Occult Blood-Urine Negative /ul (Negative); Protein-Dipstick 15 mg/dl (Negative); Specific Gravity, Urine 1.015 (1.002-1.030); Urine Bilirubin Dipstick Negative (Negative)
[2025-01-29 14:11] LABS: Squamous Epithelial Cells - UA 0-5 SEEN /hpf (5-10)
== END | disposition home or self-care (01) ==
LOC: MTLAB 07:30
PROVIDERS: PCP Family Medicine; Referring Provider Family Medicine; Visit Provider Family Medicine
DX: I10 Essential (primary) hypertension (principal); E55.9 Vitamin D deficiency, unspecified
CPT/HCPCS: 36415; 80053; 80061; 81001; 85025

== ENCOUNTER → 2025-02-03 | Outpatient (CLI) | payer MEDICARE, SELFPAY ==
[2025-02-03 11:08] LABS: Vitamin B12 617 pg/mL (180-914)
== END | disposition home or self-care (01) ==
LOC: MFPLAB 08:52
PROVIDERS: PCP Family Medicine; Referring Provider Family Medicine; Visit Provider Family Medicine
DX: R41.3 Other amnesia (principal)
CPT/HCPCS: 36415; 82607; 84443

== ENCOUNTER → 2025-03-20 | Outpatient (CLI) | payer MEDICARE, SELFPAY ==
--- NOTE | 2025-03-20 10:45 | RAD_ITS ---
PROCEDURE: ABDOMEN SINGLE VIEW 03/20/2025 REASON FOR EXAM: EVALUATE STOOL BURDEN, POSSIBLE OVERFLOW INCONT OF STOOL TECHNIQUE: Procedure Code: RADABD Modality: DX Procedure: ABDOMEN SINGLE VIEW COMPARISON: None. FINDINGS: There is a nonobstructive bowel gas pattern. There is no significant stool in the colon. Cholecystectomy clips are noted in the right upper quadrant. 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 There are bilateral total hip arthroplasties. RAD/Abdomen Single View IMPRESSION: No evidence of constipation. Reading Location: [place] [id number]
== END | disposition home or self-care (01) ==
LOC: MTRAD 10:45
PROVIDERS: PCP Family Medicine; Referring Provider Family Medicine; Visit Provider Family Medicine
DX: R15.9 Full incontinence of feces (principal)
CPT/HCPCS: 74018

== ENCOUNTER 2025-06-09 06:57 | Day surgery (SDC) | payer MEDICARE, SELFPAY ==
--- NOTE | 2025-06-05 11:41 | PAT.ANESEVAL ---
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 When Was Last Pacemaker Check QUESTION #4 FULL TEXT: You/Your Family Experience fever (hyperthermia) with Anesthesia Last Oral Intake Last Oral intake: Last Oral Intake NPO since Meds taken in AM with sips of water? 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 captain Female Yes 06/05/25 09:08 HX of Motion Sickness Yes 06/05/25 09:08 HX of N/V After Surgery No 06/05/25 09:08 Non-Smoker Yes 06/05/25 09:08 Duration of Surgery greater No 06/05/25 09:08 than 60 minutes Number of Risk Factors 3 06/05/25 09:08 PONV Score Moderate Risk 06/05/25 09:08 Height & Weight Height & Weight: Anesthesia: Height & Weight Height 5 ft 2 in 05/13/25 08:38 Respiratory Assessment Respiratory Assessment - harbor tug captain: Respiratory Tract Infection Hx - harbor tug captain Hx Respiratory Tract Infection No 06/05/25 09:08 STOP Sleep Apnea STOP Sleep Apnea - harbor tug captain: STOP Sleep Apnea - harbor tug captain Hx Hypertension Yes: PER PT, CONTROLLED ON 06/05/25 09:08 MEDS Hx Sleep Apnea No 06/05/25 09:08 CPAP No 08/11/24 15:57 BIPAP No 08/11/24 15:57 Do you snore loudly (louder No 06/05/25 09:08 than talking or can be heard Do you often feel tired/ No 06/05/25 09:08 fatigued/ sleepy during daytime? Has anyone observed you stop No 06/05/25 09:08 breathing during sleep? STOP Results Negative 06/05/25 09:08 QUESTION #5 FULL TEXT : Do you snore loudly (louder than talking or can be heard through closed doors)? 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 Specify any problems Hx of Preganancy in last 3 No 06/05/25 09:08 Months Nurse Filling Out Transfusion MGRIRADHAITH 06/05/25 09:08 & Questions: Date: 06/05/25 06/05/25 09:08 Time: 09:12 06/05/25 09:08 Patient unable to answer at this time (ie. confused, unrespo /Reproduction History /Reproductive History - harbor tug captain: /Reproductive Hx- harbor tug captain Hx Now No 06/05/25 09:08 Gestational Age (in weeks): EDC: Hx Hx Para Hx Section SAB No 06/05/25 09:08 Does the father of the baby or his family experience fever w Father of the baby Malignant Hypertension history comment [facility] Medical History (Updated 06/05/25 @ 09:20 by Ioana Johnson) Wears glasses Alcohol use Arthritis High cholesterol Stroke/cerebrovascular accident History of ulceration Gastric reflux Non-smoker History of Holter monitoring History of echocardiogram Cardiology follow-up encounter Paroxysmal SVT (supraventricular tachycardia) PVC's (premature ventricular contractions) Anxiety Insomnia Essential hypertension Cellulitis of periorbital region of both eyes Guaiac positive stools Arthropathy of left shoulder Hemorrhoids GERD (gastroesophageal reflux disease) Hyperlipidemia Cardiac arrhythmia CTS (carpal tunnel syndrome) Lumbar discogenic pain syndrome Osteoarthritis Home Medications ?Medication ?Instructions ?Recorded ?Last Taken ?Type meloxicam 7.5 mg tablet 7.5 mg PO BID PAIN 05/11/20 Unknown History aspirin 81 mg chewable tablet 81 mg PO DAILY@0800 #30 tabs 08/20/22 Unknown Rx calcium carbonate-vitamin D2 1 tab PO BID 09/27/22 Unknown History [Calcium with Vitamin D] gabapentin 300 mg capsule 300 mg PO QHS NEUROPATHY 09/27/22 Unknown History omeprazole 20 mg capsule,delayed 20 mg PO DAILY GERD 09/27/22 Unknown History release temazepam 15 mg capsule 15 mg PO QHS 09/27/22 Unknown History metoprolol succinate 25 mg 25 mg PO DAILY 08/01/23 Unknown History tablet,extended release 24 hr rosuvastatin 40 mg tablet (Crestor) 40 mg PO QHS CHOLESTEROL 08/01/23 Unknown History amlodipine 5 mg tablet 5 mg PO QHS HTN 06/27/24 Unknown History escitalopram oxalate 5 mg tablet 5 mg PO QDAY 07/28/24 Unknown History cholecalciferol (vitamin D3) 25 25 mcg PO QHS SUPPLEMENT 06/05/25 Unknown History mcg (1,000 unit) tablet (Vitamin D3) Allergy/AdvReac Type Severity Reaction Status Date / Time No Known Allergies Allergy Verified 06/05/25 09:02 Family History Grandfather CVA (cerebral vascular accident) Aunt CVA (cerebral vascular accident) Other Abdominal aneurysm Surgical History (Updated 06/05/25 @ 09:08 by Ioana Johnson) History of repair of right rotator cuff History of bilateral carpal tunnel release History of colonoscopy (~2004) History of appendectomy History of cholecystectomy History of bunionectomy History of bilateral hip arthroplasty History of arthroscopy of left knee Social History Smoking Status: Never smoker alcohol intake: current substance use type: does not use Audit: Pertinent Findings Pertinent Findings EKG Perinent findings: 11/09/2022. Sinus rhythm. Nonspecific ST depression?nondiagnostic. Echo (EF%) pertinent findings: August 19, 2022. EF of 55%. RVSP is 28 mmHg. No aortic stenosis noted. Consult pertinent findings: 07/31/2024. Aicha FELDMANC. 1. CVA- etiology not clear but she does have history of arthritis. No atrial fibrillation on her loop recorder. Patient will continue current medical therapy. 2. Hypertension?well-controlled. Continue current meds. 3. Implantable loop recorder-since insertion on November 2022, patient shows only normal sinus rhythm. No atrial fibrillation episode noted. Since device is functioning properly we will continue to monitor. Additional pertinent findings: August 20, 2022. Holter monitor. Baseline rhythm is normal sinus rhythm. Ventricular ectopy comprised 0.1% of total complexes. No runs noted. Patient had a total of 84 SVE beats comprising less than 0.1% of total QRS beats. Patient had 1 8 atrial couplet and 2 atrial runs. Patient's diary noted 1 episode of feeling faint/sick to stomach which did not correlate with the scan. Recommendation Anesthesia Recommendation Anesthesia recommendation: OPTIMIZED for anesthesia
[2025-06-09] VITALS (8 sets, daily range): BP systolic 83–136; BP diastolic 52–76; PULSE 57–69; RESP 14–16; TEMP 36.1–36.3; O2SAT 96–99; BMI 23.3
--- OUTSIDE RECORDS SUMMARY | 2025-06-09 07:01 | XMS RPT_ITS | CCD ---
Author Organization [facility] Care Team Providers Care Communication Technician Name Role Phone FABIENNE TEJADA Admitting Unavailable MALLORYFABIENNE Attending Unavailable FABIENNE TEJADA Primary Care Unavailable JASSON MANCUSO MD Consulting Unavailable PROVIDER, UNKNOWN Consulting Unavailable MALLORY, FABIENNE Admitting Unavailable MALLORY, FABIENNE Attending Unavailable MALLORY, FABIENNE Primary Care Unavailable ULI BILLINGS MD Consulting Unavailable PROVIDER, UNKNOWN Consulting Unavailable Dr. Jasson Mancuso Primary Care Provider MD Sid Gray Emergency Provider Dr. Brad Roman Admit Provider Dr. Brad Roman Attending Provider Dr. Brad Roman Other Provider Dr. Valdo Garcia Attending Provider Dr. Omkar Ayala Attending Provider Dr. Omkar Ayala Other Provider Dr. Jasson Mancuso Primary Care Provider MD Sid Gray Emergency Provider Dr. Brad Romanit Provider Dr. Brad Roman Attending Provider Dr. Brad Roman Other Provider Dr. Valdo Garcia Attending Provider Dr. Omkar Ayala Attending Provider Kotsonis, Dr. Omkar F Other Provider Dr. Gaudencio Patel Primary Care Provider Dr. Gaudencio Patel Referring Provider Dr. Ernesto Canela Attending Provider Dr. Ernesto Canela Other Provider Roof AWNING CRAFTSMAN, AWNING CRAFTSMAN-C Gaudencio Mathews Attending Provider Maggie Rico Attending Provider Unavailable Dr. Gaudencio Patel Primary Care Provider Dr. Gaudencio Patel Referring Provider REJI Anderson Attending Provider Dr. Ernesto Canela Attending Provider [phone] Ernesto Canela Referring Provider Dr. Gaudencio Patel MD Primary Care Provider Jorge LYONS, Dr. Gaudencio Narayanan Attending Provider Dr. Gaudencio Patel MD Referring Provider Dr. Brad Hanna DO Attending Provider Roof AWNING CRAFTSMAN-C, Gaudencio aMthews Attending Provider Dr. Ernesto Canela MD Attending Provider Dr. Ernesto Canela MD Referring Provider Dr. Gaudencio Patel MD Primary Care Provider Dr. Gaudencio Patel MD Referring Provider Dr. Brad Hanna DO Attending Provider Dr. Gaudencio Patel MD Attending Provider Dr. Gaudencio Patel MD Primary Care Provider Dr. Gaudencio Patel MD Referring Provider Dr. Ernesto Canela MD Attending Provider Dr. Ernesto Canela MD Referring Provider Gaudencio Patel Primary Care Unavailable Ernesto Canela Referring Unavailable Rola, Ernesto Attending Unavailable Gaudencio Patel Primary Care Unavailable Gaudencio Patel Referring Unavailable Brad Hanna Attending Unavailable Gaudencio Patel Primary Care Unavailable Gaudencio Patel Referring Unavailable Brad Hanna Attending Unavailable Gaudencio Patel Primary Care Unavailable Gaudencio Patel Referring Unavailable Gaudencio Patel Attending Unavailable Gaudencio Patel Primary Care Unavailable Anthony Chambers Attending Unavailable Gaudencio Patel Primary Care Unavailable Gaudencio Patel Referring Unavailable Gaudencio Patel Attending Unavailable Gaudencio Patel Primary Care Unavailable Gaudencio Patel Referring Unavailable Gaudencio Patel Attending Unavailable Gaudencio Patel Attending Unavailable Gaudencio Patel Primary Care Unavailable Gaudencio Patel Referring Unavailable Gaudencio Patel Primary Care Unavailable Gaudencio Patel Referring Unavailable Gaudencio Patel Attending Unavailable Gaudencio Patel Primary Care Unavailable Gaudencio Patel Referring Unavailable Brad Hanna Attending Unavailable Gaudencio Patel Primary Care Unavailable Gaudencio Patel Referring Unavailable [facility] Gaudencio CRISOSTOMO Attending Unavailable Gaudencio Patel Primary Care Unavailable Gaudencio Patel Referring Unavailable Brad Hanna Attending Unavailable Gaudencio Patel Primary Care Unavailable Rola, [place] Attending Unavailable Rola, [place] Referring Unavailable Rola, [place] Referring Unavailable Rola, Ernesto Attending Unavailable Gaudencio Patel Primary Care Unavailable Medications Current Medications Medication Drug Class(es) [...] 2020 2:46pm aspirin 81 mg chewable tablet (12 sources) Platelet Aggregation Inhibitor, Nonsteroidal Anti-inflammatory Drug Start: 08-20-2022 take 1 tablet by mouth once daily Aspirin 81 mg Tablet,Chewable Active 81 mg PO DAILY@0800 30 0 August 20, 2022 1:00am Calcium (16 sources) Phosphate Binder, Calcium Start: 03-13-2014 take [...] calcium carbonate-vitamin D2 (Calcium with Vitamin D) (10 sources) Start: 09-27-2022 calcium carbon ate-vitamin D2 [...] 2022 12:00am escitalopram 5 mg oral tablet (20 sources) Serotonin Reuptake Inhibitor Start: 07-28-2024 take [...] succinate 25 mg extended release oral tablet (20 sources) beta-Adrenergic Shelly Start: 08-01-2023 take 1 [...] days rosuvastatin calcium 40 mg oral tablet (5 sources) HMG-CoA Reductase Inhibitor Start: 08-01-2023 take [...] / HYDROcodone bitartrate 5 mg oral tablet (16 sources) Opioid Agonist Start: 03-26-2014 End: 05-11-2020 Hydrocodone-Acetami nophen 1 TABLET tablet Discontinued 1 - 2 {tbl} PO EVERY 6 HOURS NEEDED as needed for MILD-MODERATE (PAIN SCALE 1-5) 90 0 March 26, 2014 12:00am May 11, 2020 2:46pm Start: 03-26-2014 End: 05-11-2020 take 1 tablet by mouth every six hours as needed Hydrocodone-Acetaminophen Discontinued 1 - 2 TABLET PO EVERY 6 HOURS NEEDED 90 March 25, 2014 11:00pm May 11, 2020 1:46pm atorvastatin 40 mg oral tablet (12 sources) HMG-CoA Reductase Inhibitor Start: 08-20-2022 End: 08-01-2023 take 1 tablet by mouth at bedtime Atorvastatin 40 mg Tablet Discontinued 40 mg PO AT BEDTIME 30 0 August 20, 2022 1:00am August 01, 2023 10:35am cholecalciferol 0.05 mg oral tablet (16 sources) Vitamin D Start: 03-13-2014 End: 09-27-2022 take 1 tablet by mouth once daily Cholecalciferol (Vitamin D3) 2,000 UNIT tablet Discontinued 2000 U PO DAILY March 13, 2014 12:00am September 27, 2022 1:48pm citalopram 10 mg oral tablet (16 sources) Serotonin Reuptake Inhibitor Start: 03-13-2014 End: 01-15-2021 take 1 tablet by mouth once daily Citalopram 10 MG tablet Discontinued 10 mg PO DAILY March 13, 2014 12:00am January 15, 2021 10:58am lovastatin 20 mg oral tablet (16 sources) HMG-CoA Reductase Inhibitor Start: 03-13-2014 End: [...] 2014 12:00am rivaroxaban 10 mg oral tablet (16 sources) Factor Xa Inhibitor Start: 03-26-2014 End: 05-11-2020 take 1 tablet by mouth once daily Rivaroxaban 10 MG tablet Discontinued 10 mg PO DAILY@0600 30 0 March 26, 2014 12:00am May 11, 2020 2:46pm traMADol hydrochloride 50 mg oral tablet (16 sources) Opioid Agonist Start: 03-13-2014 End: 03-26-2014 take 1-2 mg by mouth every four hours as needed for pain Tramadol 50 MG tablet Discontinued 1 - 2 mg PO EVERY 4 HOURS NEEDED as needed for Pain March 13, 2014 12:00am March 26, 2014 3:20pm zolpidem tartrate 10 mg oral tablet (16 sources) gamma-Aminobutyr ic Acid-ergic Agonist Start: 03-13-2014 End: 05-11-2020 take 1 tablet by mouth at bedtime as needed for sleep Zolpidem 10 MG tablet Discontinued 10 mg PO AT BEDTIME NEEDED as needed for Sleep March 13, 2014 12:00am May 11, 2020 2:46pm Problems Active Problems Problem Classification Problem Date Documented Da te Episodic/Chronic Acute cerebrovascular disease (15 sources) Cerebrovascular accident; Translations: [Cerebral infarction, unspecified] 08-20-2022 Chronic Allergic reactions (16 sources) Irritant contact dermatitis due to plant; Translations: [Irritant contact dermatitis due to plants, except food] 01-19-2021 Episodic Cardiac dysrhythmias (20 sources) Cardiac arrhythmia; Translations: [Cardiac arrhythmia, unspecified] 11-09-2022 Chronic Disorders of lipid metabolism (11 sources) Hyperlipidemia; Translations: [Hyperlipidemia, unspecified] 09-27-2022 Chronic Essential hypertension (14 sources) Essential hypertension; Translations: [Essential (primary) hypertension] Onset: 02-06-2025 09-27-2022 Chronic Hypertension with complications and secondary hypertension (20 sources) Hypertensive emergency; Translations: [Hypertensive emergency] 08-18-2022 Chronic Joint disorders and dislocations; trauma-related (7 sources) Chronic instability of right knee joint; Translations: [Chronic instability of knee, right knee] Onset: 09-01-2024 07-28-2024 Chronic Osteoarthritis (16 sources) Osteoarthritis of right knee joint; Translations: [Unilateral primary osteoarthritis, right knee] Onset: 09-01-2024 07-28-2024 Chronic Other circulatory disease (6 sources) Presence of other cardiac implants and grafts; Translations: [Implantable loop recorder present] 07-31-2024 Chronic Other circulatory disease (5 sources) History of cerebrovascular accident; Translations: [Personal history of transient ischemic attack (TIA), and cerebral infarction without residual deficits] 07-06-2024 Episodic Other gastrointestinal disorders (16 sources) Occult blood in stools; Translations: [Other fecal abnormalities] 05-11-2020 Episodic Other gastrointestinal disorders (1 source) Full incontinence of feces; Translations: [Full incontinence of feces] Onset: 04-13-2025 Episodic Residual codes; unclassified (1 source) Other amnesia; Translations: [Other amnesia] Onset: 02-12-2025 Episodic Skin and subcutaneous tissue infections (16 sources) Cellulitis of periorbital region; Translations: [Periorbital cellulitis] 01-15-2021 Episodic Transient cerebral ischemia (20 sources) Transient global amnesia; 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 Viral infection (7 sources) Disease caused by 2019-nCoV; Translations: [COVID-19] 06-08-2023 Episodic Past or Other Problems Problem Classification Problem Date Documented Da te Episodic/Chronic Nausea and vomiting (1 source) Nausea; Translations: [Nausea] Onset: 07-21-2024 Episodic Other injuries and conditions due to external causes (1 source) Injury, unspecified, initial encounter; Translations: [Injury, unspecified, initial encounter] Onset: 11-17-2024 Episodic Results Test Name Value Interpretation Reference Range Facility Abdomen Single Viewon 2024 Abdomen Single View [facility] Imaging Services [address] [place], [place] [id number] Abdomen Single View MR#: [id number] Acct: [id number] Name: KOJO TAVERAS Rep #: [id number] : 1945 F [id number] From: Abhishek Biggs MD PCP: Dr. Gaudencio Patel MD Status: REG CLI Study: Abdomen Single View Date of Exam: 03/20/25 Exam# [id number] Ordering Dr: Gaudencio Patel MD PROCEDURE: ABDOMEN SINGLE VIEW 03/20/2025 REASON FOR EXAM: EVALUATE STOOL BURDEN, POSSIBLE OVERFLOW INCONT OF STOOL TECHNIQUE: Procedure Code: RADABD Modality: DX Procedure: ABDOMEN SINGLE VIEW COMPARISON: None. FINDINGS: There is a nonobstructive bowel gas pattern. There is no significant stool in the colon. Cholecystectomy clips are noted in the right upper quadrant. 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 There are bilateral total hip arthroplasties. RAD/Abdomen Single View IMPRESSION: No evidence of constipation. Reading Location: [place] [address] CC: Dr. Gaudencio Patel MD Forensic Structural Engineer: Signed Normal [facility] TSH DL <= 0.005 mIU/L QnOrde red By: Gaudencio Patel on 02-03-2025 TSH Qn 1.160 uIU/mL 0.300-4.200 [facility] Thyroid Stim Hormone (TSH)on 02-03-2025 TSH 1.160 uIU/mL Normal 0.300-4.200 [facility] Comment on above: Order Comment: Order Date: 02/03/25Order Info: [id number] - TSH Performed By: #### L [id number] ####[facility] [address] [place], [place], [address] Vitamin B12on 02-03-2025 Cobalamin (Vitamin B12) [Mass/Vol] 617 pg/mL Normal 180-914 [facility] Comment on above: Order Comment: Order Date: 02/03/25Order Info: [id number] - TSH Performed By: #### L 503.0106 ####[facility] [id number] [place], [place], [address] Vitamin B12 ser/plasOrdered By: Gaudencio Patel on 02-03-2025 Cobalamin (Vitamin B12) [Mass/Vol] 617 pg/mL 180-914 [facility] Absolute lymphocyte countOrd ered By: Gaudencio Patel on 01-29-2025 Lymphocytes Auto (Unsp spec) [#/Vol] 2.36 10*3/uL 0.83-4.51 [facility] Absolute neutrophil countOrd ered By: Gaudencio Patel on 01-29-2025 Neutrophils (Bld) [#/Vol] 4.0 10*3/uL 2.0-7.7 [facility] Anion gap in Serum or Plasma Ordered By: Gaudencio Patel on 01-29-2025 Anion gap [Moles/Vol] 11 mmol/L 5- [facility] Automated lymphocyte count a s percentage of total leukocytesOrdered By: Gaudencio Patel on 01-29-2025 Lymphocytes/100 WBC Auto (Unsp spec) 33.3 % - [facility] BUN/creatinine ratioOrdered By: Gaudencio Patel on 01-29-2025 Urea nitrogen/Creatinine [Mass ratio] 29.5 mg/mg High 10- [facility] Basophil percentageOrdered B y: Gaudencio Patel on 01-29-2025 Basophils/100 WBC (Bld) 0.6 % 0-1 [facility] Bilirubin Test strip Ql (U)O rdered By: Gaudencio Patel on 01-29-2025 Bilirubin Ql (U) Negative Negative [facility] Bilirubin, totalOrdered By: Gaudencio Patel on 01-29-2025 Bilirubin [Mass/Vol] 0.37 mg/dL 0.00-1.30 [facility] CBC W/Diff, Automatedon 01-16 Absolute Lymph 2.36 X10 3/uL Normal 0.83-4.51 [facility] Comment on above: Order Comment: Order Date: 01/12/25 Order Info: [id number] - CBCD Performed By: #### L 500.5060, L100.0100, L500.4050 #### [facility] Laboratory [address] [place] [address]. [place], [address] Absolute Neut 4.0 X10 3/uL Normal 2.0-7.7 [facility] Comment on above: Order Comment: Order Date: 01/12/25 Order Info: [id number] - CBCD Performed By: #### L 500.4100, L100.0100, L500.4050 #### [facility] Laboratory [address] [place], [address] Basophils/100 WBC (Bld) 0.6 % Normal 0-1 [facility] Comment on above: Order Comment: Order Date: 01/12/25 Order Info: [id number] - CBCD Performed By: #### L 500.4100, L100.0100, L500.4050 #### [facility] [address] [place], [address] Eosinophils/100 WBC (Bld) 2.1 % Normal 0-5 [facility] Comment on above: Order Comment: Order Date: 01/12/25 Order Info: [id number] - CBCD Performed By: #### L 500.4100, L100.0100, L500.4050 #### [facility] [address] [place], [address] Erythrocyte distribution width (RBC) [Ratio] 12.6 % Normal 11.6-14.6 [facility] Comment on above: Order Comment: Order Date: 01/12/25 Order Info: [id number] - CBCD Performed By: #### L 500.4100, L100.0100, L500.4050 #### [facility] [address] [place], [address] Hematocrit (Bld) [Volume fraction] 39.7 % Normal 37-47 [facility] Comment on above: Order Comment: Order Date: 01/12/25 Order Info: [id number] - CBCD Performed By: #### L 500.4100, L100.0100, L500.4050 #### [facility] [address] [place], [address] Hemoglobin (Bld) [Mass/Vol] 13.0 g/dL Normal 12.0-15.0 [facility] Comment on above: Order Comment: Order Date: 01/12/25 Order Info: [id number]- - CBCD Performed By: #### L 500.4100, L100.0100, L500.4050 #### [facility] [address] [place], [address] IG% 0.100 Normal 0.0-0.9 [facility] Comment on above: Order Comment: Order Date: 01/12/25 Order Info: [id number]- - CBCD Result Comment: IG% - Immature Granulocytes (promyelocytes, myelocytes and metamyelocytes) > 1% indicates that a LEFT SHIFT is Present. Performed By: #### L 500.4100, L100.0100, L500.4050 #### [facility] [address] [place], [address] Lymphocytes/100 WBC (Bld) 33.3 % Normal 19-41 [facility] Comment on above: Order Comment: Order Date: 01/12/25 Order Info: [id number] - CBCD Performed By: #### L 500.4100, L100.0100, L500.4050 #### [facility] [address] [place], [address] MCH (RBC) [Entitic mass] 29.8 pg Normal 27.0-32.0 [facility] Comment on above: Order Comment: Order Date: 01/12/25 Order Info: [id number]- - CBCD Performed By: #### L 500.4100, L100.0100, L500.4050 #### [facility] [address] [place], [address] MCHC (RBC) [Mass/Vol] 32.7 g/dL Normal 32-36 [facility] Comment on above: Order Comment: Order Date: 01/12/25 Order Info: [id number]- - CBCD Performed By: #### L 500.4100, L100.0100, L500.4050 #### [facility] [address] [place], [address] MCV (RBC) [Entitic vol] 91.1 fL Normal 81-99 [facility] Comment on above: Order Comment: Order Date: 01/12/25 Order Info: [id number] - CBCD Performed By: #### L 500.4100, L100.0100, L500.4050 #### [facility] [address] [place], [address] Monocytes/100 WBC (Bld) 7.6 % Normal 0-10 [facility] Comment on above: Order Comment: Order Date: 01/12/25 Order Info: [id number] - CBCD Performed By: #### L 500.4100, L100.0100, L500.4050 #### [facility] [address] [place], [address] Neutrophils/100 WBC (Bld) 56.3 % Normal 47-70 [facility] Comment on above: Order Comment: Order Date: 01/12/25 Order Info: [id number] - CBCD Performed By: #### L 500.4100, L100.0100, L500.4050 #### [facility] [address] [place], [address] Nucleated RBC (Bld) [#/Vol] 0 10*3/uL Normal 0-5 [facility] Comment on above: Order Comment: Order Date: 01/12/25 Order Info: [id number] - CBCD Performed By: #### L 500.4100, L100.0100, L500.4050 #### [facility] [address] [place], [address] Platelet mean volume (Bld) [Entitic vol] 11.2 fL Normal 6.2-12.0 [facility] Comment on above: Order Comment: Order Date: 01/12/25 Order Info: [id number] - CBCD Performed By: #### L 500.4100, L100.0100, L500.4050 #### [facility] [address] [place], [address] Platelets (Bld) [#/Vol] 228 10*3/uL Normal 150-450 [facility] Comment on above: Order Comment: Order Date: 01/12/25 Order Info: [id number]- - CBCD Performed By: #### L 500.4100, L100.0100, L500.4050 #### [facility] [address] [place], [address] RBC (Bld) [#/Vol] 4.36 10*6/uL Normal 4.2-5.4 [facility] Comment on above: Order Comment: Order Date: 01/12/25 Order Info: [id number]- - CBCD Performed By: #### L 500.4100, L100.0100, L500.4050 #### [facility] [address] [place], [address] RDW SD 42.1 fl Normal 35.1-43.9 [facility] Comment on above: Order Comment: Order Date: 01/12/25 Order Info: [id number]- - CBCD Performed By: #### L 500.4100, L100.0100, L500.4050 #### [facility] [address] [place], [address] WBC (Bld) [#/Vol] 7.1 10*3/uL Normal 4.4-11.0 [facility] Comment on above: Order Comment: Order Date: 01/12/25 Order Info: [id number] - CBCD Performed By: #### L 500.4100, L100.0100, L500.4050 #### [facility] [address] [place], [address] Calculated very low density lipoprotein (VLDL) cholesterol measurementOrdered By: Gaudencio Patel on 01-29-2025 Calculated very low density lipoprotein (VLDL) cholesterol measurement 16 mg/dL 5-40 [facility] Carbon dioxide, total [Moles /volume] in Central venous bloodOrdered By: Gaudencio Patel on 01-29-2025 CO2 [Moles/Vol] 25.2 mmol/L 21.0-32.0 [facility] Chloride assayOrdered By: Itzel Patel on 01-29-2025 Chloride [Moles/Vol] 102 mmol/L 98-108 [facility] Comprehensive Metabolic Prof ilon 01-29-2025 Albumin [Mass/Vol] 4.5 g/dL Normal 3.4-4.8 [facility] Comment on above: Order Comment: Order Date: 01/12/25 Order Info: [id number] - CMP Order Info: [id number] - LIPID Performed By: #### L 500.4100, L100.0100, L500.4050 #### [facility] [address] [place], [address] Albumin/Globulin [Mass ratio] 1.6 {ratio} Normal 0.9-2.4 [facility] Comment on above: Order Comment: Order Date: 01/12/25 Order Info: [id number] - CMP Order Info: [id number] - LIPID Performed By: #### L 500.4100, L100.0100, L500.4050 #### [facility] [address] [place], [address] ALK PHOS 83 U/L Normal 35-104 [facility] Comment on above: Order Comment: Order Date: 01/12/25 Order Info: [id number] - CMP Order Info: [id number] - LIPID Performed By: #### L 500.4100, L100.0100, L500.4050 #### [facility] [address] [place], [address] ALT [Catalytic activity/Vol] 24 U/L Normal <=34 [facility] Comment on above: Order Comment: Order Date: 01/12/25 Order Info: [id number] - CMP Order Info: [id number] - LIPID Performed By: #### L 500.4100, L100.0100, L500.4050 #### [facility] [address] [place], [address] AST [Catalytic activity/Vol] 27 U/L Normal <=31 [facility] Comment on above: Order Comment: Order Date: 01/12/25 Order Info: [id number] - CMP Order Info: [id number] - LIPID Performed By: #### L 500.4100, L100.0100, L500.4050 #### [facility] [address] [place], [address] Bilirubin [Mass/Vol] 0.37 mg/dL Normal 0.00-1.30 [facility] Comment on above: Order Comment: Order Date: 01/12/25 Order Info: [id number] - CMP Order Info: [id number] - LIPID Performed By: #### L 500.4100, L100.0100, L500.4050 #### [facility] [address] [place], [address] BUN/CRE 29.5 RATIO High 10-20 [facility] Comment on above: Order Comment: Order Date: 01/12/25 Order Info: [id number] - CMP Order Info: [id number] - LIPID Performed By: #### L 500.4100, L100.0100, L500.4050 #### [facility] [address] [place], [address] Calcium [Mass/Vol] 9.8 mg/dL Normal 7.6-11.0 [facility] Comment on above: Order Comment: Order Date: 01/12/25 Order Info: [id number] - CMP Order Info: [id number] - LIPID Performed By: #### L 500.4100, L100.0100, L500.4050 #### [facility] [address] [place], [address] Chloride [Moles/Vol] 102 mmol/L Normal 98-108 [facility] Comment on above: Order Comment: Order Date: 01/12/25 Order Info: [id number] - CMP Order Info: [id number] - LIPID Performed By: #### L 500.4100, L100.0100, L500.4050 #### [facility] [address] [place], [address] CO2 [Moles/Vol] 25.2 mmol/L Normal 21.0-32.0 [facility] Comment on above: Order Comment: Order Date: 01/12/25 Order Info: 0786- - CMP Order Info: [id number] - LIPID Performed By: #### L 500.4100, L100.0100, L500.4050 #### [facility] [address] [place], [address] Creatinine [Mass/Vol] 0.71 mg/dL Normal 0.70-1.20 [facility] Comment on above: Order Comment: Order Date: 01/12/25 Order Info: [id number]- - CMP Order Info: [id number] - LIPID Performed By: #### L 500.4100, L100.0100, L500.4050 #### [facility] [address] [place], [address] GAP 11 Normal 5-15 [facility] Comment on above: Order Comment: Order Date: 01/12/25 Order Info: [id number] - CMP Order Info: [id number] - LIPID Performed By: #### L 500.4100, L100.0100, L500.4050 #### [facility] [address] [place], [address] GFR/1.73 sq M.predicted among non-blacks MDRD (S/P/Bld) [Vol rate/Area] 88 mL/min/{1.73_m2} Normal >60 [facility] Comment on above: Order Comment: Order Date: 01/12/25 Order Info: 07-1 - CMP Order Info: [id number] - LIPID Result Comment: mL/m in/1.73m2 CKD-EPI Creatinine Equation (2020) Performed By: #### L 500.4100, L100.0100, L500.4050 #### [facility] [address] [place], [address] Globulin (S) [Mass/Vol] 2.8 g/dL Normal 2.2-4.2 [facility] Comment on above: Order Comment: Order Date: 01/12/25 Order Info: 0786 - CMP Order Info: [id number] - LIPID Performed By: #### L 500.4100, L100.0100, L500.4050 #### [facility] [address] [place], [address] Glucose [Mass/Vol] 98 mg/dL Normal 70-99 [facility] Comment on above: Order Comment: Order Date: 01/12/25 Order Info: 07 - CMP Order Info: [id number] - LIPID Performed By: #### L 500.4100, L100.0100, L500.4050 #### [facility] [address] [place], [address] Potassium [Moles/Vol] 4.5 mmol/L Normal 3.3-5.1 [facility] Comment on above: Order Comment: Order Date: 01/12/25 Order Info: 0786- - CMP Order Info: [id number] - LIPID Performed By: #### L 500.4100, L100.0100, L500.4050 #### [facility] [address] [place], [address] Sodium [Moles/Vol] 139 mmol/L Normal 133-145 [facility] Comment on above: Order Comment: Order Date: 01/12/25 Order Info: [id number] - CMP Order Info: [id number] - LIPID Performed By: #### L 500.4100, L100.0100, L500.4050 #### [facility] [address] [place], [place], [address] T PROT 7.3 g/dL Normal 5.9-8.4 [facility] Comment on above: Order Comment: Order Date: 01/12/25 Order Info: [id number] - CMP Order Info: [id number] - LIPID Performed By: #### L 500.4100, L100.0100, L500.4050 #### [facility] [address] [place], [address] Urea nitrogen [Mass/Vol] 21 mg/dL High 4-19 [facility] Comment on above: Order Comment: Order Date: 01/12/25 Order Info: [id number] - CMP Order Info: [id number] - LIPID Performed By: #### L 500.4100, L100.0100, L500.4050 #### [facility] [address] [place], [address] Eosinophil percentageOrdered By: Gaudencio Patel on 01-29-2025 Eosinophils/100 WBC (Bld) 2.1 % 0-5 [facility] Erythrocyte distribution wid th ratioOrdered By: Gaudencio Patel on 01-29-2025 Erythrocyte distribution width (RBC) [Ratio] 12.6 % 11.6-14.6 [facility] Erythrocyte distribution wid th standard deviationOrdered By: Gaudencio Patel on 01-29-2025 Erythrocyte distribution width (RBC) [Ratio] 42.1 fl 35.1-43.9 [facility] Glomerular filtration rate ( GFR) estimation/1.73 sq m using serum, plasma, or whole bOrdered By: Gaudencio Patel on 01-29-2025 GFR/1.73 sq M.predicted among non-blacks MDRD (S/P/Bld) [Vol rate/Area] 88 mL/min/{1.73_m2} >60 [facility] Comment on above: mL/min/1.73m2 CKD-EP I Creatinine Equation (2020) Hematocrit Auto (Bld) [Volum e fraction]Ordered By: Gaudencio Patel on 01-29-2025 Hematocrit (Bld) [Volume fraction] 39.7 % 37-47 [facility] Hemoglobin measurementOrdere d By: Gaudencio Patel on 01-29-2025 Hemoglobin (Bld) [Mass/Vol] 13.0 g/dL 12.0-15.0 [facility] Immature granulocytes/100 WB C Auto (Bld)Ordered By: Gaudencio Patel on 01-29-2025 Immature granulocytes/100 WBC (Bld) 0.100 % 0.0-0.9 [facility] Comment on above: IG% - Immature Granu locytes (promyelocytes, myelocytes and metamyelocytes) > 1% indicates that a LEFT SHIFT is Present. Ketones Test strip Ql (U)Ord ered By: Gaudencio Patel on 01-29-2025 Ketones Ql (U) Negative Negative [facility] LDL calc ser/plasOrdered By: Gaudencio Patel on 01-29-2025 Cholesterol in LDL [Mass/Vol] 67 mg/dL [facility] Comment on above: Rfpuptlgxl=766-208 m g/dL & Higher Lpxl=109 mg/dL or greaterFriedwald Equation for LDL-C Laboratory - Chemistry and C hemistry - challengeOrdered By: Gaudencio Patel on 01-29-2025 AST [Catalytic activity/Vol] 27 U/L <32 [facility] Lipid Profileon 01-29-2025 CHOL:HDL 2.30 Normal [facility] Comment on above: Order Comment: Order Date: 01/12/25Order Info: [id number] - CMPOrder Info: [id number] - LIPID Performed By: #### L 500.4100, L100.0100, L500.4050 ####[facility] [address] [place], [place], [address] Cholesterol [Mass/Vol] 146 mg/dL Normal <=200 [facility] Comment on above: Order Comment: Order Date: 01/12/25Order Info: [id number] - CMPOrder Info: [id number] - LIPID Result Comment: Chol esterol level, Desirable <200 mg/dL Borderline high cholesterol 200-239 mg/dL High cholesterol >=240 mg/dL Recommendations of the NCEP Adult Treatment Panel for the following risk-cutoff thresholds for the [place] population. Performed By: #### L 500.4100, L100.0100, L500.4050 ####[facility] [address] [place], [address] Cholesterol in HDL [Mass/Vol] 63 mg/dL Normal [facility] Comment on above: Order Comment: Order Date: 01/12/25Order Info: [id number] - CMPOrder Info: [id number] - LIPID Result Comment: Renu onal Cholesterol Education Program (NCEP) guidelines: <40 mg/dL: Low HDL-cholesterol (major risk factor for CHD) >= 60 mg/dL: High HDL-cholesterol (negative risk factor for CHD) HDL-cholesterol is affected by a number of factors, e.g. smoking, exercise, hormones, sex and age. Performed By: #### L 500.4100, L100.0100, L500.4050 ####[facility] [address] [place], [address] Cholesterol in LDL [Mass/Vol] 67 mg/dL Normal [facility] Comment on above: Order Comment: Order Date: 01/12/25Order Info: [id number] - CMPOrder Info: [id number] - LIPID Result Comment: Bord rbjpkm=073-372 mg/dL Higher Wsxx=888 mg/dL or greater Friedwald Equation for LDL-C Performed By: #### L 500.4100, L100.0100, L500.4050 ####[facility] [address] [place], [address] Cholesterol in VLDL [Mass/Vol] 16 mg/dL Normal 5-40 [facility] Comment on above: Order Comment: Order Date: 01/12/25Order Info: [id number] - CMPOrder Info: [id number] - LIPID Performed By: #### L 500.4100, L100.0100, L500.4050 ####[facility] [address] [place], [address] Triglyceride [Mass/Vol] 79 mg/dL Normal [facility] Comment on above: Order Comment: Order Date: 01/12/25Order Info: [id number] - CMPOrder Info: [id number] - LIPID Result Comment: The drugs N-Acetylcysteine and Metamizole may falsely depress this assay. Normal range: <150 mg/dL Borderline High: 150-199 mg/dL High: 200-499 mg/dL Very High: >500 mg/dL Performed By: #### L 500.4100, L100.0100, L500.4050 ####[facility] [address] [place], [address] MCV (mean corpuscular volume ) determinationOrdered By: Gaudencio Patel on 01-29-2025 MCV (RBC) [Entitic vol] 91.1 fL 81-99 [facility] Mean corpuscular hemoglobin (MCH) determinationOrdered By: Gaudencio Patel on 01-29-2025 MCH (RBC) [Entitic mass] 29.8 pg 27.0-32.0 [facility] Mean corpuscular hemoglobin concentration (MCHC) determinationOrdered By: Gaudencio Patel on 01-29-2025 MCHC (RBC) [Mass/Vol] 32.7 g/dL 32-36 [facility] Mean platelet volume determi nationOrdered By: Gaudencio Patel on 01-29-2025 Platelet mean volume (Bld) [Entitic vol] 11.2 fL 6.2-12.0 [facility] Microscopic analysis of urin e for red blood cells (RBC)Ordered By: Gaudencio Patel on 01-29-2025 Microscopic analysis of urine for red blood cells (RBC) 0 SEEN /hpf 0-5 [facility] Monocyte percentageOrdered B y: Gaudencio Patel on 01-29-2025 Monocytes/100 WBC (Bld) 7.6 % 0-10 [facility] Mucus LM Ql (Urine sed)Order ed By: Gaudencio Patel on 01-29-2025 Mucus Ql (Urine sed) 0 SEEN /hpf [facility] Neutrophil percentageOrdered By: Gaudencio Patel on 01-29-2025 Neutrophils/100 WBC (Bld) 56.3 % 47-70 [facility] Nitrite Test strip Ql (U)Ord ered By: Gaudencio Patel on 01-29-2025 Nitrite Ql (U) Negative Negative [facility] Nucleated red blood cell per centageOrdered By: Gaudencio Patel on 01-29-2025 Nucleated RBC/100 WBC (Bld) [Ratio] 0 % 0-5 [facility] Platelet countOrdered By: Itzel Patel on 01-29-2025 Platelets (Bld) [#/Vol] 228 10*3/uL 150-450 [facility] Potassium measurement (mass/ volume)Ordered By: Gaudencio Patel on 01-29-2025 Potassium (Unsp spec) [Mass/Vol] 4.5 mmol/L 3.3-5.1 [facility] Protein Test strip Ql (U)Ord ered By: Gaudencio Patel on 01-29-2025 Protein Ql (U) 15 mg/dl High Negative [facility] RBC Auto (Bld) [#/Vol]Ordere d By: Gaudencio Patel on 01-29-2025 RBC (Bld) [#/Vol] 4.36 10*6/uL 4.2-5.4 [facility] Screening total cholesterol/ high density lipoprotein (HDL) cholesterol ratioOrdered By: Gaudencio Patel on 01-29-2025 Cholesterol.total/Zara sterol in HDL [Mass ratio] 2.30 {ratio} [facility] Serum creatinine measurement (mass/volume)Ordered By: Gaudencio Patel on 01-29-2025 Creatinine [Mass/Vol] 0.71 mg/dL 0.70-1.20 [facility] Serum globulin measurementOr dered By: Gaudencio Patel on 01-29-2025 Globulin (S) [Mass/Vol] 2.8 g/dL 2.2-4.2 [facility] Serum glucose measurement (m ass/volume)Ordered By: Gaudencio Patel on 01-29-2025 Glucose [Mass/Vol] 98 mg/dL 70-99 [facility] Serum or plasma alanine roche otransferase (ALT) measurementOrdered By: Gaudencio Patel on 01-29-2025 ALT [Catalytic activity/Vol] 24 U/L <35 [facility] Serum or plasma albumin kerline urement (mass/volume)Ordered By: Gaudencio Patel on 01-29-2025 Albumin [Mass/Vol] 4.5 g/dL 3.4-4.8 [facility] Serum or plasma albumin/glob ulin mass ratioOrdered By: Gaudencio Patel on 01-29-2025 Albumin/Globulin [Mass ratio] 1.6 {ratio} 0.9-2.4 [facility] Serum or plasma alkaline jaswinder sphatase measurementOrdered By: Gaudencio Patel on 01-29-2025 ALP [Catalytic activity/Vol] 83 U/L 35-104 [facility] Serum or plasma calcium kerline urement (mass/volume)Ordered By: Gaudencio Patel on 01-29-2025 Calcium [Mass/Vol] 9.8 mg/dL 7.6-11.0 [facility] Serum or plasma cholesterol in HDL measurement (mass/volume)Ordered By: Gaudencio Patel on 01-29-2025 Cholesterol in HDL [Mass/Vol] 63 mg/dL >40 [facility] Comment on above: National Cholesterol Education Program (NCEP) guidelines:<40 mg/dL: Low HDL-cholesterol (major risk factor for CHD)>= 60 mg/dL: High HDL-cholesterol (negative risk factor for CHD)HDL-cholesterol is affected by a number of factors, e.g. smoking, exercise, hormones, sex and age. Serum or plasma cholesterol measurement (mass/volume)Ordered By: Gaudencio Patel on 01-29-2025 Cholesterol [Mass/Vol] 146 mg/dL <201 [facility] Comment on above: Cholesterol level, D esirable <200 mg/dLBorderline high cholesterol 200-239 mg/dLHigh cholesterol >=240 mg/dLRecommendations of the NCEP Adult Treatment Panel for the following risk-cutoff thresholds for the [place] population. Serum or plasma urea nitroge n measurement (mass/volume)Ordered By: Gaudencio Patel on 01-29-2025 Urea nitrogen [Mass/Vol] 21 mg/dL High 4-19 [facility] Sodium levelOrdered By: Gaudencio Patel on 01-29-2025 Sodium [Moles/Vol] 139 mmol/L 133-145 [facility] Squamous epithelial cells de tection in urine sediment by light microscopyOrdered By: Gaudencio Patel on 01-29-2025 Epithelial cells.squamous LM Ql (Urine sed) 0-5 SEEN /hpf - [facility] Total proteinOrdered By: Jacob Patel on 01-29-2025 Protein [Mass/Vol] 7.3 g/dL 5.9-8.4 [facility] Triglycerides measurementOrd ered By: Gaudencio Patel on 01-29-2025 Triglyceride [Mass/Vol] 79 mg/dL <199 [facility] Comment on above: The drugs N-Acetylcy steine and Metamizole may falsely depress this assay. Normal range: <150 mg/dLBorderline High: 150-199 mg/dLHigh: 200-499 mg/dLVery High: >500 mg/dL Urinalysis, Completeon 01-29 EPI,SQUAMOUS 0-5 SEEN Normal - [facility] Comment on above: Order Comment: CLEAN CATCH Performed By: #### L 400.0001 #### [facility] [address] [place], [address] BACTERIA 0 SEEN Normal None Seen [facility] Comment on above: Order Comment: CLEAN CATCH Performed By: #### L 400.0001 #### [facility] [address] [place], [address] Mucus Ql (Urine sed) 0 SEEN Normal [facility] Comment on above: Order Comment: CLEAN CATCH Performed By: #### L 400.0001 #### [facility] [address] [place], [address] RBC 0 SEEN Normal 0-5 [facility] Comment on above: Order Comment: CLEAN CATCH Performed By: #### L 400.0001 #### [facility] [address] [place], [address] WBC 0 SEEN Normal 0-5 [facility] Comment on above: Order Comment: CLEAN CATCH Performed By: #### L 400.0001 #### [facility] [address] [place], [address] Urine clarityOrdered By: Jacob Patel on 01-29-2025 Clarity (U) Clear Clear [facility] Urine color determinationOrd ered By: Gaudencio Patel on 01-29-2025 Color (U) Yellow Yellow [facility] Urine glucose detectionOrder ed By: Gaudencio Patel on 01-29-2025 Glucose Ql (U) Normal mg/dl Normal [facility] Urine leukocyte esterase det ection by dipstickOrdered By: Gaudencio Patel on 01-29-2025 Leukocyte esterase Test strip Ql (U) 500 /ul High Negative [facility] Urine pHOrdered By: Gaudencio perry on 01-29-2025 pH (U) 6.0 [pH] 5.0 - 8.0 [facility] Urine sediment bacteria coun t by microscopy (number/high power field)Ordered By: Gaudencio Patel on 01-29-2025 Bacteria LM.HPF (Urine sed) [#/Area] 0 /[HPF] None Seen [facility] Urine specific gravity measu rementOrdered By: Gaudencio Patel on 01-29-2025 Specific gravity (U) [Rel density] 1.015 1.002-1.030 [facility] Urine urobilinogen measureme ntOrdered By: Gaudencio Patel on 01-29-2025 Urobilinogen Ql (U) Normal mg/dl Normal [facility] White blood cell (WBC) count Ordered By: Gaudencio Patel on 01-29-2025 WBC (Bld) [#/Vol] 7.1 10*3/uL 4.4-11.0 [facility] White blood cell countOrdere d By: Gaudencio Patel on 01-29-2025 White blood cell count 0 SEEN /hpf 0-5 [facility] Lyme Screen W/Reflex WBon LYME SCREEN Ab Negative Normal Negative [facility] Comment on above: Order Comment: Order Date: 11/12/24Order Info: [id number] - LYMS Result Comment: Lyme [...] to 14 days is recommended. Performed at: - [facility] [address], [place], [place] [id number] Director Call Center Sales: Eric Gonzalez PhD, Phone: [phone] Performed By: #### L 2559.2365 ####[facility] [address] [place], [address] Orthopedic Visit Reporton Orthopedic Visit Report [facility] [address] [place] [address] [address] [place] [address] OFFICE VISIT Date of Service: 09/01/24 MR#: [id number] Acct: [id number] Name: KOJO TAVERAS Rep #: [id number] : 1945 Provider: Dr. Brad vega DO Age/Sex: 79/F Location: [facility] Status: Signed Intake Vital Signs 07/31/24 09:24 [...] in the past year?: Yes (August 2024) [facility] Medical History Paroxysmal SVT (supraventricular tachycardia) PVC's [...] Performing Provider: Brad Hanna DO Performing Location: [facility] Administered by: Brad Hanna DO on 09/01/24 08:18 Dose Route Admin Location Dispensed Lot Number Expiration Date NDC Man ufacturer 25 mg intra-articular Right Knee 2.5 mL [id number] 08/16/27 [address]-7 [employer] Supplemental Info 06/20/2024 x-ray on disc [facility]: Moderate medial joint space narrowing on AP view severe on flexion view (more content not included)... Normal [facility] Orthopedic Visit Reporton Orthopedic Visit Report [facility] [address] [place] [address] OFFICE VISIT Date of Service: 08/20/24 MR#: [id number] Acct: [id number] Name: KOJO TAVERAS Rep #: [id number] : 1945 Provider: Dr. Brad vega DO Age/Sex: 79/F Location: [facility] Status: Signed Intake Vital Signs 07/31/24 09:24 [...] vascular accident) Other Abdominal aneurysm Social History (Reviewed 08/20/24 @ 15:26 by Yolie Chandler Smoking Status: Never smoker alcohol intake: current substance use type: does not use HPI RIGHT KNEE Details: This documentation accurately reflects the service provided and the decisions made by me, Dr. Brad Hanna DO 08/20/24 0830. Part of today???s visit [...] the injection well without any noted complication. Reji andrews should call our office if redness develops, pain worsens or if they have any concerns. Office Meds Supartz FX 10 mg/mL intra-articular syringe Performing Provider: Brad Hanna DO Performing Location: [facility] Administered by: Brad Hanna DO on 08/20/24 15:28 Dose Route Admin Location Dispensed Lot Number Expiration Date NDC Man ufacturer 25 mg intra-articular right knee 2.5 mL [id number] 08/16/27 [address]-6 [employer] Supplemental Info 06/20/2024 x-ray on disc [facility]: Moderate medial joint space narrowing on AP v (more content not included)... Normal [facility] Orthopedic Visit Reporton Orthopedic Visit Report [facility] [address] [place] [address] OFFICE VISIT Date of Service: 08/13/24 MR#: [id number] Acct: [id number] Name: KOJO TAVERAS Rep #: [id number] : 1945 Provider: Dr. Brad vega DO Age/Sex: 79/F Location: [facility] Status: Signed with Addenda ADDENDUM by Holli [...] Performing Provider: Brad Hanna DO Performing Location: [facility] Administered by: Brad Hanna DO on 08/13/24 08:39 Dose Route Admin Location Dispensed Lot Number Expiration Date NDC Man ufacturer 25 mg intra-articular Right Knee 2.5 mL [id number] 08/16/27 [address]-0 [employer] Date cc: * Signed Intake Vital Signs 07/31/24 09:24 08/11/24 15:57 Height 5 ft 1 in 5 ft 1 in Weight: 126 lb BMI 23.8 BP 133/76 H Blood Pressure Location Lt brachial Position Sitting Respiration 18 Pulse 61 Pulse Source Monitor Pulse Oximetry (%) 98 Intake Visit Reasons: RIGHT KNEE Chief Complaint: Right knee 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 Rates pain 06/27 today. Ortho Exam General General: Yes no [...] and 1+: (more content not included)... Normal [facility] Cardiology Visit Reporton Cardiology Visit Report [facility] [address] [place] [address]. [address] [place] [address] OFFICE VISIT Date of Service: 07/31/24 MR#: [id number] Acct: [id number] Name: KOJO TAVERAS Rep #: [id number] : 1945 Provider: RUTH hopson Age/Sex: 79/F Location: [facility] Status: Signed HPI HPI History of Present [...] (%) 98 Intake Visit Reasons: 6 M FU Inspector Watch Train Required: No Is patient in pain?: No [...] you fallen in the past year?: No [facility] Paroxysmal SVT (supraventricular tachycardia) PVC's [...] Cough or (more content not included)... Normal [facility] Orthopedic Visit Reporton Orthopedic Visit Report [facility] [address] [place] [address] OFFICE VISIT Date of Service: 07/28/24 MR#: [id number] Acct: [id number] Name: KOJO TAVERAS Rep #: [id number] : 1945 Provider: Dr. Brad vega DO Age/Sex: 79/F Location: [facility] Status: Signed Intake Vital Signs 06/27/24 23:36 [...] by me, Dr. Brad Hanna, DO 07/28/24 8053. Part of today???s visit was documented by Kathie FREEMAN, acting as scribe. KOJO TAVERAS is a 79 year old F referral from [facility] who has medical history significant but [...] 1 Supplemental Info 06/20/2024 x-ray on disc [facility]: Moderate medial joint space narrowing on AP view severe on flexion view mild patellofemoral arthrosis Coding Level of Care Code Off vis,new,level 3 Diagnoses Chronic instability of knee, right knee M23.51 Primary osteoarthritis of right knee M17.11 Osteoarthritis type: primary Assessment and Plan Assessment and Plan (1) Chronic instability of knee, right kne (more content not included)... Normal [facility] Absolute lymphocyte countOrd ered By: Gaudencio Patel on 07-25-2024 Lymphocytes Auto (Unsp spec) [#/Vol] 2.14 10*3/uL 0.83-4.51 [facility] Absolute neutrophil countOrd ered By: Gaudencio Patel on 07-25-2024 Neutrophils (Bld) [#/Vol] 4.8 10*3/uL 2.0-7.7 [facility] Albumin to globulin ratioOrd ered By: Gaudencio Patel on 07-25-2024 Albumin/Globulin [Mass ratio] 1.0 {ratio} 0.9-2.4 [facility] Automated lymphocyte count a s percentage of total leukocytesOrdered By: Gaudencio Patel on 07-25-2024 Lymphocytes/100 WBC Auto (Unsp spec) 27.2 % 19-41 [facility] Basophil percentageOrdered B y: Gaudencio Patel on 07-25-2024 Basophils/100 WBC (Bld) 0.4 % 0-1 [facility] Bilirubin, totalOrdered By: Gaudencio Patel on 07-25-2024 Bilirubin [Mass/Vol] 0.40 mg/dL 0.20-1.00 [facility] Comment on above: For patients on eltr ombopag therapy, use of Dimension [place] TBIL is not recommended. Blood urea nitrogen (BUN)/cr eatinine ratioOrdered By: Gaudencio Patel on 07-25-2024 Urea nitrogen/Creatinine [Mass ratio] 28.3 mg/mg High 10-20 [facility] CBC W/Diff, Automatedon 02-0 -2024 Absolute Lymph 2.14 X10 3/uL Normal 0.83-4.51 [facility] Comment on above: Order Comment: Order Date: 04/25/24Order Info: [id number] - CBCD Performed By: #### L 100.0100, L500.4050, L500.4100, L506.1000 ####[facility] [address] [place], [address] Absolute Neut 4.8 X10 3/uL Normal 2.0-7.7 [facility] Comment on above: Order Comment: Order Date: 04/25/24Order Info: [id number] - CBCD Performed By: #### L 100.0100, L500.4050, L500.4100, L506.1000 ####[facility] [address] [place], [address] Basophils/100 WBC (Bld) 0.4 % Normal 0-1 [facility] Comment on above: Order Comment: Order Date: 04/25/24Order Info: [id number] - CBCD Performed By: #### L 100.0100, L500.4050, L500.4100, L506.1000 ####[facility] [address] [place], [address] Eosinophils/100 WBC (Bld) 1.7 % Normal 0-5 [facility] Comment on above: Order Comment: Order Date: 04/25/24Order Info: [id number] - CBCD Performed By: #### L 100.0100, L500.4050, L500.4100, L506.1000 ####[facility] [address] [place], [address] Erythrocyte distribution width (RBC) [Ratio] 13.0 % Normal 11.6-14.6 [facility] Comment on above: Order Comment: Order Date: 04/25/24Order Info: [id number] - CBCD Performed By: #### L 100.0100, L500.4050, L500.4100, L506.1000 ####[facility] [address] [place], [address] Hematocrit (Bld) [Volume fraction] 39.8 % Normal 37-47 [facility] Comment on above: Order Comment: Order Date: 04/25/24Order Info: [id number] - CBCD Performed By: #### L 100.0100, L500.4050, L500.4100, L506.1000 ####[facility] [address] [place], [address] Hemoglobin (Bld) [Mass/Vol] 12.7 g/dL Normal 12.0-15.0 [facility] Comment on above: Order Comment: Order Date: 04/25/24Order Info: [id number]- - CBCD Performed By: #### L 100.0100, L500.4050, L500.4100, L506.1000 ####[facility] [address] [place], [address] IG% 0.300 Normal 0.0-0.9 [facility] Comment on above: Order Comment: Order Date: 04/25/24Order Info: [id number] - CBCD Result Comment: IG% - Immature Granulocytes (promyelocytes, myelocytes and metamyelocytes) > 1% indicates that a LEFT SHIFT is Present. Performed By: #### L 100.0100, L500.4050, L500.4100, L506.1000 ####[facility] [address] [place], [address] Lymphocytes/100 WBC (Bld) 27.2 % Normal 19-41 [facility] Comment on above: Order Comment: Order Date: 04/25/24Order Info: [id number] - CBCD Performed By: #### L 100.0100, L500.4050, L500.4100, L506.1000 ####[facility] [address] [place], [address] MCH (RBC) [Entitic mass] 29.5 pg Normal 27.0-32.0 [facility] Comment on above: Order Comment: Order Date: 04/25/24Order Info: [id number] - CBCD Performed By: #### L 100.0100, L500.4050, L500.4100, L506.1000 ####[facility] [address] [place], [address] MCHC (RBC) [Mass/Vol] 31.9 g/dL Low 32-36 [facility] Comment on above: Order Comment: Order Date: 04/25/24Order Info: 183- - CBCD Performed By: #### L 100.0100, L500.4050, L500.4100, L506.1000 ####[facility] [address] [place], [address] MCV (RBC) [Entitic vol] 92.6 fL Normal 81-99 [facility] Comment on above: Order Comment: Order Date: 04/25/24Order Info: [id number]- - CBCD Performed By: #### L 100.0100, L500.4050, L500.4100, L506.1000 ####[facility] [address] [place], [address] Monocytes/100 WBC (Bld) 9.8 % Normal 0-10 [facility] Comment on above: Order Comment: Order Date: 04/25/24Order Info: [id number] - CBCD Performed By: #### L 100.0100, L500.4050, L500.4100, L506.1000 ####[facility] [address] [place], [address] Neutrophils/100 WBC (Bld) 60.6 % Normal 47-70 [facility] Comment on above: Order Comment: Order Date: 04/25/24Order Info: [id number] - CBCD Performed By: #### L 100.0100, L500.4050, L500.4100, L506.1000 ####[facility] [address] [place], [address] Nucleated RBC (Bld) [#/Vol] 0 10*3/uL Normal 0-5 [facility] Comment on above: Order Comment: Order Date: 04/25/24Order Info: [id number] - CBCD Performed By: #### L 100.0100, L500.4050, L500.4100, L506.1000 ####[facility] [address] [place], [address] Platelet mean volume (Bld) [Entitic vol] 11.4 fL Normal 6.2-12.0 [facility] Comment on above: Order Comment: Order Date: 04/25/24Order Info: [id number]- - CBCD Performed By: #### L 100.0100, L500.4050, L500.4100, L506.1000 ####[facility] [address] [place], [address] Platelets (Bld) [#/Vol] 253 10*3/uL Normal 150-450 [facility] Comment on above: Order Comment: Order Date: 04/25/24Order Info: [id number]- - CBCD Performed By: #### L 100.0100, L500.4050, L500.4100, L506.1000 ####[facility] [address] [place], [address] RBC (Bld) [#/Vol] 4.30 10*6/uL Normal 4.2-5.4 [facility] Comment on above: Order Comment: Order Date: 04/25/24Order Info: [id number] - CBCD Performed By: #### L 100.0100, L500.4050, L500.4100, L506.1000 ####[facility] [address] [place], [address] RDW SD 43.8 fl Normal 35.1-43.9 [facility] Comment on above: Order Comment: Order Date: 04/25/24Order Info: [id number] - CBCD Performed By: #### L 100.0100, L500.4050, L500.4100, L506.1000 ####[facility] [address] [place], [address] WBC (Bld) [#/Vol] 7.9 10*3/uL Normal 4.4-11.0 [facility] Comment on above: Order Comment: Order Date: 04/25/24Order Info: [id number]- - CBCD Performed By: #### L 100.0100, L500.4050, L500.4100, L506.1000 ####[facility] [address] [place], [address] Carbon dioxide measurementOr dered By: Gaudencio Patel on 07-25-2024 CO2 [Moles/Vol] 29.0 mmol/L 21.0-32.0 [facility] Chloride measurementOrdered By: Gaudencio Patel on 07-25-2024 Chloride [Moles/Vol] 103 mmol/L 98-107 [facility] Comprehensive Metabolic Prof ilon 07-25-2024 Albumin [Mass/Vol] 3.8 g/dL Normal 3.2-5.0 [facility] Comment on above: Order Comment: Order Date: 04/25/24Order Info: [id number] - CMPOrder Info: [id number] - LIPID Performed By: #### L 100.0100, L500.4050, L500.4100, L506.1000 ####[facility] [address] [place], [address] Albumin/Globulin [Mass ratio] 1.0 {ratio} Normal 0.9-2.4 [facility] Comment on above: Order Comment: Order Date: 04/25/24Order Info: [id number] - CMPOrder Info: [id number] - LIPID Performed By: #### L 100.0100, L500.4050, L500.4100, L506.1000 ####[facility] [address] [place], [address] ALK P 87 U/L Normal 45-117 [facility] Comment on above: Order Comment: Order Date: 04/25/24Order Info: [id number]- - CMPOrder Info: [id number] - LIPID Performed By: #### L 100.0100, L500.4050, L500.4100, L506.1000 ####[facility] [address] [place], [address] ALT [Catalytic activity/Vol] 35 U/L Normal 13-56 [facility] Comment on above: Order Comment: Order Date: 04/25/24Order Info: 07 - CMPOrder Info: [id number] - LIPID Performed By: #### L 100.0100, L500.4050, L500.4100, L506.1000 ####[facility] [address] [place], [address] AST [Catalytic activity/Vol] 23 U/L Normal 15-37 [facility] Comment on above: Order Comment: Order Date: 04/25/24Order Info: [id number] - CMPOrder Info: [id number] - LIPID Performed By: #### L 100.0100, L500.4050, L500.4100, L506.1000 ####[facility] [address] [place], [address] Bilirubin [Mass/Vol] 0.40 mg/dL Normal 0.20-1.00 [facility] Comment on above: Order Comment: Order Date: 04/25/24Order Info: [id number]- - CMPOrder Info: [id number] - LIPID Result Comment: For patients on eltrombopag therapy, use of Dimension [place] TBIL is not recommended. Performed By: #### L 100.0100, L500.4050, L500.4100, L506.1000 ####[facility] [address] [place], [address] BUN/CRE 28.3 RATIO High 10-20 [facility] Comment on above: Order Comment: Order Date: 04/25/24Order Info: 07-1 - CMPOrder Info: [id number] - LIPID Performed By: #### L 100.0100, L500.4050, L500.4100, L506.1000 ####[facility] [address] [place], [address] CA,Total 9.2 mg/dL Normal 8.5-10.1 [facility] Comment on above: Order Comment: Order Date: 04/25/24Order Info: [id number]- - CMPOrder Info: [id number] - LIPID Performed By: #### L 100.0100, L500.4050, L500.4100, L506.1000 ####[facility] [address] [place], [address] Chloride [Moles/Vol] 103 mmol/L Normal 98-107 [facility] Comment on above: Order Comment: Order Date: 04/25/24Order Info: [id number] - CMPOrder Info: [id number] - LIPID Performed By: #### L 100.0100, L500.4050, L500.4100, L506.1000 ####[facility] [address] [place], [address] CO2 [Moles/Vol] 29.0 mmol/L Normal 21.0-32.0 [facility] Comment on above: Order Comment: Order Date: 04/25/24Order Info: 07- - CMPOrder Info: [id number] - LIPID Performed By: #### L 100.0100, L500.4050, L500.4100, L506.1000 ####[facility] [address] [place], [address] Creatinine [Mass/Vol] 0.74 mg/dL Normal 0.55-1.02 [facility] Comment on above: Order Comment: Order Date: 04/25/24Order Info: [id number] - CMPOrder Info: [id number] - LIPID Result Comment: The validity of the calculated GFR GFRAA in patients over 70 years has not been determined. Clinical correlation is essential. Performed By: #### L 100.0100, L500.4050, L500.4100, L506.1000 ####[facility] [address] [place], [address] EST GFR - AA 97 mL/min Normal >60 [facility] Comment on above: Order Comment: Order Date: 04/25/24Order Info: 07-1 - CMPOrder Info: [id number] - LIPID Result Comment: Afri can Moroccan GFR Calc Performed By: #### L 100.0100, L500.4050, L500.4100, L506.1000 ####[facility] [address] [place], [address] GAP 6 Normal 5-15 [facility] Comment on above: Order Comment: Order Date: 04/25/24Order Info: [id number] - CMPOrder Info: [id number] - LIPID Performed By: #### L 100.0100, L500.4050, L500.4100, L506.1000 ####[facility] [address] [place], [address] GFR/1.73 sq M.predicted among non-blacks MDRD (S/P/Bld) [Vol rate/Area] 81 mL/min/{1.73_m2} Normal >60 [facility] Comment on above: Order Comment: Order Date: 04/25/24Order Info: [id number] - CMPOrder Info: [id number] - LIPID Result Comment: Non- GFR Calc Performed By: #### L 100.0100, L500.4050, L500.4100, L506.1000 ####[facility] [address] [place], [address] Globulin (S) [Mass/Vol] 3.8 g/dL Normal 2.2-4.2 [facility] Comment on above: Order Comment: Order Date: 04/25/24Order Info: [id number] - CMPOrder Info: [id number] - LIPID Performed By: #### L 100.0100, L500.4050, L500.4100, L506.1000 ####[facility] [address] [place], [address] Glucose [Mass/Vol] 95 mg/dL Normal 74-106 [facility] Comment on above: Order Comment: Order Date: 04/25/24Order Info: 07- - CMPOrder Info: [id number] - LIPID Performed By: #### L 100.0100, L500.4050, L500.4100, L506.1000 ####[facility] [address] [place], [address] Potassium [Moles/Vol] 4.5 mmol/L Normal 3.5-5.1 [facility] Comment on above: Order Comment: Order Date: 04/25/24Order Info: [id number] - CMPOrder Info: [id number] - LIPID Performed By: #### L 100.0100, L500.4050, L500.4100, L506.1000 ####[facility] [address] [place], [address] Sodium [Moles/Vol] 138 mmol/L Normal 136-145 [facility] Comment on above: Order Comment: Order Date: 04/25/24Order Info: [id number] - CMPOrder Info: [id number] - LIPID Performed By: #### L 100.0100, L500.4050, L500.4100, L506.1000 ####[facility] [address] [place], [address] T PROT 7.6 g/dL Normal 6.4-8.2 [facility] Comment on above: Order Comment: Order Date: 04/25/24Order Info: [id number] - CMPOrder Info: [id number] - LIPID Performed By: #### L 100.0100, L500.4050, L500.4100, L506.1000 ####[facility] [address] [place], [place], [address] Urea nitrogen [Mass/Vol] 21 mg/dL High 7-18 [facility] Comment on above: Order Comment: Order Date: 04/25/24Order Info: [id number] - CMPOrder Info: [id number] - LIPID Performed By: #### L 100.0100, L500.4050, L500.4100, L506.1000 ####[facility] [address] [place], [place], [address] Eosinophil percentageOrdered By: Gaudencio Patel on 07-25-2024 Eosinophils/100 WBC (Bld) 1.7 % 0-5 [facility] Erythrocyte distribution wid th ratioOrdered By: Gaudencio Patel on 07-25-2024 Erythrocyte distribution width (RBC) [Ratio] 13.0 % 11.6-14.6 [facility] Erythrocyte distribution wid th standard deviationOrdered By: Gaudencio Patel on 07-25-2024 Erythrocyte distribution width (RBC) [Ratio] 43.8 fl 35.1-43.9 [facility] Glomerular filtration rate ( GFR) estimationOrdered By: Gaudencio Patel on 07-25-2024 GFR/1.73 sq M.predicted among non-blacks MDRD (S/P/Bld) [Vol rate/Area] 81 mL/min/{1.73_m2} >60 [facility] Comment on above: Non- GFR Calc Glucose measurementOrdered B y: Gaudencio Patel on 07-25-2024 Glucose [Mass/Vol] 95 mg/dL 74-106 [facility] Hematocrit Auto (Bld) [Volum e fraction]Ordered By: Gaudencio Patel on 07-25-2024 Hematocrit (Bld) [Volume fraction] 39.8 % 37-47 [facility] Hemoglobin measurementOrdere d By: Gaudencio Patel on 07-25-2024 Hemoglobin (Bld) [Mass/Vol] 12.7 g/dL 12.0-15.0 [facility] High density lipoprotein (HD L) measurementOrdered By: Gaudencio Patel on 07-25-2024 Cholesterol in HDL [Mass/Vol] 72 mg/dL >40 [facility] Comment on above: The drugs N-Acetylcy steine and Metamizole may falsely depress this assay. Reference Range HDL <40 mg/dL Low HDL Cholesterol HDL >or= 60 mg/dL High HDL Cholesterol Immature granulocytes/100 WB C Auto (Bld)Ordered By: Gaudencio Patel on 07-25-2024 Immature granulocytes/100 WBC (Bld) 0.300 % 0.0-0.9 [facility] Comment on above: IG% - Immature Granu locytes (promyelocytes, myelocytes and metamyelocytes) > 1% indicates that a LEFT SHIFT is Present. Laboratory - Chemistry and C hemistry - challengeOrdered By: Gaudencio Patel on 07-25-2024 AST [Catalytic activity/Vol] 23 U/L 15-37 [facility] Lipid Profileon 07-25-2024 Cholesterol [Mass/Vol] 149 mg/dL Normal 200 [facility] Comment on above: Order Comment: Order Date: 04/25/24Order Info: [id number] - CMPOrder Info: [id number] - LIPID Result Comment: <200 mg/dL Desirable 200-240 mg/dL Borderline >240 mg/dL High Risk Performed By: #### L 100.0100, L500.4050, L500.4100, L506.1000 ####[facility] [address] [place], [address] Cholesterol in HDL [Mass/Vol] 72 mg/dL Normal [facility] Comment on above: Order Comment: Order Date: 04/25/24Order Info: [id number] - CMPOrder Info: [id number] - LIPID Result Comment: The drugs N-Acetylcysteine and Metamizole may falsely depress this assay. Reference Range HDL <40 mg/dL Low HDL Cholesterol HDL >or= 60 mg/dL High HDL Cholesterol Performed By: #### L 100.0100, L500.4050, L500.4100, L506.1000 ####[facility] [address] [place], [address] Cholesterol in LDL [Mass/Vol] 61 mg/dL Normal 0-130 [facility] Comment on above: Order Comment: Order Date: 04/25/24Order Info: [id number] - CMPOrder Info: [id number] - LIPID Performed By: #### L 100.0100, L500.4050, L500.4100, L506.1000 ####[facility] [address] [place], [address] Cholesterol in VLDL [Mass/Vol] 16 mg/dL Normal 5-40 [facility] Comment on above: Order Comment: Order Date: 04/25/24Order Info: [id number] - CMPOrder Info: [id number] - LIPID Performed By: #### L 100.0100, L500.4050, L500.4100, L506.1000 ####[facility] [address] [place], [address] Triglyceride [Mass/Vol] 82 mg/dL Normal [facility] Comment on above: Order Comment: Order Date: 04/25/24Order Info: [id number] - CMPOrder Info: [id number] - LIPID Result Comment: The drugs N-Acetylcysteine and Metamizole may falsely depress this assay. Serum Triglycerides Reference Interval Normal <150 mg/dL Borderline high 150 - 199 mg/dL High 200 - 499 mg/dL Very High > or = 500 mg/dL Performed By: #### L 100.0100, L500.4050, L500.4100, L506.1000 ####[facility] [address] [place], [address] Low density lipoprotein (LDL ) cholesterol measurementOrdered By: Gaudencio Patel on 07-25-2024 Cholesterol in LDL [Mass/Vol] 61 mg/dL 0-130 [facility] MCV (mean corpuscular volume ) determinationOrdered By: Gaudencio Patel on 07-25-2024 MCV (RBC) [Entitic vol] 92.6 fL 81-99 [facility] Mean corpuscular hemoglobin (MCH) determinationOrdered By: Gaudencio Patel on 07-25-2024 MCH (RBC) [Entitic mass] 29.5 pg 27.0-32.0 [facility] Mean corpuscular hemoglobin concentration (MCHC) determinationOrdered By: Gaudencio Patel on 07-25-2024 MCHC (RBC) [Mass/Vol] 31.9 g/dL Low 32-36 [facility] Mean platelet volume determi nationOrdered By: Gaudencio Patel on 07-25-2024 Platelet mean volume (Bld) [Entitic vol] 11.4 fL 6.2-12.0 [facility] Monocyte percentageOrdered B y: Gaudencio Patel on 07-25-2024 Monocytes/100 WBC (Bld) 9.8 % 0-10 [facility] Neutrophil percentageOrdered By: Gaudencio Paetl on 07-25-2024 Neutrophils/100 WBC (Bld) 60.6 % 47-70 [facility] Nucleated red blood cell per centageOrdered By: Gaudencio Patel on 07-25-2024 Nucleated RBC/100 WBC (Bld) [Ratio] 0 % 0-5 [facility] Platelet countOrdered By: Itzel Patel on 07-25-2024 Platelets (Bld) [#/Vol] 253 10*3/uL 150-450 [facility] Potassium measurementOrdered By: Gaudencio Patel on 07-25-2024 Potassium [Moles/Vol] 4.5 mmol/L 3.5-5.1 [facility] RBC Auto (Bld) [#/Vol]Ordere d By: Gaudencio Patel on 07-25-2024 RBC (Bld) [#/Vol] 4.30 10*6/uL 4.2-5.4 [facility] Serum anion gap measurementO rdered By: Gaudencio Patel on 07-25-2024 Anion gap [Moles/Vol] 6 mmol/L 5-15 [facility] Serum globulin measurementOr dered By: Gaudencio Patel on 07-25-2024 Globulin (S) [Mass/Vol] 3.8 g/dL 2.2-4.2 [facility] Serum or plasma alanine roche otransferase (ALT) measurementOrdered By: Gaudencio Patel on 07-25-2024 ALT [Catalytic activity/Vol] 35 U/L 13-56 [facility] Serum or plasma albumin kerline urement (mass/volume)Ordered By: Gaudencio Patel on 07-25-2024 Albumin [Mass/Vol] 3.8 g/dL 3.2-5.0 [facility] Serum or plasma alkaline jaswinder sphatase measurementOrdered By: Gaudencio Patel on 07-25-2024 ALP [Catalytic activity/Vol] 87 U/L 45-117 [facility] Serum or plasma calcium kerline urement (mass/volume)Ordered By: Gaudencio Patel on 07-25-2024 Calcium [Mass/Vol] 9.2 mg/dL 8.5-10.1 [facility] Serum or plasma cholesterol measurement (mass/volume)Ordered By: Gaudencio Patel on 07-25-2024 Cholesterol [Mass/Vol] 149 mg/dL <200 [facility] Comment on above: <200 mg/dL Desirable 200-240 mg/dL Borderline >240 mg/dL High Risk Serum or plasma creatinine m easurement (mass/volume)Ordered By: Gaudencio Patel on 07-25-2024 Creatinine [Mass/Vol] 0.74 mg/dL 0.55-1.02 [facility] Comment on above: The validity of the calculated GFR & GFRAA in patients over 70 years has not been determined. Clinical correlation is essential. Serum or plasma urea nitroge n measurement (mass/volume)Ordered By: Gaudencio Patel on 07-25-2024 Urea nitrogen [Mass/Vol] 21 mg/dL High 7-18 [facility] Sodium levelOrdered By: Gaudencio Patel on 07-25-2024 Sodium [Moles/Vol] 138 mmol/L 136-145 [facility] Total proteinOrdered By: Jacob Patel on 07-25-2024 Protein [Mass/Vol] 7.6 g/dL 6.4-8.2 [facility] Triglycerides measurementOrd ered By: Gaudencio Patel on 07-25-2024 Triglyceride [Mass/Vol] 82 mg/dL <199 [facility] Comment on above: The drugs N-Acetylcy steine and Metamizole may falsely depress this assay.Serum Triglycerides Reference Interval Normal <150 mg/dL Borderline high 150 - 199 mg/dL High 200 - 499 mg/dL Very High > or = 500 mg/dL Very low density lipoprotein (VLDL) cholesterol measurementOrdered By: Gaudencio Patel on 07-25-2024 Very low density lipoprotein (VLDL) cholesterol measurement 16 mg/dL 5-40 [facility] Vitamin D,25 Hydroxyon 07-25 Vitamin D 25-OH 34.6 ng/mL Normal [facility] Comment on above: Order Comment: Order Date: 04/25/24Order Info: [id number] - [id number] Result Comment: Niecy min D 25(OH) Status Range Deficiency <20 ng/mL (50nmol/L) Insufficiency 20 - 30 ng/mL (50 - 75 nmol/L) Sufficiency 30 - 100 ng/mL (75 - 250 nmol/L) Toxicity >100 ng/mL (>250 nmol/L) Performed By: #### L 100.0100, L500.4050, L500.4100, L506.1000 ####[facility] [id number] [facility] [place], [address] White blood cell (WBC) count Ordered By: Gaudencio Patel on 07-25-2024 WBC (Bld) [#/Vol] 7.9 10*3/uL 4.4-11.0 [facility] Emergency Department Summary on 06-27-2024 Emergency Department Summary [facility] Medical Records Department [address] [place] [address] Emergency Department Summary 06/27/24 MR#: [id number] Acct: [id number] Name: KOJO TAVERAS Rep #: [id number] : 1945 79 From: Anthony Chambers MD [...] symptoms: No Recent Illness/Hospitalizatio n: No PFSH PFS Medical History Paroxysmal SVT (supraventricular tachycardia) PVC's [...] Pattern Normal (more content not included)... Normal [facility] Absolute lymphocyte countOrd ered By: Gaudencio Patel on 07-25-2023 Lymphocytes Auto (Unsp spec) [#/Vol] 1.74 10*3/uL 0.83-4.51 [facility] Automated lymphocyte count a s percentage of total leukocytesOrdered By: Gaudencio Patel on 07-25-2023 Lymphocytes/100 WBC Auto (Unsp spec) 28.0 % 19-41 [facility] Basophil percentageOrdered B y: Gaudencio Patel on 07-25-2023 Basophil percentage 0 SEEN /hpf 0-5 [facility] Basophils/100 WBC (Bld) 0.6 % 0-1 [facility] Bilirubin [Mass/Vol] 0.50 mg/dL 0.20-1.00 [facility] Comment on above: For patients on eltr ombopag therapy, use of Dimension [place] TBIL is not recommended. Chloride [Moles/Vol] 106 mmol/L 98-107 [facility] Cholesterol [Mass/Vol] 159 mg/dL <200 [facility] Comment on above: <200 mg/dL Desirable 200-240 mg/dL Borderline >240 mg/dL High Risk Eosinophils/100 WBC (Bld) 1.8 % 0-5 [facility] Glucose [Mass/Vol] 101 mg/dL 74-106 [facility] Comment on above: Fasting Glucose resu lt from 100 to 125 mg/dL suggests IMPAIRED HOMEOSTASIS per A.D.A. criteria. Hemoglobin (Bld) [Mass/Vol] 12.5 g/dL 12.0-15.0 [facility] Monocytes/100 WBC (Bld) 7.4 % 0-10 [facility] Neutrophils (Bld) [#/Vol] 3.9 10*3/uL 2.0-7.7 [facility] Neutrophils/100 WBC (Bld) 62.0 % 47-70 [facility] Potassium [Moles/Vol] 4.0 mmol/L 3.5-5.1 [facility] Protein [Mass/Vol] 7.5 g/dL 6.4-8.2 [facility] Sodium [Moles/Vol] 137 mmol/L 136-145 [facility] Triglyceride [Mass/Vol] 79 mg/dL <199 [facility] Comment on above: The drugs N-Acetylcy steine and Metamizole may falsely depress this assay.Serum Triglycerides Reference Interval Normal <150 mg/dL Borderline high 150 - 199 mg/dL High 200 - 499 mg/dL Very High > or = 500 mg/dL WBC (Bld) [#/Vol] 6.2 10*3/uL 4.4-11.0 [facility] Bilirubin Test strip Ql (U)O rdered By: Gaudencio Patel on 07-25-2023 Bilirubin Ql (U) Negative Negative [facility] Determination of erythrocyte mean corpuscular volume (MCV)Ordered By: Gaudencio Patel on 07-25-2023 MCV (RBC) [Entitic vol] 92.7 fL 81-99 [facility] Erythrocyte distribution wid th ratioOrdered By: Gaudencio Patel on 07-25-2023 Erythrocyte distribution width (RBC) [Ratio] 12.8 % 11.6-14.6 [facility] Erythrocyte distribution wid th standard deviationOrdered By: Gaudencio Patel on 07-25-2023 Erythrocyte distribution width (RBC) [Entitic vol] 43.6 fL 35.1-43.9 [facility] Hematocrit Auto (Bld) [Volum e fraction]Ordered By: Gaudencio Patel on 07-25-2023 Hematocrit (Bld) [Volume fraction] 39.1 % 37-47 [facility] Immature granulocytes/100 WB C Auto (Bld)Ordered By: Gaudencio Patel on 07-25-2023 Immature granulocytes/100 WBC (Bld) 0.200 % 0.0-0.9 [facility] Comment on above: IG% - Immature Granu locytes (promyelocytes, myelocytes and metamyelocytes) > 1% indicates that a LEFT SHIFT is Present. Ketones Test strip Ql (U)Ord ered By: Gaudencio Patel on 07-25-2023 Ketones Ql (U) Negative Negative [facility] Laboratory - Chemistry and C hemistry - challengeOrdered By: Gaudencio Patel on 07-25-2023 Albumin/Globulin [Mass ratio] 1.1 {ratio} 0.9-2.4 [facility] ALP [Catalytic activity/Vol] 84 U/L 45-117 [facility] ALT [Catalytic activity/Vol] 33 U/L 13-56 [facility] Cholesterol in HDL [Mass/Vol] 71 mg/dL >40 [facility] Comment on above: The drugs N-Acetylcy steine and Metamizole may falsely depress this assay. Reference Range HDL <40 mg/dL Low HDL Cholesterol HDL >or= 60 mg/dL High HDL Cholesterol Cholesterol in LDL [Mass/Vol] 72 mg/dL 0-130 [facility] CO2 [Moles/Vol] 30.0 mmol/L 21.0-32.0 [facility] Globulin (S) [Mass/Vol] 3.6 g/dL 2.2-4.2 [facility] Magnesium [Mass/Vol] 2.2 mg/dL 1.6-2.6 [facility] Urea nitrogen/Creatinine [Mass ratio] 29.7 mg/mg 10-20 [facility] Laboratory - Hematology and Cell countsOrdered By: Gaudencio Patel on 07-25-2023 MCH (RBC) [Entitic mass] 29.6 pg 27.0-32.0 [facility] MCHC (RBC) [Mass/Vol] 32.0 g/dL 32-36 [facility] Nucleated RBC/100 WBC (Bld) [Ratio] 0 % 0-5 [facility] Platelet mean volume (Bld) [Entitic vol] 10.7 fL 6.2-12.0 [facility] Platelets (Bld) [#/Vol] 261 10*3/uL 150-450 [facility] Mucus LM Ql (Urine sed)Order ed By: Gaudencio Patel on 07-25-2023 Mucus Ql (Urine sed) 0 SEEN /hpf [facility] Nitrite Test strip Ql (U)Ord ered By: Gaudencio Patel on 07-25-2023 Nitrite Ql (U) Negative Negative [facility] No Panel InformationOrdered By: Gaudencio Patel on 07-25-2023 Estimated GFR (MDRD) Amer 109 mL/min >60 [facility] Comment on above: GFR Calc Estimated GFR (MDRD) Non-Af Amer 90 mL/min >60 [facility] Comment on above: Non- GFR Calc Urine RBC 0 SEEN /hpf 0-5 [facility] Vitamin D 25-Hydroxy 43.2 ng/mL [facility] Comment on above: Vitamin D 25(OH) Sta tus Range Deficiency <20 ng/mL (50nmol/L) Insufficiency 20 - 30 ng/mL (50 - 75 nmol/L) Sufficiency 30 - 100 ng/mL (75 - 250 nmol/L) Toxicity >100 ng/mL (>250 nmol/L) VLDL Cholesterol 16 mg/dL 5-40 [facility] Protein Test strip Ql (U)Ord ered By: Gaudencio Patel on 07-25-2023 Protein Ql (U) Negative Negative [facility] RBC Auto (Bld) [#/Vol]Ordere d By: Gaudencio Patel on 07-25-2023 RBC (Bld) [#/Vol] 4.22 10*6/uL 4.2-5.4 [facility] Serum or plasma calcium kerline urement (mass/volume)Ordered By: Gaudencio Patel on 07-25-2023 Calcium [Mass/Vol] 9.4 mg/dL 8.5-10.1 [facility] Serum or plasma creatinine m easurement (mass/volume)Ordered By: Gaudencio Patel on 07-25-2023 Creatinine [Mass/Vol] 0.67 mg/dL 0.55-1.02 [facility] Comment on above: The validity of the calculated GFR & GFRAA in patients over 70 years has not been determined. Clinical correlation is essential. Serum or plasma thyroid stim ulating hormone (TSH) measurement (units/volume)Ordered By: Gaudencio Patel on 07-25-2023 TSH Qn 0.89 uIU/mL 0.358-3.74 [facility] Serum or plasma urea nitroge n measurement (mass/volume)Ordered By: Gaudencio Patel on 07-25-2023 Urea nitrogen [Mass/Vol] 20 mg/dL 7-18 [facility] Squamous epithelial cells de tection in urine sediment by light microscopyOrdered By: Gaudencio Patel on 07-25-2023 Epithelial cells.squamous LM Ql (Urine sed) 0 SEEN /hpf 5-10 [facility] Thin prep Papanicolaou smear with manual screeningOrdered By: Gaudencio Patel on 07-25-2023 Thin prep Papanicolaou smear with manual screening 3.9 g/dL 3.2-5.0 [facility] Thin prep Papanicolaou smear with manual screening 25 U/L 15-37 [facility] Thin prep Papanicolaou smear with manual screening 1 5-15 [facility] Urine blood detectionOrdered By: Gaudencio Patel on 07-25-2023 RBC Ql (U) Negative Negative [facility] Urine clarityOrdered By: Jacob Patel on 07-25-2023 Clarity (U) Clear Clear [facility] Urine color determinationOrd ered By: Gaudencio Patel on 07-25-2023 Color (U) Yellow Yellow [facility] Urine glucose detectionOrder ed By: Gaudnecio Patel on 07-25-2023 Glucose Ql (U) Normal mg/dl Normal [facility] Urine leukocyte esterase det ection by dipstickOrdered By: Gaudencio Patel on 07-25-2023 Leukocyte esterase Test strip Ql (U) Negative Negative [facility] Urine pHOrdered By: Gaudencio perry on 07-25-2023 pH (U) 6.5 [pH] 5.0 - 8.0 [facility] Urine sediment bacteria coun t by microscopy (number/high power field)Ordered By: Gaudencio Paetl on 07-25-2023 Bacteria LM.HPF (Urine sed) [#/Area] 0 /[HPF] None Seen [facility] Urine specific gravity measu rementOrdered By: Gaudencio Patel on 07-25-2023 Specific gravity (U) [Rel density] 1.010 1.002-1.030 [facility] Urine urobilinogen measureme ntOrdered By: Gaudencio Patel on 07-25-2023 Urobilinogen Ql (U) Normal mg/dl Normal [facility] No Panel Informationon 06-08 POC SARS CoV-2 Antigen Positive [facility] Absolute lymphocyte countOrd ered By: Gaudencio Patel on 04-19-2023 Lymphocytes Auto (Unsp spec) [#/Vol] 2.24 10*3/uL 0.83-4.51 [facility] Basophil percentageOrdered B y: Gaudencio Patel on 04-19-2023 Basophils/100 WBC (Bld) 0.5 % 0-1 [facility] Bilirubin [Mass/Vol] 0.40 mg/dL 0.20-1.00 [facility] Comment on above: For patients on eltr ombopag therapy, use of Dimension [place] TBIL is not recommended. Chloride [Moles/Vol] 102 mmol/L 98-107 [facility] Cholesterol [Mass/Vol] 167 mg/dL <200 [facility] Comment on above: <200 mg/dL Desirable 200-240 mg/dL Borderline >240 mg/dL High Risk Eosinophils/100 WBC (Bld) 0.7 % 0-5 [facility] Glucose [Mass/Vol] 103 mg/dL 74-106 [facility] Comment on above: Fasting Glucose resu lt from 100 to 125 mg/dL suggests IMPAIRED HOMEOSTASIS per A.D.A. criteria. Neutrophils (Bld) [#/Vol] 5.3 10*3/uL 2.0-7.7 [facility] Neutrophils/100 WBC (Bld) 64.8 % 47-70 [facility] Potassium [Moles/Vol] 4.3 mmol/L 3.5-5.1 [facility] Protein [Mass/Vol] 7.6 g/dL 6.4-8.2 [facility] Sodium [Moles/Vol] 137 mmol/L 136-145 [facility] Triglyceride [Mass/Vol] 121 mg/dL <199 [facility] Comment on above: The drugs N-Acetylcy steine and Metamizole may falsely depress this assay.Serum Triglycerides Reference Interval Normal <150 mg/dL Borderline high 150 - 199 mg/dL High 200 - 499 mg/dL Very High > or = 500 mg/dL WBC (Bld) [#/Vol] 8.1 10*3/uL 4.4-11.0 [facility] Bilirubin Test strip Ql (U)O rdered By: Gaudencio Patel on 04-19-2023 Bilirubin Ql (U) Negative Negative [facility] Blood erythrocytes count (nu mber/volume)Ordered By: Gaudencio Patel on 04-19-2023 RBC (Bld) [#/Vol] 4.30 10*6/uL 4.2-5.4 [facility] Blood hemoglobin measurement (mass/volume)Ordered By: Gaudencio Patel on 04-19-2023 Hemoglobin (Bld) [Mass/Vol] 13.1 g/dL 12.0-15.0 [facility] Blood lymphocytes/100 leukoc ytesOrdered By: Gaudencio Patel on 04-19-2023 Lymphocytes/100 WBC (Bld) 27.6 % 19-41 [facility] Blood monocytes/100 leukocyt esOrdered By: Gaudencio Patel on 04-19-2023 Monocytes/100 WBC (Bld) 6.3 % 0-10 [facility] Blood platelet mean volumeOr dered By: Gaudencio Patel on 04-19-2023 Platelet mean volume (Bld) [Entitic vol] 11.3 fL 6.2-12.0 [facility] Determination of erythrocyte mean corpuscular volume (MCV)Ordered By: Gaudencio Patel on 04-19-2023 MCV (RBC) [Entitic vol] 92.3 fL 81-99 [facility] Hematocrit Auto (Bld) [Volum e fraction]Ordered By: Gaudencio Patel on 04-19-2023 Hematocrit (Bld) [Volume fraction] 39.7 % 37-47 [facility] Ketones Test strip Ql (U)Ord ered By: Gaudencio Patel on 04-19-2023 Ketones Ql (U) Negative Negative [facility] Laboratory - Chemistry and C hemistry - challengeOrdered By: Gaudencio Patel on 04-19-2023 ALP [Catalytic activity/Vol] 91 U/L 45-117 [facility] ALT [Catalytic activity/Vol] 44 U/L 13-56 [facility] CO2 [Moles/Vol] 29.0 mmol/L 21.0-32.0 [facility] Globulin (S) [Mass/Vol] 3.7 g/dL 2.2-4.2 [facility] Urea nitrogen/Creatinine [Mass ratio] 26.4 mg/mg 10-20 [facility] Laboratory - Hematology and Cell countsOrdered By: Gaudencio Patel on 04-19-2023 Erythrocyte distribution width (RBC) [Entitic vol] 44.0 fL 35.1-43.9 [facility] Erythrocyte distribution width (RBC) [Ratio] 13.1 % 11.6-14.6 [facility] Immature granulocytes/100 WBC (Bld) 0.100 % 0.0-0.9 [facility] Comment on above: IG% - Immature Granu locytes (promyelocytes, myelocytes and metamyelocytes) > 1% indicates that a LEFT SHIFT is Present. MCH (RBC) [Entitic mass] 30.5 pg 27.0-32.0 [facility] Nucleated RBC/100 WBC (Bld) [Ratio] 0 % 0-5 [facility] MCHC Auto (RBC) [Mass/Vol]Or dered By: Gaudencio Patel on 04-19-2023 MCHC (RBC) [Mass/Vol] 33.0 g/dL 32-36 [facility] Nitrite Test strip Ql (U)Ord ered By: Gaudencio Patel on 04-19-2023 Nitrite Ql (U) Negative Negative [facility] No Panel InformationOrdered By: Gaudencio Patel on 04-19-2023 Estimated GFR (MDRD) Amer 95 mL/min >60 [facility] Comment on above: GFR Calc Estimated GFR (MDRD) Non-Af Amer 79 mL/min >60 [facility] Comment on above: Non- GFR Calc Vitamin D 25-Hydroxy 46.9 ng/mL [facility] Comment on above: Vitamin D 25(OH) Sta tus Range Deficiency <20 ng/mL (50nmol/L) Insufficiency 20 - 30 ng/mL (50 - 75 nmol/L) Sufficiency 30 - 100 ng/mL (75 - 250 nmol/L) Toxicity >100 ng/mL (>250 nmol/L) Platelets bldOrdered By: Jacob Patel on 04-19-2023 Platelets (Bld) [#/Vol] 250 10*3/uL 150-450 [facility] Protein Test strip Ql (U)Ord ered By: Gaudencio Patel on 04-19-2023 Protein Ql (U) 30 mg/dl Negative [facility] Serum or plasma albumin kerline urement (mass/volume)Ordered By: Gaudencio Patel on 04-19-2023 Albumin [Mass/Vol] 3.9 g/dL 3.2-5.0 [facility] Serum or plasma albumin/glob ulin mass ratioOrdered By: Gaudencio Patel on 04-19-2023 Albumin/Globulin [Mass ratio] 1.1 {ratio} 0.9-2.4 [facility] Serum or plasma calcium kerline urement (mass/volume)Ordered By: Gaudencio Patel on 04-19-2023 Calcium [Mass/Vol] 9.4 mg/dL 8.5-10.1 [facility] Serum or plasma cholesterol in HDL measurement (mass/volume)Ordered By: Gaudencio Patel on 04-19-2023 Cholesterol in HDL [Mass/Vol] 68 mg/dL >40 [facility] Comment on above: The drugs N-Acetylcy steine and Metamizole may falsely depress this assay. Reference Range HDL <40 mg/dL Low HDL Cholesterol HDL >or= 60 mg/dL High HDL Cholesterol Serum or plasma cholesterol in VLDL measurement (mass/volume)Ordered By: Gaudencio Patel on 04-19-2023 Cholesterol in VLDL [Mass/Vol] 24 mg/dL 5-40 [facility] Serum or plasma creatinine m easurement (mass/volume)Ordered By: Gaudencio Patel on 04-19-2023 Creatinine [Mass/Vol] 0.76 mg/dL 0.55-1.02 [facility] Comment on above: The validity of the calculated GFR & GFRAA in patients over 70 years has not been determined. Clinical correlation is essential. Serum or plasma low density lipoprotein (LDL) cholesterol measurement (mass/volume)Ordered By: Gaudencio Patel on 04-19-2023 Cholesterol in LDL [Mass/Vol] 75 mg/dL 0-130 [facility] Serum or plasma urea nitroge n measurement (mass/volume)Ordered By: Gaudencio Patel on 04-19-2023 Urea nitrogen [Mass/Vol] 20 mg/dL 7-18 [facility] Thin prep Papanicolaou smear with manual screeningOrdered By: Gaudencio Patel on 04-19-2023 Thin prep Papanicolaou smear with manual screening 32 U/L 15-37 [facility] Thin prep Papanicolaou smear with manual screening 6 5-15 [facility] Urine blood detectionOrdered By: Gaudencio Patel on 04-19-2023 RBC Ql (U) Negative Negative [facility] Urine clarityOrdered By: Jacob Patel on 04-19-2023 Clarity (U) Clear Clear [facility] Urine color determinationOrd ered By: Gaudencio Patel on 04-19-2023 Color (U) Yellow Yellow [facility] Urine glucose detectionOrder ed By: Gaudencio Patel on 04-19-2023 Glucose Ql (U) Normal mg/dl Normal [facility] Urine leukocyte esterase det ection by dipstickOrdered By: Gaudencio Patel on 04-19-2023 Leukocyte esterase Test strip Ql (U) 500 /ul Negative [facility] Urine pHOrdered By: Gaudencio perry on 04-19-2023 pH (U) 6.5 [pH] 5.0 - 8.0 [facility] Urine specific gravity measu rementOrdered By: Gaudencio Patel on 04-19-2023 Specific gravity (U) [Rel density] 1.010 1.002-1.030 [facility] Urobilinogen Auto test strip Ql (U)Ordered By: Gaudencio Patel on 04-19-2023 Urobilinogen Ql (U) Normal mg/dl Normal [facility] Whole blood hemoglobin A1c/t otal hemoglobin ratio (mass fraction)Ordered By: Gaudencio Patel on 04-19-2023 HbA1c (Bld) [Mass fraction] 5.4 % 3.8-5.6 [facility] Comment on above: Normal < 5.7 % Predi abetic 5.7 - 6.4 % Diabetic >or= 6.5 % Please note range changes. Absolute lymphocyte countOrd ered By: Dr. Patel on 12-04-2022 Lymphocytes Auto (Unsp spec) [#/Vol] 2.13 10*3/uL 0.83-4.51 [facility] Basophil percentageOrdered B y: Dr. Patel on 12-04-2022 Basophils/100 WBC (Bld) 0.6 % 0-1 [facility] Bilirubin [Mass/Vol] 0.60 mg/dL 0.20-1.00 [facility] Comment on above: For patients on eltr ombopag therapy, use of Dimension [place] TBIL is not recommended. Chloride [Moles/Vol] 106 mmol/L 98-107 [facility] Cholesterol [Mass/Vol] 164 mg/dL <200 [facility] Comment on above: <200 mg/dL Desirable 200-240 mg/dL Borderline >240 mg/dL High Risk Eosinophils/100 WBC (Bld) 2.3 % 0-5 [facility] Glucose [Mass/Vol] 86 mg/dL 74-106 [facility] Neutrophils (Bld) [#/Vol] 3.6 10*3/uL 2.0-7.7 [facility] Neutrophils/100 WBC (Bld) 55.7 % 47-70 [facility] Potassium [Moles/Vol] 4.0 mmol/L 3.5-5.1 [facility] Protein [Mass/Vol] 7.8 g/dL 6.4-8.2 [facility] Sodium [Moles/Vol] 140 mmol/L 136-145 [facility] Triglyceride [Mass/Vol] 102 mg/dL <199 [facility] Comment on above: The drugs N-Acetylcy steine and Metamizole may falsely depress this assay.Serum Triglycerides Reference Interval Normal <150 mg/dL Borderline high 150 - 199 mg/dL High 200 - 499 mg/dL Very High > or = 500 mg/dL WBC (Bld) [#/Vol] 6.5 10*3/uL 4.4-11.0 [facility] Blood erythrocytes count (nu mber/volume)Ordered By: Dr. Patel on 12-04-2022 RBC (Bld) [#/Vol] 4.19 10*6/uL 4.2-5.4 [facility] Blood hemoglobin measurement (mass/volume)Ordered By: Dr. Patel on 12-04-2022 Hemoglobin (Bld) [Mass/Vol] 12.9 g/dL 12.0-15.0 [facility] Blood lymphocytes/100 leukoc ytesOrdered By: Dr. Patel on 12-04-2022 Lymphocytes/100 WBC (Bld) 32.9 % 19-41 [facility] Blood monocytes/100 leukocyt esOrdered By: Dr. Patel on 12-04-2022 Monocytes/100 WBC (Bld) 8.2 % 0-10 [facility] Blood platelet mean volumeOr dered By: Dr. Patel on 12-04-2022 Platelet mean volume (Bld) [Entitic vol] 11.3 fL 6.2-12.0 [facility] Determination of erythrocyte mean corpuscular volume (MCV)Ordered By: Dr. Patel on 12-04-2022 MCV (RBC) [Entitic vol] 94.5 fL 81-99 [facility] Hematocrit Auto (Bld) [Volum e fraction]Ordered By: Dr. Patel on 12-04-2022 Hematocrit (Bld) [Volume fraction] 39.6 % 37-47 [facility] Laboratory - Chemistry and C hemistry - challengeOrdered By: Dr. Patel on 12-04-2022 ALP [Catalytic activity/Vol] 105 U/L 45-117 [facility] ALT [Catalytic activity/Vol] 32 U/L 13-56 [facility] CO2 [Moles/Vol] 28.0 mmol/L 21.0-32.0 [facility] Globulin (S) [Mass/Vol] 4.0 g/dL 2.2-4.2 [facility] Urea nitrogen/Creatinine [Mass ratio] 25.6 mg/mg 10-20 [facility] Laboratory - Hematology and Cell countsOrdered By: Dr. Patel on 12-04-2022 Erythrocyte distribution width (RBC) [Entitic vol] 43.4 fL 35.1-43.9 [facility] Erythrocyte distribution width (RBC) [Ratio] 12.5 % 11.6-14.6 [facility] Immature granulocytes/100 WBC (Bld) 0.300 % 0.0-0.9 [facility] Comment on above: IG% - Immature Granu locytes (promyelocytes, myelocytes and metamyelocytes) > 1% indicates that a LEFT SHIFT is Present. MCH (RBC) [Entitic mass] 30.8 pg 27.0-32.0 [facility] Nucleated RBC/100 WBC (Bld) [Ratio] 0 % 0-5 [facility] MCHC Auto (RBC) [Mass/Vol]Or dered By: Dr. Patel on 12-04-2022 MCHC (RBC) [Mass/Vol] 32.6 g/dL 32-36 [facility] No Panel InformationOrdered By: Dr. Patel on 12-04-2022 Estimated GFR (MDRD) Amer 92 mL/min >60 [facility] Comment on above: GFR Calc Estimated GFR (MDRD) Non-Af Amer 76 mL/min >60 [facility] Comment on above: Non- GFR Calc Platelets bldOrdered By: Dr. Patel on 12-04-2022 Platelets (Bld) [#/Vol] 259 10*3/uL 150-450 [facility] Serum or plasma albumin kerline urement (mass/volume)Ordered By: Dr. Patel on 12-04-2022 Albumin [Mass/Vol] 3.8 g/dL 3.2-5.0 [facility] Serum or plasma albumin/glob ulin mass ratioOrdered By: Dr. Patel on 12-04-2022 Albumin/Globulin [Mass ratio] 1.0 {ratio} 0.9-2.4 [facility] Serum or plasma calcium kerline urement (mass/volume)Ordered By: Dr. Patel on 12-04-2022 Calcium [Mass/Vol] 9.6 mg/dL 8.5-10.1 [facility] Serum or plasma cholesterol in HDL measurement (mass/volume)Ordered By: Dr. Patel on 12-04-2022 Cholesterol in HDL [Mass/Vol] 62 mg/dL >40 [facility] Comment on above: The drugs N-Acetylcy steine and Metamizole may falsely depress this assay. Reference Range HDL <40 mg/dL Low HDL Cholesterol HDL >or= 60 mg/dL High HDL Cholesterol Serum or plasma cholesterol in VLDL measurement (mass/volume)Ordered By: Dr. Patel on 12-04-2022 Cholesterol in VLDL [Mass/Vol] 20 mg/dL 5-40 [facility] Serum or plasma creatinine m easurement (mass/volume)Ordered By: Dr. Patel on 12-04-2022 Creatinine [Mass/Vol] 0.78 mg/dL 0.55-1.02 [facility] Comment on above: The validity of the calculated GFR & GFRAA in patients over 70 years has not been determined. Clinical correlation is essential. Serum or plasma low density lipoprotein (LDL) cholesterol measurement (mass/volume)Ordered By: Dr. Patel on 12-04-2022 Cholesterol in LDL [Mass/Vol] 82 mg/dL 0-130 [facility] Serum or plasma urea nitroge n measurement (mass/volume)Ordered By: Dr. Patel on 12-04-2022 Urea nitrogen [Mass/Vol] 20 mg/dL 7-18 [facility] Thin prep Papanicolaou smear with manual screeningOrdered By: Dr. Patel on 12-04-2022 Thin prep Papanicolaou smear with manual screening 26 U/L 15-37 [facility] Thin prep Papanicolaou smear with manual screening 6 5-15 [facility] Whole blood hemoglobin A1c/t otal hemoglobin ratio (mass fraction)Ordered By: Dr. Patel on 12-04-2022 HbA1c (Bld) [Mass fraction] 5.2 % 3.8-5.6 [facility] Comment on above: Normal < 5.7 % Predi abetic 5.7 - 6.4 % Diabetic >or= 6.5 % Please note range changes. Absolute lymphocyte countOrd ered By: Dr. Patel on 09-13-2022 Lymphocytes Auto (Unsp spec) [#/Vol] 2.32 10*3/uL 0.83-4.51 [facility] Basophil percentageOrdered B y: Dr. Patel on 09-13-2022 Basophil percentage 0-5 SEEN /hpf 0-5 [facility] Basophils/100 WBC (Bld) 0.4 % 0-1 [facility] Bilirubin [Mass/Vol] 0.60 mg/dL 0.20-1.00 [facility] Comment on above: For patients on eltr ombopag therapy, use of Dimension [place] TBIL is not recommended. Chloride [Moles/Vol] 102 mmol/L 98-107 [facility] Cholesterol [Mass/Vol] 183 mg/dL <200 [facility] Comment on above: <200 mg/dL Desirable 200-240 mg/dL Borderline >240 mg/dL High Risk Eosinophils/100 WBC (Bld) 1.6 % 0-5 [facility] Glucose [Mass/Vol] 106 mg/dL 74-106 [facility] Comment on above: Fasting Glucose resu lt from 100 to 125 mg/dL suggests IMPAIRED HOMEOSTASIS per A.D.A. criteria. Neutrophils (Bld) [#/Vol] 4.3 10*3/uL 2.0-7.7 [facility] Neutrophils/100 WBC (Bld) 58.9 % 47-70 [facility] Potassium [Moles/Vol] 4.3 mmol/L 3.5-5.1 [facility] Protein [Mass/Vol] 7.9 g/dL 6.4-8.2 [facility] Sodium [Moles/Vol] 139 mmol/L 136-145 [facility] Triglyceride [Mass/Vol] 101 mg/dL <199 [facility] Comment on above: The drugs N-Acetylcy steine and Metamizole may falsely depress this assay.Serum Triglycerides Reference Interval Normal <150 mg/dL Borderline high 150 - 199 mg/dL High 200 - 499 mg/dL Very High > or = 500 mg/dL WBC (Bld) [#/Vol] 7.4 10*3/uL 4.4-11.0 [facility] Bilirubin Test strip Ql (U)O rdered By: Dr. Patel on 09-13-2022 Bilirubin Ql (U) Negative Negative [facility] Blood erythrocytes count (nu mber/volume)Ordered By: Dr. Patel on 09-13-2022 RBC (Bld) [#/Vol] 4.51 10*6/uL 4.2-5.4 [facility] Blood hemoglobin measurement (mass/volume)Ordered By: Dr. Patel on 09-13-2022 Hemoglobin (Bld) [Mass/Vol] 13.7 g/dL 12.0-15.0 [facility] Blood lymphocytes/100 leukoc ytesOrdered By: Dr. Patel on 09-13-2022 Lymphocytes/100 WBC (Bld) 31.4 % 19-41 [facility] Blood monocytes/100 leukocyt esOrdered By: Dr. Patel on 09-13-2022 Monocytes/100 WBC (Bld) 7.6 % 0-10 [facility] Blood platelet mean volumeOr dered By: Dr. Patel on 09-13-2022 Platelet mean volume (Bld) [Entitic vol] 11.0 fL 6.2-12.0 [facility] Determination of erythrocyte mean corpuscular volume (MCV)Ordered By: Dr. Patel on 09-13-2022 MCV (RBC) [Entitic vol] 91.6 fL 81-99 [facility] Hematocrit Auto (Bld) [Volum e fraction]Ordered By: Dr. Patel on 09-13-2022 Hematocrit (Bld) [Volume fraction] 41.3 % 37-47 [facility] Ketones Test strip Ql (U)Ord ered By: Dr. Patel on 09-13-2022 Ketones Ql (U) Negative Negative [facility] Laboratory - Chemistry and C hemistry - challengeOrdered By: Dr. Patel on 09-13-2022 ALP [Catalytic activity/Vol] 83 U/L 45-117 [facility] ALT [Catalytic activity/Vol] 38 U/L 13-56 [facility] CO2 [Moles/Vol] 27.0 mmol/L 21.0-32.0 [facility] Globulin (S) [Mass/Vol] 3.7 g/dL 2.2-4.2 [facility] Urea nitrogen/Creatinine [Mass ratio] 30.1 mg/mg 10-20 [facility] Laboratory - Hematology and Cell countsOrdered By: Dr. Patel on 09-13-2022 Erythrocyte distribution width (RBC) [Entitic vol] 41.8 fL 35.1-43.9 [facility] Erythrocyte distribution width (RBC) [Ratio] 12.3 % 11.6-14.6 [facility] Immature granulocytes/100 WBC (Bld) 0.100 % 0.0-0.9 [facility] Comment on above: IG% - Immature Granu locytes (promyelocytes, myelocytes and metamyelocytes) > 1% indicates that a LEFT SHIFT is Present. MCH (RBC) [Entitic mass] 30.4 pg 27.0-32.0 [facility] Nucleated RBC/100 WBC (Bld) [Ratio] 0 % 0-5 [facility] MCHC Auto (RBC) [Mass/Vol]Or dered By: Dr. Patel on 09-13-2022 MCHC (RBC) [Mass/Vol] 33.2 g/dL 32-36 [facility] Mucus LM Ql (Urine sed)Order ed By: Dr. Patel on 09-13-2022 Mucus Ql (Urine sed) 0 SEEN /hpf [facility] Nitrite Test strip Ql (U)Ord ered By: Dr. Patel on 09-13-2022 Nitrite Ql (U) Negative Negative [facility] No Panel InformationOrdered By: Dr. Patel on 09-13-2022 Estimated GFR (MDRD) Amer 100 mL/min >60 [facility] Comment on above: GFR Calc Estimated GFR (MDRD) Non-Af Amer 82 mL/min >60 [facility] Comment on above: Non- GFR Calc Thyroid Stimulating Hormone (TSH) 0.90 uIU/mL 0.358-3.74 [facility] Vitamin D 25-Hydroxy 41.3 ng/mL [facility] Comment on above: Vitamin D 25(OH) Sta tus Range Deficiency <20 ng/mL (50nmol/L) Insufficiency 20 - 30 ng/mL (50 - 75 nmol/L) Sufficiency 30 - 100 ng/mL (75 - 250 nmol/L) Toxicity >100 ng/mL (>250 nmol/L) Platelets bldOrdered By: Dr. Patel on 09-13-2022 Platelets (Bld) [#/Vol] 256 10*3/uL 150-450 [facility] Protein Test strip Ql (U)Ord ered By: Dr. Patel on 09-13-2022 Protein Ql (U) Negative Negative [facility] Serum or plasma albumin kerline urement (mass/volume)Ordered By: Dr. Patel on 09-13-2022 Albumin [Mass/Vol] 4.2 g/dL 3.2-5.0 [facility] Serum or plasma albumin/glob ulin mass ratioOrdered By: Dr. Patel on 09-13-2022 Albumin/Globulin [Mass ratio] 1.1 {ratio} 0.9-2.4 [facility] Serum or plasma calcium kerlnie urement (mass/volume)Ordered By: Dr. Patel on 09-13-2022 Calcium [Mass/Vol] 9.5 mg/dL 8.5-10.1 [facility] Serum or plasma cholesterol in HDL measurement (mass/volume)Ordered By: Dr. Patel on 09-13-2022 Cholesterol in HDL [Mass/Vol] 73 mg/dL >40 [facility] Comment on above: The drugs N-Acetylcy steine and Metamizole may falsely depress this assay. Reference Range HDL <40 mg/dL Low HDL Cholesterol HDL >or= 60 mg/dL High HDL Cholesterol Serum or plasma cholesterol in VLDL measurement (mass/volume)Ordered By: Dr. Patel on 09-13-2022 Cholesterol in VLDL [Mass/Vol] 20 mg/dL 5-40 [facility] Serum or plasma creatinine m easurement (mass/volume)Ordered By: Dr. Patel on 09-13-2022 Creatinine [Mass/Vol] 0.73 mg/dL 0.55-1.02 [facility] Comment on above: The validity of the calculated GFR & GFRAA in patients over 70 years has not been determined. Clinical correlation is essential. Serum or plasma low density lipoprotein (LDL) cholesterol measurement (mass/volume)Ordered By: Dr. Patel on 09-13-2022 Cholesterol in LDL [Mass/Vol] 90 mg/dL 0-130 [facility] Serum or plasma urea nitroge n measurement (mass/volume)Ordered By: Dr. Patel on 09-13-2022 Urea nitrogen [Mass/Vol] 22 mg/dL 7-18 [facility] Squamous epithelial cells de tection in urine sediment by light microscopyOrdered By: Dr. Patel on 09-13-2022 Epithelial cells.squamous LM Ql (Urine sed) 0 SEEN /hpf 5-10 [facility] Thin prep Papanicolaou smear with manual screeningOrdered By: Dr. Patel on 09-13-2022 Thin prep Papanicolaou smear with manual screening 30 U/L 15-37 [facility] Thin prep Papanicolaou smear with manual screening 10 5-15 [facility] Urine blood detectionOrdered By: Dr. Patel on 09-13-2022 RBC Ql (U) Negative Negative [facility] RBC Ql (U) 0 SEEN /hpf 0-5 [facility] Urine clarityOrdered By: Dr. Patel on 09-13-2022 Clarity (U) Clear Clear [facility] Urine color determinationOrd ered By: Dr. Patel on 09-13-2022 Color (U) Yellow Yellow [facility] Urine glucose detectionOrder ed By: Dr. Patel on 09-13-2022 Glucose Ql (U) Normal mg/dl Normal [facility] Urine leukocyte esterase det ection by dipstickOrdered By: Dr. Patel on 09-13-2022 Leukocyte esterase Test strip Ql (U) 100 /ul Negative [facility] Urine pHOrdered By: Dr. Alfonzo álvarez on 09-13-2022 pH (U) 7.0 [pH] 5.0 - 8.0 [facility] Urine sediment bacteria coun t by microscopy (number/high power field)Ordered By: Dr. Patel on 09-13-2022 Bacteria LM.HPF (Urine sed) [#/Area] 0 /[HPF] None Seen [facility] Urine specific gravity measu rementOrdered By: Dr. Patel on 09-13-2022 Specific gravity (U) [Rel density] 1.005 1.002-1.030 [facility] Urobilinogen Auto test strip Ql (U)Ordered By: Dr. Patel on 09-13-2022 Urobilinogen Ql (U) Normal mg/dl Normal [facility] Whole blood hemoglobin A1c/t otal hemoglobin ratio (mass fraction)Ordered By: Dr. Patel on 09-13-2022 HbA1c (Bld) [Mass fraction] 5.6 % 3.8-5.6 [facility] Comment on above: Normal < 5.7 % Predi abetic 5.7 - 6.4 % Diabetic >or= 6.5 % Please note range changes. Absolute lymphocyte countOrd ered By: Dr. Roman on 08-19-2022 Lymphocytes Auto (Unsp spec) [#/Vol] 2.70 10*3/uL 0.83-4.51 [facility] Basophil percentageOrdered B y: Dr. Roman on 08-19-2022 Basophils/100 WBC (Bld) 0.5 % 0-1 [facility] Chloride [Moles/Vol] 104 mmol/L 98-107 [facility] Cholesterol [Mass/Vol] 177 mg/dL <200 [facility] Comment on above: <200 mg/dL Desirable 200-240 mg/dL Borderline >240 mg/dL High Risk Eosinophils/100 WBC (Bld) 1.8 % 0-5 [facility] Glucose [Mass/Vol] 92 mg/dL 74-106 [facility] Neutrophils (Bld) [#/Vol] 3.8 10*3/uL 2.0-7.7 [facility] Neutrophils/100 WBC (Bld) 51.7 % 47-70 [facility] Potassium [Moles/Vol] 4.1 mmol/L 3.5-5.1 [facility] Sodium [Moles/Vol] 139 mmol/L 136-145 [facility] Triglyceride [Mass/Vol] 158 mg/dL <199 [facility] Comment on above: The drugs N-Acetylcy steine and Metamizole may falsely depress this assay.Serum Triglycerides Reference Interval Normal <150 mg/dL Borderline high 150 - 199 mg/dL High 200 - 499 mg/dL Very High > or = 500 mg/dL WBC (Bld) [#/Vol] 7.3 10*3/uL 4.4-11.0 [facility] Blood erythrocytes count (nu mber/volume)Ordered By: Dr. Roman on 08-19-2022 RBC (Bld) [#/Vol] 4.20 10*6/uL 4.2-5.4 [facility] Blood hemoglobin measurement (mass/volume)Ordered By: Dr. Roman on 08-19-2022 Hemoglobin (Bld) [Mass/Vol] 12.8 g/dL 12.0-15.0 [facility] Blood lymphocytes/100 leukoc ytesOrdered By: Dr. Roman on 08-19-2022 Lymphocytes/100 WBC (Bld) 37.0 % 19-41 [facility] Blood monocytes/100 leukocyt esOrdered By: Dr. Roman on 08-19-2022 Monocytes/100 WBC (Bld) 8.9 % 0-10 [facility] Blood platelet mean volumeOr dered By: Dr. Roman on 08-19-2022 Platelet mean volume (Bld) [Entitic vol] 11.2 fL 6.2-12.0 [facility] Determination of erythrocyte mean corpuscular volume (MCV)Ordered By: Dr. Roman on 08-19-2022 MCV (RBC) [Entitic vol] 92.9 fL 81-99 [facility] Hematocrit Auto (Bld) [Volum e fraction]Ordered By: Dr. Roman on 08-19-2022 Hematocrit (Bld) [Volume fraction] 39.0 % 37-47 [facility] Laboratory - Chemistry and C hemistry - challengeOrdered By: Dr. Roman on 08-19-2022 CO2 [Moles/Vol] 28.0 mmol/L 21.0-32.0 [facility] Urea nitrogen/Creatinine [Mass ratio] 28.7 mg/mg 10-20 [facility] Laboratory - Hematology and Cell countsOrdered By: Dr. Roman on 08-19-2022 Erythrocyte distribution width (RBC) [Entitic vol] 42.5 fL 35.1-43.9 [facility] Erythrocyte distribution width (RBC) [Ratio] 12.5 % 11.6-14.6 [facility] Immature granulocytes/100 WBC (Bld) 0.100 % 0.0-0.9 [facility] Comment on above: IG% - Immature Granu locytes (promyelocytes, myelocytes and metamyelocytes) > 1% indicates that a LEFT SHIFT is Present. MCH (RBC) [Entitic mass] 30.5 pg 27.0-32.0 [facility] Nucleated RBC/100 WBC (Bld) [Ratio] 0 % 0-5 [facility] MCHC Auto (RBC) [Mass/Vol]Or dered By: Dr. Roman on 08-19-2022 MCHC (RBC) [Mass/Vol] 32.8 g/dL 32-36 [facility] No Panel InformationOrdered By: Dr. Roman on 08-19-2022 Estimated Creatinine Clearance Calc 36.12 ml/min [facility] Estimated GFR (MDRD) Amer 112 mL/min >60 [facility] Comment on above: GFR Calc Estimated GFR (MDRD) Non-Af Amer 92 mL/min >60 [facility] Comment on above: Non- GFR Calc Platelets bldOrdered By: Dr. Roman on 08-19-2022 Platelets (Bld) [#/Vol] 208 10*3/uL 150-450 [facility] Serum or plasma calcium kerline urement (mass/volume)Ordered By: Dr. Roman on 08-19-2022 Calcium [Mass/Vol] 9.2 mg/dL 8.5-10.1 [facility] Serum or plasma cholesterol in HDL measurement (mass/volume)Ordered By: Dr. Roman on 08-19-2022 Cholesterol in HDL [Mass/Vol] 56 mg/dL >40 [facility] Comment on above: The drugs N-Acetylcy steine and Metamizole may falsely depress this assay. Reference Range HDL <40 mg/dL Low HDL Cholesterol HDL >or= 60 mg/dL High HDL Cholesterol Serum or plasma cholesterol in VLDL measurement (mass/volume)Ordered By: Dr. Roman on 08-19-2022 Cholesterol in VLDL [Mass/Vol] 32 mg/dL 5-40 [facility] Serum or plasma creatinine m easurement (mass/volume)Ordered By: Dr. Roman on 08-19-2022 Creatinine [Mass/Vol] 0.66 mg/dL 0.55-1.02 [facility] Comment on above: The validity of the calculated GFR & GFRAA in patients over 70 years has not been determined. Clinical correlation is essential. Serum or plasma low density lipoprotein (LDL) cholesterol measurement (mass/volume)Ordered By: Dr. Roman on 08-19-2022 Cholesterol in LDL [Mass/Vol] 89 mg/dL 0-130 [facility] Serum or plasma urea nitroge n measurement (mass/volume)Ordered By: Dr. Roman on 08-19-2022 Urea nitrogen [Mass/Vol] 19 mg/dL 7-18 [facility] Thin prep Papanicolaou smear with manual screeningOrdered By: Dr. Roman on 08-19-2022 Thin prep Papanicolaou smear with manual screening 7 5-15 [facility] Whole blood hemoglobin A1c/t otal hemoglobin ratio (mass fraction)Ordered By: Dr. Roman on 08-19-2022 HbA1c (Bld) [Mass fraction] 5.1 % 3.8-5.6 [facility] Comment on above: Normal < 5.7 % Predi abetic 5.7 - 6.4 % Diabetic >or= 6.5 % Please note range changes. Absolute lymphocyte countOrd ered By: Dr. Gray on 08-18-2022 Lymphocytes Auto (Unsp spec) [#/Vol] 2.91 10*3/uL 0.83-4.51 [facility] Basophil percentageOrdered B y: Dr. Gray on 08-18-2022 Basophil percentage 0-5 SEEN /hpf 0-5 [facility] Basophils/100 WBC (Bld) 0.5 % 0-1 [facility] Chloride [Moles/Vol] 103 mmol/L 98-107 [facility] Eosinophils/100 WBC (Bld) 1.4 % 0-5 [facility] Glucose [Mass/Vol] 116 mg/dL 74-106 [facility] Comment on above: Fasting Glucose resu lt from 100 to 125 mg/dL suggests IMPAIRED HOMEOSTASIS per A.D.A. criteria. Neutrophils (Bld) [#/Vol] 2.8 10*3/uL 2.0-7.7 [facility] Neutrophils/100 WBC (Bld) 43.6 % 47-70 [facility] Potassium [Moles/Vol] 4.4 mmol/L 3.5-5.1 [facility] Sodium [Moles/Vol] 139 mmol/L 136-145 [facility] WBC (Bld) [#/Vol] 6.4 10*3/uL 4.4-11.0 [facility] Bilirubin Test strip Ql (U)O rdered By: Dr. Gray on 08-18-2022 Bilirubin Ql (U) Negative Negative [facility] Blood erythrocytes count (nu mber/volume)Ordered By: Dr. Gray on 08-18-2022 RBC (Bld) [#/Vol] 4.11 10*6/uL 4.2-5.4 [facility] Blood hemoglobin measurement (mass/volume)Ordered By: Dr. Gray on 08-18-2022 Hemoglobin (Bld) [Mass/Vol] 12.7 g/dL 12.0-15.0 [facility] Blood lymphocytes/100 leukoc ytesOrdered By: Dr. Gray on 08-18-2022 Lymphocytes/100 WBC (Bld) 45.4 % 19-41 [facility] Blood monocytes/100 leukocyt esOrdered By: Dr. Gray on 08-18-2022 Monocytes/100 WBC (Bld) 8.9 % 0-10 [facility] Blood platelet mean volumeOr dered By: Dr. Gray on 08-18-2022 Platelet mean volume (Bld) [Entitic vol] 10.8 fL 6.2-12.0 [facility] [facility] Determination of erythrocyte mean corpuscular volume (MCV)Ordered By: Dr. Gray on 08-18-2022 MCV (RBC) [Entitic vol] 91.5 fL 81-99 [facility] Glucose Glucometer (BldC) [M ass/Vol]Ordered By: Dr. Gray on 08-18-2022 Glucose [Mass/Vol] 102 mg/dL 74-106 [facility] Comment on above: MANAGEMENT OF PATIEN T CARE PER NURSING PROTOCOL Hematocrit Auto (Bld) [Volum e fraction]Ordered By: Dr. Gray on 08-18-2022 Hematocrit (Bld) [Volume fraction] 37.6 % 37-47 [facility] INR in Blood by Coagulation assayOrdered By: Dr. Gray on 08-18-2022 INR Coag (Bld) [Relative time] 1.0 {INR} [facility] Ketones Test strip Ql (U)Ord ered By: Dr. Gray on 08-18-2022 Ketones Ql (U) Negative Negative [facility] Laboratory - Chemistry and C hemistry - challengeOrdered By: Dr. Gray on 08-18-2022 CO2 [Moles/Vol] 31.0 mmol/L 21.0-32.0 [facility] Urea nitrogen/Creatinine [Mass ratio] 35.1 mg/mg 10-20 [facility] Laboratory - CoagulationOrde red By: Dr. Gray on 08-18-2022 aPTT Coag (Bld) [Time] 29.3 s 24.1-36.2 [facility] PT Coag (PPP) [Time] 13.0 s 11.7-14.9 [facility] Laboratory - Hematology and Cell countsOrdered By: Dr. Gray on 08-18-2022 Erythrocyte distribution width (RBC) [Entitic vol] 41.6 fL 35.1-43.9 [facility] Erythrocyte distribution width (RBC) [Ratio] 12.6 % 11.6-14.6 [facility] Immature granulocytes/100 WBC (Bld) 0.200 % 0.0-0.9 [facility] Comment on above: IG% - Immature Granu locytes (promyelocytes, myelocytes and metamyelocytes) > 1% indicates that a LEFT SHIFT is Present. MCH (RBC) [Entitic mass] 30.9 pg 27.0-32.0 [facility] Nucleated RBC/100 WBC (Bld) [Ratio] 0 % 0-5 [facility] MCHC Auto (RBC) [Mass/Vol]Or dered By: Dr. Gray on 08-18-2022 MCHC (RBC) [Mass/Vol] 33.8 g/dL 32-36 [facility] Mucus LM Ql (Urine sed)Order ed By: Dr. Gray on 08-18-2022 Mucus Ql (Urine sed) 0 SEEN /hpf [facility] Nitrite Test strip Ql (U)Ord ered By: Dr. Gray on 08-18-2022 Nitrite Ql (U) Negative Negative [facility] No Panel InformationOrdered By: Dr. Gray on 08-18-2022 Estimated Creatinine Clearance Calc 36.12 ml/min [facility] Estimated GFR (MDRD) Amer 98 mL/min >60 [facility] Comment on above: GFR Calc Estimated GFR (MDRD) Non-Af Amer 81 mL/min >60 [facility] Comment on above: Non- GFR Calc Troponin I High Sensitivity 4 pg/mL 3.0-54.0 [facility] Comment on above: Please Note: New Angela t Units and Gender Specific Reference Ranges. For more information see Policy Stat Procedure [place] High Sensitivity Troponin (TNIH) and attachments. Platelets bldOrdered By: Dr. Gray on 08-18-2022 Platelets (Bld) [#/Vol] 209 10*3/uL 150-450 [facility] Protein Test strip Ql (U)Ord ered By: Dr. Gray on 08-18-2022 Protein Ql (U) Negative Negative [facility] Serum or plasma calcium kerline urement (mass/volume)Ordered By: Dr. Gray on 08-18-2022 Calcium [Mass/Vol] 9.0 mg/dL 8.5-10.1 [facility] Serum or plasma creatinine m easurement (mass/volume)Ordered By: Dr. Gray on 08-18-2022 Creatinine [Mass/Vol] 0.74 mg/dL 0.55-1.02 [facility] Comment on above: The validity of the calculated GFR & GFRAA in patients over 70 years has not been determined. Clinical correlation is essential. Serum or plasma urea nitroge n measurement (mass/volume)Ordered By: Dr. Gray on 08-18-2022 Urea nitrogen [Mass/Vol] 26 mg/dL 7-18 [facility] Squamous epithelial cells de tection in urine sediment by light microscopyOrdered By: Dr. Gray on 08-18-2022 Epithelial cells.squamous LM Ql (Urine sed) 0 SEEN /hpf 5-10 [facility] Thin prep Papanicolaou smear with manual screeningOrdered By: Dr. Gray on 08-18-2022 Thin prep Papanicolaou smear with manual screening 5 5-15 [facility] Urine blood detectionOrdered By: Dr. Gray on 08-18-2022 RBC Ql (U) Negative Negative [facility] RBC Ql (U) 0 SEEN /hpf 0-5 [facility] Urine clarityOrdered By: Dr. Gray on 08-18-2022 Clarity (U) Clear Clear [facility] Urine color determinationOrd ered By: Dr. Gray on 08-18-2022 Color (U) Yellow Yellow [facility] Urine glucose detectionOrder ed By: Dr. Gray on 08-18-2022 Glucose Ql (U) Normal mg/dl Normal [facility] Urine leukocyte esterase det ection by dipstickOrdered By: Dr. Gray on 08-18-2022 Leukocyte esterase Test strip Ql (U) 25 /ul Negative [facility] Urine pHOrdered By: Dr. Hu sibley on 08-18-2022 pH (U) 7.0 [pH] 5.0 - 8.0 [facility] Urine sediment bacteria coun t by microscopy (number/high power field)Ordered By: Dr. Gray on 08-18-2022 Bacteria LM.HPF (Urine sed) [#/Area] 0 /[HPF] None Seen [facility] Urine specific gravity measu rementOrdered By: Dr. Gray on 08-18-2022 Specific gravity (U) [Rel density] 1.005 1.002-1.030 [facility] Urobilinogen Auto test strip Ql (U)Ordered By: Dr. Gray on 08-18-2022 Urobilinogen Ql (U) Normal mg/dl Normal [facility] Absolute lymphocyte counton 12-26-2021 Lymphocytes Auto (Unsp spec) [#/Vol] 1.80 10*3/uL 0.83-4.51 [facility] Work Phone: Basophil percentageon 2021 Basophils/100 WBC (Bld) 0.5 % 0-1 [facility] Work Phone: Bilirubin [Mass/Vol] 0.70 mg/dL 0.20-1.00 [facility] Work Phone: Comment on above: For patients on eltr ombopag therapy, use of Dimension [place] TBIL is not recommended. Chloride [Moles/Vol] 101 mmol/L 98-107 [facility] Work Phone: Eosinophils/100 WBC (Bld) 1.6 % 0-5 [facility] Work Phone: Glucose [Mass/Vol] 96 mg/dL 74-106 [facility] Work Phone: Neutrophils (Bld) [#/Vol] 3.2 10*3/uL 2.0-7.7 [facility] Work Phone: Neutrophils/100 WBC (Bld) 57.3 % 47-70 [facility] Work Phone: Potassium [Moles/Vol] 4.3 mmol/L 3.5-5.1 [facility] Work Phone: [phone] Protein [Mass/Vol] 7.4 g/dL 6.4-8.2 [facility] Work Phone: Sodium [Moles/Vol] 136 mmol/L 136-145 [facility] Work Phone: WBC (Bld) [#/Vol] 5.6 10*3/uL 4.4-11.0 [facility] Work Phone: Blood erythrocytes count (nu mber/volume)on 12-26-2021 RBC (Bld) [#/Vol] 4.46 10*6/uL 4.2-5.4 [facility] Work Phone: Blood hemoglobin measurement (mass/volume)on 12-26-2021 Hemoglobin (Bld) [Mass/Vol] 13.5 g/dL 12.0-15.0 [facility] Work Phone: Blood lymphocytes/100 leukoc yteson 12-26-2021 Lymphocytes/100 WBC (Bld) 32.3 % 19-41 [facility] Work Phone: Blood monocytes/100 leukocyt eson 12-26-2021 Monocytes/100 WBC (Bld) 8.1 % 0-10 [facility] Work Phone: Blood platelet mean volumeon 12-26-2021 Platelet mean volume (Bld) [Entitic vol] 10.7 fL 6.2-12.0 [facility] Work Phone: Determination of erythrocyte mean corpuscular volume (MCV)on 12-26-2021 MCV (RBC) [Entitic vol] 91.5 fL 81-99 [facility] Work Phone: Hematocrit Auto (Bld) [Volum e fraction]on 12-26-2021 Hematocrit (Bld) [Volume fraction] 40.8 % 37-47 [facility] Work Phone: Laboratory - Chemistry and C hemistry - challengeon 12-26-2021 ALP [Catalytic activity/Vol] 70 U/L 45-117 [facility] Work Phone: ALT [Catalytic activity/Vol] 29 U/L 13-56 [facility] Work Phone: CO2 [Moles/Vol] 29.0 mmol/L 21.0-32.0 [facility] Work Phone: Globulin (S) [Mass/Vol] 3.4 g/dL 2.2-4.2 [facility] Work Phone: Urea nitrogen/Creatinine [Mass ratio] 16.2 mg/mg 10-20 [facility] Work Phone: Laboratory - Hematology and Cell countson 12-26-2021 Erythrocyte distribution width (RBC) [Entitic vol] 41.3 fL 35.1-43.9 [facility] Work Phone: Erythrocyte distribution width (RBC) [Ratio] 12.3 % 11.6-14.6 [facility] Work Phone: Immature granulocytes/100 WBC (Bld) 0.200 % 0.0-0.9 [facility] Work Phone: Comment on above: IG% - Immature Granu locytes (promyelocytes, myelocytes and metamyelocytes) > 1% indicates that a LEFT SHIFT is Present. MCH (RBC) [Entitic mass] 30.3 pg 27.0-32.0 [facility] Work Phone: Nucleated RBC/100 WBC (Bld) [Ratio] 0 % 0-5 [facility] Work Phone: MCHC Auto (RBC) [Mass/Vol]on 12-26-2021 MCHC (RBC) [Mass/Vol] 33.1 g/dL 32-36 [facility] Work Phone: No Panel Informationon 12-26 Estimated GFR (MDRD) Amer 98 mL/min >60 [facility] Work Phone: Comment on above: GFR Calc Estimated GFR (MDRD) Non-Af Amer 81 mL/min >60 [facility] Work Phone: Comment on above: Non- GFR Calc Thyroid Stimulating Hormone (TSH) 1.14 uIU/mL 0.358-3.74 [facility] Work Phone: Platelets bldon 12-26-2021 Platelets (Bld) [#/Vol] 250 10*3/uL 150-450 [facility] Work Phone: Serum or plasma albumin kerline urement (mass/volume)on 12-26-2021 Albumin [Mass/Vol] 4.0 g/dL 3.2-5.0 [facility] Work Phone: Serum or plasma albumin/glob ulin mass ratioon 12-26-2021 Albumin/Globulin [Mass ratio] 1.2 {ratio} 0.9-2.4 [facility] Work Phone: Serum or plasma calcium kerline urement (mass/volume)on 12-26-2021 Calcium [Mass/Vol] 9.3 mg/dL 8.5-10.1 [facility] Work Phone: Serum or plasma creatinine m easurement (mass/volume)on 12-26-2021 Creatinine [Mass/Vol] 0.74 mg/dL 0.55-1.02 [facility] Work Phone: Comment on above: The validity of the calculated GFR & GFRAA in patients over 70 years has not been determined. Clinical correlation is essential. Serum or plasma urea nitroge n measurement (mass/volume)on 12-26-2021 Urea nitrogen [Mass/Vol] 12 mg/dL 7-18 [facility] Work Phone: Thin prep Papanicolaou smear with manual screeningon 12-26-2021 Thin prep Papanicolaou smear with manual screening 26 U/L 15-37 [facility] Work Phone: Thin prep Papanicolaou smear with manual screening 6 5-15 [facility] Work Phone: OPERATIVE PROCEDURESon 06-09 OPERATIVE PROCEDURES [facility] OPERATIVE REPORT NAME ACCOUNT SEX AGE ADMIT DISCHARGE PT MED. RECORD# NUMBER DATE DATE TYPE NITIN [id number] F 73 05/28/19 05/28/19 2 KOJO Bourne [id number] ROOM: [facility] DATE OF : 1945 DICTATING PHYSICIAN: Fabienne Tejada DATE OF SURGERY: May 28, 2019 SURGEON: Fabienne Tejada DPM SELF SEALING FUEL TANK REPAIRER: ROBER Ott ANESTHESIOLOGIST: Miryam Benitez CRNA ANESTHETIC: [...] head of the first metatarsal. Using a Sunshine power saw, the medial and dorsomedial eminence [...] Fabienne Tejada DPM 05/28/19 12:05 JOB #: [id number] Transcribed By: fredrick 05/28/19 22:31 Electronically signed by: Dr. Fabienne Tejada 06/09/19 20:15 Page 3 of 3 KOJO TAVERAS Operative Report Normal [facility] Final Surgical Pathology Rep [facility] 05-30-2019 Final Surgical Pathology Report . Pathology Reports Accession: Collected Date/Time: Received Date/Time: Pathologist: [id number] 05/28/2019 14:35 EST 05/28/2019 14:35 KEELY RODRIGUEZ MD Final Surgical Pathology Report DIAGNOSIS: BONE, LEFT FOOT -- OSTEOCARTILAGINOUS TISSUE FRAGMENTS. NO EVIDENCE OF ACUTE INFLAMMATION OR TUMOR. COMMENT: [facility] A# [id number] CLINICAL INFORMATION: HALLUX VALGUS LEFT FOOT SPECIMEN: A BONE IN CAPSULE LEFT FOOT GROSS DESCRIPTION: Received in formalin labeled A is a 3 x 2.1 x 0.4 cm aggregate of orr bone and cartilage. TS -1 following decalcification Dictated by Stacy HUA ([facility]) MICROSCOPIC DESCRIPTION: Slides reviewed. Electronically Signed by Pathology Report verified by [facility] Electronically signed by KEELY GUERRERO Sign out Date: 05/30/2019 13:54 Performing Lab: [facility], [address] [place] [address] ([place]) Comment on above: Performed By: #### S PFR #### [place] [address] FOOT COMPLETE [facility] 9 FOOT COMPLETE [place] [address] Patient: KOJO TAVERAS. Phone#: : 1945 Age: 73 Gender: F Pt. Type: Out Account: [id number] Location: 2 Ordering: FABIENNE TEJADA Exam Date: 05/28/2019/11:31 Family Phys: ULI Rivera MANUELITO Charge Code: [id number] Physician: [place] Order #: [id number] DLP Dose#: PROCEDURE: X-RAY FOOT LT COMPLETE [...] Merritt MD on 05/28/2019 at 12:27 Normal [facility] FOOT COMPLETE RTon 9 FOOT COMPLETE RT [place] [address] Patient: KOJO TAVERAS Phone#: : 1945 Age: 73 Gender: F Pt. Type: Out Account: [id number] Location: [facility] Ordering: FABIENNE TEJADA Exam Date: 05/28/2019/11:40 Family Phys: ULI Rivera MANUELITO Charge Code: [id number] Physician: [place] Order #: [id number] DLP Dose#: PROCEDURE: X-RAY FOOT RT COMPLETE MIN 3 VIEWS COMPARISON: [facility], FOOT RT COMPLETE, 08/26/2015, 10:40. INDICATIONS: Post-operation [...] Merritt MD on 05/28/2019 at 12:32 Normal [facility] BMP with eGFRon 05-07-2019 Age - Reported 73 years Normal [facility] Comment on above: Performed By: #### 2 [id number] #### [facility],[address] [place] [address] 13044 Anion gap [Moles/Vol] 13 mmol/L Normal 10 - 20 [facility] Comment on above: Performed By: #### 2 14362 #### [facility],[address] [place] [address]61 Calcium [Mass/Vol] 10.1 mg/dL Normal 8.6 - 10.2 [facility] Comment on above: Performed By: #### 2 83904 #### [facility],[address] [place] [address] 08425 Chloride [Moles/Vol] 100 mmol/L Normal 98 - 107 [facility] Comment on above: Performed By: #### 2 99337 #### [facility],[address] [place] [address] 90903 CO2 [Moles/Vol] 28.6 mmol/L Normal 21.0 - 31.[address] [facility] Comment on above: Performed By: #### 2 16237 #### [facility],[address] [place] [address] 23283 Creatinine [Mass/Vol] 0.7 mg/dL Normal 0.6 - 1.2 [facility] Comment on above: Performed By: #### 2 09163 #### [facility],[address] [place] [address] 41243 GFR/1.73 sq M predicted among non-blacks MDRD (S/P/Bld) [Vol rate/Area] mL/min/{1.73_m2} Normal 60 - 999 [facility] Comment on above: Result Comment: ACCO RDING TO THE NATIONAL KIDNEY DISEASE EDUCATION PROGRAM(NKDE), A NORMAL eGFR IS A VALUE GREATER THAN OR EQUAL TO 60 ML/MIN/1.73 SQ METERS. CHRONIC KIDNEY DISEASE: <60mL/MIN/1.73 SQ METERS KIDNEY FAILURE: <15mL/MIN/1.73 SQ METERS THIS TEST SHOULD ONLY BE USED FOR PATIENTS 18 YEARS OF AGE AND OLDER. Performed By: #### 2 38781 #### [facility],[address] [place] [address] 69292 GFR/1.73 sq M predicted among non-blacks MDRD (S/P/Bld) [Vol rate/Area] Normal [facility] Comment on above: Result Comment: BASI C METABOLIC PANEL Performed By: #### 2 58036 #### [facility],[address] [place] [address] 51709 Glucose [Mass/Vol] 92 mg/dL Normal 74 - 106 [facility] Comment on above: Performed By: #### 2 23617 #### [facility],[address] [place] [address] 95007 Potassium [Moles/Vol] 4.5 mmol/L Normal 3.5 - 5.1 [facility] Comment on above: Performed By: #### 2 01934 #### [facility],[address] [place] [address] 07130 Sodium [Moles/Vol] 137 mmol/L Normal 136 - 145 [facility] Comment on above: Performed By: #### 2 61939 #### [facility],[address] [place] [address] 15116 Urea nitrogen [Mass/Vol] 18 mg/dL Normal 6 - 20 [facility] Comment on above: Performed By: #### 2 20659 #### [facility],[address] [place] [address] 16325 CBC + DIFFon 05-07-2019 Basophils (Bld) [#/Vol] 0.00 x10EE3/UL Normal 0.00 - 0 .10 [facility] Comment on above: Performed By: #### 2 39001 #### [facility],[address] [place], [place] [address] Basophils/100 WBC (Bld) 0.4 % Normal 0.0 - 2.0 [facility] Comment on above: Performed By: #### 2 76570 #### [facility],[address] [place] [address] CBC + DIFF Normal [facility] Comment on above: Result Comment: CBC- COMPLETE BLOOD COUNT Performed By: #### 2 94337 #### [place] [address] Eosinophils (Bld) [#/Vol] 0.10 x10EE3/UL Normal 0.00 - 0.50 [facility] Comment on above: Performed By: #### 2 49564 #### [place] [id number] Eosinophils/100 WBC (Bld) 1.1 % Normal 0.0 - 7.0 [facility] Comment on above: Performed By: #### 2 72072 #### [place] [address] Erythrocyte distribution width (RBC) [Ratio] 13.1 % Normal 12.0 - 15.6 [facility] Comment on above: Performed By: #### 2 97153 #### [place] [address] Hematocrit (Bld) [Volume fraction] 40.1 % Normal 34.0 - 46.0 [facility] Comment on above: Performed By: #### 2 76199 #### [place] [address] Hemoglobin (Bld) [Mass/Vol] 13.4 g/dL Normal 12.0 - 16.0 [facility] Comment on above: Performed By: #### 2 25665 #### [place] [address],[place] [address] Lymphocytes (Bld) [#/Vol] 2.40 x10EE3/UL Normal 0.80 - 2.80 [facility] Comment on above: Performed By: #### 2 23265 #### [facility],[address] [place] [address] 87592 Lymphocytes/100 WBC (Bld) 32.9 % Normal 20.0 - 45.0 [facility] Comment on above: Performed By: #### 2 46306 #### [facility],[address] [place] [address] 05475 MANUAL DIFF N/A Normal [facility] Comment on above: Performed By: #### 2 69107 #### [facility],[address] [place] [address] 80920 MCH (RBC) [Entitic mass] 30 pg Normal 27 - 33 [facility] Comment on above: Performed By: #### 2 29984 #### [facility],[address] [place] [address] 87012 MCHC (RBC) [Mass/Vol] 33 X10 3 Normal 32 - 36 [facility] Comment on above: Performed By: #### 2 86467 #### [facility],[address] [place] [address] 10358 MCV (RBC) [Entitic vol] 91 fL Normal 80 - 99 [facility] Comment on above: Performed By: #### 2 47114 #### [facility],[address] [place] [address] 89535 Monocytes (Bld) [#/Vol] 0.50 x10EE3/UL Normal 0.20 - 1 .00 [facility] Comment on above: Performed By: #### 2 02938 #### [facility],[address] [place] [address] 26008 MONOS % 6.9 % Normal 0.0 - 10.0 [facility] Comment on above: Performed By: #### 2 18221 #### [facility],[address] [place] [address] 91340 Morphology Janes (Bld) [Interp] N/A Normal [facility] Comment on above: Performed By: #### 2 67477 #### [facility],[address] [place] [address] 63541 Neutrophils (Bld) [#/Vol] 4.30 x10EE3/UL Normal 1.50 - 7.10 [facility] Comment on above: Performed By: #### 2 95334 #### [facility],[address] [place] [address] 99077 Neutrophils/100 WBC (Bld) 58.7 % Normal 46.0 - 76.0 [facility] Comment on above: Performed By: #### 2 09281 #### [facility],[address] [place] [address] 01777 Platelet mean volume (Bld) [Entitic vol] 9.2 fL Normal 6.6 - 10.5 [facility] Comment on above: Result Comment: AUTO MATED DIFFERENTIAL Performed By: #### 2 75919 #### [facility],[address] [place] [address] 08151 Platelets (Bld) [#/Vol] 229 x10EE3/UL Normal 150 - 450 [facility] Comment on above: Performed By: #### 2 34730 #### [facility],[address] [place] [address] 07956 RBC (Bld) [#/Vol] 4.39 x 10EE6/UL Normal 4.10 - 5.30 [facility] Comment on above: Performed By: #### 2 86735 #### [facility],[address] [place] [address] 02222 WBC (Bld) [#/Vol] 7.4 x 10EE3/UL Normal 4.5 - 10.8 [facility] Comment on above: Performed By: #### 2 74550 #### [facility],[address] [place] [address] 40743 CHEST 2 VIEWSon 05-07-2019 CHEST [address] [address] Patient: KOJO TAVERAS Phone#: : 1945 Age: 73 Gender: F Pt. Type: Out Account: [id number] Location: 062 Ordering: FABIENNE TEJADA Exam Date: 05/07/2019/11:23 Family Phys: ULI StephensonJose BILLINGS Charge Code: [id number] Physician: [place] Order #: [id number] DLP Dose#: PROCEDURE: X-RAY CHEST 2 VIEWS COMPARISON: [facility], XR, CHEST PA/LAT, 08/18/2015, 10:01. INDICATIONS: Pre-op [...] Merritt MD on 05/07/2019 at 14:18 Normal [facility] Vital Signs Date Time Vital Sign Value Performing Clinician Faci lity 07-31-2024 09:24-0500 Body height 154.[address] Gaudencio Patel MD Work Phone: [facility] 07-31-2024 09:24-0500 Body mass index (BMI) [Ratio] 23.8 kg/m2 Dr. Gaudencio Patel MD Work Phone: [facility] 07-31-2024 09:24-0500 Body weight 57.[address] Gaudencio Patel MD Work Phone: [facility] 07-31-2024 09:24-0500 Diastolic blood pressure 76 mm[Hg] Dr. Gaudencio Patel MD Work Phone: [facility] 07-31-2024 09:24-0500 Heart rate 61 /min Dr. Gaudencio Patel MD Work Phone: [facility] 07-31-2024 09:24-0500 Respiratory rate 18 /min Dr. Gaudencio Patel MD Work Phone: [phone] [address] 07-31-2024 09:24-0500 SaO2% (BldA) [Mass fraction] 98 % Dr. Gaudencio Patel MD Work Phone: [phone] [address] 07-31-2024 09:24-0500 Systolic blood pressure 133 mm[Hg] Dr. Gaudencio Patel MD Work Phone: 2(369)360-630861 [place] [address] 07-28-2024 08:36-0500 Body mass index (BMI) [Ratio] 23.8 kg/m2 Dr. Gaudencio Patel MD Work Phone: 3(014)513-924261 [place] [address] 07-28-2024 08:36-0500 Body weight 57.[address] Gaudencio Patel MD Work Phone: 4(880)424-408542 [address] 06-08-2023 15:54-0500 Body temperature 97.8 [degF] Dr. Gaudencio Patel Work Phone: 0(796)395-953442 [address] 06-08-2023 15:54-0500 Diastolic blood pressure 72 mm[Hg] Dr. Gaudencio Patel Work Phone: 4(935)694-105120 [place] [address] 06-08-2023 15:54-0500 Heart rate 69 /min Dr. Gaudencio Patel Work Phone: 4(961)401-999620 [place] [address] 06-08-2023 15:54-0500 Respiratory rate 16 /min Dr. Gaudencio Patel Work Phone: 8(583)[phone] [place] [address] 06-08-2023 15:54-0500 SaO2% (BldA) [Mass fraction] 99 % Dr. Gaudencio Patel Work Phone: 8(176)[phone] [place] [address] 06-08-2023 15:54-0500 Systolic blood pressure 134 mm[Hg] Dr. Gaudencio Patel Work Phone: [facility] 12-11-2022 07:14-0400 Body height 154.[address] Jasson Mancuso Work Phone: [facility] 12-11-2022 07:14-0400 Body weight 56.[address] Jasson Mancuso Work Phone: [facility] 12-08-2022 08:26-0400 Body mass index (BMI) [Ratio] 23.6 kg/m2 Dr. Jasson Mancuso Work Phone: [facility] 11-09-2022 11:02-0400 Body weight 56.[address] Jasson Mancuso Work Phone: [facility] 11-09-2022 11:02-0400 Diastolic blood pressure 79 mm[Hg] Dr. Jasson Mancuso Work Phone: [facility] 11-09-2022 11:02-0400 Heart rate 73 /min Dr. Jasson Mancuso Work Phone: [facility] 11-09-2022 11:02-0400 Respiratory rate 16 /min Dr. Jasson Mancuso Work Phone: [facility] 11-09-2022 11:02-0400 Systolic blood pressure 136 mm[Hg] Dr. Jasson Mancuso Work Phone: [facility] 11-09-2022 08:45-0400 Body height 154.[address] Jasson Mancuso Work Phone: [facility] 08-20-2022 10:30-0500 Body mass index (BMI) [Ratio] 24.4 kg/m2 Dr. Jasson Mancuso Work Phone: [facility] 08-20-2022 08:10-0500 SaO2% (BldA) [Mass fraction] 99 % Dr. Jasson Mancuso Work Phone: [facility] 08-20-2022 08:04-0500 Body temperature 98.1 [degF] Dr. Jasson Mancuso Work Phone: [facility] 08-20-2022 08:04-0500 Diastolic blood pressure 76 mm[Hg] Dr. Jasson Mancuso Work Phone: [facility] 08-20-2022 08:04-0500 Heart rate 64 /min Dr. Jasson Mancuso Work Phone: [facility] 08-20-2022 08:04-0500 Respiratory rate 16 /min Dr. Jasson Mancuso Work Phone: [facility] 08-20-2022 08:04-0500 Systolic blood pressure 133 mm[Hg] Dr. Jasson Mancuso Work Phone: [facility] 08-19-2022 01:24-0500 Body height 154.94 cm [facility] 08-19-2022 01:24-0500 Body mass index (BMI) [Ratio] 24.4 kg/m2 [facility] 08-19-2022 01:24-0500 Body weight 58.6 kg [facility] 08-19-2022 00:34-0500 Body temperature 98.7 [degF] [facility] 08-19-2022 00:34-0500 Diastolic blood pressure 57 mm[Hg] [facility] 08-19-2022 00:34-0500 Heart rate 61 /min [facility] 08-19-2022 00:34-0500 Respiratory rate 15 /min [facility] 08-19-2022 00:34-0500 SaO2% (BldA) [Mass fraction] 97 % [facility] 08-19-2022 00:34-0500 Systolic blood pressure 170 mm[Hg] [facility] Encounters Encounter Date Encounter Type Care Provider Facility Start: 03-20-2025 End: 03-20-2025 ambulatory Gaudencio Patel Facility:[facility] Start: 02-03-2025 End: 02-03-[address] Gaudencio Patel MD Work Phone: [facility] Start: 02-03-2025 End: 02-03-[address] Gaudencio Patel MD -[facility] Start: 02-03-2025 End: 02-03-2025 ambulatory Gaudencio Patel Facility:[facility] Start: 01-29-2025 End: 01-29-[address] Gaudencio Patel MD Work Phone: -[facility] Start: 01-29-2025 End: 01-29-[address] Gaudencio Patel MD -[facility] Work Phone: Start: 01-29-2025 End: 01-29-2025 ambulatory Gaudencio Patel Facility:[facility] Start: 11-23-2024 End: 11-23-[address] Gaudencio Patel MD Work Phone: [facility] Work Phone: Start: 11-23-2024 End: 11-23-[address] Ernesto Canela MD -[facility] Work Phone: Start: 11-12-2024 End: 11-12-[address] Gaudencio Patel MD Work Phone: [facility] Work Phone: Start: 11-12-2024 End: 11-12-[address] Gaudencio Patel MD -[facility] Start: 11-12-2024 End: 11-12-2024 ambulatory Gaudencio Patel Facility:[facility] Start: 09-01-2024 End: 09-01-[address] Brad Hanna DO -[facility] Work Phone: Start: 09-01-2024 End: 09-01-2024 ambulatory Gaudencio Patel Facility:[facility] Start: 09-01-2024 End: 09-01-2024 ambulatory Gaudencio Patel Facility:[facility] Start: 09-01-2024 End: 09-01-[address] Ernesto Canela MD -[facility] Work Phone: Start: 08-20-2024 End: 08-20-[address] Brad Hanna DO [facility] Work Phone: Start: 08-20-2024 End: 08-20-2024 ambulatory Gaudencio Patel Facility:[facility] Start: 08-13-2024 End: 08-13-[address] Brad Hanna DO -[facility] Work Phone: Start: 08-13-2024 End: 08-13-2024 ambulatory Gaudencio Patel Facility:[facility] Start: 07-31-2024 End: 07-31-2024 Patient encounter procedure Gaudencio MIRANDA -[facility] Work Phone: Start: 07-31-2024 End: 07-31-2024 ambulatory Gaudencio Patel Facility:[facility] Start: 07-28-2024 End: 07-28-[address] Brad Hanna DO [facility] Work Phone: Start: 07-28-2024 End: 07-28-2024 ambulatory Gaudencio Patel Facility:[facility] Start: 07-25-2024 End: 07-25-[address] Gaudencio Patel MD -[facility] Work Phone: Start: 07-25-2024 End: 07-25-2024 ambulatory Gaudencio Patel Facility:[facility] Start: 06-27-2024 End: 06-28-2024 Emergency department patient visit Gaudencio Patel Facility:[facility] Start: 06-02-2024 End: 06-02-2024 ambulatory Gaudencio Patel Facility:[facility] Start: 07-25-2023 End: 07-25-[address] Gaudencio Patel Work Phone: [facility] Work Phone: Start: 07-25-2023 End: 07-25-[address] Gaudencio Patel Work Phone: 2([phone] [place] [address] Start: 06-29-2023 End: 06-29-[address] Gaudencio Patel Work Phone: [facility] Work Phone: Start: 06-08-2023 End: 06-08-[address] Gaudencio Patel Work Phone: [facility] Work Phone: Start: 05-11-2023 End: 05-11-2023 ambulatory [facility] Work Phone: Start: 05-11-2023 End: 05-11-2023 Patient encounter procedure [facility] Work Phone: Start: 04-19-2023 End: 04-19-2023 ambulatory [facility] Work Phone: Start: 04-19-2023 End: 04-19-2023 Patient encounter procedure [facility] Work Phone: Start: 12-11-2022 End: 12-11-2022 Admission to same day surgery center Dr. 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 Jasson Mancuso Work Phone: [facility] Work Phone: Start: 12-04-2022 End: 12-04-[address] Jasson Mancuso Work Phone: [facility] Work Phone: Start: 12-04-2022 End: 12-04-[address] Jasson Mancuso Work Phone: [facility] Start: 11-27-2022 Non-patient / Non-visit Dr. Zenon Mancuso Work Phone: [facility] Start: 11-26-2022 Non-patient / Non-visit Dr. Zenon Mancuso Work Phone: [facility] Start: 11-09-2022 End: 11-09-[address] Jasson Mancuso Work Phone: [facility] Start: 09-13-2022 End: 09-13-[address] Jasson Mancuso Work Phone: [facility] Work Phone: Start: 09-13-2022 End: 09-13-[address] Jasson Mancuso Work Phone: [facility] Start: 09-05-2022 End: 09-05-[address] Jasson Mancuso Work Phone: [facility]-Physical Therapy Start: 08-20-2022 End: 08-20-[address] Jasson Mancuso Work Phone: [facility]-Pulmonary Services/Neurology Start: 08-20-2022 Non-patient / Non-visit Dr. Zenon Mancuso Work Phone: [facility] Inpatient Physicians Start: 08-19-2022 Non-patient / Non-visit Dr. Zenon Mancuso Work Phone: [facility] Start: 08-19-2022 Non-patient / Non-visit Dr. Zenon Mancuso Work Phone: [facility] Inpatient Physicians Start: 08-19-2022 End: 08-20-2022 Evaluation and management of inpatient [facility]-Progressive Care Unit Start: 08-19-2022 End: 08-20-[address] Jasson Mancuso Work Phone: [facility] Work Phone: Start: 03-14-2022 End: 03-14-2022 ambulatory [facility] Work Phone: Start: 03-14-2022 End: 03-14-2022 Patient encounter procedure [facility]-Outpatient Breast Imaging Start: 12-26-2021 End: 12-26-2021 Patient encounter procedure [facility]-Laboratory, [place] Start: 09-01-2021 End: 09-01-2021 Patient encounter procedure [facility]-Outpatient Bone Densitometry Start: 05-28-2019 Encounter for other preprocedural examination [facility] Start: 05-28-2019 End: 05-28-2019 Patient encounter procedure [facility] Start: 05-07-2019 End: 05-07-2019 Patient encounter procedure [facility] Encounter for other preprocedural examination [facility] Procedures Date Procedure Procedure Detail Performing Clinician Start: 01-29-2025 Urnls dip stick/tabl et reagent auto microscopy Dr. Gaudencio Patel MD Work Phone: Start: 11-12-2024 Measurement of Borre kalli burgdorferi [...] in 7 to 14 days isrecommended.Performed at: [address] [id number] Director: Eric Gonzalez PhD, Phone: [phone] Start: 07-25-2024 Measurement of renal function Dr. [...] Activity Detail Author Start: 08-20-2022 Patient discharge [facility] Start: 08-19-2022 End: 08-20-2022 [facility] Start: 08-19-2022 Blood chemistry [facility] Start: 08-19-2022 Application of inter mittent pneumatic compression device [facility] Start: 08-19-2022 Following clinical p athway protocol [facility] Start: 08-19-2022 Assessment of risk o f venous thromboembolism [facility] Start: 08-19-2022 Cardiac monitoring [facility] Start: 08-19-2022 Catheterization of vein [facility] Start: 08-19-2022 Continuous pulse oximetry [facility] Start: 08-19-2022 Elevation of head of bed [facility] Start: 08-19-2022 Exercises [facility] Start: 08-19-[address] anned interventions [facility] Start: 08-19-2022 Insertion of cathete r into peripheral vein [facility] Start: 08-19-2022 Measuring intake and output [facility] Start: 08-19-2022 MRI of brain without contrast Brain without Contrast [facility] Start: 08-19-2022 Notification of physician [facility] Start: 08-19-2022 Oxygen therapy [facility] Start: 08-19-2022 Providing care accor ding to standard [facility] Start: 08-19-2022 Provision of activit y privileges [facility] Start: 08-19-2022 Referral to service [facility] Start: 08-19-2022 Tobacco use cessatio n education [facility] Start: 08-19-2022 [facility] Start: 08-19-2022 Verification routine [facility] Start: 08-19-2022 Admission procedure [facility] Start: 09-01-2021 Dual energy X-ray absorptiometry Dexa Bone Density Study [facility] Work Phone: Ambulatory ECG [facility] Anion gap measurement [facility] BUN/Creatinine ratio [facility] Calcium [Mass/volume ] in Serum or Plasma [facility] Carbon dioxide, tota l [Moles/volume] in Serum or Plasma [facility] Chloride [Moles/volu me] in Serum or Plasma [facility] Cholesterol [Mass/vo lume] in Serum or Plasma [facility] Cholesterol in HDL [Mass/volume] in Serum or Plasma [facility] Cholesterol in LDL [Mass/volume] in Serum or Plasma [facility] Creatinine [Moles/vo lume] in Serum or Plasma [facility] Glucose [Mass/volume ] in Serum or Plasma [facility] Hematocrit [Volume Fraction] of Blood [facility] Hemoglobin [Mass/vol ume] in Blood [facility] Hemoglobin A1c/Hemoglobin.total in Blood [facility] Leukocytes [#/volume ] in Blood [facility] Mean corpuscular hem oglobin concentration determination [facility] Mean corpuscular hem oglobin determination [facility] Measurement of renal function [facility] Neutrophil count [facility] Neutrophil percent differential count [facility] Patient referral [facility] Work Phone: Platelets [#/volume] in Blood [facility] Potassium [Moles/vol ume] in Serum or Plasma [facility] Red blood cell count [facility] Red cell distributio n width determination [facility] Replacement of elect ronic heart device, pulse generator [facility] Sodium [Moles/volume ] in Serum or Plasma [facility] Triglycerides measurement [facility] Urea nitrogen [Mass/ volume] in Serum or Plasma [facility] VLDL cholesterol measurement [facility] Payers Date Payer Category Payer Self-pay [id number] 2024 Medicare [id number] 2012 Unknown [id number] 2011 Medicare [id number] 1945 Unknown [id number] 2.16.84 [id number] 1945 Unknown [id number] 2.16.84 [id number] Unknown [id number] [facility] [id number] Unknown [id number] 2.16.8 [id number] Unknown [id number] 2.16.8 [id number] Unknown [id number] 2.16.8 [id number] Unknown [id number] 2.16.8 [id number] Unknown [id number] 2.16.8 [id number] Unknown [id number] 2.16.8 [id number] Unknown [id number] 2.16.8 [id number] Unknown [id number] 2.16.8 [id number] Unknown [id number] 2.16.8 [id number] Unknown [id number] 2.16.8 [id number] Unknown [id number] 2.16.8 [id number] Unknown [id number] 2.16.8 [id number] Unknown [id number] 2.16.8 [id number] Unknown [id number] 2.16.8 [id number] Social History Date Type Detail Facility Start: 01-19-2021 End: 06-08-2023 Tobacco smoking status NHIS Unknown if ever smoked [facility] Start: 1945 Sex Assigned At Female W [facility] Start: 08-11-2024 Tobacco smoking stat us NJIS Never smoked tobacco (finding) [facility] Medical Equipment Procedure Code Equipment Code Equipment Origin al Text Equipment Identifier Dates ([id number]) Implantable card iac monitor ()[id number] FDA Start: 12-11-2022 Goals Date Patient Goal Desired Activity /State Functional Status Date Assessment Result Facility 08-20-2022 Functional status Patient Activi ty Ambulates;Up ad russell [facility] Work Phone: 08-20-2022 Functional status Independent [facility] Work Phone: Mental Status Date Assessment Result Facility 08-20-2022 Cognitive function Awake;Alert;A ppropriate;Foll ows Commands [facility] Work Phone: 08-19-2022 Cognitive function Arousable To Voice/Nam e [facility] Work Phone: 08-18-2022 Cognitive function Voice/Name [facility] Work Phone: Clinical Notes 08-19-2022 to 08-13-2024 Note Date & Type Note Facility 08-13-2024 Evaluation note Diagnosis Onset Date Resolution Right knee DJD acute July 202024 8:23am Right knee DJD acute August 20, 2024 3:15pm Right knee DJD acute August 8:06am [facility] Work Phone: 1(272) 540-558302-10-2025 Evaluation note* Diagnosis Onset Date Resolution Status Admit Date Chronic instability of knee, right knee acute July 28 8:33am Right knee DJD acute July 192024 8:33am CVA (cerebral vascular accident) acute July 31 9:22am Implantable loop recorder present acute July 31 9:22am Essential hypertension chronic Fe bruary 2024 9:22am Hyperlipidemia chronic July 192024 9:22am Right knee DJD acute July 202024 8:23am Right knee DJD acute August 20, 2024 3:15pm Right knee DJD acute August 8:06am [facility] Work Phone: 1(267) 157-725106-11-2023 History and physical note Author Dr. Canela [facility] November 26, 2022 9:45am Note Date/Time November 26, 2022 8:44 am [facility] Medical Records Department [address] [place] [address] History & Physical Exam 11/26/22 0841 MR#: [id number] Acct: [id number] Name: KOJO TAVERAS Rep #:[id number] : 1945 77 From: Gaudencio Holcomb NP [employer] PCP: Dr. 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 Anxiety Arthropathy of left shoulder [...] 11/26/22 0844 <Electronically signed by Gaudencio Holcomb [employer]ONC> Cosigner Signature (if applicable): 11/26/2245 <Electronically signed by Ernesto Canela MD> CC: [employer] Gaudencio Holcomb; Dr. Ernesto Canela MD; Dr. Gaudencio Patel MD~ Signed [facility] Work Phone: 1(586) 857-330503-05-[address] Ayala [facility] August 20, 2022 8:50am Note Date/Time August 20, 2022 8:50 am [facility] Medical Records Department [address] [place] [address] Discharge Summary 08/20/2247 MR#: [id number] Acct: [id number] Name: KOJO TAVERAS Rep #:[id number] : 1945 77 From: Omkar mendez MD PCP: Dr. Jasson Mancuso MD Status:ADM I NO Location: [place] [address] Providers Date of Admission: 08/19/22 Primary Care [...] on the diffusion-weighted sequence, images 9/60 through series 4. No additional acute infarcts are [...] on the diffusion-weighted sequence, images 9/60 through series 4. No additional acute infarcts are [...] Referring Physician: Jasson Mancuso Performed By: Akiko Rust RDCS, RVT D/C Instructions Discharge Diet: Low fat [...] 48 Hrs (Routine) Timeframe: 1 Day Facility: [facility] - Location: Cardiovascular Services Ordered By: Dr. Omkar Ayala Referrals / Follow Up: Jasson Mancuso MD [Primary Care Provider] - Within 1 Week Disposition Disposition (needs filled in before D/C Order can be placed): Home, Self Care Charges/Coding Visit Charges Inpatient E&M: 10881 Disch Hosp >30min 08/20/22 0850 <Electronically signed by Omkar Ayala MD> Cosigner Signature (if applicable): CC: Dr. Omkar Ayala MD; Dr. Jasson Mancuso MD~ Signed [facility] Work Phone: 1(792) 835-192403-05-[address] Ayala [facility] August 20, 2022 8:46am Note Date/Time August 20, 2022 8:42 am [facility] Medical Records Department [address] [place] [address] Instructions for Home/Discharge Instructions 08/20/22 0841 MR#: [id number] Acct: [id number] Name: KOJO TAVERAS Rep #:[id number] : 1945 77 From: Omkar mendez MD [...] 48 Hrs (Routine) Timeframe: 1 Day Facility: [facility] - Location: Cardiovascular Services Ordered By: Dr. Omkar Ayala Referrals / Follow Up: Jasson Mancuso MD [Primary Care Provider] - Within 1 Week Disposition Disposition (needs filled in before D/C Order can be placed): Home, Self Care 08/20/22 0846<Electronically signed by Omkar Ayala MD>Omkar Ayala MD CC: Dr. Brad Roman MD; Dr. Jasson Mancuso MD ~ Signed [facility] Work Phone: [phone] 534-192703-04-[address] Ayala [facility] August 19, 2022 2:29pm Note Date/Time August 19, 2022 2:29 pm [facility] Medical Records Department [address] [place] [address] Progress Note 08/19/22 1427 MR#: [id number] Acct: [id number] Name: KOJO TAVERAS Rep #:[id number] : 1945 77 From: Omkar mendez MD PCP: Dr. Jasson Mancuso MD Status:ADM I NO Location: [place] [address] Progress Note Symptoms have completely resolved today however MRI was read as occipital strokes will consult [facility] neurology for an over read as I do not clearly see those strokes on the diffusion-weighted images, but also to get their input. Wewill allow for permissive hypertension. 08/19/22 1429 <Electronically signed by Omkar Ayala MD> Omkar Ayala MD Cosigner Signature (if applicable): CC: ~ Signed [facility] Work Phone: [phone] 300-258203-04-[address] Ayala [facility] August 19, 2022 2:24pm Note Date/Time August 19, 2022 2:25 pm [facility] Medical Records Department [address] [place] [address] Telemedicine Confirmation Receipt 08/19/22 MR#: [id number] Acct: [id number] Name: KOJO TAVERAS Rep #:[id number] : 1945 77 From: Omkar mendez MD PCP: Dr. Jasson Mancuso MD Status:ADM I NO [facility] Telemed has confirmed receipt of a request for visit. This document confirms receipt of the order initiating the consult. To find the results of the consultation, please view the patient's reports for the scanned Telemed Consult. [facility] Work Phone: [phone]) 447-766303-04-2023 History and physical note Author Dr. Roman [facility] August 19, 2022 2:13am Note Date/Time August 19, 2022 12:3 3am [facility] Medical Records Department [address] [place] [address] H&P Exam - Hospitalist 08/19/22 0032 MR#: [id number] Acct: [id number] Name: KOJO TAVERAS Rep #:[id number] : 1945 77 From: Brad Roman MD PCP: Dr. Jasson Mancuso MD Status:ADM I NO Location: [place] [address]- HPI - General General Date of Admission: [...] to the hospital for a TIA work-up. [facility] Medical History Arthropathy of left shoulder Cardiac [...] (Auto) 43.6 L, Lymph % (Auto) 45.4 H,Blaine % (Auto) 8.9, Eos % (Auto) 1.4, [...] Clarity Clear, Urine pH 7.0, Ur Specific [place] 1.005, Urine Protein Negative, Urine Glucose (UA) Normal, UrineKetones Negative, Urine Occult Blood Negative, Urine Nitrite Negative, Urine Bilirubin Negative, Urine Urobilinogen Normal, Ur Leukocyte Esterase 25 [address] Rad[address] Impression Brain CT 08/18/22 22:08 IMPRESSION: Negative Brain CT without contrast. Electronically Signed: Valdo Soto MD at 22:25 EST , ADDENDUM: 08/18/22 2236 IMPRESSION: Negative Brain CT without contrast. N.B. : The above Results were Read Back by Valdo Soto MD to Sid Gray MD, and understanding confirmed on 08/18/2022 22:29:49 (ET). Electronically Signed: Valdo Soto MD at 22:25 EST Reading Location ID and State: [facility] / [place] Tel , Service support , Head/Neck CTA 08/18/22 22:08 IMPRESSION: Negative CTA Carotid and Brain. Electronically Signed: Valdo Soto MD at 22:44 EST Reading Location ID and State: [facility] / [place] Tel , Service support , ADDENDUM: 08/18/22 2255 IMPRESSION: Negative CTA Carotid and Brain. N.B. : The above Results were Read Back by Valdo Soto MD to Sid Gray MD, and understanding confirmed on 08/18/2022 22:48:34 (ET). Electronically Signed: Valdo Soto MD at 22:44 EST Reading Location ID and State: [facility] / [place] Tel , Service support , Chest X-Ray 08/18/22 22:52 IMPRESSION: No [...] SCDs ordered Charges/Coding Visit Charges Inpatient E&M: 55622 Init Hosp L2 08/19/22 0213 <Electronically signed by Brad Roman MD> Cosigner Signature (if applicable): CC: Dr. Brad Roman MD; Dr. Jasson Mancuso MD~ Signed [facility] Work Phone: [phone] Gray [facility] August 19, 2022 12:21am Note Date/Time August 18, 2022 10:2 9pm [facility] Medical Records Department [address] [place] [address] Emergency Department Summary 08/18/22 MR#: [id number] Acct: [id number] Name: KOJO TAVERAS Rep #:[id number] : 1945 77 From: Sid Gray MD [...] she went out for a bathat around [id number]. She came down and had her glasses [...] TIAs later on in life. [facility] Medical History Arthropathy of left shoulder [...] 27 with a normal creatinine of 0.7. Flute-rt-kyxt glucose is 102. I do not feel [...] 43.6 L Lymph % (Auto) 45.4 H Blaine % (Auto) 8.9 Eos % (Auto) 1.4 [...] Color Urine Clarity Urine pH Ur Specific [place] Urine Protein Urine Glucose (UA) Urine Ketones Urine Occult Blood Urine Nitrite Urine Bilirubin Urine Urobilinogen Ur Leukocyte Esterase POC Glucose 102 03/03/23 03/03/23 22:04 23:19 WBC RBC Hgb Hct MCV MCH MCHC RDW Std Deviation RDW Coeff of Lyn Plt Count MPV Immature Gran % (Auto) Neut % (Auto) Lymph % (Auto) Blaine % (Auto) Eos % (Auto) Baso % [...] Clarity Clear Urine pH 7.0 Ur Specific [place] 1.005 Urine Protein Negative Urine Glucose (UA) [...] Hypertensive emergency Disposition Disposition: Acute Care Hospital [facility] What to do if you have Problems For any increased pain, shortness of breath, bleeding, nausea or vomiting, chestpain, or any unexpected problems, contact your Primary Care Provider. Call [facility] ([phone]) or report to the closest Emergency Room. Call 911 if necessary. 08/19/22 002 <Electronically signed by Sid Gray MD> Cosigner Signature (if applicable): CC: Dr. Jasson Mancuso MD ~ Signed [facility] Work Phone: [phone] 706-636803-04-[address] Gray [facility] August 19, 2022 12:21am Note Date/Time August 18, 2022 10:2 9pm [facility] Medical Records Department [address] [place] [address] Emergency Department Summary 08/18/22 MR#: [id number] Acct: [id number] Name: KOJO TAVERAS Rep #:[id number] : 1945 77 From: Sid Gray MD [...] she went out for a bathat around [phone]. She came down and had her glasses [...] TIAs later on in life. [facility] Medical History Arthropathy of left shoulder [...] 27 with a normal creatinine of 0.7. Ezcch-ja-ugja glucose is 102. I do not feel [...] 43.6 L Lymph % (Auto) 45.4 H Blaine % (Auto) 8.9 Eos % (Auto) 1.4 [...] Color Urine Clarity Urine pH Ur Specific [place] Urine Protein Urine Glucose (UA) Urine Ketones Urine Occult Blood Urine Nitrite Urine Bilirubin Urine Urobilinogen Ur Leukocyte Esterase POC Glucose 102 08/18/22 08/18/22 22:04 23:19 WBC RBC Hgb Hct MCV MCH MCHC RDW Std Deviation RDW Coeff of Lyn Plt Count MPV Immature Gran % (Auto) Neut % (Auto) Lymph % (Auto) Blaine % (Auto) Eos % (Auto) Baso % [...] Clarity Clear Urine pH 7.0 Ur Specific [place] 1.005 Urine Protein Negative Urine Glucose (UA) Normal Urine Ketones Negative Urine Occult Blood Negative Urine Nitrite Negative Urine Bilirubin Negative Urine Urobilinogen Normal Ur Leukocyte Esterase 25 H POC Glucose Radiography Diagnostic Testing: Clinical Impression(s) from Imaging Studies Brain CT 08/18/22 22:08 IMPRESSION: Negative Brain CT without contrast. Electronically Signed: Valdo Soto MD at 22:25 EST , ADDENDUM: 08/18/224 IMPRESSION: Negative Brain CT without contrast. N.B. [...] Hypertensive emergency Disposition Disposition: Acute Care Hospital [facility] What to do if you have Problems For any increased pain, shortness of breath, bleeding, nausea or vomiting, chestpain, or any unexpected problems, contact your Primary Care Provider. Call [facility] ([phone]) or report to the closest Emergency Room. Call 911 if necessary. 08/19/22 0021 <Electronically signed by Sid Gray MD> Cosigner Signature (if applicable): CC: Dr. Jasson Mancuso MD ~ Signed [facility] Work Phone: Evaluation noteNo assessment information available [facility] Work Phone: Evaluation note* Diagnosis Onset Date Resolution Status Hypertensive emergency acute Transient global amnesia acu te Transient ischemic attack (TIA) acute [facility] Work Phone: Evaluation note* Diagnosis Onset Date Resolution Status Hypertensive emergency acute Transient ischemic attack (TIA) acute Transient global amnesia res olved [facility] Work Phone: Evaluation note* Diagnosis Onset Date Resolution Status Hypertensive emergency acute Transient ischemic attack (TIA) acute Transient global amnesia res olved Cardiac arrhythmia acute CVA (cerebral vascular accident) acute Essential hypertension chron ic [facility] Work Phone: Evaluation note* Diagnosis Onset Date Resolution Status COVID-19 acute [facility] Work Phone: Reason for referral (narrative)No reason for referral [facility] Work Phone: Summary Purpose Family History No [...] Will Yes May 27 2:19pm Power of Inspection Clerk Yes May 27, 2020 2:19pm Advance Directive Response Recorded Date/ Time Advance Directives Yes March 20, 2014 12:43pm Living Will Yes August 19, 2022 1:24am Power of Inspection Clerk Yes August 19 1:24am Name of Medical Power of Inspection Clerk Quinton Chao an August 19, 2022 1:24am Advance Directive Response Recorded Date/ Time Name of Medical Power of Inspection Clerk Quinton Chao an August 19, 2022 1:24am Advance Directives Yes March 20, 2014 12:43pm Living Will Yes August 19, 2022 1:24am Power of Inspection Clerk Yes August 19 1:24am Advance Directive Response Recorded Date/ Time Name of Medical Power of Inspection Clerk Quinton Chao an August 19, 2022 2:24am Advance Directives Yes March 20, 2014 1:43pm Living Will Yes August 19, 2022 2:24am Power of Inspection Clerk Yes August 19 2:24am Advance Directive Response Recorded Date/ Time Name of Medical Power of Inspection Clerk Quinton mendez August 19, 2022 2:24am Advance Directives on File No December 11, 2022 7:14am Name of Medical Power of Inspection Clerk Quinton (spouse ) December 11, 2022 7:14am Advance Directives Yes December 11 7:14am Living Will Yes December 11, 2022 7:14am Power of Inspection Clerk Yes December 11 7:14am Advance Directive Response Recorded Date/ Time Advance Directives Yes December 11 6:14am Living Will Yes December 11, 2022 6:14am Power of Inspection Clerk Yes December 11 6:14am Advance Directive Response Recorded Date/ Time Living Will Yes December 11, 2022 7:14am Do you have a Healthcare Power of Inspection Clerk? Yes December 11, 2022 7:14am Advance Directives [...] 2024 8:0 6am Chief Complaint Admit Date Pacer Check Remote November 23, 2024 3:42a m EORDER January 29, 2025 7: 28am Additional Source Comments INFORMATION SOURCE (unrecogn ized section and content) DATE CREATED AUTHOR 05/31/2019 [facility] ([place]) DATE CREATED AUTHOR AUTHOR'S ORGANIZ ATION 06/10/2019 [facility] DATE CREATED AUTHOR AUTHOR'S ORGANIZ ATION 04/14/2025 [facility] Goals (unrecognized section and content) Goals [...] MD Primary Care Provider Active Dr. Valdo Garica MD Attending Provider Active Team Status: Active [...] Canela MD Other Provider Active Gaudencio Holcomb AWNING CRAFTSMAN, [employer]NING CRAFTSMAN-C Attending Provider Active Team Status: Active Member [...] 2024 End: July 31, 2024 Gaudencio Holcomb NP, AWNING CRAFTSMAN-C Attending Provider Active S tart: July 31, [...] 2024 End: September 01, 2024 Dr. Ernesto Cnaela MD Attending Provider Active S tart: September [...] November 23, 2024 End: November 23, 2024 Team Status: Active Member Role/Relationship Status Dates Dr. Gaudencio Patel MD Primary Care Provider Active Team Status: Inactive Member Role/Relationship Status Dates Dr. Gaudencio Patel MD Primary Care Provider Active Start: November 12, 2024 End: November 12, 2024 Dr. Gaudencio Patel MD Attending Provider Active Start: November 12, 2024 End: November 12, 2024 Dr. Gaudencio Patel MD Referring Provider Active Start: November 12, 2024 End: November 12, 2024 Team Status: Inactive Member Role/Relationship Status Dates Dr. Gaudencio Patel MD Primary Care Provider Active Start: November 23, 2024 End: November 23, 2024 Dr. Ernesto Canela MD Attending Provider Active S tart: November 23, 2024 End: November 23, 2024 Dr. Ernesto Canela MD Referring Provider Active S tart: November 23, 2024 End: November 23, 2024 Team Status: Inactive Member Role/Relationship Status Dates Dr. Gaudencio Patel MD Primary Care Provider Active Start: January 29, 2025 End: January 29, 2025 Dr. Gaudencio Patel MD Attending Provider Active Start: January 29, 2025 End: January 29, 2025 Dr. Gaudencio Patel MD Referring Provider Active Start: January 29, 2025 End: January 29, 2025 Team Status: Active Member Role/Relationship Status Dates Dr. Gaudencio Patel MD Primary Care Provider Active Start: February 03, 2025 Dr. Gaudencio Patel MD Attending Provider Active Start: February 03, 2025 Dr. Gaudencio Patel MD Referring Provider Active Start: February 03, 2025 Team Status: Inactive Member Role/Relationship Status Dates Dr. Gaudencio Patel MD Primary Care Provider Active Start: February 03, 2025 End: February 03, 2025 Dr. Gaudencio Patel MD Attending Provider Active Start: February 03, 2025 End: February 03, 2025 Dr. Gaudencio Patel MD Referring Provider Active Start: February 03, 2025 End: February 03, 2025 FOR RECORDS PERTAINING TO PATIENTS WHO ARE [...] BE BASED ON THE PRIMARY CLINICAL RECORDS. [facility] [employer] provides no warranty or guarantee of the accuracy or completeness of information in this document.
[2025-06-09] MEDS: Lactated Ringers 1,000 ML 15 ML IV (07:15)
--- NOTE | 2025-06-09 07:53 | PCM.HP.BLA ---
History and Physical Date of Admission: 06/09/25 Intake Vital Signs 08/11/2514:57 05/13/2508:38 Height 5 ft 1 in 5 ft 2 in Weight: 127 lb BMI 23.2 BP 147/73 H Blood Pressure Location Lt brachial Position Sitting Respiration 17 Pulse 60 Pulse Source Monitor Temp 96.4 F L Temp Source Temporal Pulse Oximetry (%) 98 Oxygen Delivery Method room air Intake Visit Reasons: Gastroesophageal reflux disease (GERD) Chief Complaint: gerd/possible c-scope Is patient in pain?: No Allergies No Known Allergies Allergy (Verified 05/13/25 08:41) Medications ?Medication ?Instructions ?Recorded ?Confirmed ?Type meloxicam 7.5 mg tablet 7.5 mg PO BID 05/11/20 05/13/25 History aspirin 81 mg chewable tablet 81 mg PO DAILY@0800 #30 tabs 08/20/22 05/13/25 Rx calcium carbonate-vitamin D2 1 tab PO BID 09/27/22 05/13/25 History [Calcium with Vitamin D] gabapentin 300 mg capsule 300 mg PO QHS 09/27/22 05/13/25 History omeprazole 20 mg capsule,delayed 20 mg PO DAILY 09/27/22 05/13/25 History release temazepam 15 mg capsule 15 mg PO QHS 09/27/22 05/13/25 History metoprolol succinate 25 mg 25 mg PO QHS 08/01/23 05/13/25 History tablet,extended release 24 hr rosuvastatin 40 mg tablet (Crestor) 40 mg PO DAILY 08/01/23 05/13/25 History amlodipine 5 mg tablet 5 mg PO DAILY 06/27/24 05/13/25 History escitalopram oxalate 5 mg tablet 5 mg PO QDAY 07/28/24 05/13/25 History Have you fallen in the past year?: No PFSH Medical History Paroxysmal SVT (supraventricular tachycardia) PVC's (premature ventricular contractions) Anxiety Insomnia Essential hypertension Cellulitis of periorbital region of both eyes Guaiac positive stools Arthropathy of left shoulder Hemorrhoids GERD (gastroesophageal reflux disease) Hyperlipidemia Cardiac arrhythmia CTS (carpal tunnel syndrome) Lumbar discogenic pain syndrome Osteoarthritis Surgical History History of bilateral carpal tunnel release History of colonoscopy (~2004) History of appendectomy History of cholecystectomy History of bunionectomy History of bilateral hip arthroplasty History of arthroscopy of left knee Family History Grandfather CVA (cerebral vascular accident) Aunt CVA (cerebral vascular accident) Other Abdominal aneurysm Social History Smoking Status: Never smoker alcohol intake: current substance use type: does not use HPI HPI HPI: Patient is a 79-year-old female here with 2 issues. Her first issue is GERD. She tried to stop her PPI and the reflux returned so she started it back up again. Her PCP would like an EGD to evaluate for gastritis or esophagitis. The patient would also like a colonoscopy because she reports that she has been having urgency and diarrhea and sometimes not been able to make it to the bathroom. She says this is new over the last few months. She is concern for a colon cancer as she had a friend that presented the same situation. She is not having any abdominal pain or nausea or vomiting. ROS General General: No weight change, appetite, fatigue, colon cancer, breast cancer or weakness HEENT HEENT: Yes eye surgery; No difficulty swallowing, eye injury, swollen glands or hoarseness Endo Endocrine: No thyroid disease, diabetes mellitus, thyroid cancer, Hair loss, heat intolerance or cold intolerance Skin Skin: No rash or changing moles Musc Musculoskeletal: Yes back problems and arthritis; No rheumatoid arthritis, gout or joint pain Cardio Cardiovascular: Yes high blood pressure; No murmur, pacemaker, heart disease, atrial fibrillation, heart attack, heart stent, palpitations, shortness of breath with exertion or chest pain Psych Psychiatric: No depression, anxiety or hearing voices Resp Respiratory: No shortness of breath, No sleep apnea, No cough, No COPD, No asthma, No emphysema and No wheezing Gastro Gastrointestinal: No abdominal pain, No nausea or vomiting, Yes diarrhea, Yes constipation, No blood in stool, Yes acid reflux, Yes hemorrhoids, Yes ulcers, No gallbladder problem and No black,tarry stools Carter Hematologic: No blood thinners, No blood disorders, No bleeding, No anemia and No blood clots Neuro Neurologic: No system reviewed and no additional complaints, except as documented, No as per HPI, No abnormal gait, No abnormal hearing, No abnormal movements, No abnormal speech, No behavioral changes, No burning sensations, No confusion, No convulsions, No disequilibrium, No dizziness, No localized weakness, No frequent falls, No headache(s), No lack of coordination, No loss of vision, No memory loss, No numbness, No other visual disturbances, No radicular pain, No restless legs, No sensory deficit, No syncope, No tingling, No tremor(s), No weakness and No other ROS Narrative h/o stroke Exam Const General: cooperative Orientation: alert and oriented x3 HENMT Head: normal to inspection Neck Neck: normal visual inspection and full ROM Chest Chest palpation & inspection: normal inspection of the chest Resp Effort & Inspection: normal respiratory effort Auscultation: clear to auscultation bilaterally Cardio Rate: regular rate Rhythm: regular rhythm GI Inspection: non-distended Palpation: soft and nontender Skin General: no rashes or lesions noted Neuro General: patient alert and patient oriented x3 Extrem General: full ROM Psych Appearance: grossly normal Mental Status: mental status grossly normal Assessment and Plan Assessment and Plan (1) Gastroesophageal reflux disease: (2) Fecal urgency: Status: Acute Orders: Orders Colonoscopy Today EGD Today Plan The patient is having increased bowel movements with diarrhea and constipation alternating and increased urgency and unable to make it to the bathroom. She is also having GERD and has been on a PPI for a very long time and was recommended to have an EGD to evaluate for esophagitis. She had an upper and lower scope 5 years ago which were normal. I explained endoscopy in detail to the patient. I explained the risks including but not limited to stroke or heart attack with anesthesia, perforation of the GI tract, bleeding, infection. I explained that any of these could necessitate further emergency surgery. The patient understands and all questions were answered sufficiently. The patient wishes to proceed with procedure. Dwayne Bradley MD Pager: [facility] [address] [place] [address], [address] [place] [address] Office: I have examined the patient and the H&P has been reviewed. There are no clinical changes since date of exam.
--- NOTE | 2025-06-09 07:55 | PCM.PRE.AN2 ---
ASA Classification* ASA Classification ASA Classification: 2 Assessment & Plan Anesthesia* Anesthesia Assessment Anesthesia Assessment: Discussed sedation and/or anesthesia options, risks, benefits, and alternatives with patient/parents/legal guardian/POA. Questions invited. The patient/parents/legal guardian/POA seems to understand and agrees to proceed with anesthesia plan. Reviewed the physical assessment, medical history, allergy history and patient home medications list prior to surgery/procedure/anesthetic and documented any changes. Performed airway and anesthesia risk assessments. Anesthesia Type Anesthesia Type: MAC History Source History Obtained from:: Patient and Chart Anesthesia Focused Assessment* Temperature: 97.3 F Pulse Rate: 69 Blood Pressure: 136/76 Respiratory Rate: 16 Pulse Ox: 99 Oxygen Delivery Method: Room Air Airway Assessment Mouth opens: >3 cm Mallampati Score: III Teeth Condition: Chipped/Broken (Patient has a couple chipped molars. Rest of the teeth are intact.) Neck Range of motion (ROM): Limited ROM (Slight Decrease) Labs Anesthesia Preop lab: CBC WBC, (4.4-11.0) 7.1 K/mm3 01/29/25, 07:34 RBC, (4.2-5.4) 4.36 M/mm3 01/29/25, 07:34 Hgb, (12.0-15.0) 13.0 g/dL 01/29/25, 07:34 Hct, (37-47) 39.7 % 01/29/25, 07:34 Plt Count, (150-450) 228 K/mm3 01/29/25, 07:34 CHEMISTRY Potassium, (3.3-5.1) 4.5 mmol/L 01/29/25, 07:34 Sodium, (133-145) 139 mmol/L 01/29/25, 07:34 Magnesium, (1.6-2.6) 2.2 mg/dL 07/25/23, 09:32 BUN, (4-19) 21 mg/dL H 01/29/25, 07:34 Creatinine, (0.70-1.20) 0.71 mg/dL 01/29/25, 07:34 Glucose, (70-99) 98 mg/dL 01/29/25, 07:34 POC Glucose, (74-106) 102 mg/dL 08/18/22, 21:59 TSH, (0.300-4.200) 1.160 uIU/mL 02/03/25, 08:52 COAG PT, (11.7-14.9) 13.0 SECONDS 08/18/22, 22:04 Pre-Assessment Diagnosis/Proposed Procedure Planned Operative Procedure(s): COLONOSCOPY, EGD Anesthesia History Anesthesia History - manager financial services: Anesthesia History - manager financial services Hx Hospitalization Yes 06/05/25 09:08 Any Problems With Anesthesia Yes: VERY CHILLED 06/05/25 09:08 Cholinesterase deficiency No 06/05/25 09:08 You/Your Family Experience No 06/05/25 09:08 fever (hyperthermia) with Relationship Recent Exposure to Contagious No 06/09/25 07:29 Disease Does patient have nerve No 06/05/25 09:08 stimulator Patient instructed to have device shut off --Does patient have Pacemaker No 06/09/25 07:29 or ICD? When Was Last Pacemaker Check QUESTION #4 FULL TEXT: You/Your Family Experience fever (hyperthermia) with Anesthesia Last Oral Intake Last Oral intake: Last Oral Intake NPO since 19:30 06/09/25 07:29 Meds taken in AM with sips of Yes 06/09/25 07:29 water? Meds patient instructed to see medlist 06/09/25 07:29 take am of surgery PONV PONV - manager financial services: PONV - manager financial services Female Yes 06/05/25 09:08 HX of Motion Sickness Yes 06/05/25 09:08 HX of N/V After Surgery No 06/05/25 09:08 Non-Smoker Yes 06/05/25 09:08 Duration of Surgery greater No 06/05/25 09:08 than 60 minutes Number of Risk Factors 3 06/05/25 09:08 PONV Score Moderate Risk 06/05/25 09:08 Height & Weight Height & Weight: Anesthesia: Height & Weight Height 5 ft 1 in 06/09/25 07:29 Weight: 56 kg 06/09/25 07:29 Body Mass Index (BMI) 23.3 06/09/25 07:29 Respiratory Assessment Respiratory Assessment - manager financial services: Respiratory Tract Infection Hx - manager financial services Hx Respiratory Tract Infection No 06/05/25 09:08 STOP Sleep Apnea STOP Sleep Apnea - manager financial services: STOP Sleep Apnea - manager financial services Hx Hypertension Yes: PER PT, CONTROLLED ON 06/05/25 09:08 MEDS Hx Sleep Apnea No 06/05/25 09:08 CPAP No 08/11/24 15:57 BIPAP No 08/11/24 15:57 Do you snore loudly (louder No 06/05/25 09:08 than talking or can be heard Do you often feel tired/ No 06/05/25 09:08 fatigued/ sleepy during daytime? Has anyone observed you stop No 06/05/25 09:08 breathing during sleep? STOP Results Negative 06/05/25 09:08 QUESTION #5 FULL TEXT : Do you snore loudly (louder than talking or can be heard through closed doors)? Tobacco Use History Tobacco Use History - manager financial services: Tobacco Use History - manager financial services Tobacco Use Smoking Status Never smoker 06/05/25 09:08 Hx Tobacco Use No 06/05/25 09:08 Years Smoking Packs Smoked per Day Smoking Cessation Date was within the last 15 years Hx Smoking Cessation Date Hx Smoking Cessation Counseling Hematologic Medial History Hematologic Hx - manager financial services: Hematologic Medical Hx - condenser tube tender Hx of Blood Transfusion No 06/05/25 09:08 Hx of Transfusion in last 3 No 06/05/25 09:08 Months Date of Last Transfusion (if within last 3 months) Ever experience any problems No 06/05/25 09:08 with transfusion(s)? Specify any problems Hx of Preganancy in last 3 No 06/05/25 09:08 Months Nurse Filling Out Transfusion MGRIFFITH 06/05/25 09:08 & Questions: Date: 06/05/25 06/05/25 09:08 Time: 09:12 06/05/25 09:08 Patient unable to answer at this time (ie. confused, unrespo /Reproduction History /Reproductive History - manager financial services: /Reproductive Hx- manager financial services Hx Now No 06/05/25 09:08 Gestational Age (in weeks): EDC: Hx Hx Para Hx Section SAB No 06/05/25 09:08 Does the father of the baby or his family experience fever w Father of the baby Malignant Hypertension history comment Active Medications Active Medications: Current Medications Generic Name Dose Route Start Last Admin Trade Name Freq PRN Reason Stop Dose Admin Lactated Ringer's 1,000 mls @ 15 mls/hr 06/09/25 07:15 06/09/25 07:15 IV 15 mls/hr .Q48H ROZ Administration PFSH Medical History Wears glasses Alcohol use Arthritis High cholesterol Stroke/cerebrovascular accident History of ulceration Gastric reflux Non-smoker History of Holter monitoring History of echocardiogram Cardiology follow-up encounter Paroxysmal SVT (supraventricular tachycardia) PVC's (premature ventricular contractions) Anxiety Insomnia Essential hypertension Cellulitis of periorbital region of both eyes Guaiac positive stools Arthropathy of left shoulder Hemorrhoids GERD (gastroesophageal reflux disease) Hyperlipidemia Cardiac arrhythmia CTS (carpal tunnel syndrome) Lumbar discogenic pain syndrome Osteoarthritis Home Medications ?Medication ?Instructions ?Recorded ?Last Taken ?Type meloxicam 7.5 mg tablet 7.5 mg PO BID PAIN 05/11/20 Unknown History aspirin 81 mg chewable tablet 81 mg PO DAILY@0800 #30 tabs 08/20/22 06/04/25 Rx calcium carbonate-vitamin D2 1 tab PO BID 09/27/22 Unknown History [Calcium with Vitamin D] gabapentin 300 mg capsule 300 mg PO QHS NEUROPATHY 09/27/22 Unknown History omeprazole 20 mg capsule,delayed 20 mg PO DAILY GERD 09/27/22 06/09/25 History release temazepam 15 mg capsule 15 mg PO QHS 09/27/22 Unknown History metoprolol succinate 25 mg 25 mg PO DAILY 08/01/23 06/09/25 History tablet,extended release 24 hr rosuvastatin 40 mg tablet (Crestor) 40 mg PO QHS CHOLESTEROL 08/01/23 Unknown History amlodipine 5 mg tablet 5 mg PO QHS HTN 06/27/24 Unknown History escitalopram oxalate 5 mg tablet 5 mg PO QDAY 07/28/24 Unknown History cholecalciferol (vitamin D3) 25 25 mcg PO QHS SUPPLEMENT 06/05/25 Unknown History mcg (1,000 unit) tablet (Vitamin D3) Allergy/AdvReac Type Severity Reaction Status Date / Time No Known Allergies Allergy Verified 06/09/25 07:24 Family History Grandfather CVA (cerebral vascular accident) Aunt CVA (cerebral vascular accident) Other Abdominal aneurysm Surgical History History of repair of right rotator cuff History of bilateral carpal tunnel release History of colonoscopy (~2004) History of appendectomy History of cholecystectomy History of bunionectomy History of bilateral hip arthroplasty History of arthroscopy of left knee Social History Smoking Status: Never smoker alcohol intake: current substance use type: does not use Review of Systems (Anesthesia) ROS Narrative System reviewed and no additional complaints, except as documented.
--- NOTE | 2025-06-09 08:27 | OP.EGD_ITS ---
Patient Name: Wendy Patton Procedure Date: 06/09/2025 7:58 AM Date of : 1945 Age: 79 Procedure: Upper GI endoscopy Indications: Heartburn Providers: Dwayne Bradley MD Referring MD: Gaudencio Patel Medicines: Propofol per Anesthesia Patient Profile: This is a 79 year old female. Refer to note in patient chart for documentation of history and physical. Complications: No immediate complications. Procedure: Pre-Anesthesia Assessment: - Prior to the procedure, a History and Physical was performed, and patient medications and allergies were reviewed. The patient's tolerance of previous anesthesia was also reviewed. The risks and benefits of the procedure and the sedation options and risks were discussed with the patient. All questions were answered, and informed consent was obtained. Prior Anticoagulants: The patient has taken no anticoagulant or antiplatelet agents. After reviewing the risks and benefits, the patient was deemed in satisfactory condition to undergo the procedure. After obtaining informed consent, the endoscope was passed under direct vision. Throughout the procedure, the patient's blood pressure, pulse, and oxygen saturations were monitored continuously. The gastroscope was introduced through the mouth, and advanced to the third part of duodenum. The upper GI endoscopy was accomplished without difficulty. The patient tolerated the procedure well. Scope In: 8:08:13 AM Scope Out: 8:11:43 AM Total Procedure Duration Time 0 hours 3 minutes 30 seconds Findings: The esophagus was normal. The stomach was normal. The examined duodenum was normal. Impression: - Normal esophagus. - Normal stomach. - Normal examined duodenum. - No specimens collected. Recommendation: - Discharge patient to home. - Resume previous diet. - Continue present medications. Procedure Code(s): --- Professional --- 06651, Esophagogastroduodenoscopy, flexible, transoral; diagnostic, including collection of specimen(s) by brushing or washing, when performed (separate procedure) Diagnosis Code(s): --- Professional --- R12, Heartburn CPT copyright 2021 [employer]. All rights reserved. The codes documented in this report are preliminary and upon film projector operator review may be revised to meet current compliance requirements. Dwayne Bradley MD 06/09/2025 8:26:55 AM This report has been signed electronically. Number of Addenda: 0 Note Initiated On: 06/09/2025 7:58 AM
--- NOTE | 2025-06-09 08:27 | OP.PROVAT_ITS ---
06/09/2025 Gaudencio Patel [address] [place] [address] Re : Upper GI endoscopy procedure for Wendy Patton Dear Dr. Patel This procedure was performed on Monday, June 09, 2025. My impressions and recommendations are as follows: Impressions : - Normal esophagus. - Normal stomach. - Normal examined duodenum. - No specimens collected. Recommendations : - Discharge patient to home. - Resume previous diet. - Continue present medications. My findings are described in the full procedure note, which is enclosed. If I can be of further assistance, please feel free to contact me at Doctor phone number(s): , Work: . Sincerely, Dwayne Bradley MD 06/09/2025 8:26:55 AM This report has been signed electronically.
--- NOTE | 2025-06-09 08:29 | OP.COLON_ITS ---
Patient Name: Wendy Patton Procedure Date: 06/09/2025 8:12 AM Date of : 1945 Age: 79 Procedure: Colonoscopy Indications: Chronic diarrhea Providers: Dwayne Bradley MD Referring MD: Gaudencio Patel Medicines: Propofol per Anesthesia Patient Profile: This is a 79 year old female. Refer to note in patient chart for documentation of history and physical. Last Colonoscopy: more than 10 years ago. Complications: No immediate complications. Procedure: Pre-Anesthesia Assessment: - Prior to the procedure, a History and Physical was performed, and patient medications and allergies were reviewed. The patient's tolerance of previous anesthesia was also reviewed. The risks and benefits of the procedure and the sedation options and risks were discussed with the patient. All questions were answered, and informed consent was obtained. Prior Anticoagulants: The patient has taken no anticoagulant or antiplatelet agents. After reviewing the risks and benefits, the patient was deemed in satisfactory condition to undergo the procedure. - Prior to the procedure, a History and Physical was performed, and patient medications and allergies were reviewed. The patient's tolerance of previous anesthesia was also reviewed. The risks and benefits of the procedure and the sedation options and risks were discussed with the patient. All questions were answered, and informed consent was obtained. Prior Anticoagulants: The patient has taken no anticoagulant or antiplatelet agents. After reviewing the risks and benefits, the patient was deemed in satisfactory condition to undergo the procedure. After I obtained informed consent, the scope was passed under direct vision. Throughout the procedure, the patient's blood pressure, pulse, and oxygen saturations were monitored continuously. The colonoscope was introduced through the anus and advanced to the cecum, identified by appendiceal orifice and ileocecal valve. The colonoscopy was performed without difficulty. The patient tolerated the procedure well. The quality of the bowel preparation was good. The ileocecal valve, appendiceal orifice, and rectum were photographed. Scope In: 8:13:01 AM Scope Withdrawal Time 0 hours 6 minutes 15 seconds Scope Out: 8:24:33 AM Total Procedure Duration Time 0 hours 11 minutes 32 seconds Findings: The entire examined colon appeared normal on direct and retroflexion views. Impression: - The entire examined colon is normal on direct and retroflexion views. - No specimens collected. Recommendation: - Discharge patient to home. - Resume previous diet. - Continue present medications. - Repeat colonoscopy is not recommended due to current age (66 years or older) for screening purposes. Procedure Code(s): --- Professional --- 63759, Colonoscopy, flexible; diagnostic, including collection of specimen(s) by brushing or washing, when performed (separate procedure) Diagnosis Code(s): --- Professional --- K52.9, Noninfective gastroenteritis and colitis, unspecified CPT copyright 2021 [employer]. All rights reserved. The codes documented in this report are preliminary and upon tunnel mucker review may be revised to meet current compliance requirements. Dwayne Bradley MD 06/09/2025 8:28:58 AM This report has been signed electronically. Number of Addenda: 0 Note Initiated On: 06/09/2025 8:12 AM
--- NOTE | 2025-06-09 08:29 | OP.PROVAT_ITS ---
06/09/2025 Gaudencio Patel [address] [place] [address] [place] [address] Re : Colonoscopy procedure for Wendy Patton Dear Dr. Patel This procedure was performed on Monday, June 09, 2025. My impressions and recommendations are as follows: Impressions : - The entire examined colon is normal on direct and retroflexion views. - No specimens collected. Recommendations : - Discharge patient to home. - Resume previous diet. - Continue present medications. - Repeat colonoscopy is not recommended due to current age (66 years or older) for screening purposes. My findings are described in the full procedure note, which is enclosed. If I can be of further assistance, please feel free to contact me at Doctor phone number(s): , Work: . Sincerely, Dwayne Bradley MD 06/09/2025 8:28:58 AM This report has been signed electronically.
--- NOTE | 2025-06-09 08:36 | PCM.POST.ANE ---
Anesthesia: Postop Eval I Current Vital Signs Temperature: 97 F Pulse Rate: 62 Blood Pressure: 83/57 Respiratory Rate: 16 Pulse Ox: 97 Oxygen Delivery Method: Room Air Assessment Airway patent: Yes Spontaneous unlabored respirations: Yes Mental status: Asleep nausea: No Vomiting: No Anesthesia Complication: No Fluid Hydration Crystalloid volume administer (ml): 500 Total IV fluid infused: 500 Progress Note Anesthesia document: Postop Eval 1 completed: Yes
--- NOTE | 2025-06-09 12:56 | PCM.POSTANE2 ---
Anesthesia Postop Eval I Sum Postop Eval Completion status Anesthesia document: Postop Eval 1 completed: Yes Anesthesia Postop Eval I Summary Anesthesia Postop Eval I Summary: Anesthesia Postop Eval I: Assessment Summary Airway patent Yes 06/09/25 08:36 [email or web address] Spontaneous unlabored Yes 06/09/25 08:36 [email or web address] respirations Mental status Asleep 06/09/25 08:36 [email or web address] nausea No 06/09/25 08:36 [email or web address] Vomiting No 06/09/25 08:36 [email or web address] Anesthesia Postop Eval I: Fluid Summary Crystalloid volume administer 500 06/09/25 08:36 [email or web address] (ml) Colloids volume administered ( ml) Blood Product volume administered (ml) Total IV fluid infused 500 06/09/25 08:36 [email or web address] Anesthesia Postop Eval I: Summary Notes Anesthesia Complication No 06/09/25 08:36 [email or web address] Anesthesia Complication Comment: Post-operative progress note Anesthesia: Postop Eval II Evaluation Mental status: Awake and Calm Pain Level: 0 nausea: No Vomiting: No Complications Anesthesia Complication: No
== END 2025-06-09 09:13 | disposition home or self-care (01) ==
LOC: EN 06:59 → AC 07:02
PROVIDERS: PCP Family Medicine; Referring Provider Family Medicine; Visit Provider Surgery
PROC: 0DJD8ZZ Inspection of Lower Intestinal Tract, Via Natural or Artificial Opening Endoscopic (ICD-10-PCS; CPT 45378; principal; 2025-06-09 07:55)
DX: K52.9 Noninfective gastroenteritis and colitis, unspecified (principal); K21.9 Gastro-esophageal reflux disease without esophagitis; I10 Essential (primary) hypertension; E78.00 Pure hypercholesterolemia, unspecified; R15.2 Fecal urgency; Z79.82 Long term (current) use of aspirin; Z79.899 Other long term (current) drug therapy; R12 Heartburn
CPT/HCPCS: 45378; 44360; J2405